=== PATIENT | female | born 1955 | race Caucasian/White ===

== ENCOUNTER 2019-05-02 15:21 | Emergency (ER) | payer MEDICARE, MEDICAID, SELFPAY ==
[2019-05-02 15:10] VITALS: PULSE 80; RESP 20; TEMP 36.6; O2SAT 95
[2019-05-02 15:19] VITALS: BP 132/87
--- NOTE | 2019-05-02 16:03 | ED_ITS ---
Documented by User: Brice Spring MD 05/02/19 22:08 HPI - General Adult General: Chief complaint: General Medical Stated complaint: r arm pain/swelling post surgery Time Seen by Provider: 05/02/19 18:57 History of Present Illness: HPI narrative: 64-year-old female who had fistula placed in her right arm last week. She states she has had swelling to her hand along with her arm. She had a subjective fever today. She denies any worsening improving factors. States she has slight pain in her arm she rates a 2 out of 10 Associated symptoms: Deny chest pain, dyspnea, headache(s), rash or vomiting Review of Systems Const: Denies: fever or chills Eyes: Denies: change in vision ENMT: Denies: throat pain or mouth pain Card: Denies: chest pain Resp: Denies: shortness of breath GI: Denies: abdominal pain, vomiting or diarrhea : Denies: difficulty urinating Musc: Denies: back pain or joint pain Skin/Breast: Denies: rash Neuro: Denies: headache Psych: Denies: depression Endo: Denies: excessive urination Juan/Lymph: Denies: easy bruising All/Imm: Denies: hives PFSH ED PFSH: Statuses (acute, chronic, etc) shown below reflect problem list status as previously entered and may not be historically accurate Social History Smoking and tobacco status: current every day smoker Physical Exam Const: COMMON NORMALS: no apparent distress and healthy appearing HENMT: COMMON NORMALS: normocephalic and external nose normal HEAD & SCALP: normocephalic NOSE: external nose normal and no nasal discharge (nasal dischage) Eye: COMMON NORMALS: PERRL PUPIL: Yes PERRL Neck/C-Spine: COMMON NORMALS: full ROM and no lymphadenopathy Chest: COMMONS NORMALS: inspection of chest normal Resp: COMMON NORMALS: normal respiratory effort and clear to auscultation bilaterally AUSCULTATION: clear to auscultation bilaterally Cardio: COMMON NORMALS: regular rate and regular rhythm RATE: regular rate RHYTHM: regular rhythm GI: COMMON NORMALS: soft to palpation PALPATION: Yes soft Extremity: COMMON NORMALS: full ROM and normal capillary refill OTHER: Swelling to right arm. Slight erythema around incisions with mild warmth to touch. Distal pulses intact. Psych: COMMON NORMALS: mental status grossly normal and cooperative Skin: COMMON NORMALS: no rashes or lesions noted GENERAL SKIN EXAM: no rashes or lesions noted Course Vital Signs: Vital signs: Vital Signs Temperature 97.9 F 05/02/19 21:51 Pulse Rate 74 05/02/19 21:51 Respiratory Rate 16 05/02/19 21:51 Blood Pressure 132/87 05/02/19 15:19 Pulse Oximetry 95 05/02/19 21:51 MDM - General Adult MDM Narrative: Medical decision making narrative: Patient presents here with arm swelling. She has slight cellulitis and edema to her arm. No signs of acute blockage. She is to follow-up with her surgeon as soon as possible. She is to get dialysis tomorrow as scheduled. She is to return to ER if worsening. Lab Data: Labs: Lab Results 05/02/19 05/02/19 Range/Units 20:15 20:15 WBC 8.0 (4.0-10.0) 10^3/ uL RBC 3.51 L (4.1-5.3) 10^6/u L Hgb 11.1 L (11.5-15.3) g/dL Hct 36.6 L (37.0-47.0) % MCV 104.3 H (81-99) fL MCH 31.6 (28.0-34.0) pg MCHC 30.3 (30.0-36.0) g/dL RDW 14.4 (12.1-15.1) % Plt Count 61 L (130-400) 10^3/c mm MPV 11.8 H (7.4-10.4) fL Neut % (Auto) 71.7 % Lymph % (Auto) 15.3 % [place] % (Auto) 8.0 % Eos % (Auto) 4.0 % Baso % (Auto) 0.6 % Neut # (Auto) 5.7 (1.8-7.7) 10^3/u L Lymph # (Auto) 1.2 (0.8-4.8) 10^3/u L [place] # (Auto) 0.6 (0.2-0.9) 10^3/u L Eos # (Auto) 0.3 (0.0-0.8) 10^3/u L Baso # (Auto) 0.1 (0.0-0.1) 10^3/u L Nucleated RBC % (a uto) 0 % Nucleated RBCs # 0.0 /100WBC Sodium 134 L (136-145) mmol/L Potassium 5.3 H (3.5-5.1) mmol/L Chloride 95 L (98-107) mmol/L Carbon Dioxide 16 L (22-29) mmol/L Anion Gap 28.3 H (5-19) BUN 59 H (8-23) mg/dL Creatinine 11.2 H* (0.5-0.9) mg/dL GFR Calculation 3.4 L (90-130) mL/min Glucose 88 (74-106) mg/dL Calcium 7.3 L (8.8-10.2) mg/Dl Discharge Plan Discharge Patient Disposition: Home, Self-Care Clinical Impression: Cellulitis Qualifiers: Site of cellulitis: extremity Site of cellulitis of extremity: upper extremity Laterality: right Qualified Code(s): L03.113 - Cellulitis of right upper limb Condition: Stable Prescriptions: New Keflex 500 mg capsule 500 mg PO Q6H 7 Days Qty: 28 RF: 0 Discharge Orders: Discharge Order (Routine); Ordered 05/02/19 Ordered By: Brice Spring Referrals: Vincent Gillis DO [Primary Care Provider] - 4-7 days Patient Instructions: Cellulitis (ED) Discharge Date/Time: 05/02/19 21:54 Coding Level of Care Code ED Smoke Jumper for Chg Fwd Exam Problem Focused Documented by User: FAISAL Ayon 05/04/19 07:18 HPI - General Adult General: Chief complaint: General Medical Stated complaint: r arm pain/swelling post surgery Time Seen by Provider: 05/02/19 18:57 PFSH ED PFSH: Statuses (acute, chronic, etc) shown below reflect problem list status as previously entered and may not be historically accurate Social History Smoking and tobacco status: current every day smoker Course Vital Signs: Vital signs: Vital Signs Temperature 97.9 F 01/14/20 21:51 Pulse Rate 74 05/02/19 21:51 Respiratory Rate 16 05/02/19 21:51 Blood Pressure 132/87 05/02/19 15:19 Pulse Oximetry 95 05/02/19 21:51 MDM - General Adult MDM Narrative: Medical decision making narrative: I did not see this patient. I have contacted IT regarding this chart. I did not perform any form of examination, history, or assessment on or for this patient. This patient was evaluated solely by Dr. Spring. ES Lab Data: Labs: Lab Results 05/02/19 05/02/19 Range/Units 20:15 20:15 WBC 8.0 (4.0-10.0) 10^3/ uL RBC 3.51 L (4.1-5.3) 10^6/u L Hgb 11.1 L (11.5-15.3) g/dL Hct 36.6 L (37.0-47.0) % MCV 104.3 H (81-99) fL MCH 31.6 (28.0-34.0) pg MCHC 30.3 (30.0-36.0) g/dL RDW 14.4 (12.1-15.1) % Plt Count 61 L (130-400) 10^3/c mm MPV 11.8 H (7.4-10.4) fL Neut % (Auto) 71.7 % Lymph % (Auto) 15.3 % [place] % (Auto) 8.0 % Eos % (Auto) 4.0 % Baso % (Auto) 0.6 % Neut # (Auto) 5.7 (1.8-7.7) 10^3/u L Lymph # (Auto) 1.2 (0.8-4.8) 10^3/u L [place] # (Auto) 0.6 (0.2-0.9) 10^3/u L Eos # (Auto) 0.3 (0.0-0.8) 10^3/u L Baso # (Auto) 0.1 (0.0-0.1) 10^3/u L Nucleated RBC % (a uto) 0 % Nucleated RBCs # 0.0 /100WBC Sodium 134 L (136-145) mmol/L Potassium 5.3 H (3.5-5.1) mmol/L Chloride 95 L (98-107) mmol/L Carbon Dioxide 16 L (22-29) mmol/L Anion Gap 28.3 H (5-19) BUN 59 H (8-23) mg/dL Creatinine 11.2 H* (0.5-0.9) mg/dL GFR Calculation 3.4 L (90-130) mL/min Glucose 88 (74-106) mg/dL Calcium 7.3 L (8.8-10.2) mg/Dl Discharge Plan Discharge Patient Disposition: Home, Self-Care Clinical Impression: Cellulitis Qualifiers: Site of cellulitis: extremity Site of cellulitis of extremity: upper extremity Laterality: right Qualified Code(s): L03.113 - Cellulitis of right upper limb Condition: Stable Prescriptions: New Keflex 500 mg capsule 500 mg PO Q6H 7 Days Qty: 28 RF: 0 Discharge Orders: Discharge Order (Routine); Ordered 05/02/19 Ordered By: Brice Spring Referrals: Vincent Gillis DO [Primary Care Provider] - 4-7 days Patient Instructions: Cellulitis (ED) Discharge Date/Time: 05/02/19 21:54 Coding Level of Care Code ED Smoke Jumper for Chg Fwd Exam Problem Focused
--- NOTE | 2019-05-02 18:59 | ED_ITS ---
Entered by Navya Mccormick, acting as scribe for Brice Spring MD May 02, 2019 15:21 HPI - General Adult General: Chief complaint: General Medical Stated complaint: r arm pain/swelling post surgery Time Seen by Provider: 05/02/19 18:57 Source: patient Mode of arrival: ambulatory Limitations: no limitations History of Present Illness: MD complaint: fisula placement in R arm, post op infection Onset (ago): week(s) (1 week ago) Location: upper extremity (R arm) Radiation: other (to R wrist) Severity: moderate Quality: sharp Pain Consistency: constant Relieving factors: movement Exacerbating factors: movement Associated symptoms: Reports no associated symptoms and headache(s); Deny dyspnea or vomiting Treatments prior to arrival: none Review of Systems Resp: Denies: shortness of breath GI: Denies: abdominal pain, vomiting or diarrhea Neuro: Reports: headache PFSH ED PFSH: Statuses (acute, chronic, etc) shown below reflect problem list status as previously entered and may not be historically accurate Social History Smoking and tobacco status: current every day smoker Physical Exam Const: COMMON NORMALS: no apparent distress and healthy appearing HENMT: COMMON NORMALS: normocephalic and external nose normal HEAD & SCALP: normocephalic NOSE: external nose normal and no nasal discharge (nasal dischage) Eye: COMMON NORMALS: PERRL PUPIL: Yes PERRL Neck/C-Spine: COMMON NORMALS: full ROM and no lymphadenopathy Chest: COMMONS NORMALS: inspection of chest normal Resp: COMMON NORMALS: normal respiratory effort and clear to auscultation bilaterally AUSCULTATION: clear to auscultation bilaterally Cardio: COMMON NORMALS: regular rate and regular rhythm RATE: regular rate RHYTHM: regular rhythm GI: COMMON NORMALS: soft to palpation PALPATION: Yes soft Extremity: COMMON NORMALS: normal to inspection, full ROM and normal capillary refill Psych: COMMON NORMALS: mental status grossly normal and cooperative Course Vital Signs: Vital signs: Vital Signs Temperature 97.9 F 05/02/19 15:10 Pulse Rate 80 05/02/19 15:10 Respiratory Rate 20 H 05/02/19 15:10 Blood Pressure 132/87 05/02/19 15:19 Pulse Oximetry 95 05/02/19 15:10 Coding Level of Care Code ED Protection Officer for Chg Fwd Exam Problem Focused
--- NOTE | 2019-05-02 19:01 | USR_ITS ---
PROCEDURE INFORMATION: Exam: US Duplex Right Lower Extremity Veins, Limited Exam date and time: 05/02/2019 7:07 PM Age: 64 years old Clinical indication: Other: Swelling; Prior surgery; Surgery date: 3-7 days post-operative; Surgery type: See attached TECHNIQUE: Imaging protocol: Real-time Duplex ultrasound of the Right Lower Extremity with 2-D sheriff scale, color Doppler flow and spectral waveform analysis with image documentation. Limited exam was focused on the right lower extremity veins. COMPARISON: No relevant prior studies available. FINDINGS: Right deep veins: Unremarkable. The common femoral, femoral, proximal profunda femoral and popliteal veins are patent without thrombus. Normal Doppler waveforms. Normal compressibility and/or augmentation response. Right superficial veins: Unremarkable. Saphenofemoral junction is patent without thrombus. Other arteries: Flow is identified in the palmar and radial arteries. Soft tissues: The probable 12-year-old a banding graft/fistula is identified in the antecubital space and lower arm. There is a new AV fistula with a small amount of surrounding fluid compatible with seroma or hematoma. No abscess. There is edema of the soft tissues of the lower arm. Other findings: No arterial flow is identified in the ulnar artery. US/[place] [id number] IMPRESSION: 1. No evidence of deep vein thrombosis. 2. 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 New fistula is identified with good flow and no thrombosis. There is surrounding fluid compatible with hematoma or seroma. There is edema in the adjacent soft tissues. 3. No arterial flow is identified in the ulnar artery.
[2019-05-02 19:42] VITALS: RESP 18
[2019-05-02] MEDS: ondansetron 2 mg/ML SDV 2 mL 4 MG IVP (19:42)
[2019-05-02] MEDS: morphine 4 mg/mL SDV 1 mL IVP (19:42)
[2019-05-02 20:24] LABS: Basophils # 0.1 10^3/uL (0.0-0.1); Basophils % 0.6 %; Eosinophils # 0.3 10^3/uL (0.0-0.8); Hematocrit 36.6 % (37.0-47.0); Hemoglobin 11.1 g/dL (11.5-15.3); Lymphocytes # 1.2 10^3/uL (0.8-4.8); Lymphocytes % 15.3 %; Mean Corpuscular HGB Conc 30.3 g/dL (30.0-36.0); Mean Corpuscular Hemoglobin 31.6 pg (28.0-34.0); Mean Corpuscular Volume 104.3 fL (81-99); Mean Platelet Volume 11.8 fL (7.4-10.4); Monocytes # 0.6 10^3/uL (0.2-0.9); Neutrophils # 5.7 10^3/uL (1.8-7.7); Neutrophils % 71.7 %; Nucleated Red Blood Cells % 0 %; Platelet Count 61 10^3/cmm (130-400); Red Blood Count 3.51 10^6/uL (4.1-5.3); Red Cell Distribution Width 14.4 % (12.1-15.1)
--- NOTE | 2019-05-02 20:37 | ED_ITS ---
Entered by Yaima Sevilla, acting as scribe for May 02, 2019 15:21 HPI - General Adult General: Chief complaint: General Medical Stated complaint: r arm pain/swelling post surgery Time Seen by Provider: 05/02/19 18:57 PFSH ED PFSH: Statuses (acute, chronic, etc) shown below reflect problem list status as previously entered and may not be historically accurate Social History Smoking and tobacco status: current every day smoker Course Vital Signs: Vital signs: Vital Signs Temperature 97.9 F 05/02/19 15:10 Pulse Rate 80 05/02/19 15:10 Respiratory Rate 18 05/02/19 19:42 Blood Pressure 132/87 05/02/19 15:19 Pulse Oximetry 95 05/02/19 15:10 MDM - General Adult Lab Data: Labs: Lab Results 05/02/19 Range/Units 20:15 WBC 8.0 (4.0-10.0) 10^3/ uL RBC 3.51 L (4.1-5.3) 10^6/u L Hgb 11.1 L (11.5-15.3) g/dL Hct 36.6 L (37.0-47.0) % MCV 104.3 H (81-99) fL MCH 31.6 (28.0-34.0) pg MCHC 30.3 (30.0-36.0) g/dL RDW 14.4 (12.1-15.1) % Plt Count 61 L (130-400) 10^3/c mm MPV 11.8 H (7.4-10.4) fL Neut % (Auto) 71.7 % Lymph % (Auto) 15.3 % [place] % (Auto) 8.0 % Eos % (Auto) 4.0 % Baso % (Auto) 0.6 % Neut # (Auto) 5.7 (1.8-7.7) 10^3/u L Lymph # (Auto) 1.2 (0.8-4.8) 10^3/u L [place] # (Auto) 0.6 (0.2-0.9) 10^3/u L Eos # (Auto) 0.3 (0.0-0.8) 10^3/u L Baso # (Auto) 0.1 (0.0-0.1) 10^3/u L Nucleated RBC % (a uto) 0 % Nucleated RBCs # 0.0 /100WBC Coding Level of Care Code ED Alternative Medicine Practitioner for Melvin Mina
[2019-05-02 20:45] LABS: Anion Gap 28.3 (5-19); Blood Urea Nitrogen 59 mg/dL (8-23); Calcium 7.3 mg/Dl (8.8-10.2); Carbon Dioxide 16 mmol/L (22-29); Chloride 95 mmol/L (98-107); Glomerular Filtration Rate 3.4 mL/min (90-130); Glucose 88 mg/dL (74-106); Potassium 5.3 mmol/L (3.5-5.1); Sodium 134 mmol/L (136-145)
--- NOTE | 2019-05-02 20:47 | PC.NURSE ---
Patient sitting on the end of the bed, with side rails up. Patient holding a tissue to her weeping arm. RN removed all old dressings to bilateral upper arms, cleaned area and new dressing placed on weeping areas. Patient tolerated well. Patient educated on changing dressings daily and to keep areas clean.
--- NOTE | 2019-05-02 20:54 | PC.NURSE ---
Transferrer 11.2
[2019-05-02] MEDS: cefTRIAXone 1,000 MG in sodium chloride 0.9% (plus) 50 ML 100 MG IV (21:16)
[2019-05-02 21:51] VITALS: PULSE 74; RESP 16; TEMP 36.6; O2SAT 95
== END 2019-05-02 21:54 | disposition home or self-care (01) ==
PROVIDERS: Emergency Provider Emergency Medicine; Family Provider Internal Medicine; PCP Internal Medicine
DX: L03.113 Cellulitis of right upper limb (principal); F17.210 Nicotine dependence, cigarettes, uncomplicated; M79.89 Other specified soft tissue disorders
CPT/HCPCS: 36415; 80048; 85025; 93971; 96365; 96374; 99281; J0696; J2270; J2405

== ENCOUNTER 2019-05-23 10:29 | Emergency (ER) | payer MEDICARE, MEDICAID, SELFPAY ==
[2019-05-23] VITALS (10 sets, daily range): BP systolic 110–114; BP diastolic 49–72; PULSE 89–100; RESP 16–22; TEMP 37.4; O2SAT 94–100; BMI 22.8
--- NOTE | 2019-05-23 10:48 | XR_ITS ---
WS: [id number] CHEST XRAY TECHNIQUE: Portable chest. CLINICAL INFORMATION: cough COMPARISON: FINDINGS: Right central venous catheter with tips in the distal SVC and right atrium. Left upper arm dialysis g raft. Heart: Normal cardiac silhouette. Sternotomy. Lungs: Chronic emphysematous changes. No acute pulmonary infiltrates. Bones: Healed right rib fractures with callus formation. XR/XR chest 1V portable [id number] IMPRESSION: No acute chest findings
--- NOTE | 2019-05-23 10:49 | ECG_ITS ---
Measurements Intervals [place] Rate: 92 P: 74 NH: 208 QRS: -80 QRSD: 153 T: 81 QT: 423 QTc: 523 SINUS RHYTHM RIGHT BUNDLE BRANCH BLOCK [120+ ms QRS DURATION, UPRIGHT V1, 40+ ms S IN I I/aVL/V4/V5/V6] LEFT ANTERIOR FASCICULAR BLOCK [QRS AXIS <= -45, QR IN I, RS IN II] LEFT VENTRICULAR HYPERTROPHY AND ST-T CHANGE [VOLTAGE CRITERIA PLUS ST/T AB ABNORMALITY] Compared to ECG 01/04/2019 20:49:19 Left anterior fascicular block now present Left-axis deviation no longer present Myocardial infarct finding no longer present ST (T wave) deviation still present Electronically Signed On 05-23-2019 20:14:08 ETHANOL OPERATIONS MANAGER by Romel Conde M.D. [email or web address]
--- NOTE | 2019-05-23 10:55 | PC.NURSE ---
Pt states she thinks she has the flu. States she hurts all over and had a fever of 103.
[2019-05-23] MEDS: sodium chloride 0.9% 1,000 ML 999 ML IV (11:14)
[2019-05-23 11:25] LABS: Basophils % 0.5 %; Eosinophils % 0.7 %; Hematocrit 36.8 % (37.0-47.0); Hemoglobin 11.2 g/dL (11.5-15.3); Lymphocytes # 0.6 10^3/uL (0.8-4.8); Lymphocytes % 10.9 %; Mean Corpuscular HGB Conc 30.4 g/dL (30.0-36.0); Mean Corpuscular Hemoglobin 32.8 pg (28.0-34.0); Mean Corpuscular Volume 107.9 fL (81-99); Mean Platelet Volume 12.2 fL (7.4-10.4); Monocytes # 0.6 10^3/uL (0.2-0.9); Monocytes % 10.9 %; Neutrophils # 4.5 10^3/uL (1.8-7.7); Neutrophils % 76.7 %; Nucleated Red Blood Cells % 0 %; Platelet Count 44 10^3/cmm (130-400); Red Blood Count 3.41 10^6/uL (4.1-5.3); White Blood Count 5.8 10^3/uL (4.0-10.0)
[2019-05-23 11:37] LABS: Alanine Aminotransferase 29 U/L (0-33); Albumin Level 3.1 g/dL (3.5-5.2); Alkaline Phosphatase 155 IU/L (35-105); Anion Gap 22.6 (5-19); Aspartate Amino Transferase 30 U/L (0-32); Blood Urea Nitrogen 30 mg/dL (8-23); Calcium 9.1 mg/dL (8.5-10.5); Carbon Dioxide 21 mmol/L (22-29); Chloride 96 mmol/L (98-107); Globulin 4.5 g/dL (1.3-4.6); Glomerular Filtration Rate 7.3 mL/min (90-130); Glucose 116 mg/dL (74-106); Lactate (Lactic Acid level) 2.1 mmol/L (0.5-2.2); Potassium 4.6 mmol/L (3.5-5.1); Sodium 135 mmol/L (136-145); Total Bilirubin 0.6 mg/dL (0.15-1.2); Total Protein 7.6 g/dL (6.6-8.7)
--- NOTE | 2019-05-23 13:05 | ED_ITS ---
HPI - General Adult General: Chief complaint: General Medical Stated complaint: possible sepsis Time Seen by Provider: 05/23/19 10:42 Source: patient Mode of arrival: ambulatory Limitations: no limitations History of Present Illness: HPI narrative: 64 yo female patient presents to ER with worsning of cough and SOB.. pt states SOB is worse with exertion. Pt states she has COPD and is on dialysis which she had yesterday. Pt states she has had a low grade fever. Pt denies any chest pain or abdominal Pain. Pt states she does not make urine. Pt states she is eating and drinking ok. Pt denies any lower ext edema. Associated symptoms: Reports dyspnea; Deny chest pain, confusion, diaphoresis, headache(s), malaise, nausea, rash, palpitations, syncope or vomiting Review of Systems Const: Reports: fever; Denies: chills, body aches, change in appetite, change in weight, fatigue, malaise or diaphoresis Eyes: Denies: change in vision, blurry vision, blind spots, photophobia, eye discomfort, eye discharge, eye redness, floaters or seeing flashes ENMT: Denies: throat pain, uvular edema, enlarged tonsils, painful swallowing, hoarseness, mouth pain, swelling of lips/tongue, oral sores/lesions, bleeding gums, dental pain, dry mouth, ear pain, ear discharge, Change in hearing, tinnitus, disequilibrium, nasal discharge, nasal congestion, post nasal drip or facial/sinus pain Card: Reports: shortness of breath on exertion and shortness of breath when lying down; Denies: chest pain, palpitations, irregular heart rhythm, edema, swelling of feet/ankles, lightheadedness, syncope, pre-syncope, leg pain with exertion or bluish discoloration of hands/feet Resp: Reports: shortness of breath, productive cough and wheezing; Denies: non-productive cough, stridor, pain on inspiration, change in phlegm color, coughing up blood or chest congestion GI: Denies: abdominal pain, nausea, vomiting, vomiting blood, difficulty swallowing, diarrhea, constipation, cramping, change in bowel habits or rectal pain : Denies: flank pain, difficulty urinating, painful urination, urinary frequency, urinary urgency, urinary hesitancy or blood in urine Musc: Denies: neck pain, back pain, extremity pain, extremity swelling, joint pain, joint swelling, redness, joint warmth or deformity Skin/Breast: Denies: rash, itching, redness, sores, new lesion, changes in skin color or dry skin Neuro: Denies: headache, numbness in extremities, weakness in extremities, changes in sensation, lack of coordination, difficulty walking, frequent falls, dizziness, vertigo, confusion, behavioral changes, slurred speech, difficulty communicating thoughts or seizure-like activity Psych: Denies: anxiety, depression, suicidal ideation or homicidal ideation Endo: Denies: excessive urination, excessive thirst, tired all the time, cold intolerance, excessive sweating, flushing, hot flashes or heat intolerance Juan/Lymph: Denies: easy bruising, easy bleeding, petechiae, purpura, enlarged lymph nodes or tender lymph nodes All/Imm: Denies: hives, throat swelling, tongue swelling, facial swelling, acute wheezing or itchy eyes PFSH ED PFSH: Statuses (acute, chronic, etc) shown below reflect problem list status as previously entered and may not be historically accurate Social History Smoking and tobacco status: current every day smoker Physical Exam Const: COMMON NORMALS: no apparent distress, oriented x3, alert and well nourished GENERAL APPEARANCE: cooperative, comfortable, well kempt and well developed; not ill appearing ORIENTATION/CONSCIOUSNESS: Yes awake, Yes oriented to person, Yes oriented to place and Yes oriented to time HENMT: COMMON NORMALS: normocephalic, head/scalp atraumatic, hearing grossly normal bilaterally, external ears normal, EAC's normal, TM's normal bilaterally, external nose normal, nasal mucous membranes and turbinates normal and moist oral mucous membranes HEAD & SCALP: normal to inspection, normocephalic and atraumatic FACE & SINUS: normal facial exam, sinuses nontender and face symme tric NOSE: external nose normal, nares normal, nasal mucous membranes and turbinates normal, no nasal discharge and external nose abnormal EXTERNAL EAR: Yes external ears normal and Yes mastoids normal EXTERNAL AUDITORY CANAL: EAC's normal TYMPANIC MEMBRANE: TM's normal bilaterally MOUTH: oral and palatal mucosa normal, lip normal, tongue normal and salivary glands and ducts normal THROAT: posterior oropharynx normal, tonsils normal and uvula midline; no uvular edema Eye: COMMON NORMALS: PERRL, EOMs intact bilaterally, conjunctivae normal and no scleral icterus GENERAL EYE: normal appearance of both eyes EYELID: eyelids normal CONJUNCTIVA: Yes conjunctivae normal SCLERA: sclerae normal CORNEA: Yes corneas normal PUPIL: Yes PERRL Neck/C-Spine: COMMON NORMALS: full ROM, no lymphadenopathy, supple, no meningeal signs, no JVD and thyroid normal GENERAL: Yes normal visual inspection and Yes trachea midline THYROID: thyroid normal CERVICAL SPINE: Yes cervical ROM normal Lymph: LYMPHATIC: no lymphadenopathy noted and no lymphedema noted Chest: COMMONS NORMALS: inspection of chest normal and palpation of chest normal Resp: COMMON NORMALS: no retractions and no use of accessory muscles EFFORT & INSPECTION: Yes able to speak in complete sentences and Yes symmetric chest movement AUSCULTATION: wheezes expiratory wheezes, inspiratory wheezes, scattered wheezes and throughout Cardio: COMMON NORMALS: no JVD, regular rate and regular rhythm RATE: regular rate RHYTHM: regular rhythm GI: COMMON NORMALS: normal to inspection, nondistended, normoactive bowel sounds, soft to palpation, non-tender, no hepatosplenomegaly, no masses and no bruits INSPECTION: Yes normal to inspection AUSCULTATION: Yes normoactive bowel sounds PALPATION: Yes soft and Yes no hepatosplenomegaly PERCUSSION: normal to percussion RECTAL EXAM: deferred Back/Pelvis: COMMON NORMALS: thoracic and lumbar spine normal to inspection, no thoracic nor lumbar tenderness, thoraco-lumbar ROM normal and straight leg raise negative bilaterally THORACIC SPINE/UPPER BACK: Yes normal to inspection LUMBAR SPINE/LOWER BACK: Yes normal to inspection Extremity: COMMON NORMALS: normal to inspection, full ROM and normal capillary refill GENERAL: Yes normal exam except as noted Neuro: COMMON NORMALS: oriented x3, CN's II-XII intact bilaterally, moves all extremities, no focal motor deficits, no sensory deficits noted, deep tendon reflexes 2+ bilaterally and gait normal SENSORIUM/ORIENTATION: Yes alert, Yes oriented to person, Yes oriented to place and Yes oriented to time MENINGEAL SIGNS: Yes no meningeal signs CRANIAL NERVES: Yes CN normal except as noted SPEECH: speech normal GAIT: Yes normal gait SENSORY EXAM: Yes extremities MOTOR EXAM: strength 5/5 throughout Psych: COMMON NORMALS: mental status grossly normal, thought process normal, cooperative, affect normal, speech normal, activity/motor behavior normal, denies hallucinations, denies homicidal ideation and denies suicidal ideation APPEARANCE: Yes grossly normal and Yes well kempt ATTITUDE: Yes calm ACTIVITY/MOTOR BEHAVIOR: Yes appropriate eye contact SPEECH: Yes normal speech THOUGHT PROCESS: normal thought process THOUGHT CONTENT: Yes normal thought content ATTENTION/CONCENTRATION: Yes attention grossly intact MEMORY/COGNITION: Yes memory grossly intact INSIGHT: insight good JUDGEMENT: judgment good Skin: COMMON NORMALS: no rashes or lesions noted, no wounds, skin turgor normal, no jaundice, no petechiae and no mottling GENERAL SKIN EXAM: no rashes or lesions noted and turgor normal Course ED course: Pt is non toxic andin no acute dstress. Pt is a diaylsis patient and does not produce urine. Pt had inspiratory and expiraoty wheezing throughout. Pt received an hour long albuterol treatment and sole medrol 125 mg and did have clinical improvement. chest xray does not reveal any infiltrates or consolidation. Patient: Carmen Duarte #: [id number] : [id number] Age/Sex: 64 / FADM Date: 05/23/19 Loc: ERRoom/Bed: Attending Dr: Ordering Provider/Ordering MD: Roseline Machuca NP Date of Service: 05/23/19 Procedure(s): XR chest 1V portable [id number] Accession Number(s): [id number] Report Number: [id number] WS: [id number] CHEST XRAY TECHNIQUE: Portable chest. CLINICAL INFORMATION: cough COMPARISON: FINDINGS: Right central venous catheter with tips in the distal SVC and right atrium. Left upper arm dialysis graft. Heart: Normal cardiac silhouette. Sternotomy. Lungs: Chronic emphysematous changes. No acute pulmonary infiltrates. Bones: Healed right rib fractures with callus formation. Pt labs appear close to baseline patient has dialysis scheduled. I discussed admission with patient however patient wants to go home. Pt states she feels much better and does not want to be admitted. I did discuss return precautions and follow up with patient. I will send patient home with albuterol, steroids and antibiotics Vital Signs: Vital signs: Vital Signs Temperature 99.4 F 05/23/19 10:30 Pulse Rate 89 05/23/19 17:29 Respiratory Rate 20 H 05/23/19 17:29 Blood Pressure 110/49 05/23/19 17:29 Pulse Oximetry 100 05/23/19 17:29 [facility] - General Adult Lab Data: Labs: Lab Results 05/23/19 05/23/19 05/23/19 Range/Units 11:14 11:14 11:14 WBC 5.8 (4.0-10.0) 10^3/ uL RBC 3.41 L (4.1-5.3) 10^6/u L Hgb 11.2 L (11.5-15.3) g/dL Hct 36.8 L (37.0-47.0) % MCV 107.9 H (81-99) fL MCH 32.8 (28.0-34.0) pg MCHC 30.4 (30.0-36.0) g/dL RDW 16.0 H (12.1-15.1) % Plt Count 44 L (130-400) 10^3/c mm MPV 12.2 H (7.4-10.4) fL Neut % (Auto) 76.7 % Lymph % (Auto) 10.9 % [place] % (Auto) 10.9 % Eos % (Auto) 0.7 % Baso % (Auto) 0.5 % Neut # (Auto) 4.5 (1.8-7.7) 10^3/u L Lymph # (Auto) 0.6 L (0.8-4.8) 10^3/u L [place] # (Auto) 0.6 (0.2-0.9) 10^3/u L Eos # (Auto) 0.0 (0.0-0.8) 10^3/u L Baso # (Auto) 0.0 (0.0-0.1) 10^3/u L Nucleated RBC % (a uto) 0 % Nucleated RBCs # 0.0 /100WBC Sodium 135 L (136-145) mmol/L Potassium 4.6 (3.5-5.1) mmol/L Chloride 96 L (98-107) mmol/L Carbon Dioxide 21 L (22-29) mmol/L Anion Gap 22.6 H (5-19) BUN 30 H (8-23) mg/dL Creatinine 5.8 H* (0.5-0.9) mg/dL GFR Calculation 7.3 L (90-130) mL/min Glucose 116 H (74-106) mg/dL Lactate 2.1 (0.5-2.2) mmol/L Calcium 9.1 (8.5-10.5) mg/dL Total Bilirubin 0.6 (0.15-1.2) mg/dL AST 30 (0-32) U/L ALT 29 (0-33) U/L Alkaline Phosphata se 155 H (35-105) IU/L Total Protein 7.6 (6.6-8.7) g/dL Albumin 3.1 L (3.5-5.2) g/dL Globulin 4.5 (1.3-4.6) g/dL Influenza Type A A g (Negative) POC Influenza B Ag (Negative) 05/23/19 Range/Units 13:16 WBC (4.0-10.0) 10^3/ uL RBC (4.1-5.3) 10^6/u L Hgb (11.5-15.3) g/dL Hct (37.0-47.0) % MCV (81-99) fL MCH (28.0-34.0) pg MCHC (30.0-36.0) g/dL RDW (12.1-15.1) % Plt Count (130-400) 10^3/c mm MPV (7.4-10.4) fL Neut % (Auto) % Lymph % (Auto) % [place] % (Auto) % Eos % (Auto) % Baso % (Auto) % Neut # (Auto) (1.8-7.7) 10^3/u L Lymph # (Auto) (0.8-4.8) 10^3/u L [place] # (Auto) (0.2-0.9) 10^3/u L Eos # (Auto) (0.0-0.8) 10^3/u L Baso # (Auto) (0.0-0.1) 10^3/u L Nucleated RBC % (a uto) % Nucleated RBCs # /100WBC Sodium (136-145) mmol/L Potassium (3.5-5.1) mmol/L Chloride (98-107) mmol/L Carbon Dioxide (22-29) mmol/L Anion Gap (5-19) BUN (8-23) mg/dL Creatinine (0.5-0.9) mg/dL GFR Calculation (90-130) mL/min Glucose (74-106) mg/dL Lactate (0.5-2.2) mmol/L Calcium (8.5-10.5) mg/dL Total Bilirubin (0.15-1.2) mg/dL AST (0-32) U/L ALT (0-33) U/L Alkaline Phosphata se (35-105) IU/L Total Protein (6.6-8.7) g/dL Albumin (3.5-5.2) g/dL Globulin (1.3-4.6) g/dL Influenza Type A A g Negative (Negative) POC Influenza B Ag Negative (Negative) Discharge Plan Discharge Patient Disposition: Home, Self-Care Clinical Impression: Acute exacerbation of chronic obstructive pulmonary disease Condition: Stable Prescriptions: New doxycycline hyclate 100 mg capsule 100 mg PO BID 10 Days Qty: 20 RF: 0 albuterol sulfate 90 mcg/actuation HFA aerosol inhaler 2 inh INHALATION Q6H Qty: 6.7 RF: 0 prednisone 20 mg tablet 20 mg PO BID 5 Days Qty: 10 RF: 0 Discharge Orders: Discharge Order (Routine); Ordered 05/23/19 Ordered By: Roseline Machuca Referrals: Vincent Gillis DO [Primary Care Provider] - 05/24/19 Discharge Diet: Advance as tolerated Discharge Activity: Increase activity as tolerated Patient Instructions: Chronic Obstructive Pulmonary Disease (ED) Activity Restrictions/Additional Instructions: Please take meds as directed Please follow up with PCP tomorrow Please keep dialysis appointment as scheduled Please return to the ER with any worsening of symptoms as discussed Discharge Date/Time: 05/23/19 17:30 Coding Level of Care Code ED Rate Clerk for Melvin Fwhayder Exam Problem Focused
[2019-05-23 13:47] LABS: Influenza A by IFA Negative (Negative); Influenza B by IFA Negative (Negative)
[2019-05-23] MEDS: ipratropium-albuterol 3 mL Neb INHALATION (13:48)
[2019-05-23] MEDS: acetaminophen 325 mg Tablet 650 MG PO (16:13)
--- NOTE | 2019-05-23 17:27 | PC.NURSE ---
Resp to room for hour long breathing treatment at 1620
== END 2019-05-23 17:30 | disposition home or self-care (01) ==
PROVIDERS: Emergency Provider Registered Nurse; Family Provider Internal Medicine; PCP Internal Medicine
DX: J44.1 Chronic obstructive pulmonary disease with (acute) exacerbation (principal); Z99.2 Dependence on renal dialysis; F17.200 Nicotine dependence, unspecified, uncomplicated
CPT/HCPCS: 36415; 71045; 80053; 83605; 85025; 87040; 87077; 87186; 87205; 87804; 93005; 94640; 94645; 96360; 96375; 99281; J2930; J7030; J7611

== ENCOUNTER 2019-05-25 11:36 | Inpatient (IN) | payer MEDICARE, MEDICAID, SELFPAY ==
[2019-05-25] VITALS (32 sets, daily range): BP systolic 65–127; BP diastolic 35–95; PULSE 88–137; RESP 13–30; TEMP 36.4–37.7; O2SAT 78–99; BMI 22.8
--- NOTE | 2019-05-25 11:41 | ED_ITS ---
Entered by Miranda Hogue, acting as scribe for Alek Blanco DO HPI - General Adult General: Chief complaint: General Medical Stated complaint: ELEVATED HEART RATE HURTS ALL OVER Time Seen by Provider: 05/25/19 11:40 Source: patient, EMS and RN notes reviewed Mode of arrival: EMS Limitations: no limitations History of Present Illness: HPI narrative: 64 yo female presents to ED with complaints of hurting all over and an elevated heart rate. The patient missed her dialysis treatment yesterday and has not been feeling well. The patient state she hurts all over but mostly in her L hand. MD complaint: elevated heart rate Onset (ago): hour(s) Location: upper extremity (L) Radiation: other (hurts all over) Severity: severe Quality: aching Pain Consistency: constant Relieving factors: none Exacerbating factors: none Associated symptoms: Reports malaise and other (elevated heart rate); Deny chest pain, dyspnea, nausea, rash or vomiting Review of Systems Const: Reports: body aches, change in appetite, fatigue, malaise and change in sleep pattern ENMT: Denies: throat pain, ear pain, nasal discharge or nasal congestion Card: Denies: chest pain, edema, shortness of breath on exertion or shortness of breath when lying down Resp: Denies: shortness of breath, productive cough or non-productive cough GI: Denies: abdominal pain, nausea, vomiting, vomiting blood, coffee grounds in vomit, diarrhea, constipation, bloating, blood in stool or black tarry stool : Denies: flank pain, difficulty urinating, painful urination, urinary frequency or urinary urgency Skin/Breast: Denies: rash or itching PFSH ED PFSH: Statuses (acute, chronic, etc) shown below reflect problem list status as previously entered and may not be historically accurate Medical History A-V fistula (Acute) Anemia, chronic disease (Acute) CAD (coronary artery disease) (Acute) ESRD (end stage renal disease) on dialysis (Acute) GERD (gastroesophageal reflux disease) (Acute) Hypertension (Acute) Peripheral neuropathy (Acute) Peripheral vascular disease (Acute) Severe aortic stenosis (Acute) Surgical History History of femoropopliteal bypass (Acute) Hx of appendectomy (Acute) Hx of CABG (Acute) Hx of cholecystectomy (Acute) S/P thyroid surgery (Acute) Family History Other Diabetes Hypertension Social History Smoking and tobacco status: current some day smoker cigarettes Number of cigarettes per day: 1-5 Alcohol intake: never Substance/Drug Use: never Physical Exam Const: ORIENTATION/CONSCIOUSNESS: Yes awake, Yes oriented to person, Yes oriented to place and Yes oriented to time HENMT: COMMON NORMALS: normocephalic, head/scalp atraumatic, hearing grossly normal bilaterally, external ears normal, EAC's normal, TM's normal bilaterally, nasal mucous membranes and turbinates normal, moist oral mucous membranes and oropharynx normal HEAD & SCALP: normocephalic and atraumatic NOSE: nasal mucous membranes and turbinates normal EXTERNAL EAR: Yes external ears normal EXTERNAL AUDITORY CANAL: EAC's normal TYMPANIC MEMBRANE: TM's normal bilaterally Eye: COMMON NORMALS: PERRL, EOMs intact bilaterally, conjunctivae normal and no scleral icterus CONJUNCTIVA: Yes conjunctivae normal PUPIL: Yes PERRL Neck/C-Spine: COMMON NORMALS: full ROM, no lymphadenopathy, supple and no JVD Lymph: LYMPHATIC: no lymphadenopathy noted and no lymphedema noted Resp: COMMON NORMALS: normal respiratory effort, no retractions, no use of accessory muscles and clear to auscultation bilaterally AUSCULTATION: clear to auscultation bilaterally Cardio: COMMON NORMALS: no JVD, regular rate, regular rhythm and no murmurs RATE: regular rate RHYTHM: regular rhythm GI: COMMON NORMALS: soft to palpation and no hepatosplenomegaly AUSCULTATION: Yes normoactive bowel sounds PALPATION: Yes soft, No tender, No guarding and Yes no hepatosplenomegaly Extremity: COMMON NORMALS: normal to inspection, normal capillary refill, no clubbing, cyanosis or edema, no calf tenderness and no pedal edema Neuro: SENSORIUM/ORIENTATION: Yes oriented to person, Yes oriented to place and Yes oriented to time Skin: COMMON NORMALS: no rashes or lesions noted GENERAL SKIN EXAM: no rashes or lesions noted Course Vital Signs: Vital signs: Vital Signs Temperature 98.5 F 05/26/19 00:00 Pulse Rate 72 05/26/19 12:00 Respiratory Rate 16 05/26/19 08:53 Blood Pressure 95/39 05/26/19 12:00 Pulse Oximetry 98 05/26/19 09:00 [facility] - General Adult Lab Data: Labs: Lab Results 05/25/19 05/25/19 05/25/19 Range/Units 11:55 11:55 11:55 WBC 8.8 (4.0-10.0) 10^3/ uL RBC 3.29 L (4.1-5.3) 10^6/u L Hgb 10.4 L (11.5-15.3) g/dL Hct 32.6 L (37.0-47.0) % MCV 99.1 H (81-99) fL MCH 31.6 (28.0-34.0) pg MCHC 31.9 (30.0-36.0) g/dL RDW 15.9 H (12.1-15.1) % Plt Count 39 L (130-400) 10^3/c mm MPV 13.9 H (7.4-10.4) fL Neut % (Auto) 77.6 % Lymph % (Auto) 7.4 % [place] % (Auto) 13.1 % Eos % (Auto) 0.6 % Baso % (Auto) 0.2 % Neut # (Auto) 6.8 (1.8-7.7) 10^3/u L Lymph # (Auto) 0.7 L (0.8-4.8) 10^3/u L [place] # (Auto) 1.2 H (0.2-0.9) 10^3/u L Eos # (Auto) 0.1 (0.0-0.8) 10^3/u L Baso # (Auto) 0.0 (0.0-0.1) 10^3/u L Nucleated RBC % (a uto) 0 % Nucleated RBCs # 0.0 /100WBC ESR (0-15) mm/hr Sodium 131 L (136-145) mmol/L Potassium 5.6 H (3.5-5.1) mmol/L Chloride 94 L (98-107) mmol/L Carbon Dioxide 17 L (22-29) mmol/L Anion Gap 25.6 H (5-19) BUN 84 H* D (8-23) mg/dL Creatinine 9.4 H* (0.5-0.9) mg/dL GFR Calculation 4.2 L (90-130) mL/min Glucose 99 (65-115) mg/dL Calcium 8.3 L (8.5-10.5) mg/dL Total Bilirubin 0.3 (0.15-1.2) mg/dL AST 19 (0-32) U/L ALT 21 (0-33) U/L Alkaline Phosphata se 138 H (35-105) IU/L Troponin T Baselin e 50 H (0-10) ng/mL Troponin T 120 Min [place] (0-10) ng/mL Delta Troponin T (0-10) ABS# Total Protein 6.8 (6.6-8.7) g/dL Albumin 3.6 (3.5-5.2) g/dL Globulin 3.2 (1.3-4.6) g/dL 05/25/19 05/25/19 Range/Units 11:55 13:51 WBC (4.0-10.0) 10^3/ uL RBC (4.1-5.3) 10^6/u L Hgb (11.5-15.3) g/dL Hct (37.0-47.0) % MCV (81-99) fL MCH (28.0-34.0) pg MCHC (30.0-36.0) g/dL RDW (12.1-15.1) % Plt Count (130-400) 10^3/c mm MPV (7.4-10.4) fL Neut % (Auto) % Lymph % (Auto) % [place] % (Auto) % Eos % (Auto) % Baso % (Auto) % Neut # (Auto) (1.8-7.7) 10^3/u L Lymph # (Auto) (0.8-4.8) 10^3/u L [place] # (Auto) (0.2-0.9) 10^3/u L Eos # (Auto) (0.0-0.8) 10^3/u L Baso # (Auto) (0.0-0.1) 10^3/u L Nucleated RBC % (a uto) % Nucleated RBCs # /100WBC ESR 81 H (0-15) mm/hr Sodium (136-145) mmol/L Potassium (3.5-5.1) mmol/L Chloride (98-107) mmol/L Carbon Dioxide (22-29) mmol/L Anion Gap (5-19) BUN (8-23) mg/dL Creatinine (0.5-0.9) mg/dL GFR Calculation (90-130) mL/min Glucose (65-115) mg/dL Calcium (8.5-10.5) mg/dL Total Bilirubin (0.15-1.2) mg/dL AST (0-32) U/L ALT (0-33) U/L Alkaline Phosphata se (35-105) IU/L Troponin T Baselin e (0-10) ng/mL Troponin T 120 Min [place] 48.39 H (0-10) ng/mL Delta Troponin T -1.61 L (0-10) ABS# Total Protein (6.6-8.7) g/dL Albumin (3.5-5.2) g/dL Globulin (1.3-4.6) g/dL Imaging Data^: CXR: Radiologist's impression: [address] [address] XRay Report Signed Patient: Carmen Duarte #: [id number] : 5Acct#:[id number] Age/Sex: 64 / FADM Date: 05/25/19 Loc: ERRoom/Bed: Attending Dr: Ordering Provider/Ordering MD: Alek Blanco DO Date of Service: 05/25/19 Procedure(s): XR chest 1V portable [id number] Accession Number(s): [id number] Report Number: [id number] WS: [id number] Portable AP upright chest, 05/25/2019 Clinical Data: chest pain Comparison: Portable chest, 05/23/2019 Findings: No nodules, masses or effusions are seen. The heart is normal. The pulmonary vascularity is not increased. No pneumothorax is seen. There is patchy atelectasis over the right lateral lower lung and this could represent minimal pneumonia. The dialysis catheter remains in good position. Midline sternotomy sutures are present. There are numerous sutures in the radial soft tissues of the right arm. There is arterial stent catheter in the left arm. There is an incidental calcification in the medial proximal left humerus which appears to have eroded the adjacent bone. XR/XR chest 1V portable [id number] Impression: 1. Patchy atelectasis over periphery of the right middle lobe and recommend repeat chest x-ray in one to 2 days. 2. No change in dialysis catheter, left arterial stents and heart. Dictated By:Aidee Joy MD Signed By:Aidee Joy MDSigned Date/Time:05/25/19 1210 DD/ Discharge Plan Discharge Patient Disposition: Admitted As Inpatient Admit Provider: Delia Shpeherd Clinical Impression: ESRD (end stage renal disease) on dialysis, Acute exacerbation of chronic obstructive pulmonary disease, Atrial fibrillation with RVR, Hypertension Condition: Stable Interventions: ED Discharge Assessment Last Done: 05/25/19 14:29 Discharge Date/Time: 05/25/19 14:38 Coding Level of Care Code ED Industrial Analyst for Chg Fwhayder The documentation recorded by the Mykel galeana Valerie R, accurately reflects the service I personally performed and the decisions made by Francis hernandez Curtis L, DO May 25, 2019 11:36
--- NOTE | 2019-05-25 11:41 | XR_ITS ---
WS: [id number] Portable AP upright chest, 05/25/2019 Clinical Data: chest pain Comparison: Portable chest, 05/23/2019 Findings: No nodules, masses or effusions are seen. The heart is normal. The pulmonary vascularity is not increased. No pneumothorax is seen. There is patchy atelectasis over the right lateral lower jeannie ng and this could represent minimal pneumonia. The dialysis catheter remains in good position. [place] e sternotomy sutures are present. There are numerous sutures in the radial soft tissues of the right arm. There is arterial stent catheter in the left arm. There is an incidental calcification in the me dial proximal left humerus which appears to have eroded the adjacent bone. XR/XR chest 1V portable [id number] Impression: 1. Patchy atelectasis over periphery of the right middle lobe and recommend rep eat chest x-ray in one to 2 days. 2. No change in dialysis catheter, left arterial stents and heart.
--- NOTE | 2019-05-25 11:41 | ECG_ITS ---
Measurements Intervals [place] Rate: 136 P: -79 WV: 188 QRS: -85 QRSD: 149 T: 83 QT: 340 QTc: 512 ECTOPIC ATRIAL TACHYCARDIA versus atrial flutter MARKED LEFT AXIS DEVIATION [QRS AXIS < -30] RIGHT BUNDLE BRANCH BLOCK [120+ ms QRS DURATION, UPRIGHT V1, 40+ ms S IN I/aV I/aVL/V4/V5/V6] LEFT VENTRICULAR HYPERTROPHY AND ST-T CHANGE [VOLTAGE CRITERIA PLUS ST/T ABN ABNORMALITY] POSSIBLE ANTERIOR MYOCARDIAL INFARCTION [30 ms Q WAVE IN V3/V4, OR R < 0.2 mV V4], OF INDETERMINATE AGE Compared to ECG 05/23/2019 11:36:07 Left-axis deviation now present Sinus rhythm no longer present ST (T wave) deviation still present Electronically Signed On 05-25-2019 16:33:18 ALLERGY PHYSICIAN by Lauro Camacho M.D. [email or web address]
[2019-05-25 12:07] LABS: Basophils % 0.2 %; Eosinophils # 0.1 10^3/uL (0.0-0.8); Eosinophils % 0.6 %; Hematocrit 32.6 % (37.0-47.0); Hemoglobin 10.4 g/dL (11.5-15.3); Lymphocytes # 0.7 10^3/uL (0.8-4.8); Lymphocytes % 7.4 %; Mean Corpuscular HGB Conc 31.9 g/dL (30.0-36.0); Mean Corpuscular Hemoglobin 31.6 pg (28.0-34.0); Mean Corpuscular Volume 99.1 fL (81-99); Mean Platelet Volume 13.9 fL (7.4-10.4); Monocytes # 1.2 10^3/uL (0.2-0.9); Monocytes % 13.1 %; Neutrophils # 6.8 10^3/uL (1.8-7.7); Neutrophils % 77.6 %; Nucleated Red Blood Cells % 0 %; Platelet Count 39 10^3/cmm (130-400); Red Blood Count 3.29 10^6/uL (4.1-5.3); Red Cell Distribution Width 15.9 % (12.1-15.1); White Blood Count 8.8 10^3/uL (4.0-10.0)
[2019-05-25 12:29] LABS: Troponin(5th) Baseline 50 ng/mL (0-10)
[2019-05-25 12:31] LABS: Alanine Aminotransferase 21 U/L (0-33); Albumin Level 3.6 g/dL (3.5-5.2); Alkaline Phosphatase 138 IU/L (35-105); Anion Gap 25.6 (5-19); Aspartate Amino Transferase 19 U/L (0-32); Calcium 8.3 mg/dL (8.5-10.5); Carbon Dioxide 17 mmol/L (22-29); Chloride 94 mmol/L (98-107); Globulin 3.2 g/dL (1.3-4.6); Glomerular Filtration Rate 4.2 mL/min (90-130); Glucose 99 mg/dL (65-115); Potassium 5.6 mmol/L (3.5-5.1); Sodium 131 mmol/L (136-145); Total Bilirubin 0.3 mg/dL (0.15-1.2); Total Protein 6.8 g/dL (6.6-8.7)
[2019-05-25 12:43] LABS: Blood Urea Nitrogen 84 mg/dL (8-23)
[2019-05-25] MEDS: sodium chloride 0.9% 1,000 ML 999 ML IV (13:22)
--- NOTE | 2019-05-25 13:41 | ECG_ITS ---
Measurements Intervals [place] Rate: 88 P: 73 MD: 216 QRS: -76 QRSD: 148 T: 74 QT: 435 QTc: 527 SINUS RHYTHM WITH FIRST DEGREE AV BLOCK RIGHT BUNDLE BRANCH BLOCK [120+ ms QRS DURATION, UPRIGHT V1, 40+ ms S IN I I/aVL/V4/V5/V6] LEFT ANTERIOR FASCICULAR BLOCK [QRS AXIS <= -45, QR IN I, RS IN II] LEFT VENTRICULAR HYPERTROPHY AND ST-T CHANGE [VOLTAGE CRITERIA PLUS ST/T ABNO ABNORMALITY] POSSIBLE ANTERIOR MYOCARDIAL INFARCTION [30 ms Q WAVE IN V3/V4, OR R < 0.2 mV V4], OF INDETERMINATE AGE INTERPRETATION BASED ON A DEFAULT AGE OF 40 YEARS Compared to ECG 05/23/2019 11:36:07 First degree AV block now present ST (T wave) deviation still present Electronically Signed On 05-25-2019 16:39:24 MINI LAB OPERATOR by Lauro Camacho M.D. [id number]
[2019-05-25 14:11] LABS: Troponin 5 2HR 48.39 ng/mL (0-10); Troponin 5 2HR Delta -1.61 ABS# (0-10)
--- NOTE | 2019-05-25 14:17 | P.HP_ITS ---
Providers/Chief Complaint Primary Care Provider: Vincent Gillis DO Chief Complaint: ELEVATED HEART RATE HURTS ALL OVER History of Present Illness Carmen Duarte is a 64 year old female with PMHx of ESRD on HD (MWF), HTN, Non oxygen dependent COPD, Chronic smoker, Peripheral neuropathy, Chronic combined systolic and diastolic CHF, Severe aortic stenosis, Peripheral vascular disease, Chronic normocytic anemia, Chronic thrombocytopenia; presents from home via EMS for evaluation of generalized pain x 2 days. Patient presented to the ER on 05/23 for complaints of shortness of breath and cough and was diagnosed with an acute COPD exacerbation. She was discharged on empiric doxycycline and oral steroids. Patient states that she cannot take oral steroids as they make her crazy. She is not oxygen dependent at baseline. She is dialysis dependent, on Wednesday, Wednesday, Wednesday. Her last hemodialysis was on Wednesday as she did not feel well enough to go for dialysis yesterday. She has a known history of noncompliance particularly with dialysis. She primarily complains of pain in her hands which she describes as [id number] and fire. She states that she recently had a grafting procedure done by her vascular surgeon in [place] on her right arm. She has a fistula that is still maturing so has a tunneled catheter for HD access. She was noted to be in A. fib with RVR on her assessment in the ER. She was started on a Cardizem drip which even at a maximum dose did not seem to the heart rate so she was switched to esmolol drip which is currently running. There was mention of her being hypotensive but I am unsure of how accurate her blood pressure reading was as during my assessment in the ER she had a couple of low readings though has been asymptomatic. Heart rate is currently in the 80s with esmolol drip running at 25 mcg/kg/min. labs indicate anemia with a hemoglobin of 10.4, thrombocytopenia with a platelet count of 39, hyponatremia with a sodium of 131, hyperkalemia with a potassium of 5.6, BUN of 84, creatinine of 9.4 initial troponin of 50. Chest x-ray shows some kind of patchy atelectasis in the right middle lobe with recommendation made for repeat x-ray in 1 to 2 days. Due to need for dialysis as well as heart rate control, patient is being admitted to the hospital. Review of Systems Const: Reports: malaise; Denies: fever, chills, change in appetite or fatigue Eyes: Denies: change in vision ENMT: Denies: dry mouth Card: Denies: chest pain, palpitations, swelling of feet/ankles or ligh theadedness Resp: Reports: non-productive cough; Denies: shortness of breath, wheezing or chest congestion GI: Denies: abdominal pain, nausea, vomiting, vomiting blood or blood in stool : Reports: other (anuric); Denies: difficulty urinating, painful urination or urinary frequency Musc: Reports: extremity pain (hands); Denies: back pain Skin/Breast: Denies: rash Neuro: Denies: numbness in extremities or weakness in extremities Psych: Denies: anxiety Medications/Allergies Home Medications Medication Instructions Recorded Confirmed Last Taken Type bacitracin 1 applic TOPICAL Q12H 05/25/19 05/25/19 Unknown History docusate sodium 100 mg PO BID PRN 05/25/19 05/25/19 Unknown History escitalopram oxalate 10 mg PO DAILY 05/25/19 05/25/19 Unknown History hydrocodone-acetaminophen 1 tab PO Q4H PRN 05/25/19 05/25/19 Unknown History nicotine [Nicoderm CQ] 1 patch TRANSDERMAL DAILY 05/25/19 05/25/19 Unknown History prasugrel 10 mg PO DAILY 05/25/19 05/25/19 Unknown History triamcinolone acetonide 1 applic TOPICAL BID 05/25/19 05/25/19 Unknown History Allergies Allergy/AdvReac Type Severity Reaction Status Date / Time calamine Allergy ALGY-Bliste Verified 05/25/19 11:46 r ciprofloxacin [From Cipro] Allergy Unknown Verified 05/25/19 11:46 clopidogrel [From Plavix] Allergy ALGY-Rash Verified 05/25/19 11:46 codeine Allergy Unknown Verified 05/25/19 11:46 diphenhydramine Allergy ALGY-Rash Verified 05/25/19 11:46 [From Benadryl] nitroglycerin Allergy ALGY-Rash Verified 05/25/19 11:46 promethazine [From Phenergan] Allergy Unknown Verified 05/25/19 11:46 quinine Allergy Unknown Verified 05/25/19 11:46 simvastatin Allergy ALGY-Rash Verified 05/25/19 11:46 Sulfa (Sulfonamide Allergy Unknown Verified 05/25/19 11:46 Antibiotics) PFSH Acute PFSH: Statuses (acute, chronic, etc) shown below reflect problem list status as previously entered and may not be historically accurate Medical History (Updated 05/25/19 @ 14:35 by Delia Shepherd MD) A-V fistula (Acute) Anemia, chronic disease (Acute) CAD (coronary artery disease) (Acute) ESRD (end stage renal disease) on dialysis (Acute) GERD (gastroesophageal reflux disease) (Acute) Hypertension (Acute) Peripheral neuropathy (Acute) Peripheral vascular disease (Acute) Severe aortic stenosis (Acute) Surgical History (Updated 05/25/19 @ 14:35 by Delia Shepherd MD) History of femoropopliteal bypass (Acute) Hx of appendectomy (Acute) Hx of CABG (Acute) Hx of cholecystectomy (Acute) S/P thyroid surgery (Acute) Family History (Updated 05/25/19 @ 14:36 by Delia Shepherd MD) Other Diabetes Hypertension Social History (Updated 05/25/19 @ 14:36 by Delia Shepherd MD) Smoking and tobacco status: current some day smoker cigarettes Number of cigarettes per day: 1-5 Alcohol intake: never Substance/Drug Use: never Vitals/I&O/Wt Last Vital Signs Temp 98.2 F 05/25/19 11:36 Pulse 127 H 05/25/19 13:23 Resp 19 H 05/25/19 13:23 BP 87/41 05/25/19 13:23 Pulse Ox 98 05/25/19 13:23 05/24/19 05/25/19 05/25/19 22:59 06:59 14:59 Intake Total 15.334 / 15.334 Balance 15.334 / 15.334 Weight last 48 hrs Weight 54.885 kg Physical Exam Const: COMMON NORMALS: no apparent distress and oriented x3 GENERAL APPEARANCE: cooperative, anxious and disheveled ORIENTATION/CONSCIOUSNESS: Yes awake HENMT: COMMON NORMALS: normocephalic, head/scalp atraumatic, hearing grossly normal bilaterally and moist oral mucous membranes HEAD & SCALP: normocephalic and atraumatic Eye: COMMON NORMALS: PERRL, EOMs intact bilaterally and conjunctivae normal CONJUNCTIVA: Yes conjunctivae normal PUPIL: Yes PERRL Neck/C-Spine: COMMON NORMALS: full ROM GENERAL: Yes normal visual inspection and Yes trachea midline Chest: OTHER: tunneled catheter Resp: COMMON NORMALS: normal respiratory effort, no retractions, no use of accessory muscles and clear to auscultation bilaterally EFFORT & INSPECTION: Yes able to speak in complete sentences, Yes symmetric chest movement and No tachypneic AUSCULTATION: diminished lung sounds bilateral Cardio: COMMON NORMALS: regular rate, regular rhythm, S1 normal heart sound, S2 normal heart sound and no murmurs RATE: regular rate RHYTHM: abnormal rhythm irregularly irregular HEART SOUNDS: S1 normal and S2 normal GI: COMMON NORMALS: normal to inspection, nondistended, normoactive bowel sounds, soft to palpation and non-tender PALPATION: Yes soft Extremity: COMMON NORMALS: normal to inspection, full ROM and no clubbing, cyanosis or edema; negative for no pedal edema OTHER: LUE; healed and scarred over area on upper arm from previous fistula RUE: recent grafting on forearm; maturing fistula Neuro: COMMON NORMALS: oriented x3, moves all extremities, no focal motor deficits and no sensory deficits noted Psych: COMMON NORMALS: mental status grossly normal, thought process normal, cooperative, affect normal and speech normal SPEECH: Yes normal speech THOUGHT PROCESS: normal thought process Skin: COMMON NORMALS: no rashes or lesions noted, no jaundice, no petechiae and no mottling GENERAL SKIN EXAM: no rashes or lesions noted Data : 05/25/19 11:55 05/25/19 11:55 A&P Assessment and plan (1) Atrial fibrillation with RVR: -noted to have atrial fibrillation with RVR in ED; did not respond to cardizem drip, started on Esmolol -wean off as tolerated -telemetry monitoring -monitor vital signs -Echo (07/2018): EF=27-30%, G2DD, diffuse hypokinesia -not on AC Status: Acute Code(s): I48.91 - Unspecified atrial fibrillation (2) ESRD (end stage renal disease) on dialysis: -is on HD MWF, missed Wednesday, will likely need HD today -Nephrology consulted -noted renal function, hyperkalemia -continue to monitor renal function Status: Acute Code(s): N18.6 - End stage renal disease; Z99.2 - Dependence on renal dialysis Additional A&P Information -HTN -Non oxygen dependent COPD; recently treated for acute exacerbation, continue doxycycline -Chronic smoker; smokes 1-2 cig/day, has been using nicotine patches to cut down -Peripheral neuropathy -Chronic combined systolic and diastolic CHF -hx of severe aortic stenosis -hx of non compliance particularly with HD -Peripheral vascular disease; f/u with vascular surgery in [place] -Chronic normocytic anemia, likely anemia of chronic disease; baseline Hg 10-11 -Chronic thrombocytopenia; baseline platelet count 80s -monitor respiratory status; supplemental oxygen as needed -DVT ppx with SCDs; no AC due to thrombocytopenia -renal dialysis diet -fall precautions; up with assist -Dispo: home, already has services -Code status: FULL code Attestations Medical Necessity Statement*: Carmen Duarte's hospital stay will require greater than 2 midnights for management of atrial fibrillation with RVR currently requiring Esmolol drip and closel monitoring of hemodynamic status, need for hemodialysis. Time Spent in Patient Care: Greater than 35 minutes (>than 50% of time spent in counselling and/or direct pt care on unit) . Coding Level of Care Code Acute Seed Potato Cutter for Chg Fwd Diagnoses Atrial fibrillation with RVR I48.91 ESRD (end stage renal disease) on dialysis N18.6; Z99.2
[2019-05-25] MEDS: albuterol 8 gm MDI 1 PUFF INHALATION ×2 (16:19→20:37)
--- NOTE | 2019-05-25 17:10 | P.PN_ITS ---
Subjective Subjective: Interval history: Carmen is seen at bedside in the intensive care unit. She presents with global pain. She was found to have atrial fibrillation with RVR, this seemed to respond to asthma all in the emergency room. She is now in sinus rhythm and is comfortable. She had dialysis two days ago in her outpatient dialysis clinic. She recently had a left AVF removal and placement of a new right AVF. She's currently dialyzing via right CVC. She is not short of breath and has no other symptoms of fluid overload. She has no uremic symptoms. The potassium is 5.6 today. Vitals/I&O/Wt Last Vital Signs Temp 97.6 F 05/25/19 16:00 Pulse 92 05/25/19 16:30 Resp 24 H 05/25/19 16:30 BP 80/64 05/25/19 16:30 Pulse Ox 95 05/25/19 16:23 05/25/19 05/25/19 05/25/19 06:59 14:59 22:59 Intake Total 15.334 / 15.334 0 / 15.334 Output Total 0 / 0 Balance 15.334 / 15.334 0 / 15.334 Weight last 48 hrs Weight 54.885 kg Physical Exam Const: COMMON NORMALS: no apparent distress and average body habitus Neck/C-Spine: COMMON NORMALS: no JVD Lymph: LYMPHATIC: no lymphadenopathy noted and no lymphedema noted Chest: COMMONS NORMALS: inspection of chest normal and palpation of chest normal Resp: COMMON NORMALS: normal respiratory effort and no retractions Cardio: COMMON NORMALS: no JVD and regular rate RATE: regular rate Extremity: COMMON NORMALS: normal to inspection, full ROM and no pedal edema Data : 05/25/19 11:55 05/25/19 11:55 A&P Additional A&P Information 1. ESRD no acute indication for dialysis today, performs in the morning. Orders placed and CPT as well. Dose medications for GFR less than 15 on dialysis. 2. Atrial fibrillation with RVR management per primary team 3. Hyperkalemia relatively mild, will continue to follow this and dialyze her tomorrow to provide definitive therapy. 4. 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 This will be managed in the outpatient dialysis clinic, no need to adjust this therapy during an acute hospital stay. Attestations Medical Necessity Statement*: ESRD mgmt Coding Level of Care Code Acute Bowling Ball Mold Assembler for Melvin Mina
[2019-05-25] MEDS: doxycycline 100 mg Tablet PO (17:52)
[2019-05-25 18:49] LABS: Troponin 5 6HR 44.35 ng/L (0-10)
[2019-05-25 18:50] LABS: Troponin 5 6HR Delta -5.65 ng/L (0-12)
[2019-05-25] MEDS: gabapentin 100 mg Capsule PO (21:13)
[2019-05-25] MEDS: acetaminophen 325 mg Tablet 650 MG PO (21:13)
--- NOTE | 2019-05-25 22:58 | XR_ITS ---
WS: [id number] Left arm and humerus, 2 views, 2 views, 05/26/2019 Clinical Data: r/o abscess, cellulitis Comparison: None. Findings: There is an arterial shunt in the mid portion of the left arm. There is a calcification which is erod ing the junction of the left humeral head and shaft of the left humerus. There are clips in the dista l soft tissue of the arm. There are also subcutaneous calcifications in the distal portion of the lef t arm. No soft tissue masses are seen. No air-fluid levels are noted which could indicate an abscess. XR/[place] [id number] Impression: 1. Negative for soft tissue mass or abscess. 2. Soft tissue calcification measuring 1.72 cm which is adjacent to the medial aspect of the junction of the left humeral head and left humeral shaft. 3. Arterial shunt in the midportion of left arm. 4. Soft tissue calcifications and clips in distal subcutaneous tissues of the l eft arm.
[2019-05-25] MEDS: HYDROcodone-acetaminophen 5-325 mg Tablet 1 TAB PO (23:03)
[2019-05-25 23:35] LABS: Basophils % 0.4 %; Eosinophils % 0.4 %; Hematocrit 34.3 % (37.0-47.0); Hemoglobin 10.3 g/dL (11.5-15.3); Lymphocytes # 0.6 10^3/uL (0.8-4.8); Lymphocytes % 8.5 %; Mean Corpuscular Hemoglobin 31.3 pg (28.0-34.0); Mean Corpuscular Volume 104.3 fL (81-99); Monocytes # 0.9 10^3/uL (0.2-0.9); Monocytes % 12.4 %; Neutrophils # 5.5 10^3/uL (1.8-7.7); Neutrophils % 77.3 %; Nucleated Red Blood Cells % 0 %; Platelet Count 40 10^3/cmm (130-400); Red Blood Count 3.29 10^6/uL (4.1-5.3); Red Cell Distribution Width 16.2 % (12.1-15.1); White Blood Count 7.2 10^3/uL (4.0-10.0)
[2019-05-25 23:46] LABS: C Reactive Protein 266.8 mg/L (0.0-4.9)
[2019-05-25 23:47] LABS: Lactic Acid level (Lactate) 1.3 mmol/L (0.5-2.2)
[2019-05-25] MEDS: lactated ringers 500 ML 999 ML IV (23:48)
--- NOTE | 2019-05-25 23:59 | PC.NURSE ---
27 cm diameter around left bicep 28 cm diameter around left fistula redness outlined per physician
[2019-05-26] VITALS (40 sets, daily range): BP systolic 77–130; BP diastolic 21–88; PULSE 68–103; RESP 12–27; TEMP 36.9–37.6; O2SAT 91–98
[2019-05-26 00:49] LABS: Erythrocyte Sedimentation Rate 81 mm/hr (0-15)
[2019-05-26 01:10] LABS: Procalcitonin < 100.00 ng/mL (0-0.5)
[2019-05-26] MEDS: vancomycin 1,000 MG in sodium chloride 0.9% 250 ML 125 MG IV (01:28)
[2019-05-26] MEDS: HYDROcodone-acetaminophen 5-325 mg Tablet 1 TAB PO ×3 (04:24→14:53)
[2019-05-26] MEDS: piperacillin-tazobactam 2.25 GM in sodium chloride 0.9% (plus) 50 ML IV (04:24)
[2019-05-26 06:16] LABS: Basophils % 0.2 %; Eosinophils % 0.3 %; Hematocrit 34.5 % (37.0-47.0); Hemoglobin 10.6 g/dL (11.5-15.3); Lymphocytes # 1.1 10^3/uL (0.8-4.8); Lymphocytes % 12.5 %; Mean Corpuscular HGB Conc 30.7 g/dL (30.0-36.0); Mean Corpuscular Hemoglobin 32.1 pg (28.0-34.0); Mean Corpuscular Volume 104.5 fL (81-99); Mean Platelet Volume 12.7 fL (7.4-10.4); Monocytes # 1.5 10^3/uL (0.2-0.9); Monocytes % 16.4 %; Neutrophils # 6.2 10^3/uL (1.8-7.7); Neutrophils % 69.5 %; Nucleated Red Blood Cells % 0 %; Platelet Count 36 10^3/cmm (130-400); Red Cell Distribution Width 16.1 % (12.1-15.1)
[2019-05-26 06:35] LABS: Alanine Aminotransferase 19 U/L (0-33); Albumin Level 2.5 g/dL (3.5-5.2); Alkaline Phosphatase 142 IU/L (35-105); Anion Gap 27.6 (5-19); Aspartate Amino Transferase 23 U/L (0-32); Calcium 7.7 mg/dL (8.5-10.5); Carbon Dioxide 15 mmol/L (22-29); Chloride 94 mmol/L (98-107); Globulin 3.7 g/dL (1.3-4.6); Glomerular Filtration Rate 4.4 mL/min (90-130); Glucose 81 mg/dL (65-115); Potassium 6.6 mmol/L (3.5-5.1); Sodium 130 mmol/L (136-145); Total Bilirubin 0.4 mg/dL (0.15-1.2); Total Protein 6.2 g/dL (6.6-8.7)
[2019-05-26 06:37] LABS: Blood Urea Nitrogen 82 mg/dL (8-23)
[2019-05-26] MEDS: albuterol 8 gm MDI 1 PUFF INHALATION ×2 (08:52→20:17)
[2019-05-26] MEDS: gabapentin 100 mg Capsule PO ×3 (09:07→20:06)
--- NOTE | 2019-05-26 09:44 | PM.PN ---
Subjective Subjective: Interval history: Seen and examined, continues to complain of pain in her hands, pending hemodialysis later today. Reviewed blood cultures showing 4 out of 4 bottles growing gram-negative rods, repeat culture set ordered. Received a dose of Zosyn and vancomycin overnight as well as IV fluid hydration secondary to hypotension. Spiked a low-grade temperature of 99.8, has remained afebrile since. No leukocytosis per a.m. labs. Heart rate remains within normal limits, has been off esmolol since coming from the ER. Medications: Reviewed: Yes Medication Review Details: Current Medications Generic Name Dose Route Start Last Admin Trade Name Freq PRN Reason Stop Dose Admin Acetaminophen 650 mg 05/25/19 14:57 05/25/19 21:13 Tylenol PO 650 mg Q6H PRN Administration Mild/Mod Pain Or Temp >/= 101 Hydrocodone Bitart /Acetaminophen 1 tab 05/25/19 21:09 05/26/19 09:07 [place] 5-325 Mg PO 1 tab Q4H PRN Administration MODERATE PAIN Albuterol Sulfate 1 puff 05/25/19 14:57 05/26/19 08:52 Ventolin INHALATION 1 puff Q6H JOSE DANIEL Administration Doxycycline Monohy drate 100 mg 05/25/19 18:00 05/25/19 17:52 Vibramycin PO 100 mg BID JOSE DANIEL Administration Gabapentin 100 mg 05/25/19 15:00 05/26/19 09:07 Neurontin PO 100 mg TID JOSE DANIEL Administration Vitals/I&O/Wt Last Vital Signs Temp 98.5 F 05/26/19 00:00 Pulse 95 05/26/19 08:55 Resp 16 05/26/19 08:53 BP 95/54 05/26/19 06:00 Pulse Ox 92 05/26/19 08:53 05/25/19 05/26/19 05/26/19 22:59 06:59 14:59 Intake Total 100 / 115.334 Output Total 0 / 0 Balance 100 / 115.334 Weight last 48 hrs Weight 61.779 kg Weight 54.885 kg Physical Exam Const: COMMON NORMALS: no apparent distress and oriented x3 GENERAL APPEARANCE: cooperative, anxious and disheveled ORIENTATION/CONSCIOUSNESS: Yes awake HENMT: COMMON NORMALS: normocephalic, head/scalp atraumatic, hearing grossly normal bilaterally and moist oral mucous membranes HEAD & SCALP: normocephalic and atraumatic Eye: COMMON NORMALS: PERRL, EOMs intact bilaterally and conjunctivae normal CONJUNCTIVA: Yes conjunctivae normal PUPIL: Yes PERRL Neck/C-Spine: COMMON NORMALS: full ROM GENERAL: Yes normal visual inspection and Yes trachea midline Chest: OTHER: tunneled catheter Resp: COMMON NORMALS: normal respiratory effort, no retractions, no use of accessory muscles and clear to auscultation bilaterally EFFORT & INSPECTION: Yes able to speak in complete sentences, Yes symmetric chest movement and No tachypneic AUSCULTATION: clear to auscultation bilaterally and diminished lung sounds bilateral Cardio: COMMON NORMALS: regular rate, regular rhythm, S1 normal heart sound, S2 normal heart sound and no murmurs RATE: regular rate RHYTHM: regular rhythm and abnormal rhythm irregularly irregular HEART SOUNDS: S1 normal and S2 normal GI: COMMON NORMALS: normal to inspection, nondistended, normoactive bowel sounds, soft to palpation and non-tender PALPATION: Yes soft Extremity: COMMON NORMALS: normal to inspection, full ROM and no clubbing, cyanosis or edema; negative for no pedal edema OTHER: LUE; healed and scarred over area on upper arm from previous fistula RUE: recent grafting on forearm; maturing fistula Neuro: COMMON NORMALS: oriented x3, moves all extremities, no focal motor deficits and no sensory deficits noted Psych: COMMON NORMALS: mental status grossly normal, thought process normal, cooperative, affect normal and speech normal SPEECH: Yes normal speech THOUGHT PROCESS: normal thought process Skin: COMMON NORMALS: no rashes or lesions noted, no jaundice, no petechiae and no mottling GENERAL SKIN EXAM: no rashes or lesions noted Data : 05/26/19 05:35 05/26/19 05:35 Micro: Microbiology 05/25/19 23:10 Blood Culture - Preliminary Blood SPECIMEN COLLECTED 05/25/19 23:20 Blood Culture - Preliminary Blood SPECIMEN COLLECTED A&P Assessment and plan (1) Atrial fibrillation with RVR: -noted to have atrial fibrillation with RVR in ED; did not respond to cardizem drip, started on Esmolol with good response and this has since been weaned off -Heart rate remains controlled -telemetry monitoring -Hypotensive overnight; continue to monitor vital signs -Echo (07/2018): EF=27-30%, G2DD, diffuse hypokinesia -not on AC Status: Acute Code(s): I48.91 - Unspecified atrial fibrillation (2) ESRD (end stage renal disease) on dialysis: -is on HD MWF, missed Wednesday, HD today -Nephrology consult appreciated -noted renal function, hyperkalemia -continue to monitor renal function Status: Acute Code(s): N18.6 - End stage renal disease; Z99.2 - Dependence on renal dialysis Additional A&P Information -HTN; hypotensive overnight, low normal BP this AM -Non oxygen dependent COPD; recently treated for acute exacerbation, continue doxycycline -Chronic smoker; smokes 1-2 cig/day, has been using nicotine patches to cut down -Peripheral neuropathy -Chronic combined systolic and diastolic CHF -hx of severe aortic stenosis -hx of non compliance particularly with HD -Peripheral vascular disease; f/u with vascular surgery in [place] -Chronic normocytic anemia, likely anemia of chronic disease; baseline Hg 10-11 -Chronic thrombocytopenia; baseline platelet count 80s -Noted bacteremia, blood cultures from 2/4 growing gram-negative rods in 4 out of 4 bottles. Repeat blood cx ordered; has received dose of Vanc, Zosyn. No leukocytosis, currently afebrile. Concern for possible skin infection on L, previous fistula site. May need to continue vanc with HD until ID and sensitivity -continue to monitor respiratory status; supplemental oxygen as needed -DVT ppx with SCDs; no AC due to thrombocytopenia -renal dialysis diet -fall precautions; up with assist -Dispo: home, already has services -Code status: FULL code -transfer to floor for continued care Attestations Medical Necessity Statement*: Patient requires hospitalization for continued management of gram negative bacteremia, continued telemetry monitoring. Time Spent in Patient Care: Greater than 35 minutes (>than 50% of time spent in counselling and/or direct pt care on unit). Coding Level of Care Code Acute Regional Office Coordinator for Melvin Fwd Diagnoses Atrial fibrillation with RVR I48.91 ESRD (end stage renal disease) on dialysis N18.6; Z99.2
--- NOTE | 2019-05-26 14:20 | XR_ITS ---
WS: [id number] Portable AP upright chest, 05/26/2019 Clinical Data: f/u on RML patchy atelectasis Comparison: Portable chest, 05/25/2019 Findings: No nodules, masses or effusions are seen. The heart is normal. The pulmonary vascularity is not increased. No pneumonia or pneumothorax is seen. The patchy opacity in the right middle lobe has cleared. The dialysis catheter remains unchanged. The arterial stent in the left arm is noted. Midli ne sternotomy sutures are seen. Monitor leads are on the chest wall. Small clips in the subcutaneous tissue of the proximal medial arm are seen. There are clips in the upper abdomen from a cholecystecto my. XR/XR chest 1V portable [id number] Impression: 1. Clearing of patchy opacity in lateral aspect of right middle lobe. 2. No other changes of the heart and lungs are seen
--- NOTE | 2019-05-26 14:38 | PM.PN ---
Subjective Subjective: Interval history: diarrhea x 2 today, positive for Cdiff. Just completed dialysis. This went well with no hemodynamic issues. Breathing comfortably. Medications: Reviewed: Yes Medication Review Details: Current Medications Generic Name Dose Route Start Last Admin Trade Name Freq PRN Reason Stop Dose Admin Acetaminophen 650 mg 05/25/19 14:57 05/25/19 21:13 Tylenol PO 650 mg Q6H PRN Administration Mild/Mod Pain Or Temp >/= 101 Hydrocodone Bitart /Acetaminophen 1 tab 05/25/19 21:09 05/26/19 09:07 [place] 5-325 Mg PO 1 tab Q4H PRN Administration MODERATE PAIN Albuterol Sulfate 1 puff 05/25/19 14:57 05/26/19 08:52 Ventolin INHALATION 1 puff Q6H JOSE DANIEL Administration Doxycycline Monohy drate 100 mg 05/25/19 18:00 05/25/19 17:52 Vibramycin PO 100 mg BID JOSE DANIEL Administration Gabapentin 100 mg 05/25/19 15:00 05/26/19 09:07 Neurontin PO 100 mg TID JOSE DANIEL Administration Vitals/I&O/Wt Last Vital Signs Temp 98.5 F 05/26/19 00:00 Pulse 72 05/26/19 12:00 Resp 16 05/26/19 08:53 BP 95/39 05/26/19 12:00 Pulse Ox 98 05/26/19 09:00 05/25/19 05/26/19 05/26/19 22:59 06:59 14:59 Intake Total 100 / 115.334 Output Total 0 / 0 Balance 100 / 115.334 Weight last 48 hrs Weight 61.779 kg Weight 54.885 kg Physical Exam Const: COMMON NORMALS: no apparent distress and average body habitus Neck/C-Spine: COMMON NORMALS: no JVD Lymph: LYMPHATIC: no lymphadenopathy noted and no lymphedema noted Chest: COMMONS NORMALS: inspection of chest normal and palpation of chest normal Resp: COMMON NORMALS: normal respiratory effort and no retractions Cardio: COMMON NORMALS: no JVD and regular rate RATE: regular rate Extremity: COMMON NORMALS: normal to inspection, full ROM and no pedal edema Data : 05/26/19 05:35 05/26/19 05:35 Micro: Microbiology 05/26/19 06:05 C.difficile Toxin B Gene (PCR) - Final Stool 05/25/19 23:10 Blood Culture - Preliminary Blood SPECIMEN COLLECTED 05/25/19 23:20 Blood Culture - Preliminary Blood SPECIMEN COLLECTED A&P Additional A&P Information 1. ESRD dialyzed today, plan next session on Wednesday Dose medications for GFR less than 15 on dialysis. 2. Atrial fibrillation now controlled and she has been weaned off esmolol 3. bacteremia - per Dr Shepherd; on Abx, GNRs in blood 4. 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 This will be managed in the outpatient dialysis clinic, no need to adjust this therapy during an acute hospital stay. Attestations Medical Necessity Statement*: mgmt of ESRD Coding Level of Care Code Acute Property Inspector for Melvin Mina
--- NOTE | 2019-05-26 15:58 | PC.CHAP ---
Pastoral Care Encounter/Spiritual Assessment Type of Contact [] Declined printing sales representative visit [] Patient/Family/Request visit [] Outpatient visit [] Follow-up visit [] Physician referral [] Code/Alert [] Routine visit [] Staff referral [] Actively dying [] Patient sleeping [] Family support [] [] Out of room [] Palliative care [] [] Receiving care in room [] Pre-surgical visit [] Trauma [] Long length of stay [] ICU visit [x] Other: Isolation Relational/Emotional Strength [] Patient feels connected with others/family/visitors/staff [] Distress [] Loneliness/isolation [] Abandonment Spirituality of Patient [] Person of Bianca [] Attends Buddhism of their Bianca [] Believes in Prayer [] Reads Bible or Faith materials [] There are Spiritual issues to be addressed Software Configuration Specialist Interventions [] Prayer [] Active listening [] Non-anxious presence [] Spiritual/emotional support [] Crisis/trauma care [] Spiritual counseling [] Bereavement support [] Provided bereavement packet [] Provided Bible/devotional materials [] Provided toy/stuffed animal, coloring book to patient or family member [] Provided Communion [] Anointing/[place] [] Salvation [] Completed spiritual assessment [] Other: Impact on Illness or Injury [] Angry [] Fearful [] Anxious [] Often cries [] Exhaustion [] Unable to work [] Unable to attend adventism [] Unable to walk/stand [] Unable to read [] Unable to drive [] Unable to eat/drink [] Unable to sleep [] Unable to be with family [] Patient intubated [] Other: Summary Patient is in Isolation. No printing sales representative visit conducted Software Configuration Specialist Ema Mae Time spent with patient 2 minutes
[2019-05-26] MEDS: acetaminophen 325 mg Tablet 650 MG PO (20:06)
[2019-05-26] MEDS: piperacillin-tazobactam 3.375 GM in sodium chloride 0.9% (plus) 50 ML IV (20:06)
--- NOTE | 2019-05-26 22:58 | USCV_ITS ---
Carmen Duarte Age: 64 Gender: F : 1955 Exam Date: 05/26/2019 07:48 Ordering Phys: Dylon Rock MD Technologist: Magali Rizvi [place] [facility] [place]ication: LT ARM PAIN AND SWELLING FAILED AV GRAFT HISTORY: Upper extremity swelling. PROCEDURES: Venous duplex imaging was performed in only the left upper extremity. The following venous structures were evaluated: internal jugular vein, subclavian vein, axillary vein, and brachial veins. In addition, the basilic vein, cephalic vein, radial vein, and ulnar vein. FINDINGS: THERE IS THROMBUS IN THE BASILIC FROM OLD FISTULA SITE UP THE BASILCI The basilic vein was found to have echogenic material in the lumen with no spontaneous flow. The graft was found to have no blood flow. CONCLUSIONS Features of thrombosis of the left basilic vein at the site of the anastomosis with the graft and appears to extend proximally. The graft on the left side appears to be occluded with no spontaneous flow Dr Fanny Tuttle MD [facility] (Electronically Signed) Final Date: 29 May 2019 14:16 S
[2019-05-27] VITALS (37 sets, daily range): BP systolic 78–112; BP diastolic 32–68; PULSE 74–133; RESP 12–27; TEMP 36.8–37.2; O2SAT 90–99
[2019-05-27] MEDS: piperacillin-tazobactam 3.375 GM in sodium chloride 0.9% (plus) 50 ML IV ×2 (03:45→17:08)
[2019-05-27] MEDS: gabapentin 100 mg Capsule PO ×3 (08:28→21:11)
[2019-05-27] MEDS: HYDROcodone-acetaminophen 5-325 mg Tablet 1 TAB PO ×3 (08:28→22:18)
[2019-05-27] MEDS: albuterol 8 gm MDI 1 PUFF INHALATION ×2 (09:55→14:25)
--- NOTE | 2019-05-27 10:35 | P.PN_ITS ---
Subjective Subjective: Interval history: diarrhea x 2 today, positive for Cdiff. Dialyzed yesterday. This went well with no hemodynamic issues. Breathing comfortably. Medications: Reviewed: Yes Medication Review Details: Current Medications Generic Name Dose Route Start Last Admin Trade Name Freq PRN Reason Stop Dose Admin Acetaminophen 650 mg 05/25/19 14:57 05/25/19 21:13 Tylenol PO 650 mg Q6H PRN Administration Mild/Mod Pain Or Temp >/= 101 Hydrocodone Bitart /Acetaminophen 1 tab 05/25/19 21:09 05/26/19 09:07 [place] 5-325 Mg PO 1 tab Q4H PRN Administration MODERATE PAIN Albuterol Sulfate 1 puff 05/25/19 14:57 05/26/19 08:52 Ventolin INHALATION 1 puff Q6H JOSE DANIEL Administration Doxycycline Monohy drate 100 mg 05/25/19 18:00 05/25/19 17:52 Vibramycin PO 100 mg BID JOSE DANIEL Administration Gabapentin 100 mg 05/25/19 15:00 05/26/19 09:07 Neurontin PO 100 mg TID JOSE DANIEL Administration Vitals/I&O/Wt Last Vital Signs Temp 99.0 F 05/27/19 05:00 Pulse 90 05/27/19 09:58 Resp 16 05/27/19 09:57 BP 95/52 05/27/19 08:00 Pulse Ox 96 05/27/19 09:57 05/26/19 05/27/19 05/27/19 22:59 06:59 14:59 Intake Total 420 / 670 170 / 840 200 / 200 Output Total 40 / 40 0 / 40 Balance 380 / 630 170 / 800 200 / 200 Weight last 48 hrs Weight 61.462 kg Weight 61.779 kg Weight 54.885 kg Physical Exam Const: COMMON NORMALS: no apparent distress and average body habitus Neck/C-Spine: COMMON NORMALS: no JVD Lymph: LYMPHATIC: no lymphadenopathy noted and no lymphedema noted Chest: COMMONS NORMALS: inspection of chest normal and palpation of chest normal Resp: COMMON NORMALS: normal respiratory effort and no retractions Cardio: COMMON NORMALS: no JVD and regular rate RATE: regular rate Extremity: COMMON NORMALS: normal to inspection, full ROM and no pedal edema Data : 05/26/19 05:35 05/26/19 05:35 Micro: Microbiology 05/26/19 20:02 Blood Culture - Preliminary Blood SPECIMEN COLLECTED 05/26/19 19:58 Blood Culture - Preliminary Blood SPECIMEN COLLECTED 05/25/19 23:20 Blood Culture - Preliminary Blood Gram Negative Rods 05/25/19 23:10 Blood Culture - Preliminary Blood Gram Negative Rods 05/26/19 06:05 C.difficile Toxin B Gene (PCR) - Final Stool A&P Additional A&P Information 1. ESRD dialyzed yesterday, plan next session on Wednesday Will get BMP today to ensure the K has come down Dose medications for GFR less than 15 on dialysis. 2. Atrial fibrillation now controlled and she has been weaned off esmolol 3. ID issues bacteremia with GNRS CDiff positive - per Dr Shepherd; on Abx 4. 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 This will be managed in the outpatient dialysis clinic, no need to adjust this therapy during an acute hospital stay. Attestations Medical Necessity Statement*: mgmt of ESRD Coding Level of Care Code Acute Research Coordinator for Melvin Mina
--- NOTE | 2019-05-27 10:43 | PM.PN ---
Subjective Subjective: Interval history: A.m. labs noted, patient resting in bed, does not appear to be in any distress though continues to complain of pain. Redness previously demarcated on her left arm seems to be decreasing. Medications: Reviewed: Yes Medication Review Details: Current Medications Generic Name Dose Route Start Last Admin Trade Name Freq PRN Reason Stop Dose Admin Acetaminophen 650 mg 05/25/19 14:57 05/26/19 20:06 Tylenol PO 650 mg Q6H PRN Administration Mild/Mod Pain Or Temp >/= 101 Hydrocodone Bitart /Acetaminophen 1 tab 05/25/19 21:09 05/27/19 08:28 [place] 5-325 Mg PO 1 tab Q4H PRN Administration MODERATE PAIN Albuterol Sulfate 1 puff 05/25/19 14:57 05/27/19 09:55 Ventolin INHALATION 1 puff Q6H JOSE DANIEL Administration Doxycycline Monohy drate 100 mg 05/25/19 18:00 05/25/19 17:52 Vibramycin PO 100 mg BID JOSE DANIEL Administration Gabapentin 100 mg 05/25/19 15:00 05/27/19 08:28 Neurontin PO 100 mg TID JOSE DANIEL Administration Vancomycin HCl 125 mg 05/26/19 13:00 05/27/19 08:27 Vancocin PO 125 mg QID JOSE DANIEL Administration Vitals/I&O/Wt Last Vital Signs Temp 99.0 F 05/27/19 05:00 Pulse 90 05/27/19 09:58 Resp 16 05/27/19 09:57 BP 95/52 05/27/19 08:00 Pulse Ox 96 05/27/19 09:57 05/26/19 05/27/19 05/27/19 22:59 06:59 14:59 Intake Total 420 / 670 170 / 840 200 / 200 Output Total 40 / 40 0 / 40 Balance 380 / 630 170 / 800 200 / 200 Weight last 48 hrs Weight 61.462 kg Weight 61.779 kg Weight 54.885 kg Physical Exam Const: COMMON NORMALS: no apparent distress and oriented x3 GENERAL APPEARANCE: cooperative, anxious and disheveled ORIENTATION/CONSCIOUSNESS: Yes awake HENMT: COMMON NORMALS: normocephalic, head/scalp atraumatic, hearing grossly normal bilaterally and moist oral mucous membranes HEAD & SCALP: normocephalic and atraumatic Eye: COMMON NORMALS: PERRL, EOMs intact bilaterally and conjunctivae normal CONJUNCTIVA: Yes conjunctivae normal PUPIL: Yes PERRL Neck/C-Spine: COMMON NORMALS: full ROM GENERAL: Yes normal visual inspection and Yes trachea midline Chest: OTHER: tunneled catheter Resp: COMMON NORMALS: normal respiratory effort, no retractions, no use of accessory muscles and clear to auscultation bilaterally EFFORT & INSPECTION: Yes able to speak in complete sentences, Yes symmetric chest movement and No tachypneic AUSCULTATION: clear to auscultation bilaterally and diminished lung sounds bilateral Cardio: COMMON NORMALS: regular rate, regular rhythm, S1 normal heart sound, S2 normal heart sound and no murmurs RATE: regular rate RHYTHM: regular rhythm and abnormal rhythm irregularly irregular HEART SOUNDS: S1 normal and S2 normal GI: COMMON NORMALS: normal to inspection, nondistended, normoactive bowel sounds, soft to palpation and non-tender PALPATION: Yes soft Extremity: COMMON NORMALS: normal to inspection, full ROM and no clubbing, cyanosis or edema; negative for no pedal edema OTHER: LUE; healed and scarred over area on upper arm from previous fistula; demarcated area of erythema is decreasing, noted warmth to touch and tenderness to palpation RUE: recent grafting on forearm; maturing fistula Neuro: COMMON NORMALS: oriented x3, moves all extremities, no focal motor deficits and no sensory deficits noted Psych: COMMON NORMALS: mental status grossly normal, thought process normal, cooperative, affect normal and speech normal SPEECH: Yes normal speech THOUGHT PROCESS: normal thought process Skin: COMMON NORMALS: no rashes or lesions noted, no jaundice, no petechiae and no mottling GENERAL SKIN EXAM: no rashes or lesions noted Data : 05/26/19 05:35 05/27/19 11:02 Micro: Microbiology 05/26/19 20:02 Blood Culture - Preliminary Blood SPECIMEN COLLECTED 05/26/19 19:58 Blood Culture - Preliminary Blood SPECIMEN COLLECTED 05/25/19 23:20 Blood Culture - Preliminary Blood Gram Negative Rods 05/25/19 23:10 Blood Culture - Preliminary Blood Gram Negative Rods 05/26/19 06:05 C.difficile Toxin B Gene (PCR) - Final Stool A&P Assessment and plan (1) Gram-negative bacteremia: -Noted bacteremia secondary to pseudomonas aeruginosa, blood cultures from 2/4 growing gram-. Repeat blood cx from 2/6 growing GNRs in 2/4 bottles; repeat set ordered; has received dose of Vanc, Zosyn. -No leukocytosis, currently afebrile. -Concern for possible skin infection on L, previous fistula site. -On Zosy -pending venous duplex Status: Acute Code(s): R78.81 - Bacteremia (2) C. difficile colitis: -C.difficile positive -on oral vancomycin, -contact isolation precautions Status: Acute Code(s): A04.72 - Enterocolitis due to Clostridium difficile, not specified as recurrent (3) ESRD (end stage renal disease) on dialysis: -is on HD MWF, missed Wednesday, HD today -Nephrology consult appreciated -noted renal function, hyperkalemia -continue to monitor renal function Status: Acute Code(s): N18.6 - End stage renal disease; Z99.2 - Dependence on renal dialysis (4) Atrial fibrillation with RVR: -noted to have atrial fibrillation with RVR in ED; did not respond to cardizem drip, started on Esmolol with good response and this has since been weaned off -Heart rate remains controlled -telemetry monitoring -VSS; continue to monitor vital signs -Echo (07/2018): EF=27-30%, G2DD, diffuse hypokinesia -not on AC Status: Acute Code(s): I48.91 - Unspecified atrial fibrillation Additional A&P Information -HTN; low normal BP this AM -Non oxygen dependent COPD; recently treated for acute exacerbation, off doxycycline as on broad spectrum abx -Chronic smoker; smokes 1-2 cig/day, has been using nicotine patches to cut down -Peripheral neuropathy -Chronic combined systolic and diastolic CHF -hx of severe aortic stenosis -hx of non compliance particularly with HD -Peripheral vascular disease; f/u with vascular surgery in [place] -Chronic normocytic anemia, likely anemia of chronic disease; baseline Hg 10-11 -Chronic thrombocytopenia; baseline platelet count 80s -continue to monitor respiratory status; supplemental oxygen as needed -DVT ppx with SCDs; no AC due to thrombocytopenia -renal dialysis diet -fall precautions; up with assist -Dispo: home, already has services -Code status: FULL code -transfer to floor for continued care Attestations Medical Necessity Statement*: Patient requires hospitalization for continued treatment of gram negative bacteremia on IV antibiotics, as well as management of C.difficile colitis. Time Spent in Patient Care: Greater than 35 minutes (>than 50% of time spent in counselling and/or direct pt care on unit). Coding Level of Care Code Acute Pattern Scratcher for Chg Fwd Exam Problem Focused Diagnoses Gram-negative bacteremia R78.81 C. difficile colitis A04.72 ESRD (end stage renal disease) on dialysis N18.6; Z99.2 Atrial fibrillation with RVR I48.91
[2019-05-27 11:39] LABS: Anion Gap 20.8 (5-19); Blood Urea Nitrogen 49 mg/dL (8-23); Calcium 8.2 mg/dL (8.5-10.5); Carbon Dioxide 25 mmol/L (22-29); Chloride 96 mmol/L (98-107); Glomerular Filtration Rate 6.4 mL/min (90-130); Glucose 110 mg/dL (65-115); Osmolality Calculated 283 mOsm/kg (285-295); Potassium 4.8 mmol/L (3.5-5.1); Sodium 137 mmol/L (136-145)
--- NOTE | 2019-05-27 18:22 | PC.NURSE ---
report called and transfered to floor at this time
[2019-05-28] VITALS (11 sets, daily range): BP systolic 98–130; BP diastolic 49–78; PULSE 73–114; RESP 16–20; TEMP 36.5–36.8; O2SAT 94–98
--- NOTE | 2019-05-28 07:29 | PM.PN ---
Subjective Subjective: Interval history: c/o left arm pain by previous AVF Medications: Reviewed: Yes Medication Review Details: Current Medications Acetaminophen (Tylenol) 650 mg PO Q6H PRN PRN Reason: Mild/Mod Pain Or Temp >/= 101 Last Admin: 05/26/19 20:06 Dose: 650 mg Documented by: Hydrocodone Bitart/Acetaminophen ([place] 5-325 Mg) 1 tab PO Q4H PRN PRN Reason: MODERATE PAIN Last Admin: 05/27/19 22:18 Dose: 1 tab Documented by: Albuterol Sulfate (Ventolin) 1 puff INHALATION Q6H [facility] Last Admin: 05/28/19 01:54 Dose: Not Given Documented by: Doxycycline Monohydrate (Vibramycin) 100 mg PO BID [facility] Last Admin: 05/25/19 17:52 Dose: 100 mg Documented by: Gabapentin (Neurontin) 100 mg PO TID [facility] Last Admin: 05/27/19 21:11 Dose: 100 mg Documented by: Piperacillin Sod/Tazobactam (Sod 3.375 gm/ Sodium Chloride) 50 mls @ 12.5 mls/hr IV Q12H [facility]; Protocol Last Admin: 05/27/19 17:08 Dose: 12.5 mls/hr Documented by: Ondansetron HCl (Zofran) 4 mg IVP Q6H PRN PRN Reason: vomiting, or N/V if npo Vancomycin HCl (Vancocin) 125 mg PO QID [facility] Last Admin: 05/27/19 21:09 Dose: 125 mg Documented by: Vitals/I&O/Wt Last Vital Signs Temp 97.7 F 05/28/19 07:28 Pulse 114 H 05/28/19 07:28 Resp 18 05/28/19 07:28 BP 112/71 05/28/19 07:28 Pulse Ox 98 05/28/19 07:28 05/27/19 05/28/19 05/28/19 22:59 06:59 14:59 Intake Total 1000 / 1200 Output Total 350 / 350 350 / 700 Balance 650 / 850 -350 / 500 Weight last 48 hrs Weight 61.377 kg Weight 61.462 kg Physical Exam Narrative: EXAM NARRATIVE: thin lady in bed, NARD vss heent- nc/at, eomi neck supple lungs clear heart reg abd soft ext- lue swelling/ tender by previous avf no leg edema neuro- a,a, o x3 pulses + b/l Data : 05/26/19 05:35 05/27/19 11:02 Micro: Microbiology 05/26/19 20:02 Blood Culture - Preliminary Blood NEGATIVE TO DATE 05/26/19 19:58 Blood Culture - Preliminary Blood NEGATIVE TO DATE 05/25/19 23:20 Blood Culture - Preliminary Blood Gram Negative Rods 05/25/19 23:10 Blood Culture - Preliminary Blood Gram Negative Rods A&P Additional A&P Information 1. ESRD HD MWF via rt chest wall permacath Dose medications for GFR less than 15 on dialysis. 2. Atrial fibrillation now controlled and she has been weaned off esmolol 3. ID issues bacteremia with GNRS CDiff positive - per Dr Shepherd; on Abx -repeat blood cx in am discuss dialysis access w/ hospitalist. left arm is tender. also pt is bacteremic w/ a dialysis catheter 4. 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 check pth, iron studies, Attestations Medical Necessity Statement*: gram neg bacteremia, esrd Time Spent in Patient Care: 16 - 35 minutes Coding Level of Care Code Acute Leadite Heater for Ayshag Leopoldo
[2019-05-28] MEDS: gabapentin 100 mg Capsule PO ×3 (08:39→20:22)
[2019-05-28] MEDS: HYDROcodone-acetaminophen 5-325 mg Tablet 1 TAB PO ×3 (08:42→20:21)
--- NOTE | 2019-05-28 09:18 | P.PN_ITS ---
Subjective Subjective: Interval history: AM labs noted; repeat blood culture ordered as 1/4 bottles from 05/28 set is positive for GNRs. Venous duplex was done but results are not available. Patient seen and examined, who was reportedly quite upset earlier today due to some confusion with her meal order. This has since been sorted out. She denies having any diarrhea but is having bowel movements, had 1 so far today. Seems to be feeling a little better today. Continues to be afebrile Medications: Reviewed: Yes Medication Review Details: Current Medications Generic Name Dose Route Start Last Admin Trade Name Freq PRN Reason Stop Dose Admin Acetaminophen 650 mg 05/25/19 14:57 05/26/19 20:06 Tylenol PO 650 mg Q6H PRN Administration Mild/Mod Pain Or Temp >/= 101 Hydrocodone Bitart /Acetaminophen 1 tab 05/25/19 21:09 05/28/19 08:42 [place] 5-325 Mg PO 1 tab Q4H PRN Administration MODERATE PAIN Albuterol Sulfate 1 puff 05/25/19 14:57 05/28/19 01:54 Ventolin INHALATION Not Given Q6H JOSE DANIEL Doxycycline Monohy drate 100 mg 05/25/19 18:00 05/25/19 17:52 Vibramycin PO 100 mg BID JOSE DANIEL Administration Gabapentin 100 mg 05/25/19 15:00 05/28/19 08:39 Neurontin PO 100 mg TID JOSE DANIEL Administration Piperacillin Sod/T azobactam 50 mls @ 12.5 mls /hr 05/27/19 16:00 05/27/19 17:08 Sod 3.375 gm/ So dium Chloride IV 12.5 mls/hr Q12H JOSE DANIEL Administration Protocol Vancomycin HCl 125 mg 05/26/19 13:00 05/28/19 08:43 Vancocin PO 125 mg QID JOSE DANIEL Administration Vitals/I&O/Wt Last Vital Signs Temp 97.7 F 05/28/19 07:28 Pulse 114 H 05/28/19 07:28 Resp 18 05/28/19 07:28 BP 112/71 05/28/19 07:28 Pulse Ox 98 05/28/19 07:28 05/27/19 05/28/19 05/28/19 22:59 06:59 14:59 Intake Total 1000 / 1200 Output Total 350 / 350 350 / 700 Balance 650 / 850 -350 / 500 Weight last 48 hrs Weight 61.377 kg Weight 61.462 kg Physical Exam Const: COMMON NORMALS: no apparent distress and oriented x3 GENERAL APPEARANCE: cooperative, anxious and disheveled ORIENTATION/CONSCIOUSNESS: Yes awake HENMT: COMMON NORMALS: normocephalic, head/scalp atraumatic, hearing grossly normal bilaterally and moist oral mucous membranes HEAD & SCALP: normocephalic and atraumatic Eye: COMMON NORMALS: PERRL, EOMs intact bilaterally and conjunctivae normal CONJUNCTIVA: Yes conjunctivae normal PUPIL: Yes PERRL Neck/C-Spine: COMMON NORMALS: full ROM GENERAL: Yes normal visual inspection and Yes trachea midline Chest: OTHER: tunneled catheter Resp: COMMON NORMALS: normal respiratory effort, no retractions, no use of accessory muscles and clear to auscultation bilaterally EFFORT & INSPECTION: Yes able to speak in complete sentences, Yes symmetric chest movement and No tachypneic AUSCULTATION: clear to auscultation bilaterally and diminished lung sounds bilateral Cardio: COMMON NORMALS: regular rate, regular rhythm, S1 normal heart sound, S2 normal heart sound and no murmurs RATE: regular rate RHYTHM: regular rhythm and abnormal rhythm irregularly irregular HEART SOUNDS: S1 normal and S2 normal GI: COMMON NORMALS: normal to inspection, nondistended, normoactive bowel sounds, soft to palpation and non-tender PALPATION: Yes soft Extremity: COMMON NORMALS: normal to inspection, full ROM and no clubbing, cyanosis or edema; negative for no pedal edema OTHER: LUE; healed and scarred over area on upper arm from previous fistula; demarcated area of erythema is decreasing, noted warmth to touch and tenderness to palpation RUE: recent grafting on forearm; maturing fistula Neuro: COMMON NORMALS: oriented x3, moves all extremities, no focal motor deficits and no sensory deficits noted Psych: COMMON NORMALS: mental status grossly normal, thought process normal, cooperative, affect normal and speech normal SPEECH: Yes normal speech THOUGHT PROCESS: normal thought process Skin: COMMON NORMALS: no rashes or lesions noted, no jaundice, no petechiae and no mottling GENERAL SKIN EXAM: no rashes or lesions noted Data : 05/26/19 05:35 05/27/19 11:02 Micro: Microbiology 05/26/19 19:58 Blood Culture - Preliminary Blood Gram Negative Rods 05/26/19 20:02 Blood Culture - Preliminary Blood NEGATIVE TO DATE 05/25/19 23:20 Blood Culture - Preliminary Blood Gram Negative Rods 05/25/19 23:10 Blood Culture - Preliminary Blood Gram Negative Rods A&P Assessment and plan (1) Gram-negative bacteremia: -Noted bacteremia secondary to pseudomonas aeruginosa, blood cultures from 2/4 growing gram-. Repeat blood cx from 2/6 growing GNRs in 2/4 bottles, 2/4 bottles positive for GNRs from 2/7; repeat set ordered; has received dose of Vanc, Zosyn. -No leukocytosis, currently afebrile. -Concern for possible skin infection on L, previous fistula site. -On Zosyn -pending venous duplex results -has maturing fistula on R and tunneled HD catheter -may need to consider LONG to r/o endocarditis and culture tip of tunneled catheter; will need alternative HD access; discuss this further with Nephrology Status: Acute Code(s): R78.81 - Bacteremia (2) C. difficile colitis: -C.difficile positive -on oral vancomycin (day 2) -contact isolation precautions Status: Acute Code(s): A04.72 - Enterocolitis due to Clostridium difficile, not specified as recurrent (3) ESRD (end stage renal disease) on dialysis: -is on HD MWF -Nephrology consult appreciated -noted renal function, hyperkalemia -continue to monitor renal function Status: Acute Code(s): N18.6 - End stage renal disease; Z99.2 - Dependence on renal dialysis (4) Atrial fibrillation with RVR: -noted to have atrial fibrillation with RVR in ED; did not respond to cardizem drip, started on Esmolol with good response and this has since been weaned off -Heart rate increasing which could be secondary to infection; start on low dose BB -telemetry monitoring -VSS; continue to monitor vital signs -Echo (07/2018): EF=27-30%, G2DD, diffuse hypokinesia -not on AC Status: Acute Code(s): I48.91 - Unspecified atrial fibrillation Additional A&P Information -HTN; low normal BP this AM -Non oxygen dependent COPD; recently treated for acute exacerbation, off doxycycline as on broad spectrum abx -Chronic smoker; smokes 1-2 cig/day, has been using nicotine patches to cut down -Peripheral neuropathy -Chronic combined systolic and diastolic CHF -hx of severe aortic stenosis -hx of non compliance particularly with HD -Peripheral vascular disease; f/u with vascular surgery in [place] -Chronic normocytic anemia, likely anemia of chronic disease; baseline Hg 10-11 -Chronic thrombocytopenia; baseline platelet count 80s -continue to monitor respiratory status; supplemental oxygen as needed -DVT ppx with SCDs; no AC due to thrombocytopenia -renal dialysis diet -fall precautions; up with assist -Dispo: home, already has services -Code status: FULL code Attestations Medical Necessity Statement*: Patient requires hospitalization for continued IV antibiotics secondary to persistent gram negative bacteremia. Time Spent in Patient Care: Greater than 35 minutes (>than 50% of time spent in counselling and/or direct pt care on unit) . Coding Level of Care Code Acute Site Operations Manager for Melvin Mina Exam Problem Focused Diagnoses Gram-negative bacteremia R78.81 C. difficile colitis A04.72 ESRD (end stage renal disease) on dialysis N18.6; Z99.2 Atrial fibrillation with RVR I48.91
[2019-05-28] MEDS: albuterol 8 gm MDI 1 PUFF INHALATION ×3 (09:22→20:19)
[2019-05-28] MEDS: metoprolol tartrate 25 mg Tablet PO ×2 (10:17→18:15)
[2019-05-28] MEDS: piperacillin-tazobactam 3.375 GM in sodium chloride 0.9% (plus) 50 ML IV ×2 (10:17→15:09)
--- NOTE | 2019-05-28 10:17 | PC.SOCIAL ---
IMM Update Pg 2 of IMM given and explained to patient who verbalized understanding. Signed, dated, and timed, and placed in chart. Copy provided to patient.
[2019-05-28 10:24] LABS: Iron 84 ug/dL (37-145); Percent Saturation 51.8 % (20-50); Total Iron Binding Capacity 162 mcg/dl; Unsaturated Iron Binding 78 ug/dL (112-347)
[2019-05-28 10:55] LABS: Calcium 7.7 mg/dL (8.5-10.5); Parathyroid Hormone 52.3 pg/mL (15-65)
[2019-05-29] VITALS (9 sets, daily range): BP systolic 98–124; BP diastolic 50–71; PULSE 68–77; RESP 18–20; TEMP 36.7–36.8; O2SAT 91–96
[2019-05-29] MEDS: piperacillin-tazobactam 3.375 GM in sodium chloride 0.9% (plus) 50 ML IV ×2 (02:50→17:45)
--- NOTE | 2019-05-29 07:15 | P.PN_ITS ---
Subjective Subjective: Interval history: seen w/ nurse. still c/o left arm pain. no n/v/f/c/rome/d Medications: Reviewed: Yes Medication Review Details: Current Medications Generic Name Dose Route Start Last Admin Trade Name Freq PRN Reason Stop Dose Admin Acetaminophen 650 mg 05/25/19 14:57 05/26/19 20:06 Tylenol PO 650 mg Q6H PRN Administration Mild/Mod Pain Or Temp >/= 101 Hydrocodone Bitart /Acetaminophen 1 tab 05/25/19 21:09 05/28/19 08:42 [place] 5-325 Mg PO 1 tab Q4H PRN Administration MODERATE PAIN Albuterol Sulfate 1 puff 05/25/19 14:57 05/28/19 01:54 Ventolin INHALATION Not Given Q6H JOSE DANIEL Doxycycline Monohy drate 100 mg 05/25/19 18:00 05/25/19 17:52 Vibramycin PO 100 mg BID JOSE DANIEL Administration Gabapentin 100 mg 05/25/19 15:00 05/28/19 08:39 Neurontin PO 100 mg TID JOSE DANIEL Administration Piperacillin Sod/T azobactam 50 mls @ 12.5 mls /hr 05/27/19 16:00 05/27/19 17:08 Sod 3.375 gm/ So dium Chloride IV 12.5 mls/hr Q12H JOSE DANIEL Administration Protocol Vancomycin HCl 125 mg 05/26/19 13:00 05/28/19 08:43 Vancocin PO 125 mg QID JOSE DANIEL Administration Vitals/I&O/Wt Last Vital Signs Temp 98.0 F 05/29/19 04:00 Pulse 72 05/29/19 04:00 Resp 20 H 05/29/19 04:00 BP 101/61 05/29/19 04:00 Pulse Ox 93 05/29/19 00:00 05/28/19 05/29/19 05/29/19 22:59 06:59 14:59 Intake Total 80 / 610 30 / 640 Balance 80 / 610 30 / 640 Weight last 48 hrs Weight 61.915 kg Weight 61.377 kg Physical Exam Narrative: EXAM NARRATIVE: thin lady in bed, NARD vss heent- nc/at, eomi neck supple lungs clear heart reg abd soft ext- lue swelling/ tender by previous avf no leg edema neuro- a,a, o x3 pulses + b/l Data : 05/26/19 05:35 05/27/19 11:02 Micro: Microbiology 05/26/19 19:58 Blood Culture - Preliminary Blood Gram Negative Rods 05/26/19 20:02 Blood Culture - Preliminary Blood Gram Negative Rods 05/28/19 09:55 Blood Culture - Preliminary Blood SPECIMEN COLLECTED 05/28/19 09:50 Blood Culture - Preliminary Blood SPECIMEN COLLECTED A&P Additional A&P Information 1. ESRD HD MWF via rt chest wall permacath Dose medications for GFR less than 15 on dialysis. HE now- 3.5 hrs, remove 2 l, 2k bath 2. Atrial fibrillation now controlled and she has been weaned off esmolol 3. ID issues bacteremia with GNRS CDiff positive -improving diarrhea - per Dr Shepherd; on Abx -repeat blood cx on hd discuss dialysis access w/ hospitalist. left arm is tender. also pt is bacteremic w/ a dialysis catheter 4. 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 low pth- no vit d analouge, high iron sat- no iv iron hgb okay, Attestations Medical Necessity Statement*: bacteremia on abx as per hospitalist Time Spent in Patient Care: 16 - 35 minutes Coding Level of Care Code Acute Hydroelectric Machinery Mechanic Helper for Melvin Mina
[2019-05-29 07:33] LABS: Basophils % 0.3 %; Eosinophils # 0.2 10^3/uL (0.0-0.8); Eosinophils % 5.5 %; Hematocrit 32.9 % (37.0-47.0); Hemoglobin 9.9 g/dL (11.5-15.3); Lymphocytes # 0.8 10^3/uL (0.8-4.8); Lymphocytes % 21.5 %; Mean Corpuscular HGB Conc 30.1 g/dL (30.0-36.0); Mean Corpuscular Hemoglobin 31.2 pg (28.0-34.0); Mean Corpuscular Volume 103.8 fL (81-99); Mean Platelet Volume 12.9 fL (7.4-10.4); Monocytes # 0.7 10^3/uL (0.2-0.9); Monocytes % 18.1 %; Neutrophils % 52.8 %; Nucleated Red Blood Cells % 0 %; Platelet Count 57 10^3/cmm (130-400); Red Blood Count 3.17 10^6/uL (4.1-5.3); Red Cell Distribution Width 16.6 % (12.1-15.1); White Blood Count 3.8 10^3/uL (4.0-10.0)
[2019-05-29 08:04] LABS: Anion Gap 27.2 (5-19); Blood Urea Nitrogen 62 mg/dL (8-23); Calcium 7.1 mg/dL (8.5-10.5); Carbon Dioxide 18 mmol/L (22-29); Chloride 95 mmol/L (98-107); Glomerular Filtration Rate 4.7 mL/min (90-130); Glucose 102 mg/dL (65-115); Osmolality Calculated 279 mOsm/kg (285-295); Potassium 5.2 mmol/L (3.5-5.1); Sodium 135 mmol/L (136-145)
[2019-05-29] MEDS: albuterol 8 gm MDI 1 PUFF INHALATION ×2 (08:27→20:25)
[2019-05-29 08:31] LABS: Calcium 7.2 mg/dL (8.5-10.5); Parathyroid Hormone 53.7 pg/mL (15-65)
[2019-05-29] MEDS: gabapentin 100 mg Capsule PO ×3 (08:53→20:12)
[2019-05-29] MEDS: metoprolol tartrate 25 mg Tablet PO ×2 (08:53→17:43)
--- NOTE | 2019-05-29 09:32 | PM.PN ---
Subjective Subjective: Interval history: AM labs noted, HD today. Patient seen and examined, seen after HD, removal of 1.1 L. Discussed previous fistula on L. According to patient, she has some residual graft material in her arm with fistula closed off by her vascular surgeon Dr. Cody Gastelum at [facility] approximately 3 weeks ago. She has had her tunneled catheter for about the same length of time and this was also placed in [facility] by the same physician. Venous duplex shows thrombosis of L basilic vein so will start on heparin drip. She continues to complain of pain involving her L elbow as well as restricted ROM. Medications: Reviewed: Yes Medication Review Details: Current Medications Generic Name Dose Route Start Last Admin Trade Name Freq PRN Reason Stop Dose Admin Acetaminophen 650 mg 05/25/19 14:57 05/26/19 20:06 Tylenol PO 650 mg Q6H PRN Administration Mild/Mod Pain Or Temp >/= 101 Hydrocodone Bitart /Acetaminophen 1 tab 05/25/19 21:09 05/28/19 20:21 [place] 5-325 Mg PO 1 tab Q4H PRN Administration MODERATE PAIN Albuterol Sulfate 1 puff 05/25/19 14:57 05/29/19 08:27 Ventolin INHALATION 1 puff Q6H JOSE DANIEL Administration Doxycycline Monohy drate 100 mg 05/25/19 18:00 05/25/19 17:52 Vibramycin PO 100 mg BID JOSE DANIEL Administration Gabapentin 100 mg 05/25/19 15:00 05/29/19 08:53 Neurontin PO 100 mg TID JOSE DANIEL Administration Piperacillin Sod/T azobactam 50 mls @ 12.5 mls /hr 05/27/19 16:00 05/29/19 02:50 Sod 3.375 gm/ So dium Chloride IV 12.5 mls/hr Q12H JOSE DANIEL Administration Protocol Metoprolol Tartrat e 25 mg 05/28/19 09:10 05/29/19 08:53 Lopressor PO 25 mg BID JOSE DANIEL Administration Vancomycin HCl 125 mg 05/26/19 13:00 05/29/19 08:54 Vancocin PO 125 mg QID JOSE DANIEL Administration Vitals/I&O/Wt Last Vital Signs Temp 98.1 F 05/29/19 07:37 Pulse 76 05/29/19 08:36 Resp 18 05/29/19 08:35 BP 105/71 05/29/19 07:37 Pulse Ox 92 05/29/19 08:35 05/28/19 05/29/19 05/29/19 22:59 06:59 14:59 Intake Total 80 / 610 30 / 640 480 / 480 Balance 80 / 610 30 / 640 480 / 480 Weight last 48 hrs Weight 61.235 kg Weight 61.915 kg Weight 61.377 kg Physical Exam Const: COMMON NORMALS: no apparent distress and oriented x3 GENERAL APPEARANCE: cooperative, anxious and disheveled ORIENTATION/CONSCIOUSNESS: Yes awake HENMT: COMMON NORMALS: normocephalic, head/scalp atraumatic, hearing grossly normal bilaterally and moist oral mucous membranes HEAD & SCALP: normocephalic and atraumatic Eye: COMMON NORMALS: PERRL, EOMs intact bilaterally and conjunctivae normal CONJUNCTIVA: Yes conjunctivae normal PUPIL: Yes PERRL Neck/C-Spine: COMMON NORMALS: full ROM GENERAL: Yes normal visual inspection and Yes trachea midline Chest: OTHER: tunneled catheter on R; no evidence of drainage, erythema, warmth and no tenderness to palpation Resp: COMMON NORMALS: normal respiratory effort, no retractions and no use of accessory muscles EFFORT & INSPECTION: Yes able to speak in complete sentences, Yes symmetric chest movement and No tachypneic AUSCULTATION: diminished lung sounds bilateral Cardio: COMMON NORMALS: regular rate, regular rhythm, S1 normal heart sound and S2 normal heart sound RATE: regular rate RHYTHM: regular rhythm and abnormal rhythm irregularly irregular HEART SOUNDS: S1 normal, S2 normal, click and murmur GI: COMMON NORMALS: normal to inspection, nondistended, normoactive bowel sounds, soft to palpation and non-tender PALPATION: Yes soft Extremity: COMMON NORMALS: normal to inspection, full ROM and no clubbing, cyanosis or edema; negative for no pedal edema OTHER: LUE; healed and scarred over area on upper arm from previous fistula; demarcated area of erythema is decreasing, noted warmth to touch and tenderness to palpation RUE: recent grafting on forearm; maturing fistula Neuro: COMMON NORMALS: oriented x3, moves all extremities, no focal motor deficits and no sensory deficits noted Psych: COMMON NORMALS: mental status grossly normal, thought process normal, cooperative, affect normal and speech normal SPEECH: Yes normal speech THOUGHT PROCESS: normal thought process Skin: COMMON NORMALS: no rashes or lesions noted, no jaundice, no petechiae and no mottling GENERAL SKIN EXAM: no rashes or lesions noted OTHER: -onychomycosis of fingernails Data : 05/29/19 07:25 05/29/19 07:25 Micro: Microbiology 05/26/19 20:02 Blood Culture - Preliminary Blood Gram Negative Rods 05/26/19 19:58 Blood Culture - Preliminary Blood Gram Negative Rods 05/28/19 09:55 Blood Culture - Preliminary Blood SPECIMEN COLLECTED 05/28/19 09:50 Blood Culture - Preliminary Blood SPECIMEN COLLECTED A&P Assessment and plan (1) Gram-negative bacteremia: -Noted bacteremia secondary to pseudomonas aeruginosa, blood cultures from 2/ growing gram-. Repeat blood cx from 05/25 growing GNRs in 2/ bottles, 2/4 bottles positive for GNRs from 05/26; repeat set from 05/28 prelim negative; has received dose of Vanc, Zosyn. -No leukocytosis, currently afebrile. -Concern for possible skin infection on L, previous fistula site. From review of [email or web address], patient had confirmed LUE AV fistula infection, opted to leave AMA with recommendation to f/u with vascular surgery in [place]. At that time, she had tunneled catheter in place for HD access. Request records from [facility] for recent fistula procedure -On Zosyn -venous duplex showing thrombosis of L basilic vein; start on heparin drip -has maturing fistula on R and tunneled HD catheter -may need to consider LONG to r/o endocarditis and culture tip of tunneled catheter; will need alternative HD access; discuss this further with Nephrology Status: Acute Code(s): R78.81 - Bacteremia (2) C. difficile colitis: -C.difficile positive; was positive for this in 12/2018 as well -on oral vancomycin (day 3) -contact isolation precautions Status: Acute Code(s): A04.72 - Enterocolitis due to Clostridium difficile, not specified as recurrent (3) ESRD (end stage renal disease) on dialysis: -is on HD MWF -Nephrology consult appreciated -noted renal function, hyperkalemia -continue to monitor renal function -has tunneled catheter for access; from review of medical record, this was placed sometime between July and December 2018 Status: Acute Code(s): N18.6 - End stage renal disease; Z99.2 - Dependence on renal dialysis (4) Atrial fibrillation with RVR: -noted to have atrial fibrillation with RVR in ED; did not respond to cardizem drip, started on Esmolol with good response and this has since been weaned off -Heart rate increasing which could be secondary to infection; start on low dose BB -telemetry monitoring -VSS; continue to monitor vital signs -Echo (07/2018): EF=27-30%, G2DD, diffuse hypokinesia -not on AC Status: Acute Code(s): I48.91 - Unspecified atrial fibrillation Additional A&P Information -HTN; low normal BP this AM -Non oxygen dependent COPD; recently treated for acute exacerbation, off doxycycline as on broad spectrum abx -Chronic smoker; smokes 1-2 cig/day, has been using nicotine patches to cut down -Peripheral neuropathy -Chronic combined systolic and diastolic CHF -hx of severe aortic stenosis -hx of non compliance particularly with HD -Peripheral vascular disease; f/u with vascular surgery in [place] -Chronic normocytic anemia, likely anemia of chronic disease; baseline Hg 10-11 -Chronic thrombocytopenia; baseline platelet count 80s -continue to monitor respiratory status; supplemental oxygen as needed -DVT ppx with SCDs; no AC due to thrombocytopenia -renal dialysis diet -fall precautions; up with assist -Dispo: home, already has services -Code status: FULL code Attestations Medical Necessity Statement*: Patient requires hospitalization for continued IV antibiotic treatment for gram negative bacteremia Time Spent in Patient Care: Greater than 35 minutes (>than 50% of time spent in counselling and/or direct pt care on unit). Coding Level of Care Code Acute Bail Bondsman for Melvin Fwd Exam Problem Focused Diagnoses Gram-negative bacteremia R78.81 C. difficile colitis A04.72 ESRD (end stage renal disease) on dialysis N18.6; Z99.2 Atrial fibrillation with RVR I48.91
[2019-05-29] MEDS: HYDROcodone-acetaminophen 5-325 mg Tablet 1 TAB PO ×3 (10:08→21:34)
--- NOTE | 2019-05-29 14:00 | PC.OT ---
OT tx attempted. Pt off the floor for dialysis. Will attempt tx at later time if possible.
[2019-05-29] MEDS: heparin 5,000 unit/mL INJ 1 mL IV (20:05)
[2019-05-29] MEDS: heparin drip 25,000 UNIT/500 ML PREMIX 17 UNIT IV (20:06)
[2019-05-30] VITALS (11 sets, daily range): BP systolic 76–110; BP diastolic 52–65; PULSE 66–100; RESP 18–24; TEMP 36.4–36.7; O2SAT 93–100
[2019-05-30] MEDS: ondansetron 2 mg/ML SDV 2 mL 4 MG IVP (02:25)
[2019-05-30 03:37] LABS: Alanine Aminotransferase 49 U/L (0-33); Albumin Level 2.8 g/dL (3.5-5.2); Alkaline Phosphatase 217 IU/L (35-105); Anion Gap 20.8 (5-19); Aspartate Amino Transferase 65 U/L (0-32); Blood Urea Nitrogen 24 mg/dL (8-23); Calcium 8.3 mg/dL (8.5-10.5); Carbon Dioxide 25 mmol/L (22-29); Chloride 96 mmol/L (98-107); Globulin 4.7 g/dL (1.3-4.6); Glomerular Filtration Rate 9.6 mL/min (90-130); Glucose 105 mg/dL (65-115); Magnesium 1.9 mg/dL (1.7-2.3); Phosphorus 3.9 mg/dL (2.5-4.5); Potassium 4.8 mmol/L (3.5-5.1); Sodium 137 mmol/L (136-145); Total Bilirubin 0.5 mg/dL (0.15-1.2); Total Protein 7.5 g/dL (6.6-8.7)
[2019-05-30 04:19] LABS: Basophils % 0.3 %; Eosinophils # 0.2 10^3/uL (0.0-0.8); Eosinophils % 2.8 %; Hematocrit 33.4 % (37.0-47.0); Hemoglobin 10.2 g/dL (11.5-15.3); Lymphocytes # 0.7 10^3/uL (0.8-4.8); Lymphocytes % 9.7 %; Mean Corpuscular HGB Conc 30.5 g/dL (30.0-36.0); Mean Corpuscular Hemoglobin 31.2 pg (28.0-34.0); Mean Corpuscular Volume 102.1 fL (81-99); Mean Platelet Volume 12.7 fL (7.4-10.4); Monocytes # 0.6 10^3/uL (0.2-0.9); Monocytes % 8.6 %; Neutrophils # 5.7 10^3/uL (1.8-7.7); Nucleated Red Blood Cells % 0 %; Platelet Count 76 10^3/cmm (130-400); Red Blood Count 3.27 10^6/uL (4.1-5.3); Red Cell Distribution Width 16.3 % (12.1-15.1); White Blood Count 7.5 10^3/uL (4.0-10.0)
[2019-05-30] MEDS: HYDROcodone-acetaminophen 5-325 mg Tablet 1 TAB PO ×3 (04:43→15:11)
[2019-05-30] MEDS: piperacillin-tazobactam 3.375 GM in sodium chloride 0.9% (plus) 50 ML IV ×2 (04:43→15:09)
--- NOTE | 2019-05-30 06:11 | PC.NURSE ---
Addendum entered by Katie Toure 05/30/19 06:13: for Scheduled PTT at 0215 Original Note: multiple attempts to draw scheduled PTT per heparin protocol unsuccessful. all lab techs on disability counselor have maxed out their attempts to draw it. multiple nurses on the floor have attempted. Gisella YANES notified. Dr. Schumacher notified.
--- NOTE | 2019-05-30 07:02 | PM.PN ---
Subjective Subjective: Interval history: 1. c/o diarrhea 2. feels weak 3. arm pain no sob or cp Medications: Reviewed: Yes Medication Review Details: Current Medications Acetaminophen (Tylenol) 650 mg PO Q6H PRN PRN Reason: Mild/Mod Pain Or Temp >/= 101 Last Admin: 05/26/19 20:06 Dose: 650 mg Documented by: Hydrocodone Bitart/Acetaminophen ([place] 5-325 Mg) 1 tab PO Q4H PRN PRN Reason: MODERATE PAIN Last Admin: 05/30/19 04:43 Dose: 1 tab Documented by: Albuterol Sulfate (Ventolin) 1 puff INHALATION Q6H [facility] Last Admin: 05/30/19 02:19 Dose: Not Given Documented by: Doxycycline Monohydrate (Vibramycin) 100 mg PO BID [facility] Last Admin: 05/25/19 17:52 Dose: 100 mg Documented by: Gabapentin (Neurontin) 100 mg PO TID [facility] Last Admin: 05/29/19 20:12 Dose: 100 mg Documented by: Heparin Sodium (Beef Lung) (Heparin) 0 unit IV PRN PRN; Protocol PRN Reason: Heparin weight-base protocol Last Admin: 05/29/19 20:05 Dose: 3,000 unit Documented by: Piperacillin Sod/Tazobactam (Sod 3.375 gm/ Sodium Chloride) 50 mls @ 12.5 mls/hr IV Q12H [facility]; Protocol Last Admin: 05/30/19 04:43 Dose: 12.5 mls/hr Documented by: Heparin Sodium/Sodium Chloride (Heparin Drip) 25,000 unit in 500 mls @ 0 mls/hr IV .Q0M [facility]; Protocol Last Admin: 05/29/19 20:06 Dose: 13.88 unit/kg/hr, 17 mls/hr Documented by: Metoprolol Tartrate (Lopressor) 25 mg PO BID [facility] Last Admin: 05/29/19 17:43 Dose: 25 mg Documented by: Metoprolol Tartrate (Metoprolol Tartrate) 5 mg IV Q4H PRN PRN Reason: HEART RATE-HIGH Ondansetron HCl (Zofran) 4 mg IVP Q6H PRN PRN Reason: vomiting, or N/V if npo Last Admin: 05/30/19 02:25 Dose: 4 mg Documented by: Vancomycin HCl (Vancocin) 125 mg PO QID [facility] Last Admin: 05/29/19 20:12 Dose: 125 mg Documented by: Vitals/I&O/Wt Last Vital Signs Temp 97.9 F 05/30/19 04:00 Pulse 70 05/30/19 04:00 Resp 24 H 05/30/19 04:00 BP 105/65 05/30/19 04:00 Pulse Ox 97 05/30/19 04:00 05/29/19 05/30/19 05/30/19 22:59 06:59 14:59 Intake Total 320 / 800 Balance 320 / 800 Weight last 48 hrs Weight 58.513 kg Weight 59.421 kg Weight 61.235 kg Weight 61.915 kg Physical Exam Narrative: EXAM NARRATIVE: sitting up in bed, NARD vss heent- nc/at, eomi neck supple lungs clear heart reg +Systolic murmur abd soft, nt, nd, +BS ext- lue swelling/ tender by previous avf no leg edema neuro- a,a, o x3 pulses + b/l rt ant chest wall dialysis catheter Data : 05/30/19 03:10 05/30/19 03:10 Micro: Microbiology 05/28/19 09:55 Blood Culture - Preliminary Blood Gram Negative Rods 05/25/19 23:10 Blood Culture - Preliminary Blood Pseudomonas aeruginosa 05/28/19 09:50 Blood Culture - Preliminary Blood NEGATIVE TO DATE 05/26/19 20:02 Blood Culture - Preliminary Blood Gram Negative Rods 05/26/19 19:58 Blood Culture - Preliminary Blood Gram Negative Rods A&P Additional A&P Information 1. ESRD HD MWF via rt chest wall permacath Dose medications for GFR less than 15 on dialysis. HD in am- 3.5 hrs, remove 2 l, 2k bath 2. Atrial fibrillation now controlled and she has been weaned off esmolol 3. ID issues bacteremia with GNRS - pseudomonas CDiff positive -improving diarrhea - per Dr Shepherd; on Abx -repeat blood cx on hd -pt 3 weeks ago had part of her lue av graft removed. she now has persistent bacteremia- i am concnerned for either endocarditis or that her graft is still infected -possibility of dialysis catheter infection is still possible - q if need to re-operate on left arm- which has part of graft left. orif needs dialysis catheter removed 4. 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 low pth- no vit d analouge, high iron sat- no iv iron hgb okay 5. thrombocytopenia from infection vs zosyn effect 6. normal phos Attestations Medical Necessity Statement*: persistent bacteremia Time Spent in Patient Care: 16 - 35 minutes Coding Level of Care Code Acute Hospital Attendant for Melvin Mina
[2019-05-30] MEDS: gabapentin 100 mg Capsule PO ×2 (08:43→15:11)
[2019-05-30] MEDS: metoprolol tartrate 25 mg Tablet PO (08:43)
[2019-05-30] MEDS: albuterol 8 gm MDI 1 PUFF INHALATION ×2 (08:56→14:06)
--- NOTE | 2019-05-30 09:55 | DCPLANNER ---
Pg 2 of IM updated and reviewed with pt. No questions, copy provided.
--- NOTE | 2019-05-30 10:05 | P.PN_ITS ---
Subjective Subjective: Interval history: AM labs noted, discussed case with Dr. Polanco this AM; requested records from [facility] though still pending receipt. Noted 1/4 bottles from blood cx set on 05/28 positive for GNRs; will order repeat set including from tunneled catheter site. Also requested consult from Dr. Tuttle for possible LONG to r/o endocarditis. Called and spoke to her vacular surgeon Dr. Cody Gastelum who confirmed that patient had a thrombosed L AV fistula with an aneursym that he excised. At the same time, new graft was placed on R with intention for long-term HD access; done approximately 1 month ago. Need to check RUE but if good thrill, can probably be accessed for HD. He is suspicious that tunneled catheter is the primary source of infection. Noted to be hypotensive today, have to doppler to get BP read. She refused to take vancomycin today stating it worsens her diarrhea. Medications: Reviewed: Yes Medication Review Details: Current Medications Generic Name Dose Route Start Last Admin Trade Name Freq PRN Reason Stop Dose Admin Acetaminophen 650 mg 05/25/19 14:57 05/26/19 20:06 Tylenol PO 650 mg Q6H PRN Administration Mild/Mod Pain Or Temp >/= 101 Hydrocodone Bitart /Acetaminophen 1 tab 05/25/19 21:09 05/30/19 08:50 [place] 5-325 Mg PO 1 tab Q4H PRN Administration MODERATE PAIN Albuterol Sulfate 1 puff 05/25/19 14:57 05/30/19 08:56 Ventolin INHALATION 1 puff Q6H JOSE DANIEL Administration Doxycycline Monohy drate 100 mg 05/25/19 18:00 05/25/19 17:52 Vibramycin PO 100 mg BID JOSE DANIEL Administration Gabapentin 100 mg 05/25/19 15:00 05/30/19 08:43 Neurontin PO 100 mg TID JOSE DANIEL Administration Heparin Sodium (Be ef Lung) 0 unit 05/29/19 17:52 05/29/19 20:05 Heparin IV 3,000 unit PRN PRN Administration Heparin weight-ba se protocol Protocol Piperacillin Sod/T azobactam 50 mls @ 12.5 mls /hr 05/27/19 16:00 05/30/19 08:43 Sod 3.375 gm/ So dium Chloride IV Infused Q12H JOSE DANIEL Infusion Protocol Heparin Sodium/Sod ium Chloride 25,000 unit in 50 0 mls @ 0 mls/hr 05/29/19 18:00 05/29/19 20:06 Heparin Drip IV 13.88 unit/kg/hr .Q0M JOSE DANIEL 17 mls/hr Administration Protocol Per Protocol Metoprolol Tartrat e 25 mg 05/28/19 09:10 05/30/19 08:43 Lopressor PO 25 mg BID JOSE DANIEL Administration Ondansetron HCl 4 mg 05/25/19 14:57 05/30/19 02:25 Zofran IVP 4 mg Q6H PRN Administration vomiting, or N/V if npo Vancomycin HCl 125 mg 05/26/19 13:00 05/30/19 08:43 Vancocin PO Not Given QID [facility] Vitals/I&O/Wt Last Vital Signs Temp 98.0 F 05/30/19 07:52 Pulse 71 05/30/19 09:00 Resp 20 H 05/30/19 08:57 BP 110/60 05/30/19 07:52 Pulse Ox 97 05/30/19 08:57 05/29/19 05/30/19 05/30/19 22:59 06:59 14:59 Intake Total 320 / 800 290 / 290 Balance 320 / 800 290 / 290 Weight last 48 hrs Weight 58.513 kg Weight 59.421 kg Weight 61.235 kg Weight 61.915 kg Physical Exam Const: COMMON NORMALS: no apparent distress and oriented x3 GENERAL A PPEARANCE: cooperative, anxious and disheveled ORIENTATION/CONSCIOUSNESS: Yes awake HENMT: COMMON NORMALS: normocephalic, head/scalp atraumatic, hearing grossly normal bilaterally and moist oral mucous membranes HEAD & SCALP: normocephalic and atraumatic Eye: COMMON NORMALS: PERRL, EOMs intact bilaterally and conjunctivae normal CONJUNCTIVA: Yes conjunctivae normal PUPIL: Yes PERRL Neck/C-Spine: COMMON NORMALS: full ROM GENERAL: Yes normal visual inspection and Yes trachea midline Chest: OTHER: tunneled catheter on R; no evidence of drainage, erythema, warmth and no tenderness to palpation Resp: COMMON NORMALS: normal respiratory effort, no retractions and no use of accessory muscles EFFORT & INSPECTION: Yes able to speak in complete sentences, Yes symmetric chest movement and No tachypneic AUSCULTATION: diminished lung sounds bilateral Cardio: COMMON NORMALS: regular rate, regular rhythm, S1 normal heart sound and S2 normal heart sound RATE: regular rate RHYTHM: regular rhythm and abnormal rhythm irregularly irregular HEART SOUNDS: S1 normal, S2 normal, click and murmur GI: COMMON NORMALS: normal to inspection, nondistended, normoactive bowel sounds, soft to palpation and non-tender PALPATION: Yes soft Extremity: COMMON NORMALS: normal to inspection, full ROM and no clubbing, cyanosis or edema; negative for no pedal edema OTHER: LUE; healed and scarred over area on upper arm from previous fistula; demarcated area of erythema is decreasing, noted warmth to touch and tenderness to palpation RUE: recent grafting on forearm; maturing fistula Neuro: COMMON NORMALS: oriented x3, moves all extremities, no focal motor deficits and no sensory deficits noted Psych: COMMON NORMALS: mental status grossly normal, thought process normal, cooperative, affect normal and speech normal SPEECH: Yes normal speech THOUGHT PROCESS: normal thought process Skin: COMMON NORMALS: no rashes or lesions noted, no jaundice, no petechiae and no mottling GENERAL SKIN EXAM: no rashes or lesions noted OTHER: - onychomycosis of fingernails Data : 05/30/19 03:10 05/30/19 03:10 Micro: Microbiology 05/26/19 19:58 Blood Culture - Preliminary Blood Pseudomonas aeruginosa 05/28/19 09:55 Blood Culture - Preliminary Blood Gram Negative Rods 05/25/19 23:10 Blood Culture - Preliminary Blood Pseudomonas aeruginosa 05/28/19 09:50 Blood Culture - Preliminary Blood NEGATIVE TO DATE 05/26/19 20:02 Blood Culture - Preliminary Blood Gram Negative Rods A&P Assessment and plan (1) Gram-negative bacteremia: -Noted bacteremia secondary to pseudomonas aeruginosa, blood cultures from 2/4 growing gram-. Repeat blood cx from 05/25 growing GNRs in 2/4 bottles, 2/4 bottles positive for GNRs from 05/26; repeat set from 05/28 1/4 bottles positive for GNRs; has received dose of Vanc, Zosyn. -No leukocytosis, currently afebrile. -Concern for possible skin infection on L, previous fistula site. From review of [facility], patient had confirmed LUE AV fistula infection, opted to leave A with recommendation to f/u with vascular surgery in [place]. At that time, she had tunneled catheter in place for HD access. Request records from [facility] for recent fistula procedure. Discussed case with Dr. Cody Gastelum who confirmed recent procedure including removal of graft which had thrombosed on LUE, extensive excision of large aneurysm and placement of new graft on right upper extremity with intention for longer term HD access. He is suspicious that primary source of infection is likely tunneled catheter which will need to be removed. -On Zosyn -venous duplex showing thrombosis of L basilic vein; start on heparin drip. 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 Gastelum, may be able to access RUE fistula and use as alternative HD access Status: Acute Code(s): R78.81 - Bacteremia (2) C. difficile colitis: -C.difficile positive; was positive for this in 12/2018 as well -on oral vancomycin (day 4); refused this today -contact isolation precautions Status: Acute Code(s): A04.72 - Enterocolitis due to Clostridium difficile, not specified as recurrent (3) ESRD (end stage renal disease) on dialysis: -is on HD MWF -Nephrology consult appreciated -noted renal function, hyperkalemia -continue to monitor renal function -has tunneled catheter for access; from review of medical record, this was placed sometime between July and December 2018 Status: Acute Code(s): N18.6 - End stage renal disease; Z99.2 - Dependence on renal dialysis (4) Atrial fibrillation with RVR: -noted to have atrial fibrillation with RVR in ED; did not respond to cardizem drip, started on Esmolol with good response and this has since been weaned off -Heart rate increasing which could be secondary to infection; start on low dose BB -telemetry monitoring -VSS; continue to monitor vital signs -Echo (07/2018): EF=27-30%, G2DD, diffuse hypokinesia -not on AC Status: Acute Code(s): I48.91 - Unspecified atrial fibrillation Additional A&P Information -HTN; low normal BP this AM -Non oxygen dependent COPD; recently treated for acute exacerbation, off doxycycline as on broad spectrum abx -Chronic smoker; smokes 1-2 cig/day, has been using nicotine patches to cut down -Peripheral neuropathy -Chronic combined systolic and diastolic CHF -hx of severe aortic stenosis -hx of non compliance particularly with HD -Peripheral vascular disease; f/u with vascular surgery in [place] -Chronic normocytic anemia, likely anemia of chronic disease; baseline Hg 10-11 -Chronic thrombocytopenia; baseline platelet count 80s -continue to monitor respiratory status; supplemental oxygen as needed -DVT ppx with SCDs; no AC due to thrombocytopenia -renal dialysis diet -fall precautions; up with assist -Dispo: home, already has services -Code status: FULL code Attestations Medical Necessity Statement*: Patient requires hospitalization for continued treatment of gram negative bacteremia, on IV antibiotics pending identification of source. Time Spent in Patient Care: Greater than 35 minutes (>than 50% of time spent in counselling and/or direct pt care on unit) . 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 difficile colitis A04.72 ESRD (end stage renal disease) on dialysis N18.6; Z99.2 Atrial fibrillation with RVR I48.91
--- NOTE | 2019-05-30 14:29 | PC.NURSE ---
Lost patient IV in left forearm due to infiltration. Lab up on the floor attempting to draw aptt for the third try. Patient has had multiple people attempt to draw this lab with no success.
--- NOTE | 2019-05-30 19:07 | PM.CONSULT ---
Providers/Reason For Consult Consulting Physican/Specialty*: JAMESON Tuttle MD/cardiology Reason for Consult*: Patient with a blood culture positive for Pseudomonas, to consider LONG Attending Physician: Delia Shepherd MD Primary Care Provider: Vincent Gillis DO History of Present Illness History of Present Illness Carmen Duarte is a 64 year old female with end-stage renal disease, on hemodialysis, status post recent AV fistula placement, is admitted to the hospital with complaints of generalized weakness/fever and body aches. She grew Pseudomonas in the blood culture. Cardiology consult is requested to consider a LONG. Patient is a poor historian. She has multiple medical problems including atherosclerotic heart disease, status post coronary artery bypass surgery, severe aortic valve stenosis, peripheral artery disease with percutaneous intervention. Occluded dialysis graft in the left upper extremity, recent AV fistula placement in the right upper extremity, ongoing hemodialysis with the venous catheter in the right subclavian, chronic anemia/thrombocytopenia. History of essential benign hypertension, type 2 diabetes, dyslipidemia, COPD, peripheral neuropathy, etc. She denies any chest pain. Has a chronic shortness of breath. She was found to be somewhat hypotensive today with a blood pressure in the 70s. Currently the systolic blood pressures in the 80s. Her blood pressure usually runs in the 90s to 100. Review of Systems Narrative: CONSTITUTIONAL: Recent fever and chills EYES: No blurring of vision or other visual disturbances lately. ENT: No hoarseness of voice, auditory disturbances or sore throat. CARDIOVASCULAR: As mentioned above. RESPIRATORY: COPD/shortness of breath GASTROINTESTINAL: No hematemesis or melena. GENITOURINARY: History of recurrent UTI INTEGUMENTARY: Recent cellulitis at the surgical incision site in the upper extremity NEURO: No transient ischemic attacks or amaurosis. PSYCHIATRIC: No history of psychosis or major depression. HEMATOLOGIC: Chronic anemia/thrombocytopenia ENDOCRINE: Type 2 diabetes, insulin requiring. MUSCULOSKELETAL: No recent joint pain or swelling. ALLERGY/IMMUNOLOGY: As mentioned above. Meds/Allergies Home Medications and Allergies Home Medications Medication Instructions Recorded Confirmed Type bacitracin 1 applic TOPICAL Q12H 05/25/19 05/25/19 History docusate sodium 100 mg PO BID PRN 05/25/19 05/25/19 History escitalopram oxalate 10 mg PO DAILY 05/25/19 05/25/19 History hydrocodone-acetaminophen 1 tab PO Q4H PRN 05/25/19 05/25/19 History nicotine [Nicoderm CQ] 1 patch TRANSDERMAL DAILY 05/25/19 05/25/19 History prasugrel 10 mg PO DAILY 05/25/19 05/25/19 History triamcinolone acetonide 1 applic TOPICAL BID 05/25/19 05/25/19 History Allergies Allergy/AdvReac Type Severity Reaction Status Date / Time calamine Allergy ALGY-Bliste Verified 05/25/19 11:46 r ciprofloxacin [From Cipro] Allergy Unknown Verified 05/25/19 11:46 clopidogrel [From Plavix] Allergy ALGY-Rash Verified 05/25/19 11:46 codeine Allergy Unknown Verified 05/25/19 11:46 diphenhydramine Allergy ALGY-Rash Verified 05/25/19 11:46 [From Benadryl] nitroglycerin Allergy ALGY-Rash Verified 05/25/19 11:46 promethazine [From Phenergan] Allergy Unknown Verified 05/25/19 11:46 quinine Allergy Unknown Verified 05/25/19 11:46 simvastatin Allergy ALGY-Rash Verified 05/25/19 11:46 Sulfa (Sulfonamide Allergy Unknown Verified 05/25/19 11:46 Antibiotics) Current Medications Current Medications Generic Name Dose Route Start Last Admin Trade Name Freq PRN Reason Stop Dose Admin Acetaminophen 650 mg 05/25/19 14:57 05/26/19 20:06 Tylenol PO 650 mg Q6H PRN Administration Mild/Mod Pain Or Temp >/= 101 Hydrocodone Bitart/Acetaminophen 1 tab 05/25/19 21:09 05/30/19 15:11 [place] 5-325 Mg PO 1 tab Q4H PRN Administration MODERATE PAIN Albuterol Sulfate 1 puff 05/25/19 14:57 05/30/19 14:06 Ventolin INHALATION 1 puff Q6H JOSE DANIEL Administration Doxycycline Monohydrate 100 mg 05/25/19 18:00 05/25/19 17:52 Vibramycin PO 100 mg BID JOSE DANIEL Administration Gabapentin 100 mg 05/25/19 15:00 05/30/19 15:11 Neurontin PO 100 mg TID JOSE DANIEL Administration Heparin Sodium (Beef Lung) 0 unit 05/29/19 17:52 05/29/19 20:05 Heparin IV 3,000 unit PRN PRN Administration Heparin weight-base protocol Protocol Piperacillin Sod/Tazobactam 50 mls @ 12.5 mls/hr 05/27/19 16:00 05/30/19 15:09 Sod 3.375 gm/ Sodium Chloride IV 12.5 mls/hr Q12H JOSE DANIEL Administration Protocol Heparin Sodium/Sodium Chloride 25,000 unit in 500 mls @ 0 mls/hr 05/29/19 18:00 05/30/19 15:10 Heparin Drip IV 0 unit/kg/hr .Q0M JOSE DANIEL 0 mls/hr Titration Protocol Per Protocol Metoprolol Tartrate 25 mg 05/28/19 09:10 05/30/19 18:00 Lopressor PO Not Given BID JOSE DANIEL Ondansetron HCl 4 mg 05/25/19 14:57 05/30/19 02:25 Zofran IVP 4 mg Q6H PRN Administration vomiting, or N/V if npo Vancomycin HCl 125 mg 05/26/19 13:00 05/30/19 16:33 Vancocin PO Not Given QID JOSE DANIEL PFSH Acute PFSH: Statuses (acute, chronic, etc) shown below reflect problem list status as previously entered and may not be historically accurate Medical History A-V fistula Anemia, chronic disease Atherosclerotic heart disease of [place] coronary artery without angina pectoris CAD (coronary artery disease) ESRD (end stage renal disease) on dialysis GERD (gastroesophageal reflux disease) Hypertension Peripheral neuropathy Peripheral vascular disease Severe aortic stenosis Surgical History History of femoropopliteal bypass Hx of appendectomy Hx of CABG Hx of cholecystectomy S/P thyroid surgery Family History Other Diabetes Hypertension Social History Smoking and tobacco status: current some day smoker cigarettes Number of cigarettes per day: 1-5 Alcohol intake: never Substance/Drug Use: never Female Reproductive History: Date of last menstrual period: 05/25/19 Vitals/I&O/Wt Last Vital Signs Temp 98.0 F 05/30/19 15:28 Pulse 75 05/30/19 15:28 Resp 18 05/30/19 15:28 BP 80/53 05/30/19 17:58 Pulse Ox 94 05/30/19 15:28 05/30/19 05/30/19 05/30/19 06:59 14:59 22:59 Intake Total 530 / 530 324.133 / 854.133 Balance 530 / 530 324.133 / 854.133 Weight last 48 hrs Weight 129 lb Weight 131 lb Weight 135 lb Weight 136 lb 8 oz Physical Exam Narrative: EXAM NARRATIVE: GENERAL: The patient is alert and oriented times three. Not in any acute distress. Chronically ill looking, lean, small frame. HEENT: Moderate pallor, no icterus or lymphadenopathy. The pupils are reactant to light. Oral cavity: There are no mucous membrane lesions. Funduscopic examination: The disk margins appear to be sharp with no exudates or hemorrhages. NECK: Trachea appears to be central. No masses noted. No JVD or thyromegaly appreciated. No carotid bruit. RESPIRATORY: Breath sounds are bilaterally with occasional coarse Rales. No evidence of consolidation. BREASTS: Deferred. HEART: The PMI is in the 5th left intercostals space just in the midclavicular line. No palpable precordial events. S1 and S2 are normal. No S3 or S4 heard. No pericardial rub or any click heard. ABDOMEN: No vessel pulsations or distention. No tenderness. No organomegaly appreciated. No abdominal bruit. Bowel sounds are normally heard. : Deferred. RECTAL: Deferred. LYMPHATIC: No lymphadenopathy noted in the neck . EXTREMITIES: 1+ edema with no cyanosis. Peripheral pulses are nonpalpable bilaterally. MUSCULOSKELETAL: No acute joint deformities or swelling. Patient has some amount of kyphosis SKIN: Erythema and induration of the AV fistula site bilaterally NEUROPSYCHIATRIC: The patient is alert and oriented x3. Appears to be in a good mood. The higher functions are grossly within normal limits. No tremors or rigidity noted. Data Micro: Micro: Microbiology 05/30/19 16:58 Blood Culture - Pr eliminary Blood [facility] 05/30/19 16:58 Blood Culture - Pr eliminary Blood [facility] 05/30/19 14:08 Blood Culture - Pr eliminary Blood [facility] 05/30/19 13:50 Blood Culture - Pr eliminary Blood [facility] 05/26/19 19:58 Blood Culture - Pr eliminary Blood Pseudomonas aer uginosa 05/28/19 09:55 Blood Culture - Pr eliminary Blood Gram Negative R ods Imaging^: CXR: My impression: Borderline cardiac silhouette. Slightly increased pulmonary vascular markings. Dialysis catheter in the right subclavian vein extending into the right atrium. EKG^: EKG 1: My Interpretation: Normal sinus rhythm with a first-degree AV block. Right bundle branch block. Left anterior fascicular block. Features of left ventricular hypertrophy. Nonspecific T wave changes. A&P Assessment and plan (1) Gram-negative bacteremia: The source of the infection is not clear at this time. The dialysis catheter, AV fistula placement, are possible sources of bacteremia. Patient has a history of aortic valve stenosis. It is not very clear to me whether she had any aortic valve intervention with the bypass surgery. A LONG may be appropriate to look for any evidence of endocarditis. However the patient is not very keen for a LONG at this time. .She is wanting to think about this. In the meanwhile, it may be appropriate to go ahead and do a transthoracic echocardiogram, if it has not been done yet. Status: Acute Code(s): R78.81 - Bacteremia (2) ESRD (end stage renal disease) on dialysis: Patient is on hemodialysis. Continue the current treatment. Status: Acute Code(s): N18.6 - End stage renal disease; Z99.2 - Dependence on renal dialysis (3) Atherosclerotic heart disease of [place] coronary artery without angina pectoris: Patient had a coronary bypass surgery in May 2017. She has no specific cardiac symptoms at this time. May continue on the current medications. Status: Acute Qualifiers: [place] vs. transplanted heart: [place] heart Qualified Code(s): I25.10 - Atherosclerotic heart disease of [place] coronary artery without angina pectoris Code(s): I25.10 - Atherosclerotic heart disease of [place] coronary artery without angina pectoris Additional A&P Information Her other problems are Hypotension Severe peripheral arterial disease Valvular heart disease COPD exacerbation Type 2 diabetes Coding Level of Care Code Acute [facility] Stylist for [facility] Diagnoses Gram-negative bacteremia R78.81 ESRD (end stage renal disease) on dialysis N18.6; Z99.2 Atherosclerotic heart disease of [place] coronary artery without angina pectoris I25.10 [place] vs. transplanted heart: [place] heart
[2019-05-30 21:24] LABS: Partial Thromboplastin Time > 250.0 SECONDS (23.9-36.7)
--- NOTE | 2019-05-30 22:28 | PM.EVENT ---
Event Note Event Note: Called with patient's PTT being elevated greater than 250. This was from a lab draw that the dialysis nurse did from the patient's fistula. Since heparin drip was started yesterday there has not been a PTT value that was not elevated. Yesterday the 1 time blood was able to be collected appropriately for the PTT it have been drawn from where the heparin drip was infusing. Drip is been running at 14 units/kg/h since initiation with no adjustments. It was turned off today at 3:10 PM and the blood draw with the elevated PTT was collected sometime in the 4:00 hour. I reviewed briefly with Dr. Barrett. The heparin drip was started due to potential thrombus in the fistula. Since initiation patient's platelet count has improved. The area noted may actually be from infection but at this point, since the heparin drip is been started, we will continue it. I have decreased the rate to 11 units/kg/h fixed dose for the time being. Ordered a repeat PTT attempt with morning lab draw tomorrow. Given difficulty drawing blood from this patient we need to evaluate and come up with a plan for further management to facilitate care. Patient's hemoglobin was stable this morning. No gross bleeding noted. Per Dr. Cooper, patient will likely need transfer to a vascular center to have her fistula further addressed.
[2019-05-31] VITALS (135 sets, daily range): BP systolic 65–144; BP diastolic 27–94; PULSE 70–113; RESP 16–20; TEMP 36.8–38; O2SAT 90–100
[2019-05-31] MEDS: sodium chloride 0.9% 250 ML 125 ML IV (01:13)
[2019-05-31] MEDS: acetaminophen 325 mg Tablet 650 MG PO (01:15)
--- NOTE | 2019-05-31 01:20 | PC.NURSE ---
pt's bp 70s systolic and 40s diastolic with multiple checks, fever of 100.4 orally, and 90% o2 SATS on RA. placed pt on 1L NC which brought back up WNL. Gave PRN tylenol as ordered for fever. notified dr Schumacher. orders placed for 250ml fluid bolus over 2hrs. continuing to monitor pt.
--- NOTE | 2019-05-31 03:15 | PC.NURSE ---
pt is refusing to wear her tele monitor. I explained to the pt the importance of wearing it and that with her bp being low and febrile, we need to monitor her HR. pt continues to refuse wearing it. Gisella CHENG aware
--- NOTE | 2019-05-31 03:59 | PC.NURSE ---
pt increased lethargy. pt awakes when spoken to and answers questions appropriately but very lethargic. I was unable to obtain a manual bp myself and Kaushik ARRIETA was also unable to obtain it. Gisella RNC attempted a manual and got 60/32. Karina GAUTAM took a manual and obtained 76/40. Dr Schumacher notified and will be up to assess pt and to transfer pt to ICU. Continuing to monitor pt.
--- NOTE | 2019-05-31 04:11 | P.EN_ITS ---
Event Note Event Note: Called with pt blood pressure very low. Been as low as 60/40. Has been checked manually by several staff. Been below 85 systolic all night. Gave 250cc fluid bolus earlier without improvement. Pt reported to be more lethargic this evening as well, has not called for nurse once which is a change for her. Heart rate has been stable in 70s. She did not have hemodialysis Radha. On my exam, will awaken. Irritable. Remembers me somewhat from prior visit. Says she does not feel too bad. No chest pain, not short of breath. Not as vibrant as I remember her being, but she looks more chronically ill than I recall. Irregular, clear, no mottling, cap refill 3 seconds both great toes. Left arm fistula not red or warm. Abd soft, nontender. Continues with profuse diarrhea. No visible blood noted, yellow green liquid stool. Noted she has been refusing oral vancomycin last couple times. At this point with persistent significant hypotension, I feel we need to start pressers. Working on getting an ICU bed. Will start fixed rate dopamine (intermediate care dosing) at 5mcg presently. With GI losses, will give another 250cc bolus. We have managed to get another IV and morning labs just now. Unfortunately the IV we had has now blown. We are attempting to get a second IV. Heparin ggt is currently held as pressers are presently more important. Once ICU bed available, will move there. Explained to patient. She is not remembering what I told her at beginning of my visit about her blood pressure being very low as the reason we are transferring her. She is tearful, saying she does not understand. I reviewed with her again and she is a bit calmer. 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 Explained that the medicine to help her BP can make her heart rate go up so we need to monitor closely. She did appear to understand this reasoning, but I expect it will need to be explained again. She agreed with plans. Event Notes Attestations Time Spent in Patient Care: Greater than 35 minutes (>than 50% of time spent in counselling and/or direct pt care on unit) . Total time 42 minutes
[2019-05-31] MEDS: DOPamine drip 400 MG/250 ML PREMIX 11 MG IV ×2 (04:25→19:14)
[2019-05-31 04:49] LABS: Basophils % 0.4 %; Eosinophils # 0.2 10^3/uL (0.0-0.8); Eosinophils % 3.4 %; Hematocrit 28.6 % (37.0-47.0); Hemoglobin 8.6 g/dL (11.5-15.3); Lymphocytes % 14.5 %; Mean Corpuscular HGB Conc 30.1 g/dL (30.0-36.0); Mean Corpuscular Hemoglobin 31.4 pg (28.0-34.0); Mean Corpuscular Volume 104.4 fL (81-99); Monocytes # 0.8 10^3/uL (0.2-0.9); Neutrophils # 4.5 10^3/uL (1.8-7.7); Neutrophils % 67.2 %; Nucleated Red Blood Cells % 0 %; Platelet Count 82 10^3/cmm (130-400); Red Blood Count 2.74 10^6/uL (4.1-5.3); Red Cell Distribution Width 16.6 % (12.1-15.1); White Blood Count 6.7 10^3/uL (4.0-10.0)
[2019-05-31 04:55] LABS: Lactate (Lactic Acid level) 1.1 mmol/L (0.5-2.2)
[2019-05-31 04:59] LABS: Alanine Aminotransferase 28 U/L (0-33); Albumin Level 2.5 g/dL (3.5-5.2); Alkaline Phosphatase 145 IU/L (35-105); Anion Gap 21.8 (5-19); Aspartate Amino Transferase 25 U/L (0-32); Blood Urea Nitrogen 30 mg/dL (8-23); Calcium 7.6 mg/dL (8.5-10.5); Carbon Dioxide 20 mmol/L (22-29); Chloride 100 mmol/L (98-107); Globulin 4.2 g/dL (1.3-4.6); Glomerular Filtration Rate 5.9 mL/min (90-130); Glucose 95 mg/dL (65-115); Magnesium 1.9 mg/dL (1.7-2.3); Phosphorus 4.5 mg/dL (2.5-4.5); Potassium 4.8 mmol/L (3.5-5.1); Sodium 137 mmol/L (136-145); Total Bilirubin 0.5 mg/dL (0.15-1.2); Total Protein 6.7 g/dL (6.6-8.7)
--- NOTE | 2019-05-31 05:06 | PC.NURSE ---
report given to Jonny GOMEZ for transfer to ICU
[2019-05-31] MEDS: piperacillin-tazobactam 3.375 GM in sodium chloride 0.9% (plus) 50 ML IV ×2 (05:51→17:19)
[2019-05-31 06:12] LABS: Partial Thromboplastin Time 85.4 SECONDS (23.9-36.7)
--- NOTE | 2019-05-31 06:33 | PC.NURSE ---
SHIFT SUMMARY/TRANSFER PT CAME TO ICU FROM [facility] AROUND 0540. PT HAS BEEN ALERT AT TIMES, AT TIMES PT IS NOT ORIENTATED AT ALL. PT HAD A LITTLE VOMIT. HAS BEEN HYPOTENSIVE, DOPAMINE RUNNING AT 7.5MCG CURRENTLY. PT IS INCONTINENT OF BOWEL, HAD ONE BOWEL MOVEMENT SINCE ARRIVAL. PT RIGHT ARM FISTULA HAS A THRILL, LEFT ARM FISTULA DOES NOT HAVE A THRILL. PT HAS TWO IVS CURRENTLY, HEPARIN AT A FIXED RATE OF 11MCG/KG/HR.
--- NOTE | 2019-05-31 06:46 | PC.NURSE ---
PATIENT PTT IS 85 THIS MORNING, ORDER TO KEEP AT SET RATE OF 11UNIT/KG/HR. DR NOT NOTIFIED AT THIS TIME.
--- NOTE | 2019-05-31 07:00 | USCV_ITS ---
Carmen Duarte Age: 64 Gender: F : 1955 Exam Date: 05/31/2019 13:50 Ordering Phys: Fanny Tuttle MD ([email or web address]) Technologist: Deb Helm [place]am [place] [facility] [place] Indication: BACTEREMIA BP: 108 / 69 HR: 81 Rhythm: Sinus Technical Quality: Adequate MEASUREMENTS (Male / Female) Normal Values 2D ECHO LV Diastolic Diameter PLAX 4.0 cm 4.2 - 5.9 / 3.9 - 5.3 cm LV Systolic Diameter PLAX 2.8 cm LV Chamber Size 3.5 cm IVS Diastolic Thickness 1.1 cm 0.6 - 1.0 / 0.6 - 0.9 cm IVS Systolic Thickness 1.1 cm LVPW Diastolic Thickness 2.0 cm 0.6 - 1.0 / 0.6 - 0.9 cm LVPW Systolic Thickness 2.1 cm RV Chamber Size 2.3 cm LVOT Diameter 2.0 cm LV Ejection Fraction 2D Teich 56.8 % LV Ejection Fraction MOD 2C 57.9 % LV Ejection Fraction 2C AL 54.9 % LA Diameter 5.0 cm LA Width 3.8 cm LA Height 4.6 cm RA Width 3.6 cm RA Height 4.0 cm Aorta at Sinotubular Diameter 2.1 cm M-MODE LV Diastolic Diameter MM 4.9 cm 4.2 - 5.9 / 3.9 - 5.3 cm LV Systolic Diameter MM 3.2 cm LV Ejection Fraction MM Teich 64.1 % IVS Diastolic Thickness MM 0.8 cm 0.6 - 1.0 / 0.6 - 0.9 cm IVS Systolic Thickness MM 1.2 cm LVPW Diastolic Thickness MM 1.1 cm 0.6 - 1.0 / 0.6 - 0.9 cm LVPW Systolic Thickness MM 1.5 cm Aortic Annulus Diameter 3.1 cm LA Ao Ratio MM 1.6 MV E Point Septal Separation 1.1 cm DOPPLER AV Peak Velocity 257.0 cm/s LVOT Peak Velocity 127.0 cm/s AV Area Cont Eq vti 1.4 cm squared AV Area Cont Eq pk 1.6 cm squared MV Area PHT 5.8 cm squared Mitral E to A Ratio 1.2 MV E' Velocity 15.0 cm/s Mitral E to MV E' Ratio 9.6 Mitral E to LV E' Lateral Ratio 8.7 Mitral E to LV E' Septal Ratio 10.7 TR Peak Velocity 300.0 cm/s TR Peak Gradient 35.9 mmHg TR Mean Velocity 215.7 cm/s TR Mean Gradient 21.5 mmHg TR Velocity Time Integral 101.6 cm TV Peak E Velocity 110.0 cm/s Right Atrial Pressure 3.0 mmHg Pulmonary Artery Systolic Pressu 39.0 mmHg PV Peak Velocity 104.0 cm/s RV Acceleration Time 0.1 s RV Ejection Time 0.4 s RV AcT/ET 0.3 FINDINGS Left Ventricle Normal left ventricular size and systolic function, EF 60 %. Mild left ventricular hypertrophy. Mild hypokinesia of the basal septal segment Right Ventricle Normal right ventricular size and systolic function. Right Atrium Mildly increased right atrial size. Catheter/pacemaker wire in the right atrial cavity. Left Atrium Moderately increased left atrial size. Mitral Valve Thickened mitral valve. Moderate mitral annular calcification. Trace mitral valve regurgitation. Aortic Valve Thickened aortic valve. Trace aortic valve regurgitation. Mild aortic valve stenosis, mean gradient 12.6 mmHg, KATHY 1.4 cm squared. Tricuspid Valve Mild tricuspid valve regurgitation. Pulmonic Valve Pulmonic valve not well visualized. Pericardium No pericardial effusion. Aorta Plaque seen in the ascending aorta. CONCLUSIONS Normal left ventricular size and systolic function, EF 60 %. Mild left ventricular hypertrophy. Mild hypokinesia of the basal septal segment. Trace aortic valve regurgitation. Mild aortic valve stenosis, mean gradient 12.6 mmHg, KATHY 1.4 cm squared. Thickened mitral valve. Moderate mitral annular calcification. No masses or vegetations are noted on the valves Moderately increased left atrial size. Mildly increased right atrial size. Catheter/pacemaker wire in the right atrial cavity. Mild tricuspid valve regurgitation. Estimated pulmonary artery peak systolic pressure [address] Fanny Tuttle MD FAC (Electronically Signed) Final Date: 31 May 2019 20:37 S
--- NOTE | 2019-05-31 08:04 | P.PN_ITS ---
Subjective Subjective: Interval history: overnight events noted. weak, lethargic, palps. fevers, tender left arm Medications: Reviewed: Yes Medication Review Details: Current Medications Acetaminophen (Tylenol) 650 mg PO Q6H PRN PRN Reason: Mild/Mod Pain Or Temp >/= 101 Last Admin: 05/31/19 01:15 Dose: 650 mg Documented by: Hydrocodone Bitart/Acetaminophen ([place] 5-325 Mg) 1 tab PO Q4H PRN PRN Reason: MODERATE PAIN Last Admin: 05/30/19 15:11 Dose: 1 tab Documented by: Albuterol Sulfate (Ventolin) 1 puff INHALATION Q6H [facility] Last Admin: 05/30/19 14:06 Dose: 1 puff Documented by: Doxycycline Monohydrate (Vibramycin) 100 mg PO BID [facility] Last Admin: 05/25/19 17:52 Dose: 100 mg Documented by: Gabapentin (Neurontin) 100 mg PO TID [facility] Last Admin: 05/30/19 20:47 Dose: Not Given Documented by: Heparin Sodium (Beef Lung) (Heparin) 0 unit IV PRN PRN; Protocol PRN Reason: Heparin weight-base protocol Last Admin: 05/29/19 20:05 Dose: 3,000 unit Documented by: Piperacillin Sod/Tazobactam (Sod 3.375 gm/ Sodium Chloride) 50 mls @ 12.5 mls/hr IV Q12H [facility]; Protocol Last Admin: 05/31/19 05:51 Dose: 12.5 mls/hr Documented by: Heparin Sodium/Sodium Chloride (Heparin Drip) 25,000 unit in 500 mls @ 0 mls/hr IV .Q0M [facility]; Protocol Last Titration: 05/31/19 04:25 Dose: 0 unit/kg/hr, 0 mls/hr Documented by: Dopamine HCl/Dextrose (Intropin Drip) 400 mg in 250 mls @ 10.971 mls/hr IV CONT [facility]; Protocol Last Titration: 05/31/19 06:41 Dose: 10 mcg/kg/min, 21.9 mls/hr Documented by: Metoprolol Tartrate (Lopressor) 25 mg PO BID [facility] Last Admin: 05/30/19 18:00 Dose: Not Given Documented by: Metoprolol Tartrate (Metoprolol Tartrate) 5 mg IV Q4H PRN PRN Reason: HEART RATE-HIGH Ondansetron HCl (Zofran) 4 mg IVP Q6H PRN PRN Reason: vomiting, or N/V if npo Last Admin: 05/30/19 02:25 Dose: 4 mg Documented by: Vancomycin HCl (Vancocin) 125 mg PO QID JOSE DANIEL Last Admin: 05/30/19 20:47 Dose: Not Given Documented by: Vitals/I&O/Wt Last Vital Signs Temp 100.4 F H 05/31/19 00:00 Pulse 87 05/31/19 06:30 Resp 17 05/31/19 00:00 BP 93/44 05/31/19 06:30 Pulse Ox 95 05/31/19 06:30 05/30/19 05/31/19 05/31/19 22:59 06:59 14:59 Intake Total 404.133 / 934.133 120.867 / 1055.000 Output Total / Balance 404.133 / 934.133 118.867 / 1053.000 Weight last 48 hrs Weight 55.8 kg Weight 58.513 kg Weight 59.421 kg Physical Exam Narrative: EXAM NARRATIVE: lying in bed. nc o2, uncomfortable on dopamine @ 10 heent- nc/at, eomi neck supple lungs clear heart irreg +Systolic murmur abd soft, nt, nd, +BS ext- lue swelling/ tender by previous avf no leg edema neuro- a,a, o x3 pulses + b/l rt ant chest wall dialysis catheter Data : 05/31/19 04:20 05/31/19 04:20 Micro: Microbiology 05/31/19 04:20 Blood Culture - Preliminary Blood SPECIMEN COLLECTED 05/31/19 04:20 Blood Culture - Preliminary Blood SPECIMEN COLLECTED 05/30/19 16:58 Blood Culture - Preliminary Blood SPECIMEN COLLECTED 05/30/19 16:58 Blood Culture - Preliminary Blood SPECIMEN COLLECTED 05/30/19 14:08 Blood Culture - Preliminary Blood SPECIMEN COLLECTED 05/30/19 13:50 Blood Culture - Preliminary Blood SPECIMEN COLLECTED 05/26/19 19:58 Blood Culture - Preliminary Blood Pseudomonas aeruginosa A&P Additional A&P Information 1. ESRD HD MWF via rt chest wall permacath Dose medications for GFR less than 15 on dialysis. hold HD today as hypotensive 2. Atrial fibrillation, h/o cabg- as per cardiology 3. ID issues bacteremia with GNRS - pseudomonas CDiff positive -improving diarrhea - per Dr Shepherd on Abx -pt 3 weeks ago had part of her lue av graft removed. she now has persistent bacteremia- i am concerned for either endocarditis or that her graft is still infected -possibility of dialysis catheter infection is still possible - q if need to re-operate on left arm- which has part of graft left. or if needs dialysis catheter removed -consider transfer to [facility], or to another hospital w/ vasc surgery to assess arm 4. 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 low pth- no vit d analouge, high iron sat- no iv iron hgb low- epo 5. thrombocytopenia from infection vs zosyn effect 6. normal phos Attestations 2 Medical Necessity Statement*: sepsis, esrd, bacteremia Time Spent in Patient Care: 16 - 35 minutes Coding Level of Care Code Acute Electrolysis Needle Operator for Melvin Mina
[2019-05-31] MEDS: gabapentin 100 mg Capsule PO ×3 (08:41→21:59)
--- NOTE | 2019-05-31 09:14 | PC.CHAP ---
Pastoral Care Encounter/Spiritual Assessment Type of Contact [] Declined music journalist visit [] Patient/Family/Request visit [] Outpatient visit [] Follow-up visit [] Physician referral [] Code/Alert [x] Routine visit [] Staff referral [] Actively dying [x] Patient sleeping [] Family support [] [] Out of room [] Palliative care [] [] Receiving care in room [] Pre-surgical visit [] Trauma [] Long length of stay [x] ICU visit [] Other: Relational/Emotional Strength [] Patient feels connected with others/family/visitors/staff [] Distress [] Loneliness/isolation [] Abandonment Spirituality of Patient [] Person of Bianca [] Attends Buddhist of their Bianca [] Believes in Prayer [] Reads Bible or Restorationist materials [] There are Spiritual issues to be addressed Saturator Operator Interventions [] Prayer [] Active listening [] Non-anxious presence [] Spiritual/emotional support [] Crisis/trauma care [] Spiritual counseling [] Bereavement support [] Provided bereavement packet [] Provided Bible/devotional materials [] Provided toy/stuffed animal, coloring book to patient or family member [] Provided Communion [] Anointing/[place] [] Salvation [] Completed spiritual assessment [] Other: Impact on Illness or Injury [] Angry [] Fearful [] Anxious [] Often cries [] Exhaustion [] Unable to work [] Unable to attend sabianist [] Unable to walk/stand [] Unable to read [] Unable to drive [] Unable to eat/drink [] Unable to sleep [] Unable to be with family [] Patient intubated [] Other: Summary patient resting. Patient on ventilator. Time spent with patient
--- NOTE | 2019-05-31 11:20 | P.PN_ITS ---
Subjective Subjective: Interval history: Patient noted to be hypotensive overnight despite total of 500 mL bolus; started on dopamine drip. Moved to ICU for closer monitoring. Febrile with a T-max of 100.4; blood pressure improved. Has had profuse diarrhea, has declined her oral doses of vancomycin. Heparin drip redosed to fix rate of 15 due to difficulty with blood draws and elevated PTT o raghu 250. Attempted to transfer patient to [facility], patient declined by wool sampler. Tried to wean her off dopamine drip and was off of this for a very short period of time before blood pressure started to trend down. Continue difficulty with peripheral IV access. Unstable to have hemodialysis with this was not done today. Dialysis nurse time he spoke to patient's steam shovelman Dr. Euceda who recommended trying to wean patient off dopamine drip and reattempt transfer to [facility] in [place]. Patient has had profuse diarrhea so will have rectal tube placed. She has been very sleepy and lethargic throughout the day. Medications: Reviewed: Yes Medication Review Details: Current Medications Generic Name Dose Route Start Last Admin Trade Name Freq PRN Reason Stop Dose Admin Acetaminophen 650 mg 05/25/19 14:57 05/31/19 01:15 Tylenol PO 650 mg Q6H PRN Administration Mild/Mod Pain Or Temp >/= 101 Hydrocodone Bitart /Acetaminophen 1 tab 05/25/19 21:09 05/30/19 15:11 [place] 5-325 Mg PO 1 tab Q4H PRN Administration MODERATE PAIN Albuterol Sulfate 1 puff 05/25/19 14:57 05/31/19 09:28 Ventolin INHALATION Not Given Q6H JOSE DANIEL Doxycycline Monohy drate 100 mg 05/25/19 18:00 05/25/19 17:52 Vibramycin PO 100 mg BID JOSE DANIEL Administration Gabapentin 100 mg 05/25/19 15:00 05/31/19 08:41 Neurontin PO 100 mg TID JOSE DANIEL Administration Heparin Sodium (Be ef Lung) 0 unit 05/29/19 17:52 05/29/19 20:05 Heparin IV 3,000 unit PRN PRN Administration Heparin weight-ba se protocol Protocol Piperacillin Sod/T azobactam 50 mls @ 12.5 mls /hr 05/27/19 16:00 05/31/19 05:51 Sod 3.375 gm/ So dium Chloride IV 12.5 mls/hr Q12H JOSE DANIEL Administration Protocol Heparin Sodium/Sod ium Chloride 25,000 unit in 50 0 mls @ 0 mls/hr 05/29/19 18:00 05/31/19 04:25 Heparin Drip IV 0 unit/kg/hr .Q0M JOSE DANIEL 0 mls/hr Titration Protocol Per Protocol Dopamine HCl/Dextr ose 400 mg in 250 mls @ 10.971 mls/hr 05/31/19 04:15 05/31/19 06:41 Intropin Drip IV 10 mcg/kg/min CONT JOSE DANIEL 21.9 mls/hr Titration Protocol 5 MCG/KG/MIN Metoprolol Tartrat e 25 mg 05/28/19 09:10 05/30/19 18:00 Lopressor PO Not Given BID JOSE DANIEL Ondansetron HCl 4 mg 05/25/19 14:57 05/30/19 02:25 Zofran IVP 4 mg Q6H PRN Administration vomiting, or N/V if npo Vancomycin HCl 125 mg 05/26/19 13:00 05/31/19 08:41 Vancocin PO 125 mg QID JOSE DANIEL Administration Vitals/I&O/Wt Last Vital Signs Temp 98.9 F 05/31/19 10:00 Pulse 78 05/31/19 11:00 Resp 16 05/31/19 09:28 BP 126/53 05/31/19 11:00 Pulse Ox 99 05/31/19 11:00 05/30/19 05/31/19 05/31/19 22:59 06:59 14:59 Intake Total 404.133 / 934.133 120.867 / 1055.000 Output Total 2 / 2 Balance 404.133 / 934.133 118.867 / 1053.000 Weight last 48 hrs Weight 55.8 kg Weight 58.513 kg Weight 59.421 kg Physical Exam Const: COMMON NORMALS: no apparent distress GENERAL APPEARANCE: cooperative, anxious, disheveled and lethargic ORIENTATION/CONSCIOUSNESS: Yes awake and Yes lethargic HENMT: COMMON NORMALS: normocephalic, head/scalp atraumatic, hearing grossly normal bilaterally and moist oral mucous membranes HEAD & SCALP: normocephalic and atraumatic Eye: COMMON NORMALS: PERRL, EOMs intact bilaterally and conjunctivae normal CONJUNCTIVA: Yes conjunctivae normal PUPIL: Yes PERRL Neck/C-Spine: COMMON NORMALS: full ROM GENERAL: Yes normal visual inspection and Yes trachea midline Chest: OTHER: tunneled catheter on R; no evidence of drainage, erythema, warmth and no tenderness to palpation Resp: COMMON NORMALS: normal respiratory effort, no retractions and no use of accessory muscles EFFORT & INSPECTION: Yes able to speak in complete sentences, Yes symmetric chest movement and No tachypneic AUSCULTATION: diminished lung sounds bilateral Cardio: COMMON NORMALS: regular rate, regular rhythm, S1 normal heart sound and S2 normal heart sound RATE: regular rate RHYTHM: regular rhythm and abnormal rhythm irregularly irregular HEART SOUNDS: S1 normal, S2 normal, click and murmur GI: COMMON NORMALS: normal to inspection, nondistended, normoactive bowel sounds, soft to palpation and non-tender PALPATION: Yes soft Extremity: COMMON NORMALS: normal to inspection, full ROM and no clubbing, cyanosis or edema; negative for no pedal edema OTHER: LUE; healed and scarred over area on upper arm from previous fistula; demarcated area of erythema is minimal, noted warmth to touch and tenderness to palpation RUE: recent grafting on forearm; maturing fistula Neuro: COMMON NORMALS: moves all extremities, no focal motor deficits and no sensory deficits noted SENSORIUM/ORIENTATION: Yes lethargic Psych: COMMON NORMALS: mental status grossly normal, thought process normal, cooperative, affect normal and speech normal SPEECH: Yes normal speech T HOUGHT PROCESS: normal thought process Skin: COMMON NORMALS: no rashes or lesions noted, no jaundice, no petechiae and no mottling GENERAL SKIN EXAM: no rashes or lesions noted OTHER: - onychomycosis of fingernails Data : 05/31/19 04:20 05/31/19 04:20 Micro: Microbiology 05/31/19 04:20 Blood Culture - Preliminary Blood SPECIMEN COLLECTED 05/31/19 04:20 Blood Culture - Preliminary Blood SPECIMEN COLLECTED 05/30/19 16:58 Blood Culture - Preliminary Blood SPECIMEN COLLECTED 05/30/19 16:58 Blood Culture - Preliminary Blood SPECIMEN COLLECTED 05/30/19 14:08 Blood Culture - Preliminary Blood SPECIMEN COLLECTED 05/30/19 13:50 Blood Culture - Preliminary Blood SPECIMEN COLLECTED 05/26/19 19:58 Blood Culture - Preliminary Blood Pseudomonas aeruginosa A&P Assessment and plan (1) Gram-negative bacteremia: -Noted bacteremia secondary to pseudomonas aeruginosa, blood cultures from 2/ growing gram-. Repeat blood cx from 05/25 growing GNRs in 2/ bottles, 2/4 bottles positive for GNRs from 05/26; repeat set from 05/28 1/4 bottles positive for GNRs; has received dose of Vanc, Zosyn. -No leukocytosis, currently afebrile though spiked a temp of 100.4 overnight. With addition of hypotension necessitating initiation of dopamine drip, patient is currently septic. -Concern for possible skin infection on L, previous fistula site. [facility], patient had confirmed LUE AV fistula infection, opted to leave AMA with recommendation to f/u with vascular surgery in [place]. At that time, she had tunneled catheter in place for HD access. Request records from [facility] for recent fistula procedure. Discussed case with Dr. Cody Gastelum who confirmed recent procedure including removal of graft which had thrombosed on LUE, extensive excision of large aneurysm and placement of new graft on right upper extremity with intention for longer term HD access. He is suspicious that primary source of infection is likely tunneled catheter which will need to be removed. -On Zosyn -venous duplex showing thrombosis of L basilic vein; start on heparin drip. Not a good candidate for terminal gauger supervisor anticoagulation given anemia, thrombocytopenia, hx of non-compliance -has maturing fistula on R and tunneled HD catheter -requested LONG to r/o endocarditis; patient reluctant to have this done -ordered blood cx from site of tunneled catheter; highly suspicious that this is the primary source of infection -per discussion with Dr. Gastelum, may be able to access RUE fistula and use as alternative HD access Status: Acute Code(s): R78.81 - Bacteremia (2) C. difficile colitis: -C.difficile positive; was positive for this in 12/2018 as well -on oral vancomycin (day 4); refused this yesterday -contact isolation precautions Status: Acute Code(s): A04.72 - Enterocolitis due to Clostridium difficile, not specified as recurrent (3) ESRD (end stage renal disease) on dialysis: -is on HD MWF -Nephrology consult appreciated -noted renal function, hyperkalemia -continue to monitor renal function -has tunneled catheter for access; from review of medical record, this was placed sometime between July and December 2018 Status: Acute Code(s): N18.6 - End stage renal disease; Z99.2 - Dependence on renal dialysis (4) Atrial fibrillation with RVR: -noted to have atrial fibrillation with RVR in ED; did not respond to cardizem drip, started on Esmolol with good response and this has since been weaned off -Heart rate increasing which could be secondary to infection; start on low dose BB -telemetry monitoring -VSS; continue to monitor vital signs -Echo (07/2018): EF=27-30%, G2DD, diffuse hypokinesia -not on AC Status: Acute Code(s): I48.91 - Unspecified atrial fibrillation Additional A&P Information -HTN; low normal BP this AM -Non oxygen dependent COPD; recently treated for acute exacerbation, off doxycycline as on broad spectrum abx -Chronic smoker; smokes 1-2 cig/day, has been using nicotine patches to cut down -Peripheral neuropathy -Chronic combined systolic and diastolic CHF -hx of severe aortic stenosis -hx of non compliance particularly with HD -Peripheral vascular disease; f/u with vascular surgery in [place] -Chronic normocytic anemia, likely anemia of chronic disease; baseline Hg 10-11 -Chronic thrombocytopenia; baseline platelet count 80s -continue to monitor respiratory status; supplemental oxygen as needed -DVT ppx with SCDs; no AC due to thrombocytopenia -renal dialysis diet -fall precautions; up with assist -Dispo: home, already has services -Code status: FULL code -work on transfer to higher level of care given need for vascular surgery and ID evaluations. Attestations Medical Necessity Statement*: Patient requires hospitalization given need for continued IV antibiotics, dopamine drip; pending transfer to higher level of care. Time Spent in Patient Care: Greater than 35 minutes (>than 50% of time spent in counselling and/or direct pt care on unit) . Critical Care Time: The high probability of a clinically significant, sudden or life threatening deterioration of the patient's [cardiovascular] system(s) required my full and direct attention, intervention and personal management. The critical care time is as shown. This time is in addition to time spent performing any reported procedures but includes the following: [x] Data and vital sign review and interpretation [x] Patient assessment, examination and intervention [x] Documentation [x] Medication orders and management Critical Care Time (min): 30 Coding Level of Care Code Acute Area Representative for Chg Fwd Exam Problem Focused Diagnoses Gram-negative bacteremia R78.81 C. difficile colitis A04.72 ESRD (end stage renal disease) on dialysis N18.6; Z99.2 Atrial fibrillation with RVR I48.91
--- NOTE | 2019-05-31 12:53 | PC.NURSE ---
1200 Nurse discussed pt condition with Dr. Shepherd. Instructed to leave heparin drip at fixed rate of 11, and not to attempt to check ptt at this time due to pt poor venous condition and inability to draw labs.
[2019-05-31] MEDS: sodium chloride 0.9% 500 ML IV (17:20)
[2019-05-31] MEDS: heparin drip 25,000 UNIT/500 ML PREMIX 13.5 UNIT IV (17:24)
[2019-05-31] MEDS: HYDROcodone-acetaminophen 5-325 mg Tablet 1 TAB PO (21:59)
[2019-06-01] VITALS (171 sets, daily range): BP systolic 80–182; BP diastolic 33–77; PULSE 59–102; RESP 14–18; TEMP 36.5–36.6; O2SAT 81–100
[2019-06-01] MEDS: piperacillin-tazobactam 3.375 GM in sodium chloride 0.9% (plus) 50 ML IV ×2 (03:47→16:42)
[2019-06-01] MEDS: HYDROcodone-acetaminophen 5-325 mg Tablet 1 TAB PO ×3 (04:45→21:23)
--- NOTE | 2019-06-01 08:41 | P.PN_ITS ---
Subjective Subjective: Interval history: remains on low dose pressors, feels better. weak, arm pain. temp improving Medications: Reviewed: Yes Medication Review Details: Current Medications Acetaminophen (Tylenol) 650 mg PO Q6H PRN PRN Reason: Mild/Mod Pain Or Temp >/= 101 Last Admin: 05/31/19 01:15 Dose: 650 mg Documented by: Hydrocodone Bitart/Acetaminophen ([place] 5-325 Mg) 1 tab PO Q4H PRN PRN Reason: MODERATE PAIN Last Admin: 06/01/19 04:45 Dose: 1 tab Documented by: Albuterol Sulfate (Ventolin) 1 puff INHALATION Q6H [facility] Last Admin: 06/01/19 03:26 Dose: Not Given Documented by: Doxycycline Monohydrate (Vibramycin) 100 mg PO BID [facility] Last Admin: 05/25/19 17:52 Dose: 100 mg Documented by: Gabapentin (Neurontin) 100 mg PO TID [facility] Last Admin: 05/31/19 21:59 Dose: 100 mg Documented by: Heparin Sodium (Beef Lung) (Heparin) 0 unit IV PRN PRN; Protocol PRN Reason: Heparin weight-base protocol Last Admin: 05/29/19 20:05 Dose: 3,000 unit Documented by: Piperacillin Sod/Tazobactam (Sod 3.375 gm/ Sodium Chloride) 50 mls @ 12.5 mls/hr IV Q12H [facility]; Protocol Last Admin: 06/01/19 03:47 Dose: 12.5 mls/hr Documented by: Heparin Sodium/Sodium Chloride (Heparin Drip) 25,000 unit in 500 mls @ 0 mls/hr IV .Q0M [facility]; Protocol Last Admin: 05/31/19 17:24 Dose: 11 unit/kg/hr, 13.5 mls/hr Documented by: Dopamine HCl/Dextrose (Intropin Drip) 400 mg in 250 mls @ 10.971 mls/hr IV CONT [facility]; Protocol Last Admin: 05/31/19 19:14 Dose: 5 mcg/kg/min, 11 mls/hr Documented by: Metoprolol Tartrate (Lopressor) 25 mg PO BID [facility] Last Admin: 05/30/19 18:00 Dose: Not Given Documented by: Metoprolol Tartrate (Metoprolol Tartrate) 5 mg IV Q4H PRN PRN Reason: HEART RATE-HIGH Ondansetron HCl (Zofran) 4 mg IVP Q6H PRN PRN Reason: vomiting, or N/V if npo Last Admin: 05/30/19 02:25 Dose: 4 mg Documented by: Vancomycin HCl (Vancocin) 125 mg PO QID JOSE DANIEL Last Admin: 05/31/19 22:59 Dose: 125 mg Documented by: Vitals/I&O/Wt Last Vital Signs Temp 97.8 F 06/01/19 04:20 Pulse 72 06/01/19 06:05 Resp 18 05/31/19 19:18 BP 101/53 06/01/19 06:05 Pulse Ox 99 06/01/19 06:05 05/31/19 06/01/19 06/01/19 22:59 06:59 14:59 Intake Total 338.40 / 774.035 Output Total 100 / 100 300 / 400 Balance 238.40 / 674.035 -300 / 374.035 Weight last 48 hrs Weight 57.776 kg Weight 55.8 kg Physical Exam Narrative: EXAM NARRATIVE: lying in bed. nc o2, more comfortable than yesterday on dopamine @ 10 heent- nc/at, eomi neck supple lungs ronchi b/l heart irreg +Systolic murmur abd soft, nt, nd, +BS ext- lue swelling/ tender by previous avf no leg edema neuro- a,a, o x3 pulses + b/l rt ant chest wall dialysis catheter Data : 05/31/19 04:20 05/31/19 04:20 Other Labs: Laboratory Results WBC 6.7 10^3/uL (4.0-10.0) 05/31/19 04:20 RBC 2.74 10^6/uL (4.1-5.3) L 05/31/19 04:20 Hgb 8.6 g/dL (11.5-15.3) L 05/31/19 04:20 Hct 28.6 % (37.0-47.0) L 05/31/19 04:20 MCV 104.4 fL (81-99) H 05/31/19 04:20 MCH 31.4 pg (28.0-34.0) 05/31/19 04:20 MCHC 30.1 g/dL (30.0-36.0) 05/31/19 04:20 RDW 16.6 % (12.1-15.1) H 05/31/19 04:20 Plt Count 82 10^3/cmm (130-400) L 05/31/19 04:20 MPV 12.0 fL (7.4-10.4) H 05/31/19 04:20 Neut % (Auto) 67.2 % 05/31/19 04:20 Lymph % (Auto) 14.5 % 05/31/19 04:20 [place] % (Auto) 12.0 % 05/31/19 04:20 Eos % (Auto) 3.4 % 05/31/19 04:20 Baso % (Auto) 0.4 % 05/31/19 04:20 Neut # (Auto) 4.5 10^3/uL (1.8-7.7) 05/31/19 04:20 Lymph # (Auto) 1.0 10^3/uL (0.8-4.8) 05/31/19 04:20 [place] # (Auto) 0.8 10^3/uL (0.2-0.9) 05/31/19 04:20 Eos # (Auto) 0.2 10^3/uL (0.0-0.8) 05/31/19 04:20 Baso # (Auto) 0.0 10^3/uL (0.0-0.1) 05/31/19 04:20 Nucleated RBC % (auto) 0 % 05/31/19 04:20 Nucleated RBCs # 0.0 /100WBC 05/31/19 04:20 ESR 81 mm/hr (0-15) H 05/25/19 11:55 APTT 85.4 SECONDS (23.9-36.7) H D 05/31/19 04:20 Sodium 137 mmol/L (136-145) 05/31/19 04:20 Potassium 4.8 mmol/L (3.5-5.1) 05/31/19 04:20 Chloride 100 mmol/L (98-107) 05/31/19 04:20 Carbon Dioxide 20 mmol/L (22-29) L 05/31/19 04:20 Anion Gap 21.8 (5-19) H 05/31/19 04:20 BUN 30 mg/dL (8-23) H 05/31/19 04:20 Creatinine 7.0 mg/dL (0.5-0.9) H* 05/31/19 04:20 GFR Calculation 5.9 mL/min (90-130) L 05/31/19 04:20 Glucose 95 mg/dL (65-115) 05/31/19 04:20 Calculated Osmolality 279 mOsm/kg (285-295) L 05/29/19 07:25 Lactic Acid (Sepsis) 1.3 mmol/L (0.5-2.2) 05/25/19 23:10 Lactate 1.1 mmol/L (0.5-2.2) 05/31/19 04:20 Calcium 7.6 mg/dL (8.5-10.5) L 05/31/19 04:20 Phosphorus 4.5 mg/dL (2.5-4.5) 05/31/19 04:20 Magnesium 1.9 mg/dL (1.7-2.3) 05/31/19 04:20 Iron 84 ug/dL (37-145) 05/28/19 09:55 TIBC 162 mcg/dl 05/28/19 09:55 % Saturation 51.8 % (20-50) H 05/28/19 09:55 Unsat Iron Binding 78 ug/dL (112-347) L 05/28/19 09:55 Total Bilirubin 0.5 mg/dL (0.15-1.2) 05/31/19 04:20 AST 25 U/L (0-32) 05/31/19 04:20 ALT 28 U/L (0-33) 05/31/19 04:20 Alkaline Phosphatase 145 IU/L (35-105) H 05/31/19 04:20 Troponin I 6 Hour 44.35 ng/L (0-10) H 05/25/19 18:30 Troponin I Hi Sens Del -5.65 ng/L (0-12) L 05/25/19 18:30 Troponin T Baseline 50 ng/mL (0-10) H 05/25/19 11:55 Troponin T 120 Minute 48.39 ng/mL (0-10) H 05/25/19 13:51 Delta Troponin T -1.61 ABS# (0-10) L 05/25/19 13:51 C-Reactive Protein 266.8 mg/L (0.0-4.9) H 05/25/19 23:10 Total Protein 6.7 g/dL (6.6-8.7) 05/31/19 04:20 Albumin 2.5 g/dL (3.5-5.2) L 05/31/19 04:20 Globulin 4.2 g/dL (1.3-4.6) 05/31/19 04:20 Procalcitonin < 100.00 ng/mL (0-0.5) H 05/25/19 23:10 PTH Intact 53.7 pg/mL (15-65) 05/29/19 07:25 Calcium (PTH Intact) 7.2 mg/dL (8.5-10.5) L 05/29/19 07:25 Impressions Humerus X-Ray 05/25/19 22:58 Impression: 1. Negative for soft tissue mass or abscess. 2. Soft tissue calcification measuring 1.72 cm which is adjacent to the medial aspect of the junction of the left humeral head and left humeral shaft. 3. Arterial shunt in the midportion of left arm. 4. Soft tissue calcifications and clips in distal subcutaneous tissues of the left arm. Chest X-Ray 05/26/19 14:20 Impression: 1. Clearing of patchy opacity in lateral aspect of right middle lobe. 2. No other changes of the heart and lungs are seen Micro: Microbiology 05/31/19 04:20 Blood Culture - Preliminary Blood NEGATIVE TO DATE 05/31/19 04:20 Blood Culture - Preliminary Blood NEGATIVE TO DATE 05/30/19 16:58 Blood Culture - Preliminary Blood NEGATIVE TO DATE 05/30/19 16:58 Blood Culture - Preliminary Blood NEGATIVE TO DATE 05/30/19 14:08 Blood Culture - Preliminary Blood NEGATIVE TO DATE 05/30/19 13:50 Blood Culture - Preliminary Blood NEGATIVE TO DATE A&P Additional A&P Information 1. ESRD HD MWF via rt chest wall permacath Dose medications for GFR less than 15 on dialysis. dialysis was held yesterday as she was hypotensive on dopamine. will attempt dialysis today -3.5 hrs, 2k, remove 1l, heparin 1000/1000 2. Atrial fibrillation, h/o cabg- as per cardiology 3. ID issues bacteremia with GNRS - pseudomonas CDiff positive -improving diarrhea - per Dr Shepherd on Abx -pt 3 weeks ago had part of her lue av graft removed. she now has persistent bacteremia- i am concerned for either endocarditis or that her graft is still infected -possibility of dialysis catheter infection is still possible - q if need to re-operate on left arm- which has part of graft left. or if needs dialysis catheter removed -consider transfer to [facility], or to another hospital w/ vasc surgery to assess arm 4. 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 low pth- no vit d analouge, high iron sat- no iv iron hgb low- epo 5. thrombocytopenia from infection vs zosyn effect 6. normal phos 7. repeat cxr Attestations Medical Necessity Statement*: on dopamine. bacteremia- improving, ESRD, likely infected left arm av access Time Spent in Patient Care: 16 - 35 minutes (>than 50% of time spent in counselling and/or direct pt care on unit) . 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
--- NOTE | 2019-06-01 08:53 | XRR_ITS ---
PROCEDURE INFORMATION: Exam: XR Chest, 1 View Exam date and time: 06/01/2019 9:14 AM Age: 64 years old Clinical indication: Shortness of breath; Prior surgery; Surgery type: ? ; Additional info: Hypotension, esrd, chf, SOB TECHNIQUE: Imaging protocol: XR of the chest Views: 1 view. COMPARISON: CR XR chest 1V portable [id number] 05/26/2019 2:17 PM FINDINGS: Tubes, catheters and devices: Dialysis catheter via the right internal jugular approach with the tip in the region of the caval atrial junction. Lungs: Lungs are well aerated without a focal area of consolidation. Pleural space: Unremarkable. No pleural effusion. No pneumothorax. Heart/Mediastinum: Unremarkable. No cardiomegaly. Vasculature: Stent in the region of the left basilic vein Bones/joints: prior sternotomy. XR/XR chest 1V portable [id number] IMPRESSION: Lungs are well aerated without a focal area of consolidation.
--- NOTE | 2019-06-01 09:27 | PC.SOCIAL ---
IMM Update Pg 2 of IMM given and explained to patient who verbalized understanding. Copy provided to patient.
[2019-06-01] MEDS: albuterol 8 gm MDI 1 PUFF INHALATION (09:33)
--- NOTE | 2019-06-01 09:47 | P.PN_ITS ---
Subjective Subjective: Interval history: Had 400 mL output from rectal tube overnight. Remains on dopamine for BP support. Will attempt HD today. Ordered tagged WBC scan of LUE to determine if infection present. Will re-discuss LONG with patient. Able to wean off dopamine this afternoon, blood pressure maintaining. Seems to be in better spirits today, overall outlook seems more positive. She is not complaining of as much pain today either. Definitely seems more like herself today. Medications: Reviewed: Yes Medication Review Details: Current Medications Generic Name Dose Route Start Last Admin Trade Name Freq PRN Reason Stop Dose Admin Acetaminophen 650 mg 05/25/19 14:57 05/31/19 01:15 Tylenol PO 650 mg Q6H PRN Administration Mild/Mod Pain Or Temp >/= 101 Hydrocodone Bitart /Acetaminophen 1 tab 05/25/19 21:09 06/01/19 04:45 [place] 5-325 Mg PO 1 tab Q4H PRN Administration MODERATE PAIN Albuterol Sulfate 1 puff 05/25/19 14:57 06/01/19 09:33 Ventolin INHALATION 1 puff Q6H JOSE DANIEL Administration Doxycycline Monohy drate 100 mg 05/25/19 18:00 05/25/19 17:52 Vibramycin PO 100 mg BID JOSE DANIEL Administration Gabapentin 100 mg 05/25/19 15:00 05/31/19 21:59 Neurontin PO 100 mg TID JOSE DANIEL Administration Heparin Sodium (Be ef Lung) 0 unit 05/29/19 17:52 05/29/19 20:05 Heparin IV 3,000 unit PRN PRN Administration Heparin weight-ba se protocol Protocol Piperacillin Sod/T azobactam 50 mls @ 12.5 mls /hr 05/27/19 16:00 06/01/19 03:47 Sod 3.375 gm/ So dium Chloride IV 12.5 mls/hr Q12H JOSE DANIEL Administration Protocol Heparin Sodium/Sod ium Chloride 25,000 unit in 50 0 mls @ 0 mls/hr 05/29/19 18:00 05/31/19 17:24 Heparin Drip IV 11 unit/kg/hr .Q0M JOSE DANIEL 13.5 mls/hr Administration Protocol Per Protocol Dopamine HCl/Dextr ose 400 mg in 250 mls @ 10.971 mls/hr 05/31/19 04:15 05/31/19 19:14 Intropin Drip IV 5 mcg/kg/min CONT JOSE DANIEL 11 mls/hr Administration Protocol 5 MCG/KG/MIN Metoprolol Tartrat e 25 mg 05/28/19 09:10 05/30/19 18:00 Lopressor PO Not Given BID JOSE DANIEL Ondansetron HCl 4 mg 05/25/19 14:57 05/30/19 02:25 Zofran IVP 4 mg Q6H PRN Administration vomiting, or N/V if npo Vancomycin HCl 125 mg 05/26/19 13:00 05/31/19 22:59 Vancocin PO 125 mg QID JOSE DANIEL Administration Vitals/I&O/Wt Last Vital Signs Temp 97.8 F 06/01/19 04:20 Pulse 90 06/01/19 09:36 Resp 18 06/01/19 09:35 BP 107/51 06/01/19 09:30 Pulse Ox 95 06/01/19 09:35 05/31/19 06/01/19 06/01/19 22:59 06:59 14:59 Intake Total 338.40 / 774.035 200 / 200 Output Total 100 / 100 300 / 400 Balance 238.40 / 674.035 -300 / 374.035 200 / 200 Weight last 48 hrs Weight 57.776 kg Weight 55.8 kg Physical Exam Const: COMMON NORMALS: no apparent distress GENERAL APPEARANCE: cooperative, anxious, disheveled and lethargic ORIENTATION/CONSCIOUSNESS: Yes awake and Yes lethargic HENMT: COMMON NORMALS: normocephalic, head/scalp atraumatic, hearing grossly normal bilaterally and moist oral mucous membranes HEAD & SCALP: normocephalic and atraumatic Eye: COMMON NORMALS: PERRL, EOMs intact bilaterally and conjunctivae normal CONJUNCTIVA: Yes conjunctivae normal PUPIL: Yes PERRL Neck/C-Spine: COMMON NORMALS: full ROM GENERAL: Yes normal visual inspection and Yes trachea midline Chest: OTHER: tunneled catheter on R; no evidence of drainage, erythema, warmth and no tenderness to palpation Resp: COMMON NORMALS: normal respiratory effort, no retractions and no use of accessory muscles EFFORT & INSPECTION: Yes able to speak in complete sentences, Yes symmetric chest movement and No tachypneic AUSCULTATION: diminished lung sounds bilateral Cardio: COMMON NORMALS: regular rate, regular rhythm, S1 normal heart sound and S2 normal heart sound RATE: regular rate RHYTHM: regular rhythm and abnormal rhythm irregularly irregular HEART SOUNDS: S1 normal, S2 normal, click and murmur GI: COMMON NORMALS: normal to inspection, nondistended, normoactive bowel sounds, soft to palpation and non-tender PALPATION: Yes soft Extremity: COMMON NORMALS: normal to inspection, full ROM and no clubbing, cyanosis or edema; negative for no pedal edema OTHER: LUE; healed and scarred over area on upper arm from previous fistula; demarcated area of erythema is minimal, noted warmth to touch and tenderness to palpation RUE: recent grafting on forearm; maturing fistula Neuro: COMMON NORMALS: moves all extremities, no focal motor deficits and no s ensory deficits noted SENSORIUM/ORIENTATION: Yes lethargic Psych: COMMON NORMALS: mental status grossly normal, thought process normal, cooperative, affect normal and speech normal SPEECH: Yes normal speech THOUGHT PROCESS: normal thought process Skin: COMMON NORMALS: no rashes or lesions noted, no jaundice, no petechiae and no mottling GENERAL SKIN EXAM: no rashes or lesions noted OTHER: -onyc homycosis of fingernails Data : 05/31/19 04:20 05/31/19 04:20 Micro: Microbiology 05/31/19 04:20 Blood Culture - Preliminary Blood NEGATIVE TO DATE 05/31/19 04:20 Blood Culture - Preliminary Blood NEGATIVE TO DATE 05/30/19 16:58 Blood Culture - Preliminary Blood NEGATIVE TO DATE 05/30/19 16:58 Blood Culture - Preliminary Blood NEGATIVE TO DATE 05/30/19 14:08 Blood Culture - Preliminary Blood NEGATIVE TO DATE 05/30/19 13:50 Blood Culture - Preliminary Blood NEGATIVE TO DATE A&P Assessment and plan (1) Gram-negative bacteremia: -Noted bacteremia secondary to pseudomonas aeruginosa, blood cultures from 2/ growing gram-. Repeat blood cx from 05/25 growing GNRs in 2/4 bottles, 2/4 bottles positive for GNRs from 05/26; repeat set from 05/28 1/4 bottles positive for GNRs; has received dose of Vanc, Zosyn. -No leukocytosis, currently afebrile though spiked a temp of 100.4 overnight. With addition of hypotension necessitating initiation of dopamine drip, patient is currently septic. -Concern for possible skin infection on L, previous fistula site. From review of [employer], patient had confirmed LUE AV fistula infection, opted to leave AMA with recommendation to f/u with vascular surgery in [place]. At that time, she had tunneled catheter in place for HD access. Request records from [facility] for recent fistula procedure. Discussed case with Dr. Cody Gastelum who confirmed recent procedure including removal of graft which had thrombosed on LUE, extensive excision of large aneurysm and placement of new graft on right upper extremity with intention for longer term HD access. He is suspicious that primary source of infection is likely tunneled catheter which will need to be removed. -On Zosyn -venous duplex showing thrombosis of L basilic vein; start on heparin drip. 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 Gastelum, may be able to access RUE fistula and use as alternative HD access -order tagged WBC scan of LUE to r/o fistula site infection Status: Acute Code(s): R78.81 - Bacteremia (2) C. difficile colitis: -C.difficile positive; was positive for this in 12/2018 as well -on oral vancomycin; has been intermittently refusing to take it -contact isolation precautions Status: Acute Code(s): A04.72 - Enterocolitis due to Clostridium difficile, not specified as recurrent (3) ESRD (end stage renal disease) on dialysis: -is on HD MWF -Nephrology consult appreciated -noted renal function, hyperkalemia -continue to monitor renal function -has tunneled catheter for access; from review of medical record, this was placed sometime between July and December 2018 Status: Acute Code(s): N18.6 - End stage renal disease; Z99.2 - Dependence on renal dialysis (4) Atrial fibrillation with RVR: -noted to have atrial fibrillation with RVR in ED; did not respond to card izem drip, started on Esmolol with good response and this has since been weaned off -Heart rate increasing which could be secondary to infection; start on low dose BB -telemetry monitoring -VSS; continue to monitor vital signs -Echo (07/2018): EF=27-30%, G2DD, diffuse hypokinesia -not on AC Status: Acute Code(s): I48.91 - Unspecified atrial fibrillation Additional A&P Information -HTN; low normal BP this AM -Non oxygen dependent COPD; recently treated for acute exacerbation, off doxycycline as on broad spectrum abx -Chronic smoker; smokes 1-2 cig/day, has been using nicotine patches to cut down -Peripheral neuropathy -Chronic combined systolic and diastolic CHF -hx of severe aortic stenosis -hx of non compliance particularly with HD -Peripheral vascular disease; f/u with vascular surgery in [place] -Chronic normocytic anemia, likely anemia of chronic disease; baseline Hg 10-11 -Chronic thrombocytopenia; baseline platelet count 80s -continue to monitor respiratory status; supplemental oxygen as needed -DVT ppx with SCDs; no AC due to thrombocytopenia -renal dialysis diet -fall precautions; up with assist -Dispo: home, already has services -Code status: FULL code -work on transfer to higher level of care given need for vascular surgery and ID evaluations. Attestations Medical Necessity Statement*: Patient requires hospitalization for continued IV antibiotic treatment, further workup to identify source of bacteremia including tagged WBC scan and LONG. Time Spent in Patient Care: Greater than 35 minutes (>than 50% of time spent in counselling and/or direct pt care on unit) . Coding Level of Care Code Acute Manager Plan for Melvin Fwd Exam Problem Focused Diagnoses Gram-negative bacteremia R78.81 C. difficile colitis A04.72 ESRD (end stage renal disease) on dialysis N18.6; Z99.2 Atrial fibrillation with RVR I48.91
[2019-06-01] MEDS: gabapentin 100 mg Capsule PO ×3 (09:56→21:23)
--- NOTE | 2019-06-01 19:00 | PC.NURSE ---
rectal tube not in place at this time. MMorgan RN
--- NOTE | 2019-06-01 21:29 | PC.NURSE ---
new rectal tube placed , pt tolerated procedure fair. MMorgan RN
--- NOTE | 2019-06-01 22:32 | PC.NURSE ---
patient getting dialysis at this time, labs collected during ths procedure. MMorgan RN
[2019-06-02] VITALS (25 sets, daily range): BP systolic 74–151; BP diastolic 18–77; PULSE 63–84; RESP 6–28; TEMP 36.6–36.7; O2SAT 78–100
[2019-06-02 00:23] LABS: Basophils % 0.6 %; Eosinophils # 0.2 10^3/uL (0.0-0.8); Eosinophils % 4.3 %; Hematocrit 28.6 % (37.0-47.0); Hemoglobin 8.5 g/dL (11.5-15.3); Lymphocytes % 18.7 %; Mean Corpuscular HGB Conc 29.7 g/dL (30.0-36.0); Mean Corpuscular Hemoglobin 30.8 pg (28.0-34.0); Mean Corpuscular Volume 103.6 fL (81-99); Mean Platelet Volume 12.4 fL (7.4-10.4); Monocytes # 0.5 10^3/uL (0.2-0.9); Monocytes % 9.3 %; Neutrophils # 3.4 10^3/uL (1.8-7.7); Neutrophils % 63.2 %; Nucleated Red Blood Cells % 0 %; Platelet Count 67 10^3/cmm (130-400); Red Blood Count 2.76 10^6/uL (4.1-5.3); Red Cell Distribution Width 16.6 % (12.1-15.1); White Blood Count 5.4 10^3/uL (4.0-10.0)
[2019-06-02 00:36] LABS: Alanine Aminotransferase 19 U/L (0-33); Albumin Level 2.8 g/dL (3.5-5.2); Alkaline Phosphatase 129 IU/L (35-105); Anion Gap 27.7 (5-19); Aspartate Amino Transferase 21 U/L (0-32); Blood Urea Nitrogen 44 mg/dL (8-23); Calcium 7.3 mg/dL (8.5-10.5); Carbon Dioxide 14 mmol/L (22-29); Chloride 102 mmol/L (98-107); Globulin 4.1 g/dL (1.3-4.6); Glomerular Filtration Rate 4.2 mL/min (90-130); Glucose 107 mg/dL (65-115); Magnesium 2.3 mg/dL (1.7-2.3); Phosphorus 6.7 mg/dL (2.5-4.5); Potassium 4.7 mmol/L (3.5-5.1); Sodium 139 mmol/L (136-145); Total Bilirubin 0.3 mg/dL (0.15-1.2); Total Protein 6.9 g/dL (6.6-8.7)
--- NOTE | 2019-06-02 01:06 | PC.NURSE ---
lab called with critical creatinine and high CO2, pt receiving dialysis and MD aware of elevated levels. MMorgan RN
--- NOTE | 2019-06-02 02:54 | PC.NURSE ---
dialysis completed tonight, 1 liter of fluid removed. Patient tolerated well. MMorgan RN
[2019-06-02] MEDS: piperacillin-tazobactam 3.375 GM in sodium chloride 0.9% (plus) 50 ML IV ×2 (03:24→17:07)
[2019-06-02] MEDS: HYDROcodone-acetaminophen 5-325 mg Tablet 1 TAB PO ×4 (03:34→21:41)
--- NOTE | 2019-06-02 06:37 | PC.NURSE ---
nuclear med here with dialysis nurse to inject dye for scan, will return at 4pm today for patient. Carlos RN
[2019-06-02] MEDS: gabapentin 100 mg Capsule PO ×3 (08:22→21:12)
--- NOTE | 2019-06-02 08:32 | PC.NURSE ---
lee area cleaned and repositioned bottom very red and irritated restless pain medication given at this time
[2019-06-02] MEDS: albuterol 8 gm MDI 1 PUFF INHALATION (08:35)
--- NOTE | 2019-06-02 09:41 | NM_ITS ---
WS: [id number] NUCLEAR MEDICINE TAGGED WHITE BLOOD CELL SCAN HISTORY: rule out infection from fistula site on LUE COMPARISON: None available. TECHNIQUE: 14.3 mCi of TC 99m Ceretec tagged white blood cells are injected intravenously. Whole body imaging is performed in the anterior and posterior planes. Whole body imaging is performed in the an terior and posterior planes obtained at hours. There is some vague increased activity in the region of the antecubital fossa and soft tissue over th e distal LEFT humerus. This corresponds with soft tissue mass seen on the radiograph of the humerus o btained on 05/26/2019. There is increased activity is not along the site of the graft that is more proximal over the humerus . Also noted is marked splenomegaly which has been present on prior studies and a contamination. Notified Delia Shepherd MD at 06/02/2019 4:56 PM. NM/NM CERETEC WBC scan* [id number] IMPRESSION: 1. White blood cell study is positive for increased activity in the soft tissu es anterior to the distal humerus. This is at the site of the soft tissue mass which can be seen radiographically. This increased uptake is not associated wit h the prior dialysis graft in the more proximal humerus. Possible mycotic aneur ysm or septic joint or soft tissue infection should be considered. 2. Splenomegaly.
--- NOTE | 2019-06-02 09:47 | PC.NURSE ---
loose bm noted cleansed and repositioned linen change at this time
--- NOTE | 2019-06-02 11:42 | P.PN_ITS ---
Subjective Subjective: Interval history: Blood pressure was stable overnight, seems to be trending down this morning. Morning labs noted. Patient seen and examined, seems to be in good spirits today, remains off pressor support with stable blood pressure. Had tagged WBC scan done today, results reviewed with Dr. Bella on the phone with findings involving soft tissues anterior to the distal humerus though unable to definitively determine what this is, could be soft tissue infection versus a septic joint versus mycotic aneurysm. Rectal tube replaced due to profuse watery diarrhea. Medications: Reviewed: Yes Medication Review Details: Current Medications Generic Name Dose Route Start Last Admin Trade Name Freq PRN Reason Stop Dose Admin Acetaminophen 650 mg 05/25/19 14:57 05/31/19 01:15 Tylenol PO 650 mg Q6H PRN Administration Mild/Mod Pain Or Temp >/= 101 Hydrocodone Bitart /Acetaminophen 1 tab 05/25/19 21:09 06/02/19 08:22 [place] 5-325 Mg PO 1 tab Q4H PRN Administration MODERATE PAIN Albuterol Sulfate 1 puff 05/25/19 14:57 06/02/19 08:37 Ventolin INHALATION Not Given Q6H JOSE DANIEL Doxycycline Monohy drate 100 mg 05/25/19 18:00 05/25/19 17:52 Vibramycin PO 100 mg BID JOSE DANIEL Administration Gabapentin 100 mg 05/25/19 15:00 06/02/19 08:22 Neurontin PO 100 mg TID JOSE DANIEL Administration Heparin Sodium (Be ef Lung) 0 unit 05/29/19 17:52 05/29/19 20:05 Heparin IV 3,000 unit PRN PRN Administration Heparin weight-ba se protocol Protocol Piperacillin Sod/T azobactam 50 mls @ 12.5 mls /hr 05/27/19 16:00 06/02/19 06:50 Sod 3.375 gm/ So dium Chloride IV Infused Q12H JOSE DANIEL Infusion Protocol Heparin Sodium/Sod ium Chloride 25,000 unit in 50 0 mls @ 0 mls/hr 05/29/19 18:00 05/31/19 17:24 Heparin Drip IV 11 unit/kg/hr .Q0M JOSE DANIEL 13.5 mls/hr Administration Protocol Per Protocol Dopamine HCl/Dextr ose 400 mg in 250 mls @ 10.971 mls/hr 05/31/19 04:15 06/02/19 06:12 Intropin Drip IV Not Given CONT JOSE DANIEL Protocol 5 MCG/KG/MIN Metoprolol Tartrat e 25 mg 05/28/19 09:10 05/30/19 18:00 Lopressor PO Not Given BID [facility] Ondansetron HCl 4 mg 05/25/19 14:57 05/30/19 02:25 Zofran IVP 4 mg Q6H PRN Administration vomiting, or N/V if npo Vancomycin HCl 125 mg 05/26/19 13:00 06/02/19 08:21 Vancocin PO 125 mg QID JOSE DANIEL Administration Zinc Oxide 1 applic 06/01/19 21:28 06/02/19 03:25 Zinc Oxide TOPICAL 1 dose PRN PRN Administration SKIN PROTECTANT Vitals/I&O/Wt Last Vital Signs Temp 97.8 F 06/02/19 04:00 Pulse 83 06/02/19 10:00 Resp 15 06/02/19 10:00 BP 88/18 06/02/19 10:00 Pulse Ox 100 06/02/19 10:00 06/01/19 06/02/19 06/02/19 22:59 06:59 14:59 Intake Total 460 / 1035.433 410 / 1445.433 250 / 250 Output Total 150 / 150 Balance 460 / 1035.433 260 / 1295.433 250 / 250 Weight last 48 hrs Weight 56.79 kg Weight 57.776 kg Physical Exam 2 Const: COMMON NORMALS: no apparent distress GENERAL APPEARANCE: cooperative, anxious, disheveled and lethargic ORIENTATION/CONSCIOUSNESS: Yes awake and Yes lethargic HENMT: COMMON NORMALS: normocephalic, head/scalp atraumatic, hearing grossly normal bilaterally and moist oral mucous membranes HEAD & SCALP: normocephalic and atraumatic Eye: COMMON NORMALS: PERRL, EOMs intact bilaterally and conjunctivae normal CONJUNCTIVA: Yes conjunctivae normal PUPIL: Yes PERRL Neck/C-Spine: COMMON NORMALS: full ROM GENERAL: Yes normal visual inspection and Yes trachea midline Chest: OTHER: tunneled catheter on R; no evidence of drainage, erythema, warmth and no tenderness to palpation Resp: COMMON NORMALS: normal respiratory effort, no retractions and no use of accessory muscles EFFORT & INSPECTION: Yes able to speak in complete sentences, Yes symmetric chest movement and No tachypneic AUSCULTATION: diminished lung sounds bilateral Cardio: COMMON NORMALS: regular rate, regular rhythm, S1 normal heart sound and S2 normal heart sound RATE: regular rate RHYTHM: regular rhythm and abnormal rhythm irregularly irregular HEART SOUNDS: S1 normal, S2 normal, click and murmur GI: COMMON NORMALS: normal to inspection, nondistended, normoactive bowel sounds, soft to palpation and non-tender PALPATION: Yes soft Extremity: COMMON NORMALS: normal to inspection, full ROM and no clubbing, cyanosis or edema; negative for no pedal edema OTHER: LUE; healed and scarred over area on upper arm from previous fistula; demarcated area of erythema is minimal, noted warmth to touch and tenderness to palpation RUE: recent grafting on forearm; maturing fistula Neuro: COMMON NORMALS: moves all extremities, no focal motor deficits and no sensory deficits noted SENSORIUM/ORIENTATION: Yes lethargic Psych: COMMON NORMALS: mental status grossly normal, thought process normal, cooperative, affect normal and speech normal SPEECH: Yes normal speech THOUGHT PROCESS: normal thought process Skin: COMMON NORMALS: no rashes or lesions noted, no jaundice, no petechiae and no mottling GENERAL SKIN EXAM: no rashes or lesions noted OTHER: - onychomycosis of fingernails Data : 06/01/19 23:00 06/01/19 23:00 Micro: Microbiology 05/28/19 09:55 Blood Culture - Final Blood Pseudomonas aeruginosa 05/28/19 09:50 Blood Culture - Final Blood NO GROWTH AFTER 5 DAYS 05/25/19 23:20 Blood Culture - Final Blood Pseudomonas aeruginosa 05/25/19 23:10 Blood Culture - Final Blood Pseudomonas aeruginosa 05/26/19 20:02 Blood Culture - Final Blood Pseudomonas aeruginosa 05/26/19 19:58 Blood Culture - Final Blood Pseudomonas aeruginosa A&P Assessment and plan (1) Gram-negative bacteremia: -Noted bacteremia secondary to pseudomonas aeruginosa, blood cultures from 2/ growing gram-. Repeat blood cx from 05/25 growing GNRs in 2/ bottles, 2/4 bottles positive for GNRs from 05/26; repeat set from 05/28 1/4 bottles positive for GNRs; has received dose of Vanc, Zosyn. -No leukocytosis, currently afebrile though spiked a temp of 100.4 overnight. With addition of hypotension necessitating initiation of dopamine drip, patient is currently septic. -Concern for possible skin infection on L, previous fistula site. From review of [facility], patient had confirmed LUE AV fistula infection, opted to leave AMA with recommendation to f/u with vascular surgery in [place]. At that time, she had tunneled catheter in place for HD access. Request records from [facility] for recent fistula procedure. Discussed case with Dr. Cody Gastelum who confirmed recent procedure including removal of graft which had thrombosed on LUE, extensive excision of large aneurysm and placement of new graft on right upper extremity with intention for longer term HD access. He is suspicious that primary source of infection is likely tunneled catheter which will need to be removed. -On Zosyn -venous duplex showing thrombosis of L basilic vein; start on heparin drip. Not a good candidate for [facility] anticoagulation given anemia, thrombocytopenia, hx of non-compliance -has maturing fistula on R and tunneled HD catheter -requested LONG to r/o endocarditis; patient reluctant to have this done -blood cx from site of tunneled catheter; prelim negative -per discussion with Dr. Gastelum, may be able to access RUE fistula and use as alternative HD access -tagged WBC scan of LUE done with findings showing increased activity in the soft tissues anterior to the distal humerus, differentials include septic joint versus soft tissue infection versus mycotic aneurysm Status: Acute Code(s): R78.81 - Bacteremia (2) C. difficile colitis: -C.difficile positive; was positive for this in 12/2018 as well -on oral vancomycin; has been intermittently refusing to take it -contact isolation precautions Status: Acute Code(s): A04.72 - Enterocolitis due to Clostridium difficile, not specified as recurrent (3) ESRD (end stage renal disease) on dialysis: -is on HD MWF -Nephrology consult appreciated -noted renal function, hyperkalemia -continue to monitor renal function -has tunneled catheter for access; from review of medical record, this was placed sometime between July and December 2018 Status: Acute Code(s): N18.6 - End stage renal disease; Z99.2 - Dependence on renal dialysis (4) Atrial fibrillation with RVR: -noted to have atrial fibrillation with RVR in ED; did not respond to cardizem drip, started on Esmolol with good response and this has since been weaned off -Heart rate increasing which could be secondary to infection; start on low dose BB -telemetry monitoring -VSS; continue to monitor vital signs -Echo (07/2018): EF=27-30%, G2DD, diffuse hypokinesia -not on AC Status: Acute Code(s): I48.91 - Unspecified atrial fibrillation Additional A&P Information -HTN; low normal BP this AM -Non oxygen dependent COPD; recently treated for acute exacerbation, off doxycycline as on broad spectrum abx -Chronic smoker; smokes 1-2 cig/day, has been using nicotine patches to cut down -Peripheral neuropathy -Chronic combined systolic and diastolic CHF -hx of severe aortic stenosis -hx of non compliance particularly with HD -Peripheral vascular disease; f/u with vascular surgery in [place] -Chronic normocytic anemia, likely anemia of chronic disease; baseline Hg 10-11 -Chronic thrombocytopenia; baseline platelet count 80s -continue to monitor respiratory status; supplemental oxygen as needed -DVT ppx with SCDs; no AC due to thrombocytopenia -renal dialysis diet -fall precautions; up with assist -Dispo: home, already has services -Code status: FULL code -work on transfer to higher level of care given need for vascular surgery and ID evaluations. Attestations Medical Necessity Statement*: Patient requires hospitalization for continued management of hypotension, gram negative bacteremia pending tagged WBC scan. Time Spent in Patient Care: Greater than 35 minutes (>than 50% of time spent in counselling and/or direct pt care on unit) . Coding Level of Care Code Acute Human Services Worker for Melvin Fwd Exam Problem Focused Diagnoses Gram-negative bacteremia R78.81 C. difficile colitis A04.72 ESRD (end stage renal disease) on dialysis N18.6; Z99.2 Atrial fibrillation with RVR I48.91
--- NOTE | 2019-06-02 15:36 | PC.CHAP ---
Pastoral Care Encounter/Spiritual Assessment Type of Contact [] Declined baffle installer visit [] Patient/Family/Request visit [] Outpatient visit [] Follow-up visit [] Physician referral [] Code/Alert [] Routine visit [] Staff referral [] Actively dying [] Patient sleeping [] Family support [] [] Out of room [] Palliative care [] [] Receiving care in room [] Pre-surgical visit [] Trauma [] Long length of stay [] ICU visit [] Other: Relational/Emotional Strength [] Patient feels connected with others/family/visitors/staff [] Distress [] Loneliness/isolation [] Abandonment Spirituality of Patient [] Person of Bianca [] Attends Episcopal of their Bianca [] Believes in Prayer [] Reads Bible or Mormon materials [] There are Spiritual issues to be addressed Director Of Career Resources Interventions [] Prayer [] Active listening [] Non-anxious presence [] Spiritual/emotional support [] Crisis/trauma care [] Spiritual counseling [] Bereavement support [] Provided bereavement packet [] Provided Bible/devotional materials [] Provided toy/stuffed animal, coloring book to patient or family member [] Provided Communion [] Anointing/[place] [] Salvation [] Completed spiritual assessment [] Other: Impact on Illness or Injury [] Angry [] Fearful [] Anxious [] Often cries [] Exhaustion [] Unable to work [] Unable to attend rastafarian [] Unable to walk/stand [] Unable to read [] Unable to drive [] Unable to eat/drink [] Unable to sleep [] Unable to be with family [] Patient intubated [] Other: Summary Patient is in Isolation Time spent with patient
--- NOTE | 2019-06-02 18:37 | P.PN_ITS ---
Subjective Subjective: Interval history: Blood pressure was stable overnight, she feels ok, somewhat frustrated. No new uremic Sx. No other fluid overload Sx. Medications: Reviewed: Yes Medication Review Details: Current Medications Generic Name Dose Route Start Last Admin Trade Name Freq PRN Reason Stop Dose Admin Acetaminophen 650 mg 05/25/19 14:57 05/31/19 01:15 Tylenol PO 650 mg Q6H PRN Administration Mild/Mod Pain Or Temp >/= 101 Hydrocodone Bitart /Acetaminophen 1 tab 05/25/19 21:09 06/02/19 08:22 [place] 5-325 Mg PO 1 tab Q4H PRN Administration MODERATE PAIN Albuterol Sulfate 1 puff 05/25/19 14:57 06/02/19 08:37 Ventolin INHALATION Not Given Q6H JOSE DANIEL Doxycycline Monohy drate 100 mg 05/25/19 18:00 05/25/19 17:52 Vibramycin PO 100 mg BID JOSE DANIEL Administration Gabapentin 100 mg 05/25/19 15:00 06/02/19 08:22 Neurontin PO 100 mg TID JOSE DANIEL Administration Heparin Sodium (Be ef Lung) 0 unit 05/29/19 17:52 05/29/19 20:05 Heparin IV 3,000 unit PRN PRN Administration Heparin weight-ba se protocol Protocol Piperacillin Sod/T azobactam 50 mls @ 12.5 mls /hr 05/27/19 16:00 06/02/19 06:50 Sod 3.375 gm/ So dium Chloride IV Infused Q12H JOSE DANIEL Infusion Protocol Heparin Sodium/Sod ium Chloride 25,000 unit in 50 0 mls @ 0 mls/hr 05/29/19 18:00 05/31/19 17:24 Heparin Drip IV 11 unit/kg/hr .Q0M JOSE DANIEL 13.5 mls/hr Administration Protocol Per Protocol Dopamine HCl/Dextr ose 400 mg in 250 mls @ 10.971 mls/hr 05/31/19 04:15 06/02/19 06:12 Intropin Drip IV Not Given CONT JOSE DANIEL Protocol 5 MCG/KG/MIN Metoprolol Tartrat e 25 mg 05/28/19 09:10 05/30/19 18:00 Lopressor PO Not Given BID JOSE DANIEL Ondansetron HCl 4 mg 05/25/19 14:57 05/30/19 02:25 Zofran IVP 4 mg Q6H PRN Administration vomiting, or N/V if npo Vancomycin HCl 125 mg 05/26/19 13:00 06/02/19 08:21 Vancocin PO 125 mg QID JOSE DANIEL Administration Zinc Oxide 1 applic 06/01/19 21:28 06/02/19 03:25 Zinc Oxide TOPICAL 1 dose PRN PRN Administration SKIN PROTECTANT Vitals/I&O/Wt Last Vital Signs Temp 97.8 F 06/02/19 04:00 Pulse 75 06/02/19 17:00 Resp 9 L 06/02/19 17:00 BP 104/44 06/02/19 15:00 Pulse Ox 98 06/02/19 17:00 06/02/19 06/02/19 06/02/19 06:59 14:59 22:59 Intake Total 410 / 1445.433 550 / 550 300 / 850 Output Total 150 / 150 Balance 260 / 1295.433 550 / 550 300 / 850 Weight last 48 hrs Weight 56.79 kg Weight 57.776 kg Physical Exam Const: COMMON NORMALS: no apparent distress and average body habitus Neck/C-Spine: COMMON NORMALS: no JVD Lymph: LYMPHATIC: no lymphadenopathy noted and no lymphedema noted Chest: COMMONS NORMALS: inspection of chest normal and palpation of chest normal Resp: COMMON NORMALS: normal respiratory effort and no retractions Cardio: COMMON NORMALS: no JVD and regular rate RATE: regular rate Extremity: COMMON NORMALS: normal to inspection, full ROM and no pedal edema Data : 06/01/19 23:00 06/01/19 23:00 Micro: Microbiology 05/28/19 09:55 Blood Culture - Final Blood Pseudomonas aeruginosa 05/28/19 09:50 Blood Culture - Final Blood NO GROWTH AFTER 5 DAYS 05/25/19 23:20 Blood Culture - Final Blood Pseudomonas aeruginosa 05/25/19 23:10 Blood Culture - Final Blood Pseudomonas aeruginosa 05/26/19 20:02 Blood Culture - Final Blood Pseudomonas aeruginosa 05/26/19 19:58 Blood Culture - Final Blood Pseudomonas aeruginosa A&P Additional A&P Information 1. ESRD HD MWF via rt chest wall permacath Dose medications for GFR less than 15 on dialysis. dialysis wplanned for tomorrow -3.5 hrs, 2k, remove 1l, 2. Atrial fibrillation, h/o cabg- as per cardiology 3. ID issues bacteremia with GNRS - pseudomonas CDiff positive - improving diarrhea - per Dr Shepherd on Abx - pt 3 weeks ago had part of her lue av graft removed. she now has persistent bacteremia - White blood cell study is positive for increased activity in the soft tissues anterior to the distal humerus. This is at the site of the soft tissue mass which can be seen radiographically. This increased uptake is not associated with the prior dialysis graft in the more proximal humerus. Possible mycotic aneurysm or septic joint or soft tissue infection should be considered. - mgmt per vascular surgery - line cultures negative so far 4. 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 low pth- no vit d analouge, high iron sat- no iv iron hgb low- epo 5. thrombocytopenia from infection vs zosyn effect 6. normal phos 7. repeat cxr Attestations Medical Necessity Statement*: mgmt of ESRD Coding Level of Care Code Acute Blanket Maker for Melvin Mina
[2019-06-03] VITALS (11 sets, daily range): BP systolic 90–118; BP diastolic 32–74; PULSE 64–78; RESP 8–20; TEMP 36.6–37.2; O2SAT 94–100
--- NOTE | 2019-06-03 01:17 | PC.NURSE ---
PATIENT STILL HAVING WATERY DIARRHEA, FECAL MANAGEMENT TUBE OUT. PATIENT REFUSING TO HAVE IT PLACED AGAIN
[2019-06-03] MEDS: heparin drip 25,000 UNIT/500 ML PREMIX 13.5 UNIT IV (03:02)
[2019-06-03] MEDS: piperacillin-tazobactam 3.375 GM in sodium chloride 0.9% (plus) 50 ML IV ×2 (03:03→15:55)
[2019-06-03] MEDS: HYDROcodone-acetaminophen 5-325 mg Tablet 1 TAB PO ×3 (04:34→16:03)
[2019-06-03] MEDS: gabapentin 100 mg Capsule PO ×2 (08:37→15:55)
--- NOTE | 2019-06-03 09:23 | PC.NURSE ---
moved to [facility] room this am
--- NOTE | 2019-06-03 09:39 | PC.CHAP ---
Pastoral Care Encounter/Spiritual Assessment Type of Contact [] Declined alarm service technician visit [] Patient/Family/Request visit [] Outpatient visit [] Follow-up visit [] Physician referral [] Code/Alert [x] Routine visit [] Staff referral [] Actively dying [] Patient sleeping [] Family support [] [x] Out of room [] Palliative care [] [] Receiving care in room [] Pre-surgical visit [] Trauma [] Long length of stay [x] ICU visit [] Other: Relational/Emotional Strength [] Patient feels connected with others/family/visitors/staff [] Distress [] Loneliness/isolation [] Abandonment Spirituality of Patient [] Person of Bianca [] Attends Mormon of their Bianca [] Believes in Prayer [] Reads Bible or Hindu materials [] There are Spiritual issues to be addressed Contact Center Professional Interventions [] Prayer [] Active listening [] Non-anxious presence [] Spiritual/emotional support [] Crisis/trauma care [] Spiritual counseling [] Bereavement support [] Provided bereavement packet [] Provided Bible/devotional materials [] Provided toy/stuffed animal, coloring book to patient or family member [] Provided Communion [] Anointing/[place] [] Salvation [x] Completed spiritual assessment [] Other: Impact on Illness or Injury [] Angry [] Fearful [] Anxious [] Often cries [] Exhaustion [] Unable to work [] Unable to attend rastafari [] Unable to walk/stand [] Unable to read [] Unable to drive [] Unable to eat/drink [] Unable to sleep [] Unable to be with family [] Patient intubated [] Other: Summary Time spent with patient
--- NOTE | 2019-06-03 11:01 | PC.SOCIAL ---
IM update provided and explained. Patient has no questions or concerns.
--- NOTE | 2019-06-03 13:08 | PM.PN ---
Subjective Subjective: Interval history: Seen at the end of dialysis. She had an anxiety attack but otherwise tolerated the therapy hemodynamically well, Bp 115/79, HR 60 at the end. Diffuse watery diarrhea and now has a rectal tube Medications: Reviewed: Yes Medication Review Details: Current Medications Generic Name Dose Route Start Last Admin Trade Name Freq PRN Reason Stop Dose Admin Acetaminophen 650 mg 05/25/19 14:57 05/31/19 01:15 Tylenol PO 650 mg Q6H PRN Administration Mild/Mod Pain Or Temp >/= 101 Hydrocodone Bitart /Acetaminophen 1 tab 05/25/19 21:09 06/02/19 08:22 [place] 5-325 Mg PO 1 tab Q4H PRN Administration MODERATE PAIN Albuterol Sulfate 1 puff 05/25/19 14:57 06/02/19 08:37 Ventolin INHALATION Not Given Q6H JOSE DANIEL Doxycycline Monohy drate 100 mg 05/25/19 18:00 05/25/19 17:52 Vibramycin PO 100 mg BID JOSE DANIEL Administration Gabapentin 100 mg 05/25/19 15:00 06/02/19 08:22 Neurontin PO 100 mg TID JOSE DANIEL Administration Heparin Sodium (Be ef Lung) 0 unit 05/29/19 17:52 05/29/19 20:05 Heparin IV 3,000 unit PRN PRN Administration Heparin weight-ba se protocol Protocol Piperacillin Sod/T azobactam 50 mls @ 12.5 mls /hr 05/27/19 16:00 06/02/19 06:50 Sod 3.375 gm/ So dium Chloride IV Infused Q12H JOSE DANIEL Infusion Protocol Heparin Sodium/Sod ium Chloride 25,000 unit in 50 0 mls @ 0 mls/hr 05/29/19 18:00 05/31/19 17:24 Heparin Drip IV 11 unit/kg/hr .Q0M JOSE DANIEL 13.5 mls/hr Administration Protocol Per Protocol Dopamine HCl/Dextr ose 400 mg in 250 mls @ 10.971 mls/hr 05/31/19 04:15 06/02/19 06:12 Intropin Drip IV Not Given CONT JOSE DANIEL Protocol 5 MCG/KG/MIN Metoprolol Tartrat e 25 mg 05/28/19 09:10 05/30/19 18:00 Lopressor PO Not Given BID JOSE DANIEL Ondansetron HCl 4 mg 05/25/19 14:57 05/30/19 02:25 Zofran IVP 4 mg Q6H PRN Administration vomiting, or N/V if npo Vancomycin HCl 125 mg 05/26/19 13:00 06/02/19 08:21 Vancocin PO 125 mg QID JOSE DANIEL Administration Zinc Oxide 1 applic 06/01/19 21:28 06/02/19 03:25 Zinc Oxide TOPICAL 1 dose PRN PRN Administration SKIN PROTECTANT Vitals/I&O/Wt Last Vital Signs Temp 97.8 F 06/03/19 00:00 Pulse 64 06/03/19 08:00 Resp 18 06/03/19 08:00 BP 110/46 06/03/19 08:00 Pulse Ox 95 06/03/19 08:00 06/02/19 06/03/19 06/03/19 22:59 06:59 14:59 Intake Total 590 / 1140 760 / 1900 Output Total 750 / 750 0 / 750 Balance -160 / 390 760 / 1150 Weight last 48 hrs Weight 56.79 kg Physical Exam Const: COMMON NORMALS: no apparent distress and average body habitus Neck/C-Spine: COMMON NORMALS: no JVD Lymph: LYMPHATIC: no lymphadenopathy noted and no lymphedema noted Chest: COMMONS NORMALS: inspection of chest normal and palpation of chest normal Resp: COMMON NORMALS: normal respiratory effort and no retractions Cardio: COMMON NORMALS: no JVD and regular rate RATE: regular rate Extremity: COMMON NORMALS: normal to inspection, full ROM and no pedal edema Data : 06/01/19 23:00 06/01/19 23:00 Micro: Microbiology 05/28/19 09:55 Blood Culture - Final Blood Pseudomonas aeruginosa 05/28/19 09:50 Blood Culture - Final Blood NO GROWTH AFTER 5 DAYS A&P Additional A&P Information 1. ESRD seen on dialysis today, next treatment on Wednesday via rt chest wall permacath Dose medications for GFR less than 15 on dialysis. -3.5 hrs, 2k, remove 1L 2. Atrial fibrillation, h/o cabg- as per cardiology 3. ID issues bacteremia with GNRS - pseudomonas CDiff positive - improving diarrhea - per Dr Shepherd on Abx - pt 3 weeks ago had part of her lue av graft removed. she now has persistent bacteremia - White blood cell study is positive for increased activity in the soft tissues anterior to the distal humerus. This is at the site of the soft tissue mass which can be seen radiographically. This increased uptake is not associated with the prior dialysis graft in the more proximal humerus. Possible mycotic aneurysm or septic joint or soft tissue infection should be considered. - mgmt per vascular surgery - line cultures negative so far - possible transfer for surgery eval 4. 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 low pth- no vit d analouge, high iron sat- no iv iron hgb low- epo 5. thrombocytopenia from infection vs zosyn effect 6. normal phos 7. repeat cxr Attestations Medical Necessity Statement*: mgmt of ESRD Coding Level of Care Code Acute Agricultural Chemicals Inspector for Chg Leopoldo
--- NOTE | 2019-06-03 13:19 | PC.OT ---
OT note: Pt off the floor at this time. Nursing reported she will be going upstairs when she's done.
--- NOTE | 2019-06-03 14:05 | PC.NURSE ---
transfer to floor post dialysis
--- NOTE | 2019-06-03 16:58 | PM.TDS ---
Transfer Summary Providers Date of Admission: 05/25/19 14:27 Date of Discharge: 06/03/19 Attending Provider at Admission: Delia Shepherd MD Attending Provider at Transfer: Delia Shepherd MD Primary Care Provider: Vincent Gillis DO Anticipated Date of Transfer: Anticipated date of transfer: 06/03/19 Receiving Facility & Provider: Receiving Provider: [Dr. Perea] Receiving facility: [[facility]] Diagnoses at Discharge Discharge Diagnosis (1) Gram-negative bacteremia: Status: Acute Problem details: -Noted bacteremia secondary to pseudomonas aeruginosa, blood cultures from 2 growing gram-. Repeat blood cx from 05/25 growing GNRs in 2/ bottles, 2/ bottles positive for GNRs from 05/26; repeat set from 05/28 1/ bottles positive for GNRs; has received dose of Vanc, Zosyn. -No leukocytosis, currently afebrile though spiked a temp of 100.4 overnight. With addition of hypotension necessitating initiation of dopamine drip, patient is currently septic. -Concern for possible skin infection on L, previous fistula site. From review of [facility], patient had confirmed LUE AV fistula infection, opted to leave AMA with recommendation to f/u with vascular surgery in [place]. At that time, she had tunneled catheter in place for HD access. Request records from [facility] for recent fistula procedure. Discussed case with Dr. Cody Gastelum who confirmed recent procedure including removal of graft which had thrombosed on LUE, extensive excision of large aneurysm and placement of new graft on right upper extremity with intention for longer term HD access. He is suspicious that primary source of infection is likely tunneled catheter which will need to be removed. -On Zosyn -venous duplex showing thrombosis of L basilic vein; start on heparin drip. Not a good candidate for supervisor intermediates anticoagulation given anemia, thrombocytopenia, hx of non-compliance -has maturing fistula on R and tunneled HD catheter -requested LONG to r/o endocarditis; patient reluctant to have this done particularly if transferring to another facility -blood cx from site of tunneled catheter; prelim negative -per discussion with Dr. Gastelum, may be able to access RUE fistula and use as alternative HD access -tagged WBC scan of LUE done with findings showing increased activity in the soft tissues anterior to the distal humerus, differentials include septic joint versus soft tissue infection versus mycotic aneurysm (2) C. difficile colitis: Status: Acute Problem details: -C.difficile positive; was positive for this in 12/2018 as well -on oral vancomycin; has been intermittently refusing to take it -contact isolation precautions -rectal tube discontinued (3) ESRD (end stage renal disease) on dialysis: Status: Acute Problem details: -is on HD MWF; dialyzed today -Nephrology consult appreciated -noted renal function, hyperkalemia -continue to monitor renal function -has tunneled catheter for access; from review of medical record, this was placed sometime between July and December 2018 (4) Atrial fibrillation with RVR: Status: Acute Problem details: -noted to have atrial fibrillation with RVR in ED; did not respond to cardizem drip, started on Esmolol with good response and this has since been weaned off -Heart rate increasing which could be secondary to infection; start on low dose BB -telemetry monitoring -VSS; continue to monitor vital signs -Echo (07/2018): EF=27-30%, G2DD, diffuse hypokinesia -not on AC Other Information Additional DC diagnoses/information: -HTN; normotensive -Non oxygen dependent COPD; recently treated for acute exacerbation, off doxycycline as on broad spectrum abx -Chronic smoker; smokes 1-2 cig/day, has been using nicotine patches to cut down -Peripheral neuropathy -Chronic combined systolic and diastolic CHF -hx of severe aortic stenosis -hx of non compliance particularly with HD -Peripheral vascular disease; f/u with vascular surgery in [place] -Chronic normocytic anemia, likely anemia of chronic disease; baseline Hg 10-11 -Chronic thrombocytopenia; baseline platelet count 80s Reason for Visit Reason for Visit: Reason For Visit: ELEVATED HEART RATE HURTS ALL OVER Hospital Course Hospital Course: Patient initially presented to our facility on 05/25 with complaints of generalized pain and was found to be hyperkalemic secondary to missed hemodialysis. Her hyperkalemia resolved following dialysis. She was found to have an area of concern on her left upper extremity which was noted to be erythematous, warm and tender to the touch. She developed persistent bacteremia secondary to pseudomonas aeruginosa with 4 sets of blood cultures being positive. She does have a tunneled catheter which is used as access for hemodialysis. Blood culture was obtained from her tunneled catheter and so far has been negative. She had a venous duplex done of her left upper extremity which was positive for thrombosis of the left basilic vein and has been on a heparin drip for anticoagulation. With noted gram-negative bacteremia she has been covered with Zosyn per sensitivity profile. She is chronically thrombocytopenic so her labs have been monitored daily. She was found to be positive for C. difficile colitis and was started on oral vancomycin which she has intermittently refused to take as she reports that this makes her diarrhea worse. She has had episodes of such profuse diarrhea that we have had to place a rectal tube that has since been discontinued. During her hospital course she developed hypotension and required transfer to ICU as well as pressor support with dopamine for approximately 24 to 48 hours. This was likely due to sepsis secondary to the aforementioned bacteremia. Her blood pressure has since improved and she has been off pressor support for 48 hours. She remained in ICU for additional monitoring to ensure that she would not require resumption of the dopamine. She has continued to receive dialysis per nephrology, last session was earlier today. Due to concern for infection involving her prior fistula site on the left upper extremity and given recent intervention by Dr. Cody Gastelum at [facility] approximately a month ago, I made several attempts to try to get the patient transferred to [facility] where she has her vascular surgeon as well as her aoc aadc operations staff officer but unfortunately they have no beds available at this time. I did speak with Dr. Gastelum as noted in my earlier documentation. Patient had a tagged WBC scan done which is positive for infection in the left upper extremity which will likely require vascular surgery intervention. She is extremely complicated in terms of her other medical comorbidities. LONG was offered as part of her work-up to rule out endocarditis that patient is reluctant to have this done at our facility particularly if she will be transferred to a higher level of care. She will likely need to be evaluated by infectious disease to determine length of antibiotic therapy as well as appropriate choice. Unfortunately we do not have vascular surgery or infectious disease available at our facility hence reason for transfer. I presented the case to Dr. Perea earlier today and he has been gracious enough to admit the patient under the hospitalist service with vascular surgery consulting. Arrangements for transfer are currently ongoing, bed availability has already been confirmed, anticipate patient being transported to [place] later this evening. Physical Exam Const: COMMON NORMALS: no apparent distress, oriented x3 and alert GENERAL APPEARANCE: cooperative, anxious and disheveled ORIENTATION/CONSCIOUSNESS: Yes awake HENMT: COMMON NORMALS: normocephalic, head/scalp atraumatic, hearing grossly normal bilaterally and moist oral mucous membranes HEAD & SCALP: normocephalic and atraumatic Eye: COMMON NORMALS: PERRL, EOMs intact bilaterally and conjunctivae normal CONJUNCTIVA: Yes conjunctivae normal PUPIL: Yes PERRL Neck/C-Spine: COMMON NORMALS: full ROM GENERAL: Yes normal visual inspection and Yes trachea midline Chest: OTHER: tunneled catheter on R; no evidence of drainage, erythema, warmth and no tenderness to palpation Resp: COMMON NORMALS: normal respiratory effort, no retractions and no use of accessory muscles EFFORT & INSPECTION: Yes able to speak in complete sentences, Yes symmetric chest movement and No tachypneic AUSCULTATION: diminished lung sounds bilateral Cardio: COMMON NORMALS: regular rate, regular rhythm, S1 normal heart sound and S2 normal heart sound RATE: regular rate RHYTHM: regular rhythm and abnormal rhythm irregularly irregular HEART SOUNDS: S1 normal, S2 normal, click and murmur GI: COMMON NORMALS: normal to inspection, nondistended, normoactive bowel sounds, soft to palpation and non-tender PALPATION: Yes soft Extremity: COMMON NORMALS: normal to inspection, full ROM and no clubbing, cyanosis or edema; negative for no pedal edema OTHER: LUE; healed and scarred over area on upper arm from previous fistula; demarcated area of erythema is minimal, noted warmth to touch and tenderness to palpation; noted nodular mass just medial to AC fossa RUE: recent grafting on forearm; maturing fistula Neuro: COMMON NORMALS: oriented x3, moves all extremities, no focal motor deficits and no sensory deficits noted SENSORIUM/ORIENTATION: Yes alert Psych: COMMON NORMALS: mental status grossly normal, thought process normal, cooperative, affect normal and speech normal SPEECH: Yes normal speech THOUGHT PROCESS: normal thought process Skin: COMMON NORMALS: no rashes or lesions noted, no jaundice, no petechiae and no mottling GENERAL SKIN EXAM: no rashes or lesions noted OTHER: -onychomycosis of fingernails TS Data Data Completed and Pending: Completed Studies During Hospitalization Category Date Time Status CXRP [XR chest 1V portable [id number]] R outine Exams 06/01/19 08:53 Completed XR chest 1V fabiana ble [id number] Routine Exams 05/26/19 14:20 Completed XR chest 1V fabiana ble 23000 Stat Exams 05/25/19 11:41 Completed XR humerus LT 730 60 Stat Exams 05/25/19 22:58 Completed NM CERETEC WBC sc an* [id number] Routine Nuc Med 06/02/19 09:41 Completed CV echo complete* [id number] Routine Ultrasound 05/31/19 07:00 [place] [id number] Stat Ultrasound 05/26/19 22:58 Completed Pending at discharge Category Date Time Status Blood Culture Sta t Lab 05/30/19 14:08 Results Blood Culture Sta t Lab 05/30/19 16:58 Results Blood Culture Sta t Lab 05/31/19 04:20 Results Vitals: Last Vital Signs Temp 98.9 F 06/03/19 15:50 Pulse 78 06/03/19 15:50 Resp 16 06/03/19 15:50 BP 90/40 06/03/19 15:50 Pulse Ox 100 06/03/19 15:50 TS Medications Medications Home Medications doxycycline hyclate 100 mg PO BID 10 Days #20 cap 05/23/19 [Rx Confirmed 05/25/19] bacitracin 1 applic TOPICAL Q12H 05/25/19 [History Confirmed 05/25/19] docusate sodium 100 mg PO BID PRN 05/25/19 [History Confirmed 05/25/19] escitalopram oxalate 10 mg PO DAILY 05/25/19 [History Confirmed 05/25/19] hydrocodone-acetaminophen 1 tab PO Q4H PRN 05/25/19 [History Confirmed 05/25/19] nicotine [Nicoderm CQ] 1 patch TRANSDERMAL DAILY 05/25/19 [History Confirmed 05/25/19] prasugrel 10 mg PO DAILY 05/25/19 [History Confirmed 05/25/19] triamcinolone acetonide 1 applic TOPICAL BID 05/25/19 [History Confirmed 05/25/19] Active Medications Acetaminophen (Tylenol) 650 mg PO Q6H PRN PRN Reason: Mild/Mod Pain Or Temp >/= 101 Last Admin: 05/31/19 01:15 Dose: 650 mg Documented by: Hydrocodone Bitart/Acetaminophen ([place] 5-325 Mg) 1 tab PO Q4H PRN PRN Reason: MODERATE PAIN Last Admin: 06/03/19 16:03 Dose: 1 tab Documented by: Albuterol Sulfate (Ventolin) 1 puff INHALATION Q6H [facility] Last Admin: 06/03/19 08:54 Dose: Not Given Documented by: Doxycycline Monohydrate (Vibramycin) 100 mg PO BID [facility] Last Admin: 05/25/19 17:52 Dose: 100 mg Documented by: Gabapentin (Neurontin) 100 mg PO TID [facility] Last Admin: 06/03/19 15:55 Dose: 100 mg Documented by: Heparin Sodium (Beef Lung) (Heparin) 0 unit IV PRN PRN; Protocol PRN Reason: Heparin weight-base protocol Last Admin: 05/29/19 20:05 Dose: 3,000 unit Documented by: Piperacillin Sod/Tazobactam (Sod 3.375 gm/ Sodium Chloride) 50 mls @ 12.5 mls/hr IV Q12H [facility]; Protocol Last Admin: 06/03/19 15:55 Dose: 12.5 mls/hr Documented by: Heparin Sodium/Sodium Chloride (Heparin Drip) 25,000 unit in 500 mls @ 0 mls/hr IV .Q0M [facility]; Protocol Last Admin: 06/03/19 03:02 Dose: 11 unit/kg/hr, 13.5 mls/hr Documented by: Dopamine HCl/Dextrose (Intropin Drip) 400 mg in 250 mls @ 10.971 mls/hr IV CONT [facility]; Protocol Last Admin: 06/03/19 15:14 Dose: Not Given Documented by: Metoprolol Tartrate (Lopressor) 25 mg PO BID [facility] Last Admin: 05/30/19 18:00 Dose: Not Given Documented by: Metoprolol Tartrate (Metoprolol Tartrate) 5 mg IV Q4H PRN PRN Reason: HEART RATE-HIGH Ondansetron HCl (Zofran) 4 mg IVP Q6H PRN PRN Reason: vomiting, or N/V if npo Last Admin: 05/30/19 02:25 Dose: 4 mg Documented by: Vancomycin HCl (Vancocin) 125 mg PO QID [facility] Last Admin: 06/03/19 15:15 Dose: Not Given Documented by: Zinc Oxide (Zinc Oxide) 1 applic TOPICAL PRN PRN PRN Reason: SKIN PROTECTANT Last Admin: 06/02/19 21:12 Dose: 1 dose Documented by: Discharge Plan Discharge Patient Disposition: Xfer Other Condition: Stable Prescriptions: No Action doxycycline hyclate 100 mg capsule 100 mg PO BID 10 Days Qty: 20 RF: 0 Nicoderm CQ 14 mg/24 hr Patch 24 Hour 1 patch TRANSDERMAL DAILY RF: 0 bacitracin 500 unit/gram Ointment 1 applic TOPICAL Q12H RF: 0 triamcinolone acetonide 0.025 % Cream 1 applic TOPICAL BID RF: 0 prasugrel 10 mg Tablet 10 mg PO DAILY RF: 0 hydrocodone-acetaminophen 5-325 mg Tablet 1 tab PO Q4H PRN (Reason: Pain) RF: 0 docusate sodium 100 mg Capsule 100 mg PO BID PRN (Reason: Constipation) RF: 0 escitalopram oxalate 10 mg Tablet 10 mg PO DAILY RF: 0 Discharge Orders: Discharge Order (Routine); Ordered 06/03/19 Ordered By: Delia Shepherd Referrals: Vincent Gillis DO [Primary Care Provider] - 4-7 days (Patient to follow up with PCP following hospital discharge; transferred to [facility] for ID and vascular surgery evaluations) Discharge Diet: Diabetic Discharge Activity: Resume usual activity Transfer Attestations Time Spent in Transfer Care*: greater than 30 min Specific Discharge Activities: Specific discharge activities: educating patient, discussing with pcp/other providers, documenting/other paperwork and evaluating patient/reviewing data Status at Transfer: Cognitive status at transfer: cognitively intact, Behavioral status at transfer: cooperative, Functional status at transfer: independent ambulation Overall status at transfer: patient is back to baseline Quality Metrics Clinical Quality Measures: During this hospital stay, did patient experience: None Coding Level of Care Code 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 difficile colitis A04.72 ESRD (end stage renal disease) on dialysis N18.6; Z99.2 Atrial fibrillation with RVR I48.91
[2019-06-03] MEDS: ALPRAZolam 0.5 mg Tablet PO (19:13)
--- NOTE | 2019-06-03 19:46 | PC.NURSE ---
Transfer Summary Patient was transferred to [facility] in [facility] for cardiovascular surgery. patient alert oriented and
--- NOTE | 2019-06-03 19:48 | PC.NURSE ---
Transfer summary Patient was transferred to [facility] for cardiovascular surgery and infection disease. patient was alert oriented and vitals were withing patients normal. information was given to receiving nurse and report was called to Milady. patient understood transfer situation. Ambulance transferred patient on heparin drip.
== END 2019-06-03 19:15 | disposition short-term general hospital (02) | DRG 308 ==
LOC: ER 14:10 → ICU 14:28 → MEDSURG 05-27 18:20 → ICU 05-31 05:27 → MEDSURG 06-03 13:45
PROVIDERS: Family Medicine; Hospitalist; Internal Medicine Nephrology; Admitting Provider Family Medicine; Emergency Provider Family Medicine; Family Provider Internal Medicine; PCP Internal Medicine; Visit Provider Family Medicine
DX: I48.91 Unspecified atrial fibrillation (principal); N18.6 End stage renal disease; I13.2 Hypertensive heart and chronic kidney disease with heart failure and with stage 5 chronic kidney disease, or end stage renal disease; I50.42 Chronic combined systolic (congestive) and diastolic (congestive) heart failure; E87.1 Hypo-osmolality and hyponatremia; J98.11 Atelectasis; R78.81 Bacteremia; A04.72 Enterocolitis due to Clostridium difficile, not specified as recurrent; Z99.2 Dependence on renal dialysis; E87.5 Hyperkalemia; D69.6 Thrombocytopenia, unspecified; I35.0 Nonrheumatic aortic (valve) stenosis; I73.9 Peripheral vascular disease, unspecified; J44.9 Chronic obstructive pulmonary disease, unspecified; I25.10 Atherosclerotic heart disease of native coronary artery without angina pectoris; Z95.1 Presence of aortocoronary bypass graft; D63.8 Anemia in other chronic diseases classified elsewhere; M89.9 Disorder of bone, unspecified; B96.5 Pseudomonas (aeruginosa) (mallei) (pseudomallei) as the cause of diseases classified elsewhere; I65.1 Occlusion and stenosis of basilar artery; F17.210 Nicotine dependence, cigarettes, uncomplicated; Z79.01 Long term (current) use of anticoagulants; Z90.49 Acquired absence of other specified parts of digestive tract
CPT/HCPCS: 12345; 36415; 71045; 73060; 78806; 80048; 80053; 82310; 83540; 83550; 83605; 83735; 83970; 84100; 84145; 84484; 85025; 85651; 85730; 86140; 87040; 87077; 87186; 87205; 87493; 87804; 90935; 93005; 93306; 93971; 94640; 94645; 96360; 96375; 97110; 97162; 97166; 97530; 97535; 99281; 99283; A9569; J1265; J1644; J2405; J2543; J2930; J3370; J3490; J3535; J7030; J7040; J7050; J7611; Q3014

== ENCOUNTER 2019-06-18 15:32 | Emergency (ER) | payer MEDICARE, MEDICAID, SELFPAY ==
[2019-06-18] VITALS (59 sets, daily range): BP systolic 94–104; BP diastolic 17–60; PULSE 69–77; RESP 16–18; TEMP 36.6–36.8; O2SAT 89–100; BMI 23.0; BMI 22.3
--- NOTE | 2019-06-18 15:35 | XRR_ITS ---
PROCEDURE INFORMATION: Exam: XR Chest, 1 View Exam date and time: 06/18/2019 3:37 PM Age: 64 years old Clinical indication: Other: Weakness; Additional info: Cp TECHNIQUE: Imaging protocol: XR of the chest Views: 1 view. COMPARISON: CR XR chest 1V portable [id number] 06/01/2019 9:13 AM FINDINGS: Tubes, catheters and devices: Interval removal of the double-lumen dialysis catheter since last examination of 06/01/2019. Lungs: No visible active interstitial or alveolar airspace disease in the lungs. Pleural space: Unremarkable. No pleural effusion. No pneumothorax. Heart/Mediastinum: Status post sternotomy chest and CABG. Arterial sclerosis. Cardiac size within normal limits for age. Aortic valve prosthesis. Vasculature: Stent left upper extremity. Bones/joints: Old posterior right rib fractures. Soft tissues: Surgical clips bilateral upper extremities. Other findings: Age-appropriate findings. XR/XR chest 1V portable [id number] IMPRESSION: 1. No visible evidence of active or acute cardiopulmonary process. 2. Interval removal of the double lumen dialysis catheter.
--- NOTE | 2019-06-18 15:36 | ECG_ITS ---
Measurements Intervals [place] Rate: 73 P: 91 LA: 218 QRS: -75 QRSD: 162 T: 91 QT: 530 QTc: 588 SINUS RHYTHM WITH FIRST DEGREE AV BLOCK RIGHT BUNDLE BRANCH BLOCK [120+ ms QRS DURATION, UPRIGHT V1, 40+ ms S IN I I/aVL/V4/V5/V6] LEFT ANTERIOR FASCICULAR BLOCK [QRS AXIS <= -45, QR IN I, RS IN II] MINIMAL VOLTAGE CRITERIA FOR LVH, CONSIDER NORMAL VARIANT [MEETS CRITERIA IN ONE OF: R OF: R(aVL), S(V1), R(V5), R(V5/V6)+S(V1)] POSSIBLE ANTERIOR MYOCARDIAL INFARCTION , OF INDETERMINATE AGE [30 ms Q WAVE IN V3/V4, OR R < 0.2 mV IN V4] PROLONGED QT INTERVAL CRITICAL TEST RESULT Compared to ECG 05/25/2019 13:57:29Prolonged QT interval now present ST (T wave) deviation no longer presentMyocardial infarct finding still present Electronically Signed On 06-18-2019 20:01:57 [employer]CH[employer] by Fanny Tuttle M.D. [email or web address]
--- NOTE | 2019-06-18 15:38 | ED_ITS ---
Entered by Larissa Tatum, acting as scribe for Documented by User: Brice Spring MD 06/18/19 17:40 HPI - Altered Mental Status General: Chief Complaint: Chest Pain Stated Complaint: AMS/WEAKNESS Time Seen by Provider: 06/18/19 15:48 History of Present Illness: HPI narrative: 64 yo female presents with altered mental status. Pt states that she has missed dialysis twice this week. Pt recently had surgery on her left arm. Pt states that she was discharged from [facility] on Wednesday. Pt states that she can't take care of herself at home. Pt states that she wants to go to the jail. Pt states that she co uldn't go to dialysis because she is too weak. complaint: altered mental status Associated symptoms: Deny depression Review of Systems Const: Denies: fever, chills, body aches or change in appetite Eyes: Denies: blurry vision or eye discomfort ENMT: Denies: throat pain or dental pain Card: Denies: chest pain Resp: Denies: shortness of breath GI: Denies: abdominal pain, nausea, vomiting or diarrhea : Denies: painful urination Musc: Denies: neck pain or back pain Skin/Breast: Denies: rash Neuro: Denies: headache Psych: Denies: depression Juan/Lymph: Denies: easy bruising All/Imm: Denies: hives PFSH ED PFSH: Medical History (Updated 06/18/19 @ 15:46 by Larissa Tatum) A-V fistula Anemia, chronic disease Atherosclerotic heart disease of [place] coronary artery without angina pectoris CAD (coronary artery disease) ESRD (end stage renal disease) on dialysis -is on HD MWF; dialyzed today -Nephrology consult appreciated -noted renal function, hyperkalemia -continue to monitor renal function -has tunneled catheter for access; from review of medical record, this was placed sometime between July and December 2018 Fistula GERD (gastroesophageal reflux disease) Hypertension Peripheral neuropathy Peripheral vascular disease Severe aortic stenosis Surgical History History of femoropopliteal bypass Hx of appendectomy Hx of CABG Hx of cholecystectomy S/P thyroid surgery Social History Smoking and tobacco status: never smoked Alcohol intake: never Female Reproductive History: Date of last menstrual period: 05/25/19 Physical Exam Const: COMMON NORMALS: no apparent distress, oriented x3 and healthy appearing HENMT: COMMON NORMALS: normocephalic and head/scalp atraumatic HEAD & SCALP: normocephalic and atraumatic Eye: COMMON NORMALS: PERRL and EOMs intact bilaterally PUPIL: Yes PERRL Neck/C-Spine: COMMON NORMALS: full ROM and supple Chest: COMMONS NORMALS: inspection of chest normal and palpation of chest normal Resp: COMMON NORMALS: normal respiratory effort, no retractions, no use of accessory muscles and clear to auscultation bilaterally AUSCULTATION: clear to auscultation bilaterally Cardio: COMMON NORMALS: regular rate, regular rhythm and no murmurs RATE: regular rate RHYTHM: regular rhythm GI: COMMON NORMALS: normal to inspection, nondistended, normoactive bowel so unds, soft to palpation, non-tender and no masses PALPATION: Yes soft Extremity: COMMON NORMALS: normal to inspection and full ROM NARRATIVE EXTREMITY EXAM: pt has a fistula on her left arm that is healing. Pt also has a wound on her left leg where they took a skin graft for her left arm. Neuro: COMMON NORMALS: oriented x3, moves all extremities and no focal motor deficits Psych: COMMON NORMALS: mental status grossly normal, thought process normal and cooperative THOUGHT PROCESS: normal thought process Skin: COMMON NORMALS: no rashes or lesions noted and no wounds GENERAL SKIN EXAM: no rashes or lesions noted Course Vital Signs: Vital signs: Vital Signs Temperature 98.2 F 06/18/19 22:27 Pulse Rate 69 06/18/19 22:46 Respiratory Rate 16 06/18/19 22:27 Blood Pressure 98/50 06/18/19 22:46 Pulse Oximetry 96 06/18/19 22:46 MDM - Altered Mental Status Lab Data: Labs: Lab Results 06/18/19 06/18/19 06/18/19 Range/Units 16:45 16:45 17:11 WBC 8.7 (4.0-10.0) 10^3/ uL RBC 3.37 L (4.1-5.3) 10^6/u L Hgb 10.8 L (11.5-15.3) g/dL Hct 35.8 L (37.0-47.0) % MCV 106.2 H (81-99) fL MCH 32.0 (28.0-34.0) pg MCHC 30.2 (30.0-36.0) g/dL RDW 19.8 H (12.1-15.1) % Plt Count 84 L (130-400) 10^3/c mm MPV 12.3 H (7.4-10.4) fL Neut % (Auto) 70.5 % Lymph % (Auto) 17.7 % [place] % (Auto) 5.5 % Eos % (Auto) 3.2 % Baso % (Auto) 0.6 % Neut # (Auto) 6.2 (1.8-7.7) 10^3/u L Lymph # (Auto) 1.5 (0.8-4.8) 10^3/u L [place] # (Auto) 0.5 (0.2-0.9) 10^3/u L Eos # (Auto) 0.3 (0.0-0.8) 10^3/u L Baso # (Auto) 0.1 (0.0-0.1) 10^3/u L Nucleated RBC % (a uto) 0 % Nucleated RBCs # 0.0 /100WBC Sodium 136 (136-145) mmol/L Potassium 5.0 (3.5-5.1) mmol/L Chloride 96 L (98-107) mmol/L Carbon Dioxide 16 L (22-29) mmol/L Anion Gap 29.0 H (5-19) BUN 26 H (8-23) mg/dL Creatinine 9.2 H* (0.5-0.9) mg/dL GFR Calculation 4.3 L (90-130) mL/min Glucose 95 (65-115) mg/dL Calcium 6.9 L (8.5-10.5) mg/dL Magnesium 1.9 (1.7-2.3) mg/dL Total Bilirubin 0.6 (0.15-1.2) mg/dL AST 166 H (0-32) U/L ALT 83 H (0-33) U/L Alkaline Phosphata se 336 H (35-105) IU/L Troponin T Baselin e 88 H (0-10) ng/mL Troponin T 120 Min [place] (0-10) ng/mL Delta Troponin T (0-10) ABS# Total Protein 7.1 (6.6-8.7) g/dL Albumin 3.6 (3.5-5.2) g/dL Globulin 3.5 (1.3-4.6) g/dL 06/18/19 Range/Units 19:00 WBC (4.0-10.0) 10^3/ uL RBC (4.1-5.3) 10^6/u L Hgb (11.5-15.3) g/dL Hct (37.0-47.0) % MCV (81-99) fL MCH (28.0-34.0) pg MCHC (30.0-36.0) g/dL RDW (12.1-15.1) % Plt Count (130-400) 10^3/c mm MPV (7.4-10.4) fL Neut % (Auto) % Lymph % (Auto) % [place] % (Auto) % Eos % (Auto) % Baso % (Auto) % Neut # (Auto) (1.8-7.7) 10^3/u L Lymph # (Auto) (0.8-4.8) 10^3/u L [place] # (Auto) (0.2-0.9) 10^3/u L Eos # (Auto) (0.0-0.8) 10^3/u L Baso # (Auto) (0.0-0.1) 10^3/u L Nucleated RBC % (a uto) % Nucleated RBCs # /100WBC Sodium (136-145) mmol/L Potassium (3.5-5.1) mmol/L Chloride (98-107) mmol/L Carbon Dioxide (22-29) mmol/L Anion Gap (5-19) BUN (8-23) mg/dL Creatinine (0.5-0.9) mg/dL GFR Calculation (90-130) mL/min Glucose (65-115) mg/dL Calcium (8.5-10.5) mg/dL Magnesium (1.7-2.3) mg/dL Total Bilirubin (0.15-1.2) mg/dL AST (0-32) U/L ALT (0-33) U/L Alkaline Phosphata se (35-105) IU/L Troponin T Baselin e (0-10) ng/mL Troponin T 120 Min [place] 83.01 H (0-10) ng/mL Delta Troponin T -4.99 L (0-10) ABS# Total Protein (6.6-8.7) g/dL Albumin (3.5-5.2) g/dL Globulin (1.3-4.6) g/dL Imaging Data^: CXR: Radiologist's impression: Ordering Provider/Ordering MD: Brice Spring MD Date of Service: 06/18/19 Procedure(s): XR chest 1V portable [id number] Accession Number(s): [id number] Report Number: [id number] PROCEDURE INFORMATION: Exam: XR Chest, 1 View Exam date and time: 06/18/2019 3:37 PM Age: 64 years old Clinical indication: Other: Weakness; Additional info: Cp TECHNIQUE: Imaging protocol: XR of the chest Views: 1 view. COMPARISON: CR XR chest 1V portable [id number] 06/01/2019 9:13 AM FINDINGS: Tubes, catheters and devices: Interval removal of the double-lumen dialysis catheter since last examination of 06/01/2019. Lungs: No visible active interstitial or alveolar airspace disease in the lungs. Pleural space: Unremarkable. No pleural effusion. No pneumothorax. Heart/Mediastinum: Status post sternotomy chest and CABG. Arterial sclerosis. Cardiac size within normal limits for age. Aortic valve prosthesis. Vasculature: Stent left upper extremity. Bones/joints: Old posterior right rib fractures. Soft tissues: Surgical clips bilateral upper extremities. Other findings: Age-appropriate findings. XR/XR chest 1V portable [id number] IMPRESSION: 1. No visible evidence of active or acute cardiopulmonary process. 2. Interval removal of the double lumen dialysis catheter. EKG Data^: EKG 1: Attestation: I personally reviewed and interpreted this EKG as follows: EKG interpretation date: 06/18/19 EKG interpretation time: 16:00 Interpretation: nsr lbbb no st or t wave abnormalities unchanged from preious Discharge Plan Discharge Prescriptions: No Action nicotine [Nicoderm CQ] 14 mg/24 hr Patch 24 Hour 1 patch TRANSDERMAL DAILY RF: 0 bacitracin 500 unit/gram Ointment 1 applic TOPICAL Q12H RF: 0 triamcinolone acetonide 0.025 % Cream 1 applic TOPICAL BID RF: 0 prasugrel 10 mg Tablet 10 mg PO DAILY RF: 0 escitalopram oxalate 10 mg Tablet 10 mg PO DAILY RF: 0 Referrals: Vincent Gillis DO [Primary Care Provider] - Coding Level of Care Code ED Production Dispatcher for Chg Fwd Exam Comprehensive Documented by User: Geovanny Reyes DO 06/18/19 23:24 HPI - Altered Mental Status General: Chief Complaint: Chest Pain Stated Complaint: AMS/WEAKNESS Time Seen by Provider: 06/18/19 15:48 PFSH ED PFSH: Medical History (Updated 06/18/19 @ 15:46 by Larissa Tatum) A-V fistula Anemia, chronic disease Atherosclerotic heart disease of [place] coronary artery without angina pectoris CAD (coronary artery disease) ESRD (end stage renal disease) on dialysis -is on HD MWF; dialyzed today -Nephrology consult appreciated -noted renal function, hyperkalemia -continue to monitor renal function -has tunneled catheter for access; from review of medical record, this was placed sometime between July and December 2018 Fistula GERD (gastroesophageal reflux disease) Hypertension Peripheral neuropathy Peripheral vascular disease Severe aortic stenosis Surgical History History of femoropopliteal bypass Hx of appendectomy Hx of CABG Hx of cholecystectomy S/P thyroid surgery Social History Smoking and tobacco status: never smoked Alcohol intake: never Course Vital Signs: Vital signs: Vital Signs Temperature 98.2 F 06/18/19 22:27 Pulse Rate 69 06/18/19 22:46 Respiratory Rate 16 06/18/19 22:27 Blood Pressure 98/50 06/18/19 22:46 Pulse Oximetry 96 06/18/19 22:46 MDM - Altered Mental Status MDM Narrative: Medical decision making narrative: 64-year-old lady taken over at shift change from Dr. Spring. This lady had a previous admission last week at an outside facility. They wanted to send her to half-way. She wanted to go home. She presents saying that she cannot take care of herself at home. She has an infected graft on the left arm, has missed dialysis twice this week, and has not been taking her antibiotics prescribed from the hospital. She does not have a fever, or leukocytosis. She does not need dialysis acutely, but will need dialysis soon. Spoke with our hospitalist here, who does not feel comfortable taking her on the floor given her prior vascular surgery complications, and the possible need for infectious disease given her history of Pseudomonas infection, as well as C. difficile. We spoke with hospitalist at [facility], who was gracious enough to take her in admission. Lab Data: Labs: Lab Results 06/18/19 06/18/19 06/18/19 Range/Units 16:45 16:45 17:11 WBC 8.7 (4.0-10.0) 10^3/ uL RBC 3.37 L (4.1-5.3) 10^6/u L Hgb 10.8 L (11.5-15.3) g/dL Hct 35.8 L (37.0-47.0) % MCV 106.2 H (81-99) fL MCH 32.0 (28.0-34.0) pg MCHC 30.2 (30.0-36.0) g/dL RDW 19.8 H (12.1-15.1) % Plt Count 84 L (130-400) 10^3/c mm MPV 12.3 H (7.4-10.4) fL Neut % (Auto) 70.5 % Lymph % (Auto) 17.7 % [place] % (Auto) 5.5 % Eos % (Auto) 3.2 % Baso % (Auto) 0.6 % Neut # (Auto) 6.2 (1.8-7.7) 10^3/u L Lymph # (Auto) 1.5 (0.8-4.8) 10^3/u L [place] # (Auto) 0.5 (0.2-0.9) 10^3/u L Eos # (Auto) 0.3 (0.0-0.8) 10^3/u L Baso # (Auto) 0.1 (0.0-0.1) 10^3/u L Nucleated RBC % (a uto) 0 % Nucleated RBCs # 0.0 /100WBC Sodium 136 (136-145) mmol/L Potassium 5.0 (3.5-5.1) mmol/L Chloride 96 L (98-107) mmol/L Carbon Dioxide 16 L (22-29) mmol/L Anion Gap 29.0 H (5-19) BUN 26 H (8-23) mg/dL Creatinine 9.2 H* (0.5-0.9) mg/dL GFR Calculation 4.3 L (90-130) mL/min Glucose 95 (65-115) mg/dL Calcium 6.9 L (8.5-10.5) mg/dL Magnesium 1.9 (1.7-2.3) mg/dL Total Bilirubin 0.6 (0.15-1.2) mg/dL AST 166 H (0-32) U/L ALT 83 H (0-33) U/L Alkaline Phosphata se 336 H (35-105) IU/L Troponin T Baselin e 88 H (0-10) ng/mL Troponin T 120 Min [place] (0-10) ng/mL Delta Troponin T (0-10) ABS# Total Protein 7.1 (6.6-8.7) g/dL Albumin 3.6 (3.5-5.2) g/dL Globulin 3.5 (1.3-4.6) g/dL 06/18/19 Range/Units 19:00 WBC (4.0-10.0) 10^3/ uL RBC (4.1-5.3) 10^6/u L Hgb (11.5-15.3) g/dL Hct (37.0-47.0) % MCV (81-99) fL MCH (28.0-34.0) pg MCHC (30.0-36.0) g/dL RDW (12.1-15.1) % Plt Count (130-400) 10^3/c mm MPV (7.4-10.4) fL Neut % (Auto) % Lymph % (Auto) % [place] % (Auto) % Eos % (Auto) % Baso % (Auto) % Neut # (Auto) (1.8-7.7) 10^3/u L Lymph # (Auto) (0.8-4.8) 10^3/u L [place] # (Auto) (0.2-0.9) 10^3/u L Eos # (Auto) (0.0-0.8) 10^3/u L Baso # (Auto) (0.0-0.1) 10^3/u L Nucleated RBC % (a uto) % Nucleated RBCs # /100WBC Sodium (136-145) mmol/L Potassium (3.5-5.1) mmol/L Chloride (98-107) mmol/L Carbon Dioxide (22-29) mmol/L Anion Gap (5-19) BUN (8-23) mg/dL Creatinine (0.5-0.9) mg/dL GFR Calculation (90-130) mL/min Glucose (65-115) mg/dL Calcium (8.5-10.5) mg/dL Magnesium (1.7-2.3) mg/dL Total Bilirubin (0.15-1.2) mg/dL AST (0-32) U/L ALT (0-33) U/L Alkaline Phosphata se (35-105) IU/L Troponin T Baselin e (0-10) ng/mL Troponin T 120 Min [place] 83.01 H (0-10) ng/mL Delta Troponin T -4.99 L (0-10) ABS# Total Protein (6.6-8.7) g/dL Albumin (3.5-5.2) g/dL Globulin (1.3-4.6) g/dL Discharge Plan Discharge Prescriptions: No Action nicotine [Nicoderm CQ] 14 mg/24 hr Patch 24 Hour 1 patch TRANSDERMAL DAILY RF: 0 bacitracin 500 unit/gram Ointment 1 applic TOPICAL Q12H RF: 0 triamcinolone acetonide 0.025 % Cream 1 applic TOPICAL BID RF: 0 prasugrel 10 mg Tablet 10 mg PO DAILY RF: 0 escitalopram oxalate 10 mg Tablet 10 mg PO DAILY RF: 0 Referrals: Vincent Gillis DO [Primary Care Provider] - Coding Level of Care Code ED Production Dispatcher for Chg Fwd Exam Comprehensive The documentation recorded by the scribe, Tatum,Kialy, accurately reflects the service I personally performed and the decisions made by me, Brice Spring MD Jun 18, 2019 15:32
[2019-06-18 17:00] LABS: Basophils # 0.1 10^3/uL (0.0-0.1); Basophils % 0.6 %; Eosinophils # 0.3 10^3/uL (0.0-0.8); Eosinophils % 3.2 %; Hematocrit 35.8 % (37.0-47.0); Hemoglobin 10.8 g/dL (11.5-15.3); Lymphocytes # 1.5 10^3/uL (0.8-4.8); Lymphocytes % 17.7 %; Mean Corpuscular HGB Conc 30.2 g/dL (30.0-36.0); Mean Corpuscular Volume 106.2 fL (81-99); Mean Platelet Volume 12.3 fL (7.4-10.4); Monocytes # 0.5 10^3/uL (0.2-0.9); Monocytes % 5.5 %; Neutrophils # 6.2 10^3/uL (1.8-7.7); Neutrophils % 70.5 %; Nucleated Red Blood Cells % 0 %; Platelet Count 84 10^3/cmm (130-400); Red Blood Count 3.37 10^6/uL (4.1-5.3); Red Cell Distribution Width 19.8 % (12.1-15.1); White Blood Count 8.7 10^3/uL (4.0-10.0)
[2019-06-18 17:24] LABS: Alanine Aminotransferase 83 U/L (0-33); Albumin Level 3.6 g/dL (3.5-5.2); Alkaline Phosphatase 336 IU/L (35-105); Aspartate Amino Transferase 166 U/L (0-32); Blood Urea Nitrogen 26 mg/dL (8-23); Calcium 6.9 mg/dL (8.5-10.5); Carbon Dioxide 16 mmol/L (22-29); Chloride 96 mmol/L (98-107); Globulin 3.5 g/dL (1.3-4.6); Glomerular Filtration Rate 4.3 mL/min (90-130); Glucose 95 mg/dL (65-115); Magnesium 1.9 mg/dL (1.7-2.3); Sodium 136 mmol/L (136-145); Total Bilirubin 0.6 mg/dL (0.15-1.2); Total Protein 7.1 g/dL (6.6-8.7)
[2019-06-18 17:42] LABS: Troponin(5th) Baseline 88 ng/mL (0-10)
--- NOTE | 2019-06-18 18:33 | PC.NURSE ---
patient refusing quick cath emd informed and said it was okay
--- NOTE | 2019-06-18 18:51 | ECG_ITS ---
Measurements Intervals [place] Rate: 67 P: 77 CO: 232 QRS: -80 QRSD: 141 T: 74 QT: 527 QTc: 560 SINUS RHYTHM WITH FIRST DEGREE AV BLOCK WITH OCCASIONAL SUPRAVENTRICULAR EUNICE PREMATURE COMPLEXES.RIGHT BUNDLE BRANCH BLOCK [120+ ms QRS DURATION, UPRIGHT V1, 40+ ms S IN I/[place]/aVL/V4/V5/V6] POSSIBLE ANTERIOR MYOCARDIAL INFARCTION , OF INDETERMINATE AGE [30 ms Q WAVE IN V3/V4, OR R < 0.2 mV IN V4] INFERIOR MYOCARDIAL INFARCTION , OF INDETERMINATE AGE [40+ ms Q WAVE AND/OR ST/T AB ABNORMALITY IN II/aVF] Compared to ECG 06/18/2019 16:00:20 Left anterior fascicular block no longer present Prolonged QT interval no longer present Myocardial infarct finding still present Electronically Signed On 06-19-2019 20:26:42 MANAGER STRATEGY & ACCOUNT by Fanny Tuttle M.D. [id number]
--- NOTE | 2019-06-18 19:18 | PC.NURSE ---
Introduced self to patient and initiated vital signs. Patient presents A&O x 3. NAD, ABCs intact. Respirations are even and unlabored. Pt states that the chief complaint for the ER visit today is due to heart palpitations and feeling very ill. Pt has large gaping wound in left bicep area around new dialysis fistula. Pt denies any vision disturbances or lightheadedness. Bed left in lowest position in semi-fowlers with side rails up.Reassured patient of needs and will continue to monitor.
[2019-06-18 19:37] LABS: Troponin 5 2HR 83.01 ng/mL (0-10)
[2019-06-18 19:38] LABS: Troponin 5 2HR Delta -4.99 ABS# (0-10)
--- NOTE | 2019-06-18 19:39 | PC.NURSE ---
Wet to dry dressing applied to left arm wound.
[2019-06-18] MEDS: morphine 4 mg/mL SDV 1 mL 2 MG IVP (21:07)
--- NOTE | 2019-06-18 22:51 | ECG_ITS ---
Measurements Intervals [place] Rate: 65 P: 84 MT: 223 QRS: -79 QRSD: 151 T: 77 QT: 533 QTc: 555 SINUS RHYTHM WITH FIRST DEGREE AV BLOCK RIGHT BUNDLE BRANCH BLOCK [120+ ms QRS DURATION, UPRIGHT V1, 40+ ms S IN I/aV I/aVL/V4/V5/V6] ABNORMALITY IN V3/V4] INFERIOR MYOCARDIAL INFARCTION , PROBABLY OLD [40+ ms Q WAVE AND/OR ST/T AB ABNORMALITY IN II/aVF] Compared to ECG 06/18/2019 16:00:20 Left anterior fascicular block no longer present Prolonged QT interval no longer present Myocardial infarct finding still present Electronically Signed On 06-19-2019 20:27:51 MACHINE FASTENER by Fanny Tuttle M.D. [id number]
--- NOTE | 2019-06-18 23:30 | PC.NURSE ---
EMS assuming care of patient for transport.
[2019-06-18] MEDS: fentaNYL 50 mcg/mL INJ 2mL IVP (23:33)
== END 2019-06-18 23:49 ==
PROVIDERS: Emergency Medicine; Emergency Provider Emergency Medicine; Family Provider Internal Medicine; PCP Internal Medicine
DX: T82.7XXA Infection and inflammatory reaction due to other cardiac and vascular devices, implants and grafts, initial encounter (principal); I25.10 Atherosclerotic heart disease of native coronary artery without angina pectoris; I12.0 Hypertensive chronic kidney disease with stage 5 chronic kidney disease or end stage renal disease; N18.6 End stage renal disease; Z86.19 Personal history of other infectious and parasitic diseases; Z99.2 Dependence on renal dialysis; Z95.1 Presence of aortocoronary bypass graft; Y83.2 Surgical operation with anastomosis, bypass or graft as the cause of abnormal reaction of the patient, or of later complication, without mention of misadventure at the time of the procedure
CPT/HCPCS: 36415; 71045; 80053; 83735; 84484; 85025; 93005; 96374; 96375; 96376; 99284; J2270; J3010

== ENCOUNTER 2019-07-13 09:37 | Outpatient (RCR) | payer MEDICARE, MEDICAID, SELFPAY | END 2019-07-18 23:59 | disposition home or self-care (01) | LOC: WOUND 09:37 | PROVIDERS: Family Provider Internal Medicine; PCP Internal Medicine; Visit Provider Nurse Practitioner Family | DX: Z09 Encounter for follow-up examination after completed treatment for conditions other than malignant neoplasm (principal) | CPT/HCPCS: 99214; G0463 ==

== ENCOUNTER 2019-07-14 18:16 | Emergency (ER) | payer MEDICARE, MEDICAID, SELFPAY ==
[2019-07-14 18:16] VITALS: BP 133/89; PULSE 71; RESP 19; TEMP 36.7; O2SAT 97; BMI 21.1
--- NOTE | 2019-07-14 18:21 | ED_ITS ---
Entered by Larissa Tatum, acting as scribe for Geovanny Reyes DO HPI - General Adult General: Chief complaint: Extremity Injury, Upper Stated complaint: FISTULA BLEEDING Time Seen by Provider: 07/14/19 18:23 History of Present Illness: HPI narrative: 64 yo female presents with bleeding fistula. Pt states that she had dialysis today, was put on it about 1 and was taken off at 4. Pt states that she was laying down in her bed and woke up with h er arm soaked in blood. MD complaint: bleeding fistula. Associated symptoms: Deny chest pain, confusion, dyspnea, headache(s), nausea, rash, palpitations or vomiting Review of Systems Const: Denies: fever or chills Eyes: Denies: photophobia ENMT: Denies: enlarged tonsils Card: Denies: chest pain, palpitations, irregular heart rhythm, edema, swelling of feet/ankles, shortness of breath on exertion or shortness of breath when lying down Resp: Reports: non-productive cough and wheezing; Denies: shortness of breath or productive cough GI: Denies: abdominal pain, nausea or vomiting : Denies: painful urination or urinary urgency Musc: Reports: back pain; Denies: joint warmth Skin/Breast: Denies: rash or redness Neuro: Denies: headache or confusion Psych: Denies: anxiety All/Imm: Denies: acute wheezing PFSH ED PFSH: Medical History A-V fistula Anemia, chronic disease Atherosclerotic heart disease of [place] coronary artery without angina pectoris CAD (coronary artery disease) ESRD (end stage renal disease) on dialysis -is on HD MWF; dialyzed today -Nephrology consult appreciated -noted renal function, hyperkalemia -continue to monitor renal function -has tunneled catheter for access; from review of medical record, this was placed sometime between July and December 2018 Fistula GERD (gastroesophageal reflux disease) Hypertension Peripheral neuropathy Peripheral vascular disease Severe aortic stenosis Surgical History History of femoropopliteal bypass Hx of appendectomy Hx of CABG Hx of cholecystectomy S/P thyroid surgery Social History Smoking and tobacco status: current every day smoker cigarettes Alcohol intake: never Female Reproductive History: Date of last menstrual period: 05/25/19 Physical Exam Const: GENERAL APPEARANCE: well developed ORIENTATION/CONSCIOUSNESS: Yes oriented to person, Yes oriented to place and Yes oriented to time HENMT: COMMON NORMALS: normocephalic, external ears normal and external nose normal HEAD & SCALP: normocephalic; no scalp tenderness FACE & SINUS: normal facial exam NOSE: external nose normal and no nasal discharge EXTERNAL EAR: Yes external ears normal MOUTH: tongue normal Eye: COMMON NORMALS: PERRL, EOMs intact bilaterally and conjunctivae normal EYELID: eyelids normal CONJUNCTIVA: Yes conjunctivae normal PUPIL: Yes PERRL Chest: COMMONS NORMALS: inspection of chest normal CHEST: No tenderness Resp: AUSCULTATION: no rhonchi, wheezes and lung sounds not diminished Cardio: COMMON NORMALS: regular rate and regular rhythm RATE: regular rate RHYTHM: regular rhythm HEART SOUNDS: no murmurs PERIPHERAL PULSES: radial pulses present GI: INSPECTION: No abdominal distension AUSCULTATION: No hyperactive bowel sounds and No hypoactive bowel sounds PALPATION: No guarding and No rigid Extremity: NARRATIVE EXTREMITY EXAM: fistula in her right arm. Puncture wound present. Clot present. No active bleeding. There is some mild infiltrate in the fistula site from dialysis earlier today. Neuro: SENSORIUM/ORIENTATION: Yes oriented to person, Yes oriented to place and Yes oriented to time Psych: COMMON NORMALS: mental status grossly normal Course Vital Signs: Vital signs: Vital Signs Temperature 98.1 F 07/14/19 18:16 Pulse Rate 88 07/14/19 19:44 Respiratory Rate 18 07/14/19 19:44 Blood Pressure 121/95 07/14/19 19:44 Pulse Oximetry 96 07/14/19 19:44 MDM - General Adult MDM Narrative: Medical decision making narrative: 64-year-old lady with dialysis fistula bleeding postdialysis. Bleeding is controlled now. There is a mild IV site infiltrated. No infection. She has been cleaned up and bandaged. Her hemoglobin is 12.6. She will be allowed discharge. Lab Data: Labs: Lab Results 07/14/19 07/14/19 Range/Units 18:50 18:50 WBC 6.9 (4.0-10.0) 10^3/ uL RBC 3.93 L (4.1-5.3) 10^6/u L Hgb 12.6 (11.5-15.3) g/dL Hct 41.7 (37.0-47.0) % MCV 106.1 H (81-99) fL MCH 32.1 (28.0-34.0) pg MCHC 30.2 (30.0-36.0) g/dL RDW 16.5 H (12.1-15.1) % Plt Count 108 L (130-400) 10^3/c mm MPV 11.7 H (7.4-10.4) fL Neut % (Auto) 70.4 % Lymph % (Auto) 15.6 % [place] % (Auto) 8.0 % Eos % (Auto) 4.8 % Baso % (Auto) 0.6 % Neut # (Auto) 4.9 (1.8-7.7) 10^3/u L Lymph # (Auto) 1.1 (0.8-4.8) 10^3/u L [place] # (Auto) 0.6 (0.2-0.9) 10^3/u L Eos # (Auto) 0.3 (0.0-0.8) 10^3/u L Baso # (Auto) 0.0 (0.0-0.1) 10^3/u L Nucleated RBC % (a uto) 0 % Nucleated RBCs # 0.0 /100WBC Sodium 138 (136-145) mmol/L Potassium 4.9 (3.5-5.1) mmol/L Chloride 97 L (98-107) mmol/L Carbon Dioxide 22 (22-29) mmol/L Anion Gap 23.9 H (5-19) BUN 27 H (8-23) mg/dL Creatinine 4.6 H (0.5-0.9) mg/dL GFR Calculation 9.6 L (90-130) mL/min Glucose 122 H (65-115) mg/dL Calculated Osmolal ity 284 L (285-295) mOsm/k g Calcium 9.3 (8.5-10.5) mg/dL Total Bilirubin 0.4 (0.15-1.2) mg/dL AST 47 H (0-32) U/L ALT 73 H (0-33) U/L Alkaline Phosphata se 170 H (35-105) IU/L Total Protein 8.3 (6.6-8.7) g/dL Albumin 3.9 (3.5-5.2) g/dL Globulin 4.4 (1.3-4.6) g/dL Discharge Plan Discharge Patient Disposition: Home, Self-Care Clinical Impression: Dialysis AV fistula malfunction Qualifiers: Encounter type: initial encounter Qualified Code(s): T82.590A - Other mechanical complication of surgically created arteriovenous fistula, initial encounter Condition: Stable Prescriptions: No Action nicotine [Nicoderm CQ] 14 mg/24 hr Patch 24 Hour 1 patch TRANSDERMAL DAILY RF: 0 bacitracin 500 unit/gram Ointment 1 applic TOPICAL Q12H RF: 0 triamcinolone acetonide 0.025 % Cream 1 applic TOPICAL BID PRN (Reason: Itching) RF: 0 prasugrel 10 mg Tablet 10 mg PO DAILY RF: 0 escitalopram oxalate 10 mg Tablet 10 mg PO DAILY RF: 0 Discharge Orders: Discharge Order (Routine); Ordered 07/14/19 Ordered By: Geovanny Reyes Referrals: Vincent Gillis DO [Primary Care Provider] - Discharge Diet: Advance as tolerated Patient Instructions: Puncture Wound (ED) Activity Restrictions/Additional Instructions: Return for worsening bleeding, swelling, pain, etc. Discharge Date/Time: 07/14/19 19:45 Coding Level of Care Code ED Build Master for Chg Fwd Exam Comprehensive The documentation recorded by the Rc galeana Kialy, accurately reflects the service I personally performed and the decisions made by Eric hernandez Jeremy John, DO Jul 14, 2019 18:16
[2019-07-14 18:28] VITALS: O2SAT 98
[2019-07-14 18:58] LABS: Basophils % 0.6 %; Eosinophils # 0.3 10^3/uL (0.0-0.8); Eosinophils % 4.8 %; Hematocrit 41.7 % (37.0-47.0); Hemoglobin 12.6 g/dL (11.5-15.3); Lymphocytes # 1.1 10^3/uL (0.8-4.8); Lymphocytes % 15.6 %; Mean Corpuscular HGB Conc 30.2 g/dL (30.0-36.0); Mean Corpuscular Hemoglobin 32.1 pg (28.0-34.0); Mean Corpuscular Volume 106.1 fL (81-99); Mean Platelet Volume 11.7 fL (7.4-10.4); Monocytes # 0.6 10^3/uL (0.2-0.9); Neutrophils # 4.9 10^3/uL (1.8-7.7); Neutrophils % 70.4 %; Nucleated Red Blood Cells % 0 %; Platelet Count 108 10^3/cmm (130-400); Red Blood Count 3.93 10^6/uL (4.1-5.3); Red Cell Distribution Width 16.5 % (12.1-15.1); White Blood Count 6.9 10^3/uL (4.0-10.0)
[2019-07-14 19:17] LABS: Alanine Aminotransferase 73 U/L (0-33); Albumin Level 3.9 g/dL (3.5-5.2); Alkaline Phosphatase 170 IU/L (35-105); Anion Gap 23.9 (5-19); Aspartate Amino Transferase 47 U/L (0-32); Blood Urea Nitrogen 27 mg/dL (8-23); Calcium 9.3 mg/dL (8.5-10.5); Carbon Dioxide 22 mmol/L (22-29); Chloride 97 mmol/L (98-107); Globulin 4.4 g/dL (1.3-4.6); Glomerular Filtration Rate 9.6 mL/min (90-130); Glucose 122 mg/dL (65-115); Osmolality Calculated 284 mOsm/kg (285-295); Potassium 4.9 mmol/L (3.5-5.1); Sodium 138 mmol/L (136-145); Total Bilirubin 0.4 mg/dL (0.15-1.2); Total Protein 8.3 g/dL (6.6-8.7)
[2019-07-14 19:22] LABS: Slide Review Slide Review Perform
[2019-07-14 19:44] VITALS: BP 121/95; PULSE 88; RESP 18; O2SAT 96
== END 2019-07-14 19:45 | disposition home or self-care (01) ==
PROVIDERS: Emergency Provider Emergency Medicine; Family Provider Internal Medicine; PCP Internal Medicine
DX: T82.590A Other mechanical complication of surgically created arteriovenous fistula, initial encounter (principal); I12.0 Hypertensive chronic kidney disease with stage 5 chronic kidney disease or end stage renal disease; N18.6 End stage renal disease; I25.10 Atherosclerotic heart disease of native coronary artery without angina pectoris; F17.210 Nicotine dependence, cigarettes, uncomplicated; Z95.1 Presence of aortocoronary bypass graft; Z99.2 Dependence on renal dialysis; Y84.1 Kidney dialysis as the cause of abnormal reaction of the patient, or of later complication, without mention of misadventure at the time of the procedure
CPT/HCPCS: 12345; 80053; 85025; 99282

== ENCOUNTER 2019-07-20 18:45 | Inpatient (IN) | payer MEDICARE, MEDICAID, SELFPAY ==
[2019-07-20] VITALS (29 sets, daily range): BP systolic 52–149; BP diastolic 30–107; PULSE 41–139; RESP 14–25; TEMP 36.3–36.5; O2SAT 94–100; BMI 21.7
--- NOTE | 2019-07-20 19:07 | XR_ITS ---
WS: [id number] PORTABLE CHEST HISTORY: cough/congestion COMPARISON: 06/18/2019 Status post median sternotomy. Lungs are clear and well expanded. No pleural effusion or pneumothorax. Cardiac size: Normal. Mediastinum/Aorta: Mild atherosclerosis aorta. No osseous abnormality seen. Vascular stent overlying the LEFT humerus. Surgical clips along the RIGHT arm. XR/XR chest 1V portable [id number] IMPRESSION: Chronic emphysema. No acute cardiopulmonary disease.
--- NOTE | 2019-07-20 19:07 | ECG_ITS ---
Measurements Intervals [place] Rate: 104 P: 222 AL: 190 QRS: 0 QRSD: 4 T: 257 QT: 295 QTc: 390 SINUS TACHYCARDIA WITH FREQUENT VENTRICULAR PREMATURE COMPLEXES INDETERMINATE AXIS MARKED ST ELEVATION, CONSIDER ANTERIOR INJURY INTERPRETATION LIMITED BY SIGNIFICANT ARTIFACT Compared to ECG 06/18/2019 22:40:35 Ventricular premature complex(es) now present Indeterminate axis now present ST (T wave) deviation now present Sinus rhythm no longer present First degree AV block no longer present Right bundle-branch block no longer present Myocardial infarct finding still present Electronically Signed On 07-21-2019 17:55:12 CDT by Alix Harding M.D. [email or web address]
--- NOTE | 2019-07-20 19:12 | W.ED.WEAKNES ---
Documented by User: FAISAL Ayon 07/20/19 22:39 HPI - Weakness General: Chief complaint: Weakness Stated complaint: WEAKNESS/ DIZZINESS Time Seen by Provider: 07/20/19 18:51 Source: patient Mode of arrival: EMS Limitations: no limitations History of Present Illness: HPI Narrative: Patient is a 64-year-old female who presents to ED today with a chief complaint of black diarrhea stools over the past 3 days. Patient tells me she does not have a previous history of GI bleeds. She takes an aspirin daily and is supposed to be taking Plavix however is noncompliant with this. She reports 2 days ago she was at [facility] in [place] where she had TPA administered to her right upper extremity to remove a thrombus. Patient complains of weakness and dizziness. She stated that she fell while using her walker earlier today because of the dizziness. She complains of back pain however states this is fairly chronic for her. Looking at patient's PMH she has been at [facility] recently for C. difficile infections and pseudomonas aeruginosa bacteremia. Patient's last blood culture per history was negative. Associated symptoms: Reports dark stools; Denies chest pain, chills, dysuria, fever(s), headache(s), nausea, syncope or vomiting Review of Systems General: Reports: other (pt overall is a poor historian ) Const: Denies: fever, chills or body aches Eyes: Denies: change in vision, blurry vision or photophobia ENMT: Denies: throat pain, enlarged tonsils, painful swallowing, nasal discharge or nasal congestion Card: Reports: lightheadedness; Denies: chest pain, palpitations, irregular heart rhythm, edema, syncope, pre-syncope, shortness of breath on exertion or shortness of breath when lying down Resp: Denies: shortness of breath, productive cough, coughing up blood or chest congestion GI: Reports: abdominal pain, diarrhea, change in stool character and black tarry stool; Denies: nausea, vomiting, vomiting blood, coffee grounds in vomit, heartburn/indigestion, painful bowel movements, rectal swelling or white/light colored stool : Denies: flank pain, difficulty urinating, painful urination, urinary frequency, urinary urgency or urinary hesitancy Musc: Denies: neck pain or back pain Skin/Breast: Denies: rash Neuro: Denies: headache, numbness in extremities, weakness in extremities or changes in sensation PFSH ED PFSH: Medical History (Updated 07/20/19 @ 22:48 by Romel Rivera MD) A-V fistula 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 AV fistula TPA right arm graft Anemia, chronic disease 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 CAD (coronary artery disease) ESRD (end stage renal disease) on dialysis -is on HD MWF; dialyzed today -Nephrology consult appreciated -noted renal function, hyperkalemia -continue to monitor renal function -has tunneled catheter for access; from review of medical record, this was placed sometime between July and December 2018 Fistula GERD (gastroesophageal reflux disease) Hypertension Peripheral neuropathy Peripheral vascular disease Severe aortic stenosis Surgical History History of femoropopliteal bypass Hx of appendectomy Hx of CABG Hx of cholecystectomy S/P thyroid surgery Family History Other Diabetes Hypertension Social History Smoking and tobacco status: current every day smoker cigarettes Alcohol intake: never Female Reproductive History: Date of last menstrual period: 05/25/19 Physical Exam Const: COMMON NORMALS: no apparent distress, oriented x3, no limitations and alert GENERAL APPEARANCE: cooperative and frail appearing NUTRITIONAL APPEARANCE: thin and underweight ORIENTATION/CONSCIOUSNESS: Yes awake, Yes oriented to person, Yes oriented to place and Yes oriented to time HENMT: COMMON NORMALS: normocephalic and head/scalp atraumatic HEAD & SCALP: normocephalic and atraumatic Chest: COMMONS NORMALS: inspection of chest normal and palpation of chest normal Resp: COMMON NORMALS: normal respiratory effort and clear to auscultation bilaterally AUSCULTATION: clear to auscultation bilaterally Cardio: COMMON NORMALS: regular rhythm RATE: bradycardic RHYTHM: regular rhythm GI: COMMON NORMALS: normal to inspection, nondistended, normoactive bowel sounds, soft to palpation, no hepatosplenomegaly and no masses PALPATION: Yes soft, Yes tender (throughout lower abdomen; mild; no guarding) and Yes no hepatosplenomegaly RECTAL EXAM: visual inspection normal, normal sphincter tone and heme positive stool : COMMON NORMALS: Yes no CVA tenderness BLADDER/KIDNEY EXAM: Yes no CVA tenderness Back/Pelvis: COMMON NORMALS: no CVA tenderness LUMBAR SPINE/LOWER BACK: No lumbar spinal tenderness and No paraspinal muscle tenderness OTHER: mild TTP throughout thoracic spine; no step offs Extremity: OTHER: dialysis fistula to R UE; old fistula to L UE Neuro: COMMON NORMALS: oriented x3 SENSORIUM/ORIENTATION: Yes alert, Yes oriented to person, Yes oriented to place and Yes oriented to time Course Vital Signs: Vital signs: Vital Signs Temperature 98.8 F 07/21/19 00:59 Pulse Rate 74 07/21/19 00:59 Respiratory Rate 12 07/21/19 00:59 Blood Pressure 90/44 07/21/19 00:59 Pulse Oximetry 100 07/21/19 00:46 MDM - Weakness MDM Narrative: Medical decision making narrative: Patient was initially assessed by myself during physician shift change. Due to her abnormal vital signs, Dr. Shahid quickly assumed care of patient. Lab Data: Labs: Lab Results 07/20/19 07/20/19 07/20/19 Range/Units 19:30 20:45 20:45 WBC 4.6 (4.0-10.0) 10^3/ uL RBC 2.19 L (4.1-5.3) 10^6/u L Hgb 7.0 L (11.5-15.3) g/dL Hct 23.7 L (37.0-47.0) % MCV 108.2 H (81-99) fL MCH 32.0 (28.0-34.0) pg MCHC 29.5 L (30.0-36.0) g/dL RDW 16.2 H (12.1-15.1) % Plt Count 72 L (130-400) 10^3/c mm MPV 13.6 H (7.4-10.4) fL Neut % (Auto) 67.3 % Lymph % (Auto) 16.9 % [place] % (Auto) 9.3 % Eos % (Auto) 5.0 % Baso % (Auto) 0.9 % Neut # (Auto) 3.1 (1.8-7.7) 10^3/u L Lymph # (Auto) 0.8 (0.8-4.8) 10^3/u L [place] # (Auto) 0.4 (0.2-0.9) 10^3/u L Eos # (Auto) 0.2 (0.0-0.8) 10^3/u L Baso # (Auto) 0.0 (0.0-0.1) 10^3/u L Nucleated RBC % (a uto) 0 % Nucleated RBCs # 0.0 /100WBC PT (10.5-13.3) SECO NDS INR (0.8-1.2) APTT (23.9-36.7) SECO NDS Sodium 136 (136-145) mmol/L Potassium 7.3 H* (3.5-5.1) mmol/L Chloride 101 (98-107) mmol/L Carbon Dioxide 9 L (22-29) mmol/L Anion Gap 33.3 H (5-19) BUN 125 H* D (8-23) mg/dL Creatinine 11.2 H* (0.5-0.9) mg/dL GFR Calculation 3.4 L (90-130) mL/min Glucose 96 (65-115) mg/dL Calculated Osmolal ity 284 L (285-295) mOsm/k g Lactate (0.5-2.2) mmol/L Calcium 5.4 L* (8.5-10.5) mg/dL Phosphorus 13.7 H* (2.5-4.5) mg/dL Magnesium 2.2 (1.7-2.3) mg/dL Total Bilirubin 0.2 (0.15-1.2) mg/dL AST 23 (0-32) U/L ALT < 5 (0-33) U/L Alkaline Phosphata se 121 H (35-105) IU/L Troponin T Baselin e (0-10) ng/mL Total Protein 6.1 L (6.6-8.7) g/dL Albumin 3.1 L (3.5-5.2) g/dL Globulin 3.0 (1.3-4.6) g/dL Blood Type A Positive Rho(D) Type Positive Antibody Screen Negative Crossmatch See Detail 07/20/19 07/20/19 07/20/19 Range/Units 20:45 20:45 20:45 WBC (4.0-10.0) 10^3/ uL RBC (4.1-5.3) 10^6/u L Hgb (11.5-15.3) g/dL Hct (37.0-47.0) % MCV (81-99) fL MCH (28.0-34.0) pg MCHC (30.0-36.0) g/dL RDW (12.1-15.1) % Plt Count (130-400) 10^3/c mm MPV (7.4-10.4) fL Neut % (Auto) % Lymph % (Auto) % [place] % (Auto) % Eos % (Auto) % Baso % (Auto) % Neut # (Auto) (1.8-7.7) 10^3/u L Lymph # (Auto) (0.8-4.8) 10^3/u L [place] # (Auto) (0.2-0.9) 10^3/u L Eos # (Auto) (0.0-0.8) 10^3/u L Baso # (Auto) (0.0-0.1) 10^3/u L Nucleated RBC % (a uto) % Nucleated RBCs # /100WBC PT 16.60 H (10.5-13.3) SECO NDS INR 1.30 H (0.8-1.2) APTT 39.7 H (23.9-36.7) SECO NDS Sodium (136-145) mmol/L Potassium (3.5-5.1) mmol/L Chloride (98-107) mmol/L Carbon Dioxide (22-29) mmol/L Anion Gap (5-19) BUN (8-23) mg/dL Creatinine (0.5-0.9) mg/dL GFR Calculation (90-130) mL/min Glucose (65-115) mg/dL Calculated Osmolal ity (285-295) mOsm/k g Lactate 1.7 (0.5-2.2) mmol/L Calcium (8.5-10.5) mg/dL Phosphorus (2.5-4.5) mg/dL Magnesium (1.7-2.3) mg/dL Total Bilirubin (0.15-1.2) mg/dL AST (0-32) U/L ALT (0-33) U/L Alkaline Phosphata se (35-105) IU/L Troponin T Baselin e 237 H* (0-10) ng/mL Total Protein (6.6-8.7) g/dL Albumin (3.5-5.2) g/dL Globulin (1.3-4.6) g/dL Blood Type Rho(D) Type Antibody Screen Crossmatch Discharge Plan Discharge Patient Disposition: Admitted As Inpatient Admit Provider: Romel Rivera Clinical Impression: Acute GI bleeding, Acute hyperkalemia Condition: Stable Referrals: Vincent Gillis DO [Primary Care Provider] - Discharge Date/Time: 07/20/19 23:20 Sign Out Sign Out Data: Patient Sign Out occurred on 07/20/19 at 19:26. Patient's care was discussed, and care was transferred from to Sarah Beth Shahid. 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 CAD (coronary artery disease) ESRD (end stage renal disease) on dialysis -is on HD MWF; dialyzed today -Nephrology consult appreciated -noted renal function, hyperkalemia -continue to monitor renal function -has tunneled catheter for access; from review of medical record, this was placed sometime between July and December 2018 Fistula GERD (gastroesophageal reflux disease) Hypertension Peripheral neuropathy Peripheral vascular disease Severe aortic stenosis Surgical History History of femoropopliteal bypass Hx of appendectomy Hx of CABG Hx of cholecystectomy S/P thyroid surgery Family History Other Diabetes Hypertension Social History Smoking and tobacco status: current every day smoker cigarettes Alcohol intake: never Procedures Central Line Placement Left IJ: Time Out Performed: Yes Patient Placed on Monitor/Pulse Ox: Yes Central Line Prep: Povidone-Iodine 1% and Chlorhexidine scrub Local Anesthetic: lidocaine 1% Amount of anesthesia used (mL): 3 Ultrasound Used for Placement: Yes Central Line Lumen Inserted: triple Post Procedure: sutured in place, good blood return, all ports aspirated, flushed, capped and sterile dressing applied Post Procedure X-Ray: no pneumothorax seen and other (Tip of catheter at the brachiocephalic SVC junction.) Patient Tolerated Procedure: well and no complications Right IJ: Time Out Performed: Yes Patient Placed on Monitor/Pulse Ox: Yes Central Line Prep: Povidone-Iodine 1% and Chlorhexidine scrub Local Anesthetic: lidocaine 1% Amount of anesthesia used (mL): 3 Ultrasound Used for Placement: Yes Central Line Lumen Inserted: triple Complications: other (Vein was accessed but guidewire could not be advanced secondary to scar tissue within the vessel. Procedure was terminated pressure applied no hematoma.) Right Femoral: Time Out Performed: Yes Patient Placed on Monitor/Pulse Ox: Yes Central Line Prep: Povidone-Iodine 1% and Chlorhexidine scrub Local Anesthetic: lidocaine 1% Amount of anesthesia used (mL): 3 Central Line Lumen Inserted: triple Complications: other (Vein was accessed but patient had extensive scar tissue in this area from previous surgery. It was felt that we should move to a different site secondary to the extensive scar tissue encountered when trying to place the needle. Needle was withdrawn and pressure was applied and no hematoma resulted.) Course Vital Signs: Vital signs: Vital Signs Temperature 98.8 F 07/21/19 00:59 Pulse Rate 74 07/21/19 00:59 Respiratory Rate 12 07/21/19 00:59 Blood Pressure 90/44 07/21/19 00:59 Pulse Oximetry 100 07/21/19 00:46 MDM - Weakness MDM Narrative: Medical decision making narrative: Care was assumed by me when the patient was found to be hypotensive. Laquita Garcia endorsed the case to me. Please see her note for her history, physical exam and medical decision-making notes. The immediate priority became establishing IV access with Carmen as she is a known difficult IV stick and nursing was unable to obtain IV access with 4 sticks and she remained hypotensive. I had a very difficult time placing a central line on Carmen. I tried the right femoral area than the right IJ. Right femoral she had had evidence of bypass and I attempted twice but could not find the femoral vein so aborted that area secondary to her pain despite anesthesia. There was no hematoma after. I then attempted a ultrasound-guided right IJ and was successful but the catheter would only go down so far and then ran into an obstruction. Under ultrasound this appeared to be some type of scar tissue. The patient had previously had a tunneled dialysis catheter placed there. She stated it had been there for quite some time. I then moved to the left side and was able to thread a triple-lumen catheter in and as she is a shorter person I did not want to put the catheter into its hub. Chest x-ray revealed that the catheter did not go down the SVC but appears to be at the brachiocephalic SVC junction. All 3 ports withdrew blood and flushed easily. She had no discomfort with doing so. I reviewed this with Dr. Mansfield and he felt it would be okay to use this for the short-term but if the hospitalist service wanted to have it adjusted this would be optimally done under fluoroscopy to be certain that the wire is in the proper place. I reviewed with this with Dr. Rivera and he is aware. The patient has emergency blood ordered and is on its way. Currently her blood pressure is better with her being in the 90s to 100 systolic after a small fluid bolus. The hyperkalemic cocktail of albuterol, sodium bicarbonate, insulin, glucose and calcium chloride have all been given. Dr. Nelson has seen and consulted on the patient and he is planning on dialyzing her emergently in the ICU. Protonix bolus and drip was placed on the patient as well. Lab Data: Attestation: I reviewed the patient's lab results. Labs: Lab Results 07/20/19 07/20/19 07/20/19 Range/Units 19:30 20:45 20:45 WBC 4.6 (4.0-10.0) 10^3/ uL RBC 2.19 L (4.1-5.3) 10^6/u L Hgb 7.0 L (11.5-15.3) g/dL Hct 23.7 L (37.0-47.0) % MCV 108.2 H (81-99) fL MCH 32.0 (28.0-34.0) pg MCHC 29.5 L (30.0-36.0) g/dL RDW 16.2 H (12.1-15.1) % Plt Count 72 L (130-400) 10^3/c mm MPV 13.6 H (7.4-10.4) fL Neut % (Auto) 67.3 % Lymph % (Auto) 16.9 % [place] % (Auto) 9.3 % Eos % (Auto) 5.0 % Baso % (Auto) 0.9 % Neut # (Auto) 3.1 (1.8-7.7) 10^3/u L Lymph # (Auto) 0.8 (0.8-4.8) 10^3/u L [place] # (Auto) 0.4 (0.2-0.9) 10^3/u L Eos # (Auto) 0.2 (0.0-0.8) 10^3/u L Baso # (Auto) 0.0 (0.0-0.1) 10^3/u L Nucleated RBC % (a uto) 0 % Nucleated RBCs # 0.0 /100WBC PT (10.5-13.3) SECO NDS INR (0.8-1.2) APTT (23.9-36.7) SECO NDS Sodium 136 (136-145) mmol/L Potassium 7.3 H* (3.5-5.1) mmol/L Chloride 101 (98-107) mmol/L Carbon Dioxide 9 L (22-29) mmol/L Anion Gap 33.3 H (5-19) BUN 125 H* D (8-23) mg/dL Creatinine 11.2 H* (0.5-0.9) mg/dL GFR Calculation 3.4 L (90-130) mL/min Glucose 96 (65-115) mg/dL Calculated Osmolal ity 284 L (285-295) mOsm/k g Lactate (0.5-2.2) mmol/L Calcium 5.4 L* (8.5-10.5) mg/dL Phosphorus 13.7 H* (2.5-4.5) mg/dL Magnesium 2.2 (1.7-2.3) mg/dL Total Bilirubin 0.2 (0.15-1.2) mg/dL AST 23 (0-32) U/L ALT < 5 (0-33) U/L Alkaline Phosphata se 121 H (35-105) IU/L Troponin T Baselin e (0-10) ng/mL Total Protein 6.1 L (6.6-8.7) g/dL Albumin 3.1 L (3.5-5.2) g/dL Globulin 3.0 (1.3-4.6) g/dL Blood Type A Positive Rho(D) Type Positive Antibody Screen Negative Crossmatch See Detail 07/20/19 07/20/19 07/20/19 Range/Units 20:45 20:45 20:45 WBC (4.0-10.0) 10^3/ uL RBC (4.1-5.3) 10^6/u L Hgb (11.5-15.3) g/dL Hct (37.0-47.0) % MCV (81-99) fL MCH (28.0-34.0) pg MCHC (30.0-36.0) g/dL RDW (12.1-15.1) % Plt Count (130-400) 10^3/c mm MPV (7.4-10.4) fL Neut % (Auto) % Lymph % (Auto) % [place] % (Auto) % Eos % (Auto) % Baso % (Auto) % Neut # (Auto) (1.8-7.7) 10^3/u L Lymph # (Auto) (0.8-4.8) 10^3/u L [place] # (Auto) (0.2-0.9) 10^3/u L Eos # (Auto) (0.0-0.8) 10^3/u L Baso # (Auto) (0.0-0.1) 10^3/u L Nucleated RBC % (a uto) % Nucleated RBCs # /100WBC PT 16.60 H (10.5-13.3) SECO NDS INR 1.30 H (0.8-1.2) APTT 39.7 H (23.9-36.7) SECO NDS Sodium (136-145) mmol/L Potassium (3.5-5.1) mmol/L Chloride (98-107) mmol/L Carbon Dioxide (22-29) mmol/L Anion Gap (5-19) BUN (8-23) mg/dL Creatinine (0.5-0.9) mg/dL GFR Calculation (90-130) mL/min Glucose (65-115) mg/dL Calculated Osmolal ity (285-295) mOsm/k g Lactate 1.7 (0.5-2.2) mmol/L Calcium (8.5-10.5) mg/dL Phosphorus (2.5-4.5) mg/dL Magnesium (1.7-2.3) mg/dL Total Bilirubin (0.15-1.2) mg/dL AST (0-32) U/L ALT (0-33) U/L Alkaline Phosphata se (35-105) IU/L Troponin T Baselin e 237 H* (0-10) ng/mL Total Protein (6.6-8.7) g/dL Albumin (3.5-5.2) g/dL Globulin (1.3-4.6) g/dL Blood Type Rho(D) Type Antibody Screen Crossmatch EKG Data^: EKG 1: Attestation: I personally reviewed and interpreted this EKG as follows: EKG interpretation date: 07/20/19 EKG interpretation time: 19:23 Interpretation: Atrial fibrillation with rapid ventricular response. Questionable hyperkalemic effect. EKG 2: Attestation: I personally reviewed and interpreted this EKG as follows: EKG interpretation date: 07/20/19 EKG interpretation time: 21:50 Interpretation: Atrial fibrillation with ventricular rate of 67 beats a minute, right bundle branch block, similar to previous. Critical Care Time Critical Care Time: Critical Care Time: Yes Total Critical Care Time: 30 Attestation: Critical care time consisted of evaluating the patient with her reevaluation's after interventions. Critical care time consisted of reviewing radiographic information, laboratory findings and reviewing old records to compare to new information. Critical care time consisted of managing the patient's hypotension and multiple laboratory abnormalities during resuscitation. Critical care time was exclusive of billable procedures. Discharge Plan Discharge Patient Disposition: Admitted As Inpatient Admit Provider: Romel Rivera Clinical Impression: Acute GI bleeding, Acute hyperkalemia Condition: Stable Referrals: Vincent Gillis DO [Primary Care Provider] - Discharge Date/Time: 07/20/19 23:20 Sign Out Sign Out Data: Patient Sign Out occurred on 07/20/19 at 19:26. Patient's care was discussed, and care was transferred from to Sarah Beth Ku [facility]. Coding Level of Care Code ED Tracer Lathe Set Up Operator for Chg Fwd Exam Comprehensive
--- NOTE | 2019-07-20 19:23 | PC.NURSE ---
I was unsure of the accuracy of EKG and redid the test, showed both to Dr. Shahid.
[2019-07-20 20:07] LABS: Basophils % 0.9 %; Eosinophils # 0.2 10^3/uL (0.0-0.8); Hematocrit 23.7 % (37.0-47.0); Lymphocytes # 0.8 10^3/uL (0.8-4.8); Lymphocytes % 16.9 %; Mean Corpuscular HGB Conc 29.5 g/dL (30.0-36.0); Mean Corpuscular Volume 108.2 fL (81-99); Mean Platelet Volume 13.6 fL (7.4-10.4); Monocytes # 0.4 10^3/uL (0.2-0.9); Monocytes % 9.3 %; Neutrophils # 3.1 10^3/uL (1.8-7.7); Neutrophils % 67.3 %; Nucleated Red Blood Cells % 0 %; Platelet Count 72 10^3/cmm (130-400); Red Blood Count 2.19 10^6/uL (4.1-5.3); Red Cell Distribution Width 16.2 % (12.1-15.1); White Blood Count 4.6 10^3/uL (4.0-10.0)
--- NOTE | 2019-07-20 20:56 | XRR_ITS ---
PROCEDURE INFORMATION: Exam: XR Chest, 1 View Exam date and time: 07/20/2019 8:57 PM Age: 64 years old Clinical indication: Device placement; Other: Central line placement; Prior surgery; Additional info: Post central line TECHNIQUE: Imaging protocol: XR of the chest Views: 1 view. COMPARISON: CR XR chest 1V portable [id number] 07/20/2019 7:14 PM FINDINGS: Tubes, catheters and devices: Interval placement of a left jugular central venous catheter tip at the approximate level of the left brachiocephalic superior vena cava junction identifiable only on the inverted image. No radiographic evidence of complication. Lungs: No visible active interstitial or alveolar airspace disease. Pleural space: No visible pneumothorax. Heart/Mediastinum: Status post sternotomy chest and CABG. Arterial sclerosis. Cardiac size upper limits of normal. Aortic valve prosthesis. Vasculature: Left upper extremity stent. Bones/joints: Musculoskeletal structures unremarkable for age. XR/XR chest 1V portable [id number] IMPRESSION: Left internal jugular central venous catheter placement without radiographic evidence of complication.
[2019-07-20 21:14] LABS: Alanine Aminotransferase < 5 U/L (0-33); Albumin Level 3.1 g/dL (3.5-5.2); Alkaline Phosphatase 121 IU/L (35-105); Anion Gap 33.3 (5-19); Aspartate Amino Transferase 23 U/L (0-32); Chloride 101 mmol/L (98-107); Glomerular Filtration Rate 3.4 mL/min (90-130); Glucose 96 mg/dL (65-115); Magnesium 2.2 mg/dL (1.7-2.3); Sodium 136 mmol/L (136-145); Total Bilirubin 0.2 mg/dL (0.15-1.2); Total Protein 6.1 g/dL (6.6-8.7)
[2019-07-20 21:17] LABS: Lactate (Lactic Acid level) 1.7 mmol/L (0.5-2.2)
[2019-07-20] MEDS: cefTRIAXone 1,000 MG in sodium chloride 0.9% (plus) 50 ML 100 MG IV (21:18)
[2019-07-20] MEDS: ondansetron 2 mg/ML SDV 2 mL 4 MG IM (21:18)
[2019-07-20] MEDS: sodium chloride 0.9% 1,000 ML 500 ML IV (21:22)
[2019-07-20] MEDS: ondansetron 4 MG Tablet PO (21:22)
[2019-07-20] MEDS: pantoprazole 40 MG in sodium chloride 0.9% (plus) 100 ML 20 MG IV (21:23)
--- NOTE | 2019-07-20 21:24 | ECG_ITS ---
Measurements Intervals [place] Rate: 67 P: RI: 0 QRS: -81 QRSD: 203 T: 67 QT: 596 QTc: 632 Sinus rhythm with first-degree AV block with PAC's RIGHT BUNDLE BRANCH BLOCK POSSIBLE ANTERIOR MYOCARDIAL INFARCTION,OF INDETERMINATE AGE INFERIOR MYOCARDIAL INFARCTION, OF INDETERMINATE AGE Compared to ECG 06/18/2019 22:40:35 Sinus rhythm no longer present First degree AV block no longer present Myocardial infarct finding still present Electronically Signed On 07-21-2019 13:40:52 CDT by Alix Harding M.D. [email or web address]
--- NOTE | 2019-07-20 21:28 | PM.HP ---
Providers/Chief Complaint Primary Care Provider: Vincent Gillis DO Chief Complaint: WEAKNESS/ DIZZINESS History of Present Illness Carmen Duarte is a 64 year old female who carries a past medical history of end-stage renal disease Wednesday dialysis dependent, active smoker, left arm venous transplant to her fistula (previously there was an open wound with abscess around AV fistula, she had gram-negative bacteremia), recent TPA intervention to right arm graft came in with chief complaint of black tarry stools. Patient is stating that on of last venous transplants were done on the left AV fistula, venous graft was taken from her right lower leg, and last Wednesday she had TPA intervention to her right graft. These interventions were done at [facility], she has been afebrile, no acute exacerbation of cough, no shortness of breath. She had blood cultures taken which were negative, she does not make urine at all, she lives independently, smokes half a pack a day. For last 3 days she has been experiencing black tarry stools, she has never experienced these black tarry stools before, she has been feeling weaker and lethargic for last 3 days, today her legs gave up on her when she was using a walker and she lost control of walker and fell on the bench in her house. She did not hit her head, she did not lose consciousness, she was awake and alert. She is describing this event as her legs giving up on her. She has missed her Wednesday dialysis session as well because of the symptoms. She also has previous history of colitis due to C. difficile. Diagnostics in ER revealed severe anemia, hypotension, tachycardia, A. fib, hyperkalemia, telemetry knurling machine operator Dr. Nelson was informed, 1 g calcium chloride was given via left-sided internal jugular, Dr. Roberto tried to insert right IJ but because of fibrotic tissue was not able to advance hence left-sided IJ was accessed with confirmation via chest x-ray. She will be taken to dialysis room, she will be given 1 unit of PRBC, When I was interviewing her heart rate was fluctuating between 90-1 10, A. fib, systolic blood pressure 100/70, patient was awake, alert oriented x3 GCS 15, saturating well on room air. She had facemask on. Review of Systems Const: Reports: body aches, fatigue and malaise; Denies: fever Eyes: Denies: change in vision ENMT: Denies: throat pain Card: Denies: chest pain Resp: Reports: non-productive cough; Denies: shortness of breath GI: Reports: abdominal pain, nausea, change in stool character and black tarry stool; Denies: vomiting : Denies: flank pain or difficulty urinating Musc: Reports: muscle cramps, muscle weakness and decrease in muscle mass Skin/Breast: Denies: rash Neuro: Denies: headache Psych: Reports: anxiety Endo: Denies: excessive urination Juan/Lymph: Denies: easy bruising All/Imm: Denies: hives Medications/Allergies Allergies Allergy/AdvReac Type Severity Reaction Status Date / Time calamine Allergy ALGY-Bliste Verified 05/25/19 11:46 r ciprofloxacin [From Cipro] Allergy Unknown Verified 05/25/19 11:46 clopidogrel [From Plavix] Allergy ALGY-Rash Verified 05/25/19 11:46 codeine Allergy Unknown Verified 05/25/19 11:46 diphenhydramine Allergy ALGY-Rash Verified 05/25/19 11:46 [From Benadryl] nitroglycerin Allergy ALGY-Rash Verified 05/25/19 11:46 promethazine [From Phenergan] Allergy Unknown Verified 05/25/19 11:46 quinine Allergy Unknown Verified 05/25/19 11:46 simvastatin Allergy ALGY-Rash Verified 05/25/19 11:46 Sulfa (Sulfonamide Allergy Unknown Verified 05/25/19 11:46 Antibiotics) PFSH Acute PFSH: Medical History (Updated 07/20/19 @ 22:48 by Romel Rivera MD) A-V fistula 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 AV fistula TPA right arm graft Anemia, chronic disease Atherosclerotic heart disease of [place] coronary artery without angina pectoris CAD (coronary artery disease) ESRD (end stage renal disease) on dialysis -is on HD MWF; dialyzed today -Nephrology consult appreciated -noted renal function, hyperkalemia -continue to monitor renal function -has tunneled catheter for access; from review of medical record, this was placed sometime between July and December 2018 Fistula GERD (gastroesophageal reflux disease) Hypertension Peripheral neuropathy Peripheral vascular disease Severe aortic stenosis Surgical History History of femoropopliteal bypass Hx of appendectomy Hx of CABG Hx of cholecystectomy S/P thyroid surgery Family History Other Diabetes Hypertension Social History Smoking and tobacco status: current every day smoker cigarettes Alcohol intake: never Female Reproductive History: Date of last menstrual period: 05/25/19 Vitals/I&O/Wt Last Vital Signs Temp 97.7 F 07/20/19 19:01 Pulse 48 L 07/20/19 19:01 Resp 16 07/20/19 18:46 BP 107/68 07/20/19 18:46 Pulse Ox 94 07/20/19 18:46 Weight last 48 hrs Weight 52.163 kg Physical Exam Narrative: EXAM NARRATIVE: Appears more than stated age, malnourished, Dehydrated Systolic blood pressure 100, heart rate fluctuating between 90-1 10, A. fib RVR paroxysmal S1, S2 no active signs of clinical signs of fluid overload Abdomen soft, nontender, mild tenderness on deep palpation in lower quadrants otherwise no rigidity or signs of peritonitis Bowel sounds sluggish Lower extremity surgical wound without any abscess drainage however seems to be healing fine with pink granulation tissue Left IJ in place Alert oriented x3 GCS 15 neurologically nonfocal exam EOMI, PERRLA Appropriate mood and affect Initial EKG showed bizarre pattern due to hyperkalemia, subsequent EKG showed A. fib without RVR Patient is chest pain-free Data : 07/20/19 19:30 07/20/19 20:45 Micro: Microbiology 07/20/19 19:30 Blood Culture - Preliminary Blood SPECIMEN COLLECTED 07/20/19 20:45 Blood Culture - Preliminary Blood SPECIMEN COLLECTED A&P Assessment and plan (1) Acute GI bleeding: Status: Acute (2) Acute hyperkalemia: Status: Acute (3) Smoker: Status: Acute Additional A&P Information Acute blood loss anemia Melanotic stool N.p.o. Protonix 40 IV twice daily, baseline hemoglobin seems to be around 10, current hemoglobin 7 Blood transfusion PRBC 1 unit, Not on any anticoagulation however received TPA last Wednesday that was for her right arm graft patency She has been on Prasugrel for her stents in lower extremities Colonoscopy at age 50 as per the patient was unremarkable Currently hemodynamically stable no urgent need of colonoscopy, monitor overnight for active bleeding, this could very well be due to uremic platelet dysfunction She has anemia, thrombocytopenia, abnormal coagulation profile, patient is afebrile, no leukocytosis, presentation similar to DIC. previously she had infected AV fistula, will obtain blood cultures Target hemoglobin above 7, platelet count above 50,000 with active bleeding, hold off on ordering platelets at this point. End-stage renal disease Patient missed her dialysis session on Wednesday, Hyperkalemic changes evident on EKG, she will be taken to ICU, 1 g of calcium chloride given in ER, going for dialysis stat basis Telemetry knurling machine operator consulted Active smoker: She is smoking half a pack a day, she is not ready to quit, counseled on complications and risk factors associated with smoking with multiple comorbid conditions Full code N.p.o. SCDs for DVT prophylaxis Patient is afebrile, no leukopenia, considering immunocompromised state and no symptoms of fever, shortness of breath or exacerbation of cough, chronic chest x-ray findings, I would not test for covid at the moment Attestations Medical Necessity Statement*: Anticipating stay in the hospital to cross more than 2 midnights currently needs ICU for hyperkalemia EKG changes, active GI bleed and severe anemia hemoglobin 7 Time Spent in Patient Care: 50 Coding Level of Care Code Acute Third Shift Lieutenant for Chg Fwd Diagnoses Acute GI bleeding K92.2 Acute hyperkalemia E87.5 Smoker F17.200
[2019-07-20] MEDS: pantoprazole 40 mg SDV 80 MG IVP (21:31)
[2019-07-20 21:32] LABS: Potassium 7.3 mmol/L (3.5-5.1)
[2019-07-20 21:33] LABS: Blood Urea Nitrogen 125 mg/dL (8-23); Calcium 5.4 mg/dL (8.5-10.5); Carbon Dioxide 9 mmol/L (22-29); Osmolality Calculated 284 mOsm/kg (285-295); Phosphorus 13.7 mg/dL (2.5-4.5)
[2019-07-20] MEDS: calcium chloride 10% Syr 10 mL 1 GM IVP ×2 (21:51→21:59)
[2019-07-20] MEDS: sodium bicarbonate 8.4% 1 mEq/mL 50mL Syr 50 MEQ IVP (21:53)
[2019-07-20] MEDS: dextrose 50% syringe 50 mL IVP (21:53)
[2019-07-20] MEDS: insulin regular-human 100 units/1 mL 10 UNIT IVP (21:54)
--- NOTE | 2019-07-20 22:00 | PM.CONSULT ---
Providers/Reason For Consult Consulting Physican/Specialty*: gonzález tamayo md telenephrology Reason for Consult*: hyperkalemia/ ESRD care Requesting Physcian: Dr. Rivera Primary Care Provider: Vincent Gillis DO History of Present Illness History of Present Illness Carmen Duarte is a 64 year old female h/o c diff colitis, pseudomas bacteremia, a fib, CAD, PVD, esrd. New RUE AVG from 2019. recent RUE AVG declot on 07/18/19. missed HD on 07/19/19. pt here w/ diarrhea, weakness, black stool, sob, pt found to have a hgb of 7 and potassium of 7. she is sob. renal called for emergent dialysis. Review of Systems General: Reports: 10 or more systems reviewed and unremarkable except in HPI and below Narrative: weak, sob, no visual changes, + poor appetite, nausea, black tarry stools, bradycardic, anxious, depressed. Meds/Allergies Home Medications and Allergies Home Medications Medication Instructions Recorded Confirmed Type bacitracin 1 applic TOPICAL Q12H 05/25/19 07/20/19 History escitalopram oxalate 10 mg PO DAILY 05/25/19 07/20/19 History nicotine [Nicoderm CQ] 1 patch TRANSDERMAL DAILY 05/25/19 07/20/19 History prasugrel 10 mg PO DAILY 05/25/19 07/20/19 History triamcinolone acetonide 1 applic TOPICAL BID PRN 05/25/19 07/20/19 History Allergies Allergy/AdvReac Type Severity Reaction Status Date / Time calamine Allergy ALGY-Bliste Verified 05/25/19 11:46 r ciprofloxacin [From Cipro] Allergy Unknown Verified 05/25/19 11:46 clopidogrel [From Plavix] Allergy ALGY-Rash Verified 05/25/19 11:46 codeine Allergy Unknown Verified 05/25/19 11:46 diphenhydramine Allergy ALGY-Rash Verified 05/25/19 11:46 [From Benadryl] nitroglycerin Allergy ALGY-Rash Verified 05/25/19 11:46 promethazine [From Phenergan] Allergy Unknown Verified 05/25/19 11:46 quinine Allergy Unknown Verified 05/25/19 11:46 simvastatin Allergy ALGY-Rash Verified 05/25/19 11:46 Sulfa (Sulfonamide Allergy Unknown Verified 05/25/19 11:46 Antibiotics) Current Medications Current Medications Generic Name Dose Route Start Last Admin Trade Name Freq PRN Reason Stop Dose Admin Pantoprazole Sodium 40 mg/ 100 mls @ 20 mls/hr 07/20/19 21:30 07/20/19 21:23 Sodium Chloride IV 07/21/19 02:29 8 mg/hr .Q5H ONE 20 mls/hr Administration 8 MG/HR PFSH Acute PFSH: Medical History A-V fistula Anemia, chronic disease Atherosclerotic heart disease of [place] coronary artery without angina pectoris CAD (coronary artery disease) ESRD (end stage renal disease) on dialysis -is on HD MWF; dialyzed today -Nephrology consult appreciated -noted renal function, hyperkalemia -continue to monitor renal function -has tunneled catheter for access; from review of medical record, this was placed sometime between July and December 2018 Fistula GERD (gastroesophageal reflux disease) Hypertension Peripheral neuropathy Peripheral vascular disease Severe aortic stenosis Surgical History History of femoropopliteal bypass Hx of appendectomy Hx of CABG Hx of cholecystectomy S/P thyroid surgery Family History Other Diabetes Hypertension Social History Smoking and tobacco status: current every day smoker cigarettes Alcohol intake: never Female Reproductive History: Date of last menstrual period: 05/25/19 Vitals/I&O/Wt Last Vital Signs Temp 97.7 F 07/20/19 19:01 Pulse 48 L 07/20/19 19:01 Resp 16 07/20/19 18:46 BP 107/68 07/20/19 18:46 Pulse Ox 94 07/20/19 18:46 Weight last 48 hrs Weight 52.163 kg Physical Exam Narrative: EXAM NARRATIVE: uncomfortable in bed vs noted- bradycardic heent- nc/at neck supple lungs ronchi heart jono, +PEEWEE abd soft, nt, nd, +BS ext min edema RUE AVG w/ bruit neuro- a,a, o x 3 Data Micro: Micro: Microbiology 07/20/19 19:30 Blood Culture - Pr eliminary Blood SPECIMEN [facility] KEENAN 07/20/19 20:45 Blood Culture - Pr eliminary Blood SPECIMEN [facility] KEE[facility] A&P Additional A&P Information 64 yr old female 1. GI eval for anemia -tx prbc as per hospitalist 2. ESRD- hyperkalemia, bradycardic- med therapy given in ER -emergent HD now- 3hrs, 2 k bath, remove 1liter 3. h/o pseudomonas bacteremia and c diff colitis after LUE AVF infection and surgery at [facility] 4. anxiety 5. h/o a fib and CAD 6. when eating give sevelamer as a phos binder. Consult Attestations Medical Necessity Statement: hyperkalemia, anemia, esrd, a fib Time Spent in Patient Care: Greater than 35 minutes Coding Level of Care Code Acute Director Of Software Engineering for Melvin Mina
[2019-07-20 22:29] LABS: Partial Thromboplastin Time 39.7 SECONDS (23.9-36.7)
[2019-07-20 22:30] LABS: Troponin(5th) Baseline 237 ng/mL (0-10)
--- NOTE | 2019-07-20 23:05 | PC.NURSE ---
blood pressure is 63/31
--- NOTE | 2019-07-20 23:24 | ECG_ITS ---
Measurements Intervals Bland Rate: 140 P: NE: 0 QRS: 94 QRSD: 215 T: 95 QT: 427 QTc: 652 POSSIBLE SINUS RHYTHM SIGNIFICANT ARTIFACT MARKED ST ELEVATION, CONSIDER INFERIOR AND ANTEROLATERAL INJURY Compared to ECG 06/18/2019 22:40:35 ST (T wave) deviation now present Sinus rhythm no longer present First degree AV block no longer present Right bundle-branch block no longer present Myocardial infarct finding still present Electronically Signed On 07-21-2019 17:52:38 CDT by Alix Harding M.D. [id number]
[2019-07-21] VITALS (112 sets, daily range): BP systolic 76–157; BP diastolic 37–80; PULSE 66–106; RESP 9–23; TEMP 36.3–37.1; O2SAT 83–100
[2019-07-21 01:12] LABS: Troponin 5 2HR 236.4 ng/mL (0-10)
[2019-07-21 01:13] LABS: Troponin 5 2HR Delta -0.6 ABS# (0-10)
--- NOTE | 2019-07-21 02:49 | PC.NURSE ---
both units infused during Hemodialysis.
--- NOTE | 2019-07-21 03:24 | ECG_ITS ---
Measurements Intervals Dowell Rate: 80 P: 116 VA: 172 QRS: -78 QRSD: 151 T: 80 QT: 513 QTc: 595 SINUS RHYTHM RIGHT BUNDLE BRANCH BLOCK POSSIBLE ANTERIOR MYOCARDIAL INFARCTION, OF INDETERMINATE AGE INFERIOR MYOCARDIAL INFARCTION, PROBABLY OLD Compared to ECG 06/18/2019 22:40:35 First degree AV block no longer present Myocardial infarct finding still present Electronically Signed On 07-21-2019 13:44:57 CDT by Alix Harding M.D. [id number]
[2019-07-21 03:57] LABS: Hepatitis B Surface AB. 11.8 (0-8.5); Hepatitis B Surface Antigen. Non-Reactive (Nonreactive)
[2019-07-21 04:32] LABS: Hepatitis C Virus Antibody Non-Reactive (Nonreactive)
[2019-07-21 05:00] LABS: Basophils % 0.3 %; Eosinophils # 0.1 10^3/uL (0.0-0.8); Hematocrit 24.7 % (37.0-47.0); Hemoglobin 8.1 g/dL (11.5-15.3); Lymphocytes # 0.5 10^3/uL (0.8-4.8); Lymphocytes % 17.7 %; Mean Corpuscular HGB Conc 32.8 g/dL (30.0-36.0); Mean Corpuscular Hemoglobin 31.2 pg (28.0-34.0); Mean Platelet Volume 12.2 fL (7.4-10.4); Monocytes # 0.2 10^3/uL (0.2-0.9); Monocytes % 8.2 %; Neutrophils # 2.1 10^3/uL (1.8-7.7); Neutrophils % 71.1 %; Nucleated Red Blood Cells % 0 %; Platelet Count 55 10^3/cmm (130-400); Red Cell Distribution Width 16.3 % (12.1-15.1); White Blood Count 2.9 10^3/uL (4.0-10.0)
--- NOTE | 2019-07-21 05:19 | PC.NURSE ---
Doesn't make urine, dialysis patient
[2019-07-21 05:24] LABS: Alanine Aminotransferase < 5 U/L (0-33); Albumin Level 3.2 g/dL (3.5-5.2); Alkaline Phosphatase 112 IU/L (35-105); Anion Gap 23.7 (5-19); Aspartate Amino Transferase 26 U/L (0-32); Blood Urea Nitrogen 31 mg/dL (8-23); Calcium 7.8 mg/dL (8.5-10.5); Carbon Dioxide 24 mmol/L (22-29); Chloride 97 mmol/L (98-107); Globulin 2.3 g/dL (1.3-4.6); Glucose 69 mg/dL (65-115); Osmolality Calculated 288 mOsm/kg (285-295); Potassium 3.7 mmol/L (3.5-5.1); Sodium 141 mmol/L (136-145); Total Bilirubin 1.2 mg/dL (0.15-1.2); Total Protein 5.5 g/dL (6.6-8.7)
[2019-07-21] MEDS: morphine 4 mg/mL SDV 1 mL IVP ×3 (05:26→21:34)
--- NOTE | 2019-07-21 07:21 | PM.PN ---
Subjective Subjective: Interval history: feels better- s/p prbc tx and HD. still weak and depressed. no rome. +SOB Medications: Reviewed: Yes Medication Review Details: Current Medications Bacitracin (Bacitracin) 1 applic TOPICAL Q12H JOSE DANIEL; Protocol Escitalopram Oxalate (Lexapro) 10 mg PO DAILY JOSE DANIEL Morphine Sulfate (Morphine) 4 mg IVP Q4H PRN PRN Reason: SEVERE PAIN Last Admin: 07/21/19 05:26 Dose: 4 mg Documented by: Ondansetron HCl (Zofran) 4 mg IVP Q6H PRN PRN Reason: NAUSEA AND VOMITING Pantoprazole Sodium (Protonix) 40 mg IVP BID JOSE DANIEL Vitals/I&O/Wt Last Vital Signs Temp 98.1 F 07/21/19 06:00 Pulse 86 07/21/19 06:20 Resp 15 07/21/19 06:20 BP 109/80 07/21/19 06:20 Pulse Ox 98 07/21/19 06:20 07/20/19 07/21/19 07/21/19 22:59 06:59 14:59 Intake Total 700 / 700 Output Total 0 / 0 Balance 700 / 700 Weight last 48 hrs Weight 52.163 kg Physical Exam Narrative: EXAM NARRATIVE: more awake and comfortable in bed vss heent- nc/at neck supple lungs dull bases heart RRR, +PEEWEE abd soft, nt, nd, +BS ext min edema RUE AVG w/ bruit neuro- a,a, o x 3 Data : 07/21/19 04:16 07/21/19 04:16 Micro: Microbiology 07/20/19 19:30 Blood Culture - Preliminary Blood SPECIMEN COLLECTED 07/20/19 20:45 Blood Culture - Preliminary Blood SPECIMEN COLLECTED A&P Additional A&P Information 64 yr old female 1. GI eval for anemia -s/p 2 u prbc txas per hospitalist 2. ESRD- hyperkalemia, bradycardic- improved k normal -repeat HD in AM- 3.5 hrs, 2 k bath, remove 1.5 liter -pt dropped BP overnight w/ dialysis- monitor bp today 3. h/o pseudomonas bacteremia and c diff colitis after LUE AVF infection and surgery at [facility] 4. anxiety 5. h/o a fib and CAD 6. when eating give sevelamer as a phos binder. she misses dialysis and is not compliant w/meds calcium improved 7. monitor leukopenia as per hospitalist Attestations Medical Necessity Statement*: esrd, gi bleed Time Spent in Patient Care: 16 - 35 minutes Coding Level of Care Code Acute Sustainable Products Marketing Manager for Melvin Mina
--- NOTE | 2019-07-21 08:34 | P.PN_ITS ---
Subjective Subjective: Interval history: Having some soreness in her thighs, otherwise no new complaints. Yesterday had a loose stool, but today has not gone yet. Vitals/I&O/Wt Last Vital Signs Temp 98.1 F 07/21/19 06:00 Pulse 86 07/21/19 08:00 Resp 15 07/21/19 08:00 BP 109/80 07/21/19 08:00 Pulse Ox 98 07/21/19 08:00 07/20/19 07/21/19 07/21/19 22:59 06:59 14:59 Intake Total 700 / 700 Output Total 0 / 0 Balance 700 / 700 Weight last 48 hrs Weight 52.163 kg Physical Exam Const: COMMON NORMALS: no apparent distress and oriented x3 GENERAL APPEARANCE: frail appearing HENMT: COMMON NORMALS: oropharynx normal Neck/C-Spine: COMMON NORMALS: no JVD Resp: COMMON NORMALS: normal respiratory effort AUSCULTATION: wheezes (mild wheeze) Cardio: COMMON NORMALS: no JVD, regular rhythm, S1 normal heart sound, S2 normal heart sound and no murmurs RHYTHM: regular rhythm HEART SOUNDS: S1 normal and S2 normal GI: COMMON NORMALS: normal to inspection, nondistended, normoactive bowel sounds, soft to palpation and non-tender PALPATION: Yes soft Extremity: COMMON NORMALS: no joint enlargement and no pedal edema Neuro: COMMON NORMALS: oriented x3 and moves all extremities Skin: COMMON NORMALS: no rashes or lesions noted GENERAL SKIN EXAM: no rashes or lesions noted Data : 07/21/19 04:16 07/21/19 04:16 Micro: Microbiology 07/20/19 19:30 Blood Culture - Preliminary Blood SPECIMEN COLLECTED 07/20/19 20:45 Blood Culture - Preliminary Blood SPECIMEN COLLECTED A&P Assessment and plan (1) Acute GI bleeding: Hb with response to PRBC transfusion, although perhaps partial. Discussed results with her. Discussed that due to pandemic elective procedures are on hold. At this time we will monitor her hemoglobin, and if dropping again drastically may require endoscopic evaluation, although as noted suspicion that bleeding may have occurred due to TPA administration, and possibly with uremia with missed hemodialysis. Also noted worsening thrombocytopenia, platelets down to 55,000. Monitor blood counts. Cont protonix. Status: Acute (2) Acute hyperkalemia: Improved w HD. Status: Acute (3) Smoker: Continue to encourage cessation. Status: Acute (4) ESRD (end stage renal disease): HD MWF, although with missed HD sessions. Status: Acute Additional A&P Information Recent pseudomonal bacteremia. BC pending. Anxiety AFib CAD Attestations Medical Necessity Statement*: Continue admission for assessment and management of acute anemia, hyperkalemia. Coding Level of Care Code Acute Psychologist Chief for g Fwd Diagnoses Acute GI bleeding K92.2 Acute hyperkalemia E87.5 Smoker F17.200 ESRD (end stage renal disease) N18.6
[2019-07-21] MEDS: bacitracin ointment 28 gm 1 APPLIC TOPICAL (09:41)
[2019-07-21] MEDS: b-complex-vitamin c Tablet 1 EACH PO (09:42)
[2019-07-21] MEDS: pantoprazole 40 mg SDV IVP ×2 (09:42→17:07)
[2019-07-21] MEDS: escitalopram 10 mg Tablet PO (09:42)
[2019-07-21] MEDS: sevelamer 800 mg Tablet 1600 MG PO ×2 (09:42→17:07)
[2019-07-21 17:53] LABS: Basophils % 0.7 %; Eosinophils # 0.1 10^3/uL (0.0-0.8); Eosinophils % 4.6 %; Hematocrit 23.1 % (37.0-47.0); Hemoglobin 7.2 g/dL (11.5-15.3); Lymphocytes # 0.6 10^3/uL (0.8-4.8); Lymphocytes % 20.7 %; Mean Corpuscular HGB Conc 31.2 g/dL (30.0-36.0); Mean Corpuscular Hemoglobin 30.1 pg (28.0-34.0); Mean Corpuscular Volume 96.7 fL (81-99); Mean Platelet Volume 11.2 fL (7.4-10.4); Monocytes # 0.5 10^3/uL (0.2-0.9); Monocytes % 16.1 %; Neutrophils # 1.8 10^3/uL (1.8-7.7); Neutrophils % 57.6 %; Nucleated Red Blood Cells % 0 %; Platelet Count 49 10^3/cmm (130-400); Red Blood Count 2.39 10^6/uL (4.1-5.3); Red Cell Distribution Width 18.8 % (12.1-15.1); White Blood Count 3.1 10^3/uL (4.0-10.0)
--- NOTE | 2019-07-21 18:02 | PM.CONSULT ---
Providers/Reason For Consult Consulting Physican/Specialty*: Miguel Goel Reason for Consult*: GI bleed Attending Physician: Miguel Goel Primary Care Provider: Vnicent Gillis DO History of Present Illness History of Present Illness Carmen Duarte is a 64 year old female currently on hemodialysis for end-stage renal disease who presented to the ER with 3-day history of black stools. Patient states that she has been having black stools for the last 3 to 4 days and has been feeling weak. She denies any nausea or vomiting. She has mild epigastric pain but has been keeping her food down. She denies any hematemesis. She has had a prior EGD and colonoscopy in the past but does not think she has ever had peptic ulcer in the past. Review of Systems General: Reports: 10 or more systems reviewed and unremarkable except in HPI and below Meds/Allergies Home Medications and Allergies Home Medications Medication Instructions Recorded Confirmed Type bacitracin 1 applic TOPICAL Q12H 05/25/19 07/20/19 History escitalopram oxalate 10 mg PO DAILY 05/25/19 07/20/19 History nicotine [Nicoderm CQ] 1 patch TRANSDERMAL DAILY 05/25/19 07/20/19 History prasugrel 10 mg PO DAILY 05/25/19 07/20/19 History triamcinolone acetonide 1 applic TOPICAL BID PRN 05/25/19 07/20/19 History Allergies Allergy/AdvReac Type Severity Reaction Status Date / Time calamine Allergy ALGY-Bliste Verified 05/25/19 11:46 r ciprofloxacin [From Cipro] Allergy Unknown Verified 05/25/19 11:46 clopidogrel [From Plavix] Allergy ALGY-Rash Verified 05/25/19 11:46 codeine Allergy Unknown Verified 05/25/19 11:46 diphenhydramine Allergy ALGY-Rash Verified 05/25/19 11:46 [From Benadryl] nitroglycerin Allergy ALGY-Rash Verified 05/25/19 11:46 promethazine [From Phenergan] Allergy Unknown Verified 05/25/19 11:46 quinine Allergy Unknown Verified 05/25/19 11:46 simvastatin Allergy ALGY-Rash Verified 05/25/19 11:46 Sulfa (Sulfonamide Allergy Unknown Verified 05/25/19 11:46 Antibiotics) Current Medications Current Medications Generic Name Dose Route Start Last Admin Trade Name Freq PRN Reason Stop Dose Admin Bacitracin 1 applic 07/21/19 09:00 07/21/19 09:41 Bacitracin TOPICAL 1 applic Q12H JOSE DANIEL Administration Protocol Escitalopram Oxalate 10 mg 07/21/19 09:00 07/21/19 09:42 Lexapro PO 10 mg DAILY JOSE DANIEL Administration Morphine Sulfate 4 mg 07/20/19 23:42 07/21/19 08:40 Morphine IVP 4 mg Q4H PRN Administration SEVERE PAIN Multivitamins 1 each 07/21/19 09:00 07/21/19 09:42 Allbee-C PO 1 each DAILY JOSE DANIEL Administration Pantoprazole Sodium 40 mg 07/21/19 09:00 07/21/19 17:07 Protonix IVP 40 mg BID JOSE DANIEL Administration Sevelamer Carbonate 1,600 mg 07/21/19 18:00 07/21/19 17:07 Renvela PO 1,600 mg TIDWM JOSE DANIEL Administration PFSH Acute PFSH: Medical History A-V fistula 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 AV fistula TPA right arm graft Anemia, chronic disease Atherosclerotic heart disease of [place] coronary artery without angina pectoris CAD (coronary artery disease) ESRD (end stage renal disease) on dialysis -is on HD MWF; dialyzed today -Nephrology consult appreciated -noted renal function, hyperkalemia -continue to monitor renal function -has tunneled catheter for access; from review of medical record, this was placed sometime between July and December 2018 Fistula GERD (gastroesophageal reflux disease) Hypertension Peripheral neuropathy Peripheral vascular disease Severe aortic stenosis Surgical History History of femoropopliteal bypass Hx of appendectomy Hx of CABG Hx of cholecystectomy S/P thyroid surgery Family History Other Diabetes Hypertension Social History Smoking and tobacco status: current every day smoker cigarettes Alcohol intake: never Female Reproductive History: Date of last menstrual period: 05/25/19 Vitals/I&O/Wt Last Vital Signs Temp 98.1 F 07/21/19 06:00 Pulse 96 07/21/19 17:30 Resp 15 07/21/19 17:30 BP 122/79 07/21/19 17:30 Pulse Ox 100 07/21/19 17:30 07/21/19 07/21/19 07/21/19 06:59 14:59 22:59 Intake Total 700 / 700 450 / 800 350 / 800 Output Total 0 / 0 Balance 700 / 700 450 / 800 350 / 800 Weight last 48 hrs Weight 115 lb Physical Exam Narrative: EXAM NARRATIVE: HEENT: Normocephalic Eye: Sclera /conjunctiva normal Respiratory and chest: Bilateral clear breath sounds on auscultation Cardiovascular: Normal S1 and S2 heart sounds Abdomen: Soft to palpation, nontender, nondistended Neurological: Oriented to place person and time Skin: Intact, no lesions appreciated on gross exam, AV fistula left upper extremity Data Micro: Micro: Microbiology 07/20/19 19:30 Blood Culture - Pr eliminary Blood SPECIMEN [facility] KEENA[facility] 07/20/19 20:45 Blood Culture - Pr eliminary Blood SPECIMEN [facility] KEE[facility] A&P Assessment and plan (1) Acute GI bleedin-year-old female who presents with melena. She is responded appropriately to transfusion and her hemoglobin is remained stable on serial exam. At present she is not had any evidence of active bleeding. We will therefore hold off on EGD at this point and if she shows any signs of active bleeding then we can proceed with an endoscopy. Status: Acute Coding Level of Care Code Acute Carton Forming Machine Tender for [facility] Leopoldo Diagnoses Acute GI bleeding K92.2
[2019-07-22] VITALS (33 sets, daily range): BP systolic 98–163; BP diastolic 42–115; PULSE 63–106; RESP 8–32; TEMP 36.4–36.9; O2SAT 90–97
--- NOTE | 2019-07-22 01:22 | PC.NURSE ---
Late entry: at 2144 when questioning patient about bactroban ointment patient denied needing it. I asked patient where the ointment was put earlier that day and the patient stated that they had not been putting ointment on her and didnt need it. Will continue to monitor.
[2019-07-22 05:09] LABS: Basophils % 0.6 %; Eosinophils # 0.2 10^3/uL (0.0-0.8); Eosinophils % 6.1 %; Hematocrit 23.4 % (37.0-47.0); Hemoglobin 7.3 g/dL (11.5-15.3); Lymphocytes # 0.7 10^3/uL (0.8-4.8); Lymphocytes % 23.3 %; Mean Corpuscular HGB Conc 31.2 g/dL (30.0-36.0); Mean Corpuscular Hemoglobin 30.5 pg (28.0-34.0); Mean Corpuscular Volume 97.9 fL (81-99); Mean Platelet Volume 12.9 fL (7.4-10.4); Monocytes # 0.6 10^3/uL (0.2-0.9); Monocytes % 18.5 %; Neutrophils # 1.6 10^3/uL (1.8-7.7); Neutrophils % 51.2 %; Nucleated Red Blood Cells % 0 %; Platelet Count 53 10^3/cmm (130-400); Red Blood Count 2.39 10^6/uL (4.1-5.3); Red Cell Distribution Width 18.9 % (12.1-15.1); White Blood Count 3.1 10^3/uL (4.0-10.0)
[2019-07-22 05:10] LABS: Alanine Aminotransferase < 5 U/L (0-33); Albumin Level 3.2 g/dL (3.5-5.2); Alkaline Phosphatase 101 IU/L (35-105); Anion Gap 19.6 (5-19); Aspartate Amino Transferase 22 U/L (0-32); Blood Urea Nitrogen 42 mg/dL (8-23); Calcium 6.7 mg/dL (8.5-10.5); Carbon Dioxide 26 mmol/L (22-29); Chloride 97 mmol/L (98-107); Globulin 2.3 g/dL (1.3-4.6); Glomerular Filtration Rate 6.6 mL/min (90-130); Glucose 95 mg/dL (65-115); Osmolality Calculated 284 mOsm/kg (285-295); Potassium 4.6 mmol/L (3.5-5.1); Sodium 138 mmol/L (136-145); Total Bilirubin 0.3 mg/dL (0.15-1.2); Total Protein 5.5 g/dL (6.6-8.7)
[2019-07-22] MEDS: escitalopram 10 mg Tablet PO (08:16)
[2019-07-22] MEDS: sevelamer 800 mg Tablet 1600 MG PO ×3 (08:16→17:19)
[2019-07-22] MEDS: b-complex-vitamin c Tablet 1 EACH PO (08:16)
[2019-07-22] MEDS: pantoprazole 40 mg SDV IVP ×2 (08:17→17:19)
[2019-07-22] MEDS: nicotine 14 mg Patch 1 PATCH TRANSDERMA (08:17)
--- NOTE | 2019-07-22 09:18 | P.PN_ITS ---
Subjective Subjective: Interval history: patient doing well, tolerating regular diet, no further BM Vitals/I&O/Wt Last Vital Signs Temp 98.1 F 07/22/19 08:00 Pulse 82 07/22/19 08:00 Resp 20 H 07/22/19 08:00 BP 130/54 07/22/19 08:00 Pulse Ox 93 07/22/19 08:00 07/21/19 07/22/19 07/22/19 22:59 06:59 14:59 Intake Total 350 / 1150 350 / 1150 Balance 350 / 1150 350 / 1150 Weight last 48 hrs Weight 115 lb Physical Exam Narrative: EXAM NARRATIVE: Abdomen: soft Data : 07/22/19 04:31 07/22/19 04:31 Micro: Microbiology 07/20/19 19:30 Blood Culture - Preliminary Blood NEGATIVE TO DATE 07/20/19 20:45 Blood Culture - Preliminary Blood NEGATIVE TO DATE A&P Assessment and plan (1) Acute GI bleeding: Patient has been stable overnight, Hb is slowly trending down. Discussed with Hospitalist service about transfusing one unit PRBC and restart Plavix. concern for pancytopenia based on the other labs Patient states that she usually doesn't take her meds anyway. Status: Acute Attestations Medical Necessity Statement*: GI bleed appears to be stable Coding Level of Care Code Acute Assistant Plant Controller for Melvin Mina Diagnoses Acute GI bleeding K92.2
[2019-07-22] MEDS: morphine 4 mg/mL SDV 1 mL IVP ×3 (09:19→22:15)
--- NOTE | 2019-07-22 09:34 | PC.NURSE ---
To dialysis for hemodialysis
[2019-07-22 10:28] LABS: Folate Level 6.4 ng/mL (4.8-37.3); Vitamin B12 457 pg/mL (232-1245)
[2019-07-22] MEDS: sodium chloride 0.9% 100 ML (12:16)
--- NOTE | 2019-07-22 12:40 | PM.PN ---
Subjective Subjective: Interval history: admitted with GI bleed had intervention on dialysis graft last week was used 1x for HD (emergently for hyperkalemia) today is AVG clotted Medications: Reviewed: Yes Vitals/I&O/Wt Last Vital Signs Temp 97.6 F 07/22/19 12:15 Pulse 72 07/22/19 12:15 Resp 14 07/22/19 12:15 BP 123/42 07/22/19 12:15 Pulse Ox 92 07/22/19 12:11 07/21/19 07/22/19 07/22/19 22:59 06:59 14:59 Intake Total 350 / 800 350 / 1150 360 / 360 Balance 350 / 800 350 / 1150 360 / 360 Weight last 48 hrs Weight 52.163 kg Physical Exam Const: COMMON NORMALS: no apparent distress GENERAL APPEARANCE: cooperative Eye: COMMON NORMALS: no scleral icterus Data : 07/22/19 04:31 07/22/19 04:31 Micro: Microbiology 07/20/19 19:30 Blood Culture - Preliminary Blood NEGATIVE TO DATE 07/20/19 20:45 Blood Culture - Preliminary Blood NEGATIVE TO DATE A&P Additional A&P Information 1. ESRD - clotted AVG dialysis access. Potassium normal, volume status acceptable 2. GI bleed - RN reports dark tarry stools - she is currently receiving 1 u PRBC - long-term anuria - unlikely furosemide will result in significant urine output 3. Hypocalcemia, hyperphosphatemis Recommend: no need for HD today. Needs fluid restriction, strict potassium restriction. Trying to transfer to hospital where her vascular surgeon is. They requested call back on Wednesday. Attestations Medical Necessity Statement*: per primary service Coding Level of Care Code Acute Career And Transition Teacher for Chg Leopoldo
--- NOTE | 2019-07-22 13:30 | P.PN_ITS ---
Subjective Subjective: Interval history: Had a dark stool mixed with some blood today. Plavix on hold. Otherwise denies new symptoms. During attempted hemodialysis right arm graft cannulated, but then occluded, and hemodialysis had to be canceled. Medications: Reviewed: Yes Medication Review Details: Current Medications Bacitracin (Bacitracin) 1 applic TOPICAL Q12H [facility]; Protocol Escitalopram Oxalate (Lexapro) 10 mg PO DAILY [facility] Morphine Sulfate (Morphine) 4 mg IVP Q4H PRN PRN Reason: SEVERE PAIN Last Admin: 07/21/19 05:26 Dose: 4 mg Documented by: Ondansetron HCl (Zofran) 4 mg IVP Q6H PRN PRN Reason: NAUSEA AND VOMITING Pantoprazole Sodium (Protonix) 40 mg IVP BID [facility] Vitals/I&O/Wt Last Vital Signs Temp 97.6 F 07/22/19 12:15 Pulse 74 07/22/19 12:30 Resp 20 H 07/22/19 12:30 BP 129/82 07/22/19 12:30 Pulse Ox 97 07/22/19 12:30 07/21/19 07/22/19 07/22/19 22:59 06:59 14:59 Intake Total 350 / 800 350 / 1150 478 / 478 Balance 350 / 800 350 / 1150 478 / 478 Weight last 48 hrs Weight 52.163 kg Physical Exam Const: COMMON NORMALS: no apparent distress and oriented x3 GENERAL APPEARANCE: frail appearing HENMT: COMMON NORMALS: oropharynx normal Neck/C-Spine: COMMON NORMALS: no JVD Resp: COMMON NORMALS: normal respiratory effort AUSCULTATION: wheezes (mild wheeze) Cardio: COMMON NORMALS: no JVD, regular rhythm, S1 normal heart sound, S2 normal heart sound and no murmurs RHYTHM: regular rhythm HEART SOUNDS: S1 normal and S2 normal GI: COMMON NORMALS: normal to inspection, nondistended, normoactive bowel sounds, soft to palpation and non-tender PALPATION: Yes soft Extremity: COMMON NORMALS: no joint enlargement and no pedal edema OTHER: Both warm and perfused upper extremities. Neuro: COMMON NORMALS: oriented x3 and moves all extremities Skin: COMMON NORMALS: no rashes or lesions noted GENERAL SKIN EXAM: no rashes or lesions noted Data : 07/22/19 04:31 07/22/19 04:31 Micro: Microbiology 07/20/19 19:30 Blood Culture - Preliminary Blood NEGATIVE TO DATE 07/20/19 20:45 Blood Culture - Preliminary Blood NEGATIVE TO DATE A&P Assessment and plan (1) Hemodialysis graft malfunction: Today unable to have hemodialysis with suspicion for occlusion/clotting of graft. On Wednesday received TPA last week, subsequently with melanotic stools, G I bleeding. Platelets persistently low at 55,000. Discussed with our thoracic surgeon, as well as room service manager. Both agree that percutaneous assessment and possibly angioplasty may be beneficial due to concern for venous and stenosis due to reocclusion, risking again reocclusion in case just thrombectomy is performed. This is not possible at our facility at this time. Placed a call to [facility] where her vascular surgeon practices, as well as her office machinery or equipment installer. Per vascular surgeon technology sales consultant Dr. Olmedo, request that unless urgent hemodialysis is required at this time to contact Dr. Gastelum Wednesday for consideration for transfer at that time. I expressed concern about whether beds may be available on Wednesday, and was told the hospital there is currently at about 50% capacity, and they have had no issues with beds. Per discussion with nephrology she is not requiring hemodialysis currently. Discussed all this with the patient, and she is agreeable with plan to monitor her here and contact Dr. Gastelum Wednesday. Status: Acute (2) Acute GI bleeding: Again some decline in hemoglobin down to 7.3. Repeat. PRBC transfusion. Plavix on hold. At this time no elective procedures were performed. Will monitor for any worsening bleeding. Continue PPI. Surgery is available in case needing emergent procedure. Persistent thrombocytopenia: Platelets 53,000. Monitor blood counts. Cont protonix. Status: Acute (3) Acute hyperkalemia: Improved w HD. Status: Acute (4) Smoker: Continue to encourage cessation. Status: Acute (5) ESRD (end stage renal disease): HD MWF, although with missed HD sessions. Status: Acute (6) Pancytopenia: Pancytopenia of unclear etiology. WBC 3.1, neutropenic with ANC 1600, hemoglobin 7.3, platelets 53,000. ESRD may be contributing, although concern with her may have additional condition responsible for this. Assess B12, folic acid. Peripheral smear. Consider follow-up with hematology. Status: Acute Additional A&P Information Recent pseudomonal bacteremia. BC pending. Anxiety AFib CAD Attestations Medical Necessity Statement*: Continue admission for assessment management of GI bleeding, pancytopenia, dialysis access graft malfunction. Coding Level of Care Code Acute Technical Designer for Chg Fwd Diagnoses Hemodialysis graft malfunction T82.41XA Acute GI bleeding K92.2 Acute hyperkalemia E87.5 Smoker F17.200 ESRD (end stage renal disease) N18.6 Pancytopenia D61.818
[2019-07-22 17:39] LABS: LAB Peripheral Smear Sent for Review
[2019-07-22 18:25] LABS: Hematocrit 28.8 % (37.0-47.0); Hemoglobin 8.7 g/dL (11.5-15.3)
--- NOTE | 2019-07-22 19:44 | P.PN_ITS ---
Subjective Subjective: Interval history: Patient denies abdominal pain, no bowel movements overnight Vitals/I&O/Wt Last Vital Signs Temp 98.1 F 07/22/19 16:00 Pulse 76 07/22/19 16:00 Resp 18 07/22/19 18:00 BP 158/92 07/22/19 16:00 Pulse Ox 92 07/22/19 18:00 07/22/19 07/22/19 07/22/19 06:59 14:59 22:59 Intake Total 350 / 1150 838 / 1428 590 / 1428 Balance 350 / 1150 838 / 1428 590 / 1428 Physical Exam Narrative: EXAM NARRATIVE: Abdomen: Soft, nondistended Data : 07/23/19 04:27 07/23/19 04:27 Micro: Microbiology 07/20/19 19:30 Blood Culture - Preliminary Blood NEGATIVE TO DATE 07/20/19 20:45 Blood Culture - Preliminary Blood NEGATIVE TO DATE A&P Assessment and plan (1) Acute GI bleeding: Status: Acute Coding Level of Care Code Acute Supervisor Painting Shipyard for Melvin Mina Diagnoses Acute GI bleeding K92.2
--- NOTE | 2019-07-22 21:36 | PC.NURSE ---
Patient did not want her bactroban ointment. Patient stated it was used at home for when she had cellulitis in her arm and she no longer uses it.
[2019-07-23] VITALS (31 sets, daily range): BP systolic 109–171; BP diastolic 50–106; PULSE 57–81; RESP 10–25; TEMP 36.4–37; O2SAT 93–96
[2019-07-23 05:23] LABS: Alanine Aminotransferase < 5 U/L (0-33); Albumin Level 3.2 g/dL (3.5-5.2); Alkaline Phosphatase 102 IU/L (35-105); Anion Gap 21.6 (5-19); Aspartate Amino Transferase 24 U/L (0-32); Blood Urea Nitrogen 50 mg/dL (8-23); Calcium 6.5 mg/dL (8.5-10.5); Carbon Dioxide 23 mmol/L (22-29); Chloride 98 mmol/L (98-107); Globulin 2.8 g/dL (1.3-4.6); Glomerular Filtration Rate 5.6 mL/min (90-130); Glucose 84 mg/dL (65-115); Osmolality Calculated 283 mOsm/kg (285-295); Potassium 4.6 mmol/L (3.5-5.1); Sodium 138 mmol/L (136-145); Total Bilirubin 0.4 mg/dL (0.15-1.2)
[2019-07-23 05:35] LABS: Basophils % 0.6 %; Eosinophils # 0.3 10^3/uL (0.0-0.8); Eosinophils % 7.8 %; Hematocrit 27.4 % (37.0-47.0); Hemoglobin 8.7 g/dL (11.5-15.3); Lymphocytes # 0.8 10^3/uL (0.8-4.8); Lymphocytes % 23.1 %; Mean Corpuscular HGB Conc 31.8 g/dL (30.0-36.0); Mean Corpuscular Hemoglobin 31.3 pg (28.0-34.0); Mean Corpuscular Volume 98.6 fL (81-99); Mean Platelet Volume 12.3 fL (7.4-10.4); Monocytes # 0.5 10^3/uL (0.2-0.9); Monocytes % 13.5 %; Neutrophils # 1.8 10^3/uL (1.8-7.7); Neutrophils % 53.8 %; Nucleated Red Blood Cells % 0 %; Platelet Count 49 10^3/cmm (130-400); Red Blood Count 2.78 10^6/uL (4.1-5.3); Red Cell Distribution Width 17.8 % (12.1-15.1); White Blood Count 3.3 10^3/uL (4.0-10.0)
--- NOTE | 2019-07-23 07:56 | P.PN_ITS ---
Subjective Subjective: Interval history: weak. lethargic, no edema Medications: Reviewed: Yes Medication Review Details: Current Medications Bacitracin (Bacitracin) 1 applic TOPICAL Q12H [facility]; Protocol Last Admin: 07/22/19 20:45 Dose: Not Given Documented by: Escitalopram Oxalate (Lexapro) 10 mg PO DAILY [facility] Last Admin: 07/22/19 08:16 Dose: 10 mg Documented by: Morphine Sulfate (Morphine) 4 mg IVP Q4H PRN PRN Reason: SEVERE PAIN Last Admin: 07/22/19 22:15 Dose: 4 mg Documented by: Multivitamins (Allbee-C) 1 each PO DAILY [facility] Last Admin: 07/22/19 08:16 Dose: 1 each Documented by: Nicotine (Nicoderm 14 Mg Patch) 1 patch TRANSDERMA DAILY [facility] Last Admin: 07/22/19 08:17 Dose: 1 patch Documented by: Ondansetron HCl (Zofran) 4 mg IVP Q6H PRN PRN Reason: NAUSEA AND VOMITING Pantoprazole Sodium (Protonix) 40 mg IVP BID [facility] Last Admin: 07/22/19 17:19 Dose: 40 mg Documented by: Sevelamer Carbonate (Renvela) 1,600 mg PO TIDWM [facility] Last Admin: 07/22/19 17:19 Dose: 1,600 mg Documented by: Vitals/I&O/Wt Last Vital Signs Temp 97.6 F 07/23/19 04:00 Pulse 74 07/23/19 04:00 Resp 15 07/23/19 04:00 BP 109/82 07/23/19 04:00 Pulse Ox 95 07/23/19 04:00 07/22/19 07/23/19 07/23/19 22:59 06:59 14:59 Intake Total 690 / 1528 200 / 1728 Balance 690 / 1528 200 / 1728 Physical Exam Narrative: EXAM NARRATIVE: awake and uncomfortable in bed vss heent- nc/at neck supple lungs wheezing heart RRR, +PEEWEE abd soft, nt, nd, +BS ext no edema RUE AVG w/o bruit neuro- a,a, o x 3 Data : 07/23/19 04:27 07/23/19 04:27 A&P Additional A&P Information 64 yr old female 1. GI eval for anemia -s/p 2 u prbc txas per hospitalist hgb stable 2. ESRD- hyperkalemia, bradycardic- improved k normal -repeat HD in AM- Q if transfer to [facility] or new permacat here -in am 3.5 hrs, 2 k bath, remove 1.5 liter 3. h/o pseudomonas bacteremia and c diff colitis after LUE AVF infection and surgery at [facility] 4. pancytopenia- not explained by renal disease 5. h/o a fib and CAD 6. bone - mineral- metabolism- phos binder 7. anxiety Attestations Medical Necessity Statement*: pancytopenia, esrd, clotted avg Time Spent in Patient Care: 16 - 35 minutes Coding Level of Care Code Acute Correctional Supervisor Lieutenant for Ayshag Leopoldo
[2019-07-23] MEDS: sevelamer 800 mg Tablet 1600 MG PO ×3 (08:36→16:55)
[2019-07-23] MEDS: b-complex-vitamin c Tablet 1 EACH PO (08:36)
[2019-07-23] MEDS: pantoprazole 40 mg SDV IVP ×2 (08:36→16:55)
[2019-07-23] MEDS: escitalopram 10 mg Tablet PO (08:36)
[2019-07-23] MEDS: nicotine 14 mg Patch 1 PATCH TRANSDERMA (08:37)
--- NOTE | 2019-07-23 09:03 | PC.SOCIAL ---
Pg 2 IMM Explained to pt Pg 2 IMM via phone. Pt verbally understands. No questions voiced. Signed, dated, & timed, then placed copy in chart.
--- NOTE | 2019-07-23 11:02 | P.PN_ITS ---
Subjective Subjective: Interval history: Patient had couple of black stools overnight, otherwise hemodynamically stable. Her AV fistula stopped working Vitals/I&O/Wt Last Vital Signs Temp 97.6 F 07/23/19 04:00 Pulse 79 07/23/19 08:00 Resp 18 07/23/19 08:00 BP 137/106 07/23/19 08:00 Pulse Ox 95 07/23/19 08:00 07/22/19 07/23/19 07/23/19 22:59 06:59 14:59 Intake Total 690 / 1728 200 / 1728 360 / 360 Balance 690 / 1728 200 / 1728 360 / 360 Physical Exam Narrative: EXAM NARRATIVE: Abdomen: Soft Data : 07/23/19 04:27 07/23/19 04:27 A&P Assessment and plan (1) Acute GI bleeding: Patient has been stable overnight, hemoglobin has come up to 8.7 after 1 unit was transfused No orthostatic hypotension. Continue Protonix and hold off on EGD at this point Status: Acute Attestations Medical Necessity Statement*: GI bleed, currently stable Coding Level of Care Code Acute Service Center Representative for [facility] Leopoldo Diagnoses Acute GI bleeding K92.2
[2019-07-23] MEDS: ipratropium-albuterol 3 mL Neb INHALATION ×2 (15:29→20:54)
--- NOTE | 2019-07-23 16:17 | P.PN_ITS ---
Subjective Subjective: Interval history: She denies any complaints today. Vitals/I&O/Wt Last Vital Signs Temp 97.9 F 07/23/19 16:00 Pulse 71 07/23/19 16:00 Resp 18 07/23/19 16:00 BP 171/70 07/23/19 16:00 Pulse Ox 96 07/23/19 16:00 07/23/19 07/23/19 07/23/19 06:59 14:59 22:59 Intake Total 200 / 1728 720 / 720 Balance 200 / 1728 720 / 720 Physical Exam Const: COMMON NORMALS: no apparent distress and oriented x3 GENERAL APPEAR ANCE: frail appearing HENMT: COMMON NORMALS: oropharynx normal Neck/C-Spine: COMMON NORMALS: no JVD Resp: COMMON NORMALS: normal respiratory effort AUSCULTATION: wheezes (mild wheeze) Cardio: COMMON NORMALS: no JVD, regular rhythm, S1 normal heart sound, S2 normal heart sound and no murmurs RHYTHM: regular rhythm HEART SOUNDS: S1 normal and S2 normal GI: COMMON NORMALS: normal to inspection, nondistended, normoactive bowel sounds, soft to palpation and non-tender PALPATION: Yes soft Extremity: COMMON NORMALS: no joint enlargement and no pedal edema OTHER: Both warm and perfused upper extremities. Neuro: COMMON NORMALS: oriented x3 and moves all extremities Skin: COMMON NORMALS: no rashes or lesions noted GENERAL SKIN EXAM: no rashes or lesions noted Data : 07/23/19 04:27 07/23/19 04:27 A&P Assessment and plan (1) Hemodialysis graft malfunction: Plan to contact Dr. Gastelum tomorrow morning as recommended by vascular surgery at [facility] for transfer there. If unable to transfer will need placement of interim access and hemodialysis here. Occlusion/clotting of graft. On Wednesday received TPA last week, subsequently with melanotic stools, GI bleeding. Platelets persistently low at 50,000. Discussed with our thoracic surgeon, as well as brick paver. Both agree that percutaneous assessment and possibly angioplasty may be beneficial due to concern for venous end stenosis due to reocclusion, risking again reocclusion in case just thrombectomy is performed. This is not possible at our facility at this time. [facility] is where her vascular surgeon practices, as well as her cost analyst. Per vascular surgeon employee relations assistant Dr. Olmedo, requested tto contact Dr. Gastelum Wednesday morning for consideration for transfer at that time. Discussed all this with the patient, and she is agreeable with plan. Status: Acute (2) Acute GI bleeding: Status post PRBC transfusion hemoglobin 8.7. At some melanotic stool, small amount of red blood mixed in stool 2 days ago. No further bleeding so far. Of note received transfusion with blood positive C antigen on admission. 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 Discussed this with her. So far no evidence of hemolysis. Plavix on hold. History of CAD, CABG. Continue PPI. Surgery is available in case needing emergent procedure. Persistent thrombocytopenia: Platelets 50,000 with pancytopenia. Status: Acute (3) Acute hyperkalemia: Improved w HD. Status: Acute (4) Smoker: Continue to encourage cessation. Status: Acute (5) ESRD (end stage renal disease): HD MWF, although with missed HD sessions. Status: Acute (6) Pancytopenia: Pancytopenia of unclear etiology. WBC 3.1, neutropenic with ANC 1600, hemoglobin 7.3, platelets 53,000. ESRD may be contributing, although concern with her may have additional condition responsible for this. Assess B12, folic acid. Peripheral smear. Consider follow-up with hematology. Status: Acute Additional A&P Information Recent pseudomonal bacteremia. BC pending. Anxiety AFib CAD Attestations Medical Necessity Statement*: Continue admission for monitoring after GI bleeding, arrangements for assessment and repair of occluded hemodialysis access. Coding Level of Care Code Acute [place] Administrator for g Fwd Diagnoses Hemodialysis graft malfunction T82.41XA Acute GI bleeding K92.2 Acute hyperkalemia E87.5 Smoker F17.200 ESRD (end stage renal disease) N18.6 Pancytopenia D61.818
[2019-07-23] MEDS: morphine 4 mg/mL SDV 1 mL IVP ×2 (16:41→21:28)
[2019-07-24] VITALS (14 sets, daily range): BP systolic 121–150; BP diastolic 54–84; PULSE 63–82; RESP 14–20; TEMP 36.4–37; O2SAT 92–100
[2019-07-24 05:35] LABS: Basophils % 0.5 %; Eosinophils # 0.4 10^3/uL (0.0-0.8); Eosinophils % 8.4 %; Hematocrit 27.8 % (37.0-47.0); Hemoglobin 8.7 g/dL (11.5-15.3); Lymphocytes # 0.7 10^3/uL (0.8-4.8); Mean Corpuscular HGB Conc 31.3 g/dL (30.0-36.0); Mean Corpuscular Hemoglobin 30.9 pg (28.0-34.0); Mean Corpuscular Volume 98.6 fL (81-99); Mean Platelet Volume 12.3 fL (7.4-10.4); Monocytes # 0.4 10^3/uL (0.2-0.9); Monocytes % 9.8 %; Neutrophils # 2.7 10^3/uL (1.8-7.7); Neutrophils % 64.8 %; Nucleated Red Blood Cells % 0 %; Platelet Count 48 10^3/cmm (130-400); Red Blood Count 2.82 10^6/uL (4.1-5.3); Red Cell Distribution Width 16.4 % (12.1-15.1); White Blood Count 4.2 10^3/uL (4.0-10.0)
[2019-07-24 05:49] LABS: Alanine Aminotransferase < 5 U/L (0-33); Albumin Level 3.3 g/dL (3.5-5.2); Alkaline Phosphatase 117 IU/L (35-105); Anion Gap 21.2 (5-19); Aspartate Amino Transferase 29 U/L (0-32); Blood Urea Nitrogen 54 mg/dL (8-23); Calcium 6.2 mg/dL (8.5-10.5); Carbon Dioxide 24 mmol/L (22-29); Chloride 96 mmol/L (98-107); Glomerular Filtration Rate 4.9 mL/min (90-130); Glucose 96 mg/dL (65-115); Magnesium 2.2 mg/dL (1.7-2.3); Osmolality Calculated 280 mOsm/kg (285-295); Phosphorus 6.5 mg/dL (2.5-4.5); Potassium 5.2 mmol/L (3.5-5.1); Sodium 136 mmol/L (136-145); Total Bilirubin 0.3 mg/dL (0.15-1.2); Total Protein 6.3 g/dL (6.6-8.7)
[2019-07-24] MEDS: metoprolol tartrate 25 mg Tablet 12.5 MG PO (07:02)
--- NOTE | 2019-07-24 07:14 | PM.PN ---
Subjective Subjective: Interval history: weak, dizzy. no sob, no nausea, no diarrhea Medications: Reviewed: Yes Medication Review Details: Current Medications Albuterol Sulfate (Ventolin) 2 puff INHALATION Q4H.RESPIRATORY PRN PRN Reason: SHORTNESS OF BREATH Albuterol/Ipratropium (Duoneb) 3 ml INHALATION Q6H.RESPIRATORY [facility] Last Admin: 07/24/19 03:17 Dose: Not Given Documented by: Bacitracin (Bacitracin) 1 applic TOPICAL Q12H [facility]; Protocol Last Admin: 07/23/19 21:29 Dose: Not Given Documented by: Escitalopram Oxalate (Lexapro) 10 mg PO DAILY [facility] Last Admin: 07/23/19 08:36 Dose: 10 mg Documented by: Morphine Sulfate (Morphine) 4 mg IVP Q4H PRN PRN Reason: SEVERE PAIN Last Admin: 07/23/19 21:28 Dose: 4 mg Documented by: Multivitamins (Allbee-C) 1 each PO DAILY [facility] Last Admin: 07/23/19 08:36 Dose: 1 each Documented by: Nicotine (Nicoderm 14 Mg Patch) 1 patch TRANSDERMA DAILY [facility] Last Admin: 07/23/19 08:37 Dose: 1 patch Documented by: Ondansetron HCl (Zofran) 4 mg IVP Q6H PRN PRN Reason: NAUSEA AND VOMITING Pantoprazole Sodium (Protonix) 40 mg IVP BID [facility] Last Admin: 07/23/19 16:55 Dose: 40 mg Documented by: Sevelamer Carbonate (Renvela) 1,600 mg PO TIDWM [facility] Last Admin: 07/23/19 16:55 Dose: 1,600 mg Documented by: Vitals/I&O/Wt Last Vital Signs Temp 97.5 F L 07/24/19 04:00 Pulse 68 07/24/19 04:00 Resp 20 H 07/24/19 04:00 BP 136/78 07/24/19 04:00 Pulse Ox 95 07/24/19 04:00 07/23/19 07/24/19 07/24/19 22:59 06:59 14:59 Intake Total 200 / 920 200 / 1120 Balance 200 / 920 200 / 1120 Physical Exam Narrative: EXAM NARRATIVE: awake and uncomfortable in bed vss heent- nc/at neck supple lungs basal wheezing heart- irreg , tachycardic, , +PEEWEE abd soft, nt, nd, +BS ext minimal edema RUE AVG w/o bruit neuro- a,a, o x 3 Data : 07/24/19 05:01 07/24/19 05:01 A&P Additional A&P Information 64 yr old female 1. GI eval for anemia -s/p 2 u prbc txas per hospitalist hgb stable 2. ESRD-needs repeat HD today. Q if transfer to [facility] or [facility] here -if no transfer, then HD for 3.5 hrs, 2 k bath, remove 1.5 liter 3. h/o pseudomonas bacteremia and c diff colitis after LUE AVF infection and surgery at [facility] 4. pancytopenia- not explained by renal disease 5. h/o a fib and CAD- had rapid vrnt rate overnight and now 6. bone - mineral- metabolism- phos binder 7. anxiety care provided by telehealth w/ exam by RN Attestations Medical Necessity Statement*: anemia, esrd -clotted avg, a fib Time Spent in Patient Care: 16 - 35 minutes Coding Level of Care Code Acute Medical Underwriter for Chg Leopoldo
--- NOTE | 2019-07-24 07:40 | ECG_ITS ---
Measurements Intervals [place] Rate: 73 P: 95 WI: 222 QRS: -68 QRSD: 158 T: 269 QT: 516 QTc: 570 SINUS RHYTHM WITH FIRST DEGREE AV BLOCK RIGHT BUNDLE BRANCH BLOCK [120+ ms QRS DURATION, UPRIGHT V1, 40+ ms S IN I/aVL/V4/V5/V6] POSSIBLE ANTERIOR MYOCARDIAL INFARCTION [30 ms Q WAVE IN V3/V4, OR R < 0.2 mV IN V4], OF INDETERMINATE AGE INFERIOR MYOCARDIAL INFARCTION [40+ ms Q WAVE AND/OR ST/T ABNORMALITY IN II/aVF], OF INDETERMINATE AGE MODERATE T-WAVE ABNORMALITY, CONSIDER LATERAL ISCHEMIA [-0.1+ mV T WAVE IN I/aVL/V5/V6] Compared to ECG 07/21/2019 03:42:11 First degree AV block now present T-wave abnormality now present Possible ischemia now present Myocardial infarct finding still present Electronically Signed On 07-24-2019 18:32:31 CDT by Romel Conde M.D. [email or web address]
[2019-07-24] MEDS: ipratropium-albuterol 3 mL Neb INHALATION ×3 (08:20→20:36)
[2019-07-24] MEDS: b-complex-vitamin c Tablet 1 EACH PO (09:00)
[2019-07-24] MEDS: escitalopram 10 mg Tablet PO (09:00)
[2019-07-24] MEDS: pantoprazole 40 mg SDV IVP ×2 (09:00→18:03)
[2019-07-24] MEDS: nicotine 14 mg Patch 1 PATCH TRANSDERMA (09:00)
[2019-07-24] MEDS: sevelamer 800 mg Tablet 1600 MG PO ×2 (09:00→18:03)
[2019-07-24] MEDS: morphine 4 mg/mL SDV 1 mL IVP ×2 (09:01→18:02)
--- NOTE | 2019-07-24 09:01 | P.PN_ITS ---
Subjective Subjective: Interval history: She reports she is feeling about the same, having a spot of rash mid chest which is pruritic. Says she has put some moisturizer on it. He is feeling more pruritic overall today. Vitals/I&O/Wt Last Vital Signs Temp 98.6 F 07/24/19 07:37 Pulse 79 07/24/19 08:33 Resp 20 H 07/24/19 08:33 BP 150/82 07/24/19 07:37 Pulse Ox 94 07/24/19 08:33 07/23/19 07/24/19 07/24/19 22:59 06:59 14:59 Intake Total 200 / 920 200 / 1120 120 / 120 Balance 200 / 920 200 / 1120 120 / 120 Physical Exam Const: COMMON NORMALS: no apparent distress and oriented x3 GENERAL APPEARANCE: frail appearing HENMT: COMMON NORMALS: oropharynx normal Neck/C-Spine: COMMON NORMALS: no JVD Resp: COMMON NORMALS: normal respiratory effort and clear to auscultation bilaterally AUSCULTATION: clear to auscultation bilaterally Cardio: COMMON NORMALS: no JVD, regular rhythm, S1 normal heart sound, S2 normal heart sound and no murmurs RHYTHM: regular rhythm HEART SOUNDS: S1 normal and S2 normal GI: COMMON NORMALS: normal to inspection, nondistended, normoactive bowel sounds, soft to palpation and non-tender PALPATION: Yes soft Extremity: COMMON NORMALS: no joint enlargement and no pedal edema Neuro: COMMON NORMALS: oriented x3 and moves all extremities Skin: COMMON NORMALS: no rashes or lesions noted GENERAL SKIN EXAM: no rashes or lesions noted Data : 07/24/19 05:01 07/24/19 05:01 A&P Assessment and plan (1) Hemodialysis graft malfunction: Spoke w Dr Gastelum this morning. He would be willing to accept her, but states access is complicated and would place a tunnelled catheter. This can likely be done here as well. He states in case this possible to be placed here, she would then just follow-up on outpatient basis with their office. Occlusion/clotting of graft. On Wednesday received TPA last week, subsequently with melanotic stools, GI bleeding. Platelets persistently low at 50,000. NPO at this time in case requires placement of catheter days afternoon versus tomorrow morning as per surgery. Per surgery requested for 2 units of platelets to be on hold in case platelet level decreases further prior to procedure if done tomorrow. As hyperkalemic today, this will need to be followed up in the afternoon which may necessitate catheter placement to be done today with later hemodialysis per discussion with nephrology. Status: Acute (2) Acute hyperkalemia: Hyperkalemia 5.2 today. Kayexalate dose and recheck BMP this afternoon. If no improvement may not be able to wait for tomorrow morning to place catheter. Improved w HD. Status: Acute (3) Acute GI bleeding: Status post PRBC transfusion hemoglobin stable at 8.7. At some melanotic stool, small amount of red blood mixed in stool 4/3. No further bleeding so far. Of note received transfusion with blood positive C antigen on admission. 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 Discussed this with her. So far no evidence of hemolysis. Plavix on hold. History of CAD, CABG. Continue PPI. Surgery is available in case needing emergent procedure. Persistent thrombocytopenia: Platelets 50,000 with pancytopenia. Status: Acute (4) Smoker: Continue to encourage cessation. Status: Acute (5) ESRD (end stage renal disease): HD MWF, although with missed HD sessions. Status: Acute (6) Pancytopenia: Pancytopenia of unclear etiology. WBC 3.1, neutropenic with ANC 1600, hemoglobin 7.3, platelets 53,000. ESRD may be contributing, although concern with her may have additional condition responsible for this. Assess B12, folic acid. Peripheral smear. Notify Dr. Riggs. He will expect her in follow-up in 2-3 weeks to reassess blood counts and consider elective bone marrow biopsy once this is possible with regards to the current pandemic limitations. Status: Acute Additional A&P Information Recent pseudomonal bacteremia. BC pending. Anxiety AFib CAD Attestations Medical Necessity Statement*: Continue admission for arrangement of hemodialysis access, hemodialysis, management of hyperkalemia. Coding Level of Care Code Acute Professor Of Art History for Ayshag Fwd Exam Comprehensive Diagnoses Hemodialysis graft malfunction T82.41XA Acute hyperkalemia E87.5 Acute GI bleeding K92.2 Smoker F17.200 ESRD (end stage renal disease) N18.6 Pancytopenia D61.818
[2019-07-24] MEDS: sodium polystyrene sulfonate 15 gm/60 mL Btl 30 GM PO (11:41)
--- NOTE | 2019-07-24 13:56 | PC.NURSE ---
No Bruit heard or Thrill palpable on pt's Right upper arm AV graft/fistula Pt had clotted the graft during hemodialysis treatment Wednesday.
[2019-07-24 15:29] LABS: Alanine Aminotransferase 6 U/L (0-33); Albumin Level 3.3 g/dL (3.5-5.2); Alkaline Phosphatase 121 IU/L (35-105); Anion Gap 23.2 (5-19); Aspartate Amino Transferase 31 U/L (0-32); Blood Urea Nitrogen 58 mg/dL (8-23); Calcium 6.4 mg/dL (8.5-10.5); Carbon Dioxide 22 mmol/L (22-29); Chloride 98 mmol/L (98-107); Glomerular Filtration Rate 4.4 mL/min (90-130); Glucose 92 mg/dL (65-115); Osmolality Calculated 284 mOsm/kg (285-295); Potassium 5.2 mmol/L (3.5-5.1); Sodium 138 mmol/L (136-145); Total Bilirubin 0.4 mg/dL (0.15-1.2); Total Protein 6.3 g/dL (6.6-8.7)
[2019-07-25] VITALS (18 sets, daily range): BP systolic 102–159; BP diastolic 45–81; PULSE 62–100; RESP 15–20; TEMP 36.5–38.2; O2SAT 88–98
--- NOTE | 2019-07-25 | SCC_ITS ---
Procedure Done: Placement of right subclavian tunneled hemodialysis catheter 16 Romanian 30.5 seconds of fluoroscopic guidance, for a cumulative dose of 3.74mGy, was provided to Dr. Spann by the radiology department. C-arm images of the chest were saved for the patient's permanent record. [facility]
[2019-07-25] MEDS: morphine 4 mg/mL SDV 1 mL IVP (00:33)
[2019-07-25] MEDS: ipratropium-albuterol 3 mL Neb INHALATION ×3 (02:20→22:03)
--- NOTE | 2019-07-25 05:51 | PC.NURSE ---
Hibiclens wipes used per order. Clean gown provided to patient.
[2019-07-25 05:55] LABS: Basophils % 0.6 %; Eosinophils # 0.4 10^3/uL (0.0-0.8); Eosinophils % 8.6 %; Hematocrit 28.9 % (37.0-47.0); Hemoglobin 8.8 g/dL (11.5-15.3); Lymphocytes # 0.8 10^3/uL (0.8-4.8); Lymphocytes % 15.1 %; Mean Corpuscular HGB Conc 30.4 g/dL (30.0-36.0); Mean Corpuscular Hemoglobin 29.9 pg (28.0-34.0); Mean Corpuscular Volume 98.3 fL (81-99); Mean Platelet Volume 12.5 fL (7.4-10.4); Monocytes # 0.4 10^3/uL (0.2-0.9); Monocytes % 8.4 %; Neutrophils # 3.4 10^3/uL (1.8-7.7); Neutrophils % 66.7 %; Nucleated Red Blood Cells % 0 %; Platelet Count 58 10^3/cmm (130-400); Red Blood Count 2.94 10^6/uL (4.1-5.3); Red Cell Distribution Width 16.1 % (12.1-15.1); White Blood Count 5.1 10^3/uL (4.0-10.0)
[2019-07-25 06:11] LABS: Alanine Aminotransferase < 5 U/L (0-33); Albumin Level 3.3 g/dL (3.5-5.2); Alkaline Phosphatase 116 IU/L (35-105); Anion Gap 25.1 (5-19); Aspartate Amino Transferase 25 U/L (0-32); Blood Urea Nitrogen 54 mg/dL (8-23); Calcium 6.4 mg/dL (8.5-10.5); Carbon Dioxide 23 mmol/L (22-29); Chloride 97 mmol/L (98-107); Globulin 3.1 g/dL (1.3-4.6); Glomerular Filtration Rate 3.8 mL/min (90-130); Glucose 93 mg/dL (65-115); Magnesium 2.1 mg/dL (1.7-2.3); Osmolality Calculated 288 mOsm/kg (285-295); Phosphorus 7.4 mg/dL (2.5-4.5); Potassium 5.1 mmol/L (3.5-5.1); Sodium 140 mmol/L (136-145); Total Bilirubin 0.3 mg/dL (0.15-1.2); Total Protein 6.4 g/dL (6.6-8.7)
--- NOTE | 2019-07-25 06:56 | P.PN_ITS ---
Subjective Subjective: Interval history: Overall patient is about the same Vitals/I&O/Wt Last Vital Signs Temp 98.2 F 07/25/19 04:00 Pulse 84 07/25/19 04:00 Resp 16 07/25/19 04:00 BP 126/70 07/25/19 04:00 Pulse Ox 93 07/25/19 04:00 07/24/19 07/24/19 07/25/19 14:59 22:59 06:59 Intake Total 120 / 120 100 / 220 Balance 120 / 120 100 / 220 Weight last 48 hrs Weight 129 lb 12.8 oz Physical Exam Narrative: EXAM NARRATIVE: Patient is conscious alert oriented X3 BMI 24.5 Head and neck examination PERRLA no masses no cervical lymphadenopathy no jaundice Cardiac examination audible S1-S2 no murmurs no gallops no arrhythmias Chest shows wheezes,no surgical emphysema Abdomen nontender nondistended soft no organomegaly guarding or rigidity/no signs of peritonitis Extremities no cyanosis no clubbing no edema Data : 07/25/19 05:44 07/25/19 05:44 A&P Assessment and plan (1) Hemodialysis graft malfunction: Plan of care; After thorough history physical examination and reviewing the chart, I counseled the patient for tunneled hemodialysis cath placement, indications, risks including pneumothorax and injury of major vascular structures, benefits, and alternatives were all discussed with the patient, patient understands and is interested to proceed. Informed consent per chart Assurance and education All questions have been answered Status: Acute Attestations Medical Necessity Statement*: Medical necessity care is expected to cross 2 midnights Time Spent in Patient Care: 16 - 35 minutes (>than 50% of time spent in counselling and/or direct pt care on unit) . 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
--- NOTE | 2019-07-25 07:34 | ANES.PREANE2 ---
Pre-Anesthetic Assessment Pre-Anesthetic Assessment: Height/Weight: Height 1.55 m Weight 58.876 kg Temp Pulse Resp BP Pulse Ox 98.2 F 84 16 126/70 93 07/25/19 04:00 07/25/19 04:00 07/25/19 04:00 07/25/19 04:00 07/25/19 04:00 Preop Diagnosis: Renal failure Proposed Procedure: Operation Date: 07/25/19 08:20 Proposed Procedures p Dialysis Catheter Insertion(Right) - Bruno Spann MD Familial anesthetic complications: none Was Beta Elaina taken within 24 hours: N/A Last intake: NPO > 8 hrs Social: Social History: Tobacco and No alcohol Exam: Pre-Anes Outpt Exam: alert, oriented x 3, clear to auscultation bilaterally and regular rate & rhythm Airway: Cervical ROM: WNL MP: 1 Dentition: Loose Additional comments: bottom loose, multiple missing teeth Pulmonary: Pulmonary: Asthma and COPD CV/HEM: CV/HEM: Afib and HTN : : Chronic renal failure Comments: Dialsysis 3 x/week - last received wednesday Hepatic: Hepatic: None reported GI: GI: GERD Musc/skel: Musc/skel: Lower Back Pain Neuropsych: Neuropsych: CVA Comments: L sided weakness Anesthetic Plan: ASA status: 4 Anesthesia: MAC Risk of > 500 ml blood loss (7ml/kg in children): No Meds/Allergies Current Medications: Current Medications Generic Name Dose Route Start Last Admin Trade Name Freq PRN Reason Stop Dose Admin Albuterol/Ipratrop ium 3 ml 07/23/19 15:00 07/25/19 02:20 Duoneb INHALATION 3 ml Q6H.RESPIRATORY S [facility] Administration Bacitracin 1 applic 07/21/19 09:00 07/24/19 19:08 Bacitracin TOPICAL Not Given Q12H JOSE DANIEL Protocol Escitalopram Oxala te 10 mg 07/21/19 09:00 07/24/19 09:00 Lexapro PO 10 mg DAILY JOSE DANIEL Administration Morphine Sulfate 4 mg 07/25/19 00:06 07/25/19 00:33 Morphine IVP 4 mg Q4H PRN Administration SEVERE PAIN Multivitamins 1 each 07/21/19 09:00 07/24/19 09:00 Allbee-C PO 1 each DAILY JOSE DANIEL Administration Nicotine 1 patch 07/22/19 09:00 07/24/19 09:00 Nicoderm 14 Mg P [facility] TRANSDERMA 1 patch DAILY [facility] Administration Pantoprazole Sodiu m 40 mg 07/21/19 09:00 07/24/19 18:03 Protonix IVP 40 mg BID [facility] Administration Sevelamer Carbonat e 1,600 mg 07/21/19 18:00 07/24/19 18:03 Renvela PO 1,600 mg TIDWM JOSE DANIEL Administration Additional Medication Information: Current Medications Albuterol Sulfate (Ventolin) 2 puff INHALATION Q4H.RESPIRATORY PRN PRN Reason: SHORTNESS OF BREATH Albuterol/Ipratropium (Duoneb) 3 ml INHALATION Q6H.RESPIRATORY [facility] Last Admin: 07/24/19 03:17 Dose: Not Given Documented by: Bacitracin (Bacitracin) 1 applic TOPICAL Q12H [facility]; Protocol Last Admin: 07/23/19 21:29 Dose: Not Given Documented by: Escitalopram Oxalate (Lexapro) 10 mg PO DAILY [facility] Last Admin: 07/23/19 08:36 Dose: 10 mg Documented by: Morphine Sulfate (Morphine) 4 mg IVP Q4H PRN PRN Reason: SEVERE PAIN Last Admin: 07/23/19 21:28 Dose: 4 mg Documented by: Multivitamins (Allbee-C) 1 each PO DAILY [facility] Last Admin: 07/23/19 08:36 Dose: 1 each Documented by: Nicotine (Nicoderm 14 Mg Patch) 1 patch TRANSDERMA DAILY [facility] Last Admin: 07/23/19 08:37 Dose: 1 patch Documented by: Ondansetron HCl (Zofran) 4 mg IVP Q6H PRN PRN Reason: NAUSEA AND VOMITING Pantoprazole Sodium (Protonix) 40 mg IVP BID [facility] Last Admin: 07/23/19 16:55 Dose: 40 mg Documented by: Sevelamer Carbonate (Renvela) 1,600 mg PO TIDWM [facility] Last Admin: 07/23/19 16:55 Dose: 1,600 mg Documented by: PFSH Anesthesia PFSH: Medical History A-V fistula 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 AV fistula TPA right arm graft Anemia, chronic disease Atherosclerotic heart disease of [place] coronary artery without angina pectoris CAD (coronary artery disease) ESRD (end stage renal disease) on dialysis -is on HD MWF; dialyzed today -Nephrology consult appreciated -noted renal function, hyperkalemia -continue to monitor renal function -has tunneled catheter for access; from review of medical record, this was placed sometime between July and December 2018 Fistula GERD (gastroesophageal reflux disease) Hypertension Peripheral neuropathy Peripheral vascular disease Severe aortic stenosis Surgical History History of femoropopliteal bypass Hx of appendectomy Hx of CABG Hx of cholecystectomy S/P thyroid surgery Family History Other Diabetes Hypertension Social History Smoking and tobacco status: current every day smoker cigarettes Alcohol intake: never Female Reproductive History: Date of last menstrual period: 05/25/19 Data Anesthesia CBC & Chem 7: 07/25/19 05:44 07/25/19 05:44 Other Labs: Laboratory Results - last 48 hr 07/20/19 07/24/19 07/24/19 20:45 05:01 05:01 WBC 4.2 RBC 2.82 L Hgb 8.7 L Hct 27.8 L MCV 98.6 MCH 30.9 MCHC 31.3 RDW 16.4 H Plt Count 48 L MPV 12.3 H Neut % (Auto) 64.8 Lymph % (Auto) 16.0 [place] % (Auto) 9.8 Eos % (Auto) 8.4 Baso % (Auto) 0.5 Neut # (Auto) 2.7 Lymph # (Auto) 0.7 L [place] # (Auto) 0.4 Eos # (Auto) 0.4 Baso # (Auto) 0.0 Nucleated RBC % (auto) 0 Nucleated RBCs # 0.0 Sodium 136 Potassium 5.2 H Chloride 96 L Carbon Dioxide 24 Anion Gap 21.2 H BUN 54 H Creatinine 8.2 H* GFR Calculation 4.9 L Glucose 96 Calculated Osmolality 280 L Calcium 6.2 L Phosphorus 6.5 H Magnesium 2.2 Total Bilirubin 0.3 AST 29 ALT < 5 Alkaline Phosphatase 117 H Total Protein 6.3 L Albumin 3.3 L Globulin 3.0 Blood Type Rho(D) Type Crossmatch See Detail 07/24/19 07/24/19 07/25/19 13:48 14:41 05:44 WBC RBC Hgb Hct MCV MCH MCHC RDW Plt Count MPV Neut % (Auto) Lymph % (Auto) [place] % (Auto) Eos % (Auto) Baso % (Auto) Neut # (Auto) Lymph # (Auto) [place] # (Auto) Eos # (Auto) Baso # (Auto) Nucleated RBC % (auto) Nucleated RBCs # Sodium 138 140 Potassium 5.2 H 5.1 Chloride 98 97 L Carbon Dioxide 22 23 Anion Gap 23.2 H 25.1 H BUN 58 H 54 H Creatinine 9.0 H* 10.2 H* GFR Calculation 4.4 L 3.8 L Glucose 92 93 Calculated Osmolality 284 L 288 Calcium 6.4 L 6.4 L Phosphorus 7.4 H Magnesium 2.1 Total Bilirubin 0.4 0.3 AST 31 25 ALT 6 < 5 Alkaline Phosphatase 121 H 116 H Total Protein 6.3 L 6.4 L Albumin 3.3 L 3.3 L Globulin 3.0 3.1 Blood Type A Positive Rho(D) Type Positive Crossmatch 07/25/19 05:44 WBC 5.1 RBC 2.94 L Hgb 8.8 L Hct 28.9 L MCV 98.3 MCH 29.9 MCHC 30.4 RDW 16.1 H Plt Count 58 L MPV 12.5 H Neut % (Auto) 66.7 Lymph % (Auto) 15.1 [place] % (Auto) 8.4 Eos % (Auto) 8.6 Baso % (Auto) 0.6 Neut # (Auto) 3.4 Lymph # (Auto) 0.8 [place] # (Auto) 0.4 Eos # (Auto) 0.4 Baso # (Auto) 0.0 Nucleated RBC % (auto) 0 Nucleated RBCs # 0.0 Sodium Potassium Chloride Carbon Dioxide Anion Gap BUN Creatinine GFR Calculation Glucose Calculated Osmolality Calcium Phosphorus Magnesium Total Bilirubin AST ALT Alkaline Phosphatase Total Protein Albumin Globulin Blood Type Rho(D) Type Crossmatch Cardiac Studies: No Data to Display
--- NOTE | 2019-07-25 08:01 | SC_ITS ---
WS: [id number] INTRAOPERATIVE TECHNIQUE: 4 Spot fluoroscopic images for intraoperative purposes. FLUOROSCOPY TIME: 30.5 seconds CLINICAL INFORMATION: Placement of right subclavian tunneled hemodialysis catheter COMPARISON: None. FINDINGS: Right subclavian dual-lumen central venous catheters with tips in the SVC. No pneumothorax. SC/C-arm [place] for CVA [id number] IMPRESSION: Images obtained for intraoperative purposes.
[2019-07-25] MEDS: lidocaine 2% INJ 20 mL 10 ML INJECTION (09:07)
[2019-07-25] MEDS: heparin, porcine 1,000 unit/mL INJ 10 mL 6000 UNIT HE (09:09)
[2019-07-25] MEDS: neomycin-poly-bacitracin oint 28 gm 1 APPLIC TOPICAL (09:24)
--- NOTE | 2019-07-25 09:38 | XR_ITS ---
WS: [id number] CHEST XRAY TECHNIQUE: Portable chest. CLINICAL INFORMATION: s/p right subclavian vein tuneled catheter COMPARISON: July 20, 2019 FINDINGS: Heart: Normal cardiac silhouette. Sternotomy. Right subclavian central venous catheters with tips in the SVC. Surgical clips at the thoracic inlet. Lungs: Chronic emphysematous changes. No pneumothorax. Bones: Chronic right posterior rib fractures. Surgical clips right axilla. Left axillary vascular graft/stent. XR/XR chest 1V portable [id number] IMPRESSION: Right subclavian catheter with tips in the SVC. No pneumothorax.
--- NOTE | 2019-07-25 09:45 | P.OP_ITS ---
Operative Report Date of procedure: July 25, 2019 Pre-op Diagnosis: Renal failure Post-op diagnosis: same Post-op Findings: Unable to pass the guidewire via the right internal jugular vein due to stricture Procedure Done: Placement of right subclavian tunneled hemodialysis catheter 16 Sudanese Interpretation of the ultrasound and fluoroscopy was done by me through the whole entire procedure Surgeon: Bruno Spann Superintendent Construction: Corrie Goldsmith Anesthesia: MAC (MODERN AND CONTEMPORARY ART CURATOR [facility]) Estimated blood loss (mL): 15 Condition: stable Disposition: floor Brief History: This is a 64 years old female patient with complex vascular history requires tunneled hemodialysis access due to a complicated right forearm AV fistula malfunction. Plan of care; After thorough history physical examination and reviewing the chart, I counseled the patient for hemodialysis cath placement, indications, risks including pneumothorax and injury of major vascular structures, benefits, and alternatives were all discussed with the patient, patient understands and is interested to proceed. Informed consent per chart Assurance and education All questions have been answered Procedure: Patient was identified in the holding area and taken to the operative room and placed in supine position,both arms were tucked,Time-out was done verifying the patient's name/date of /planned procedure and destination after the procedure, all were in agreement.SCDs confirmed to be functioning, antibiotics administered per protocol, and beta asmita protocol was confirmed, appropriate positioning of the patient was done by me. Medications were reviewed to assess for anticoagulant usage. Risks and benefits and prevention of central line associated blood stream infection (CLABSI) were discussed with the patient/CPOA, and a consent was obtained. Monitors were in place and monitored throughout the procedure. All necessary supplies were available prior to start. Hand hygiene was completed prior to starting. Maximum barrier technique was utilized including a sterile gown, sterile gloves with a hat and mask. Site was was prepped with [chlorhexidine] and a full body drape was placed. 5 mL of 2% lidocaine was injected into the skin with a 25 gauge needle. Prep& drape was done under the usual sterile technique of upper chest right and left as well as the neck both sides, lidocaine 2% was injected at the site of the stick including the left IJ central line, started by right internal jugular vein stick that retrieved venous blood was obtained from the first stick under ultrasound there was no evidence of intraluminal thrombosis, a guidewire was then threaded but was never able to traverse the root of the neck,couple of attempts then I had to abort as I met resistance and I deviated my attention at this point to the right subclavian. Venous blood was retrieved from the first stick and the guidewire was passed smoothly and under the guidance of fluoroscopy position was confirmed to be in the IVC, there was no PVC changes, at that point the guidewire was secured to the drapes with a hemostat and the needle was taken out, attention was then deviated towards creation of an insert for the HD catheter at the right upper chest, were lidocaine 2% was injected using an 15 blade knife skin incision was created dissection using a hemostat to create an entrance and for the HD catheter to be inserted were it was connected to a tunneler, and the tunneler was used to accommodate the catheter of the HD catheter to be delivered through the incision first created at the site of the stick, a small skyler was created with 11 blade knife to allow delivery of the catheter(prior to that the estimated length was appropriately done under fluoroscopy guidance), at that point under fluoroscopy,serial dilators were done that come in the in the KIT, followed by that a dilator with the sheath introduced onto the guidewire ,the dilator and the wire were retrieved and the catheter of the port was introduced via the sheath where it was peeled off and the catheter maintained in good position at the SVC right atrial junction. Was able to flush both ports arterial and venous liberally The whole procedure was done under fluoroscopy , the position maintained to be in the SVC/rt atrium that was confirmed with fluoroscopy, and the fluoroscopy interpretation was done by me throughout the entire procedure. The stick site was closed by 3-0 Vicryl deep subdermal interrupted sutures and Dermabond was used followed by dry dressing was applied 3/0 nylon was used to secure the hemodialysis catheter onto the anterior chest wall Patient tolerated the procedure well was taken to the recovery area Count was correct at the end of the procedure I was present for the whole entire procedure Position of the catheter was checked with a postoperative chest x-ray and it was in good position without evidence of pneumothorax Placement of a HemoSplit hemodialysis catheter 16 Sudanese. Catheter was placed via the right subclavian vein and fluoroscopy guidance and interpretation by me
--- NOTE | 2019-07-25 10:18 | SUR.PHASEI ---
1000 PT TO PACU ON RA EARLIER, PT AWAKES EASILY , GOOD RESP EFFORT NO DISTRESS , TEGADERM TO LT NECK WHERE CENTRAL LINE WAS D/C'D IN OR, NO EDEMA ON HARDNESS NOTED TEGDADERM AND 2X2 TO RT CHEST WHERE DIALYSIS CATHETER INSERTED D/I WITH ONLY MOD AMT LT PINK TO 2X2 HANDOFF TO DIALYSIS NURSE JESSICA RN AT BEDSIDE PT TRANSFERED TO FLOOR BED AND MOVED TO DIALYSIS ROOM ON 1ST FLOOR PT ALERT TAKING OCC ICE CHIPS REMAINS ON RA.VSS X RAYS DONE IN PACU , DR MANRIQUE AWARE OF RESULTS.
--- NOTE | 2019-07-25 11:02 | P.PN_ITS ---
Subjective Subjective: Interval history: seen s/p rt subclavian PErmacath. she is lethargic, hypotensive and sob. Medications: Reviewed: Yes Medication Review Details: Current Medications Albuterol Sulfate (Ventolin) 2 puff INHALATION Q4H.RESPIRATORY PRN PRN Reason: SHORTNESS OF BREATH Albuterol/Ipratropium (Duoneb) 3 ml INHALATION Q6H.RESPIRATORY [facility] Last Admin: 07/25/19 02:20 Dose: 3 ml Documented by: Bacitracin (Bacitracin) 1 applic TOPICAL Q12H [facility]; Protocol Last Admin: 07/24/19 19:08 Dose: Not Given Documented by: Escitalopram Oxalate (Lexapro) 10 mg PO DAILY [facility] Last Admin: 07/24/19 09:00 Dose: 10 mg Documented by: Lidocaine HCl (Lidocaine 2% Jelly) 1 applic TOPICAL PRN PRN PRN Reason: ITCHING Multivitamins (Allbee-C) 1 each PO DAILY [facility] Last Admin: 07/24/19 09:00 Dose: 1 each Documented by: Neomycin/Polymyxin/Bacitracin (Neosporin Oint Tube) 1 applic TOPICAL BID [facility] Last Admin: 07/25/19 09:24 Dose: 1 % Documented by: Nicotine (Nicoderm 14 Mg Patch) 1 patch TRANSDERMA DAILY [facility] Last Admin: 07/24/19 09:00 Dose: 1 patch Documented by: Ondansetron HCl (Zofran) 4 mg IVP Q6H PRN PRN Reason: NAUSEA AND VOMITING Pantoprazole Sodium (Protonix) 40 mg IVP BID [facility] Last Admin: 07/24/19 18:03 Dose: 40 mg Documented by: Sevelamer Carbonate (Renvela) 1,600 mg PO TIDWM [facility] Last Admin: 07/24/19 18:03 Dose: 1,600 mg Documented by: Vitals/I&O/Wt Last Vital Signs Temp 97.8 F 07/25/19 09:59 Pulse 68 07/25/19 09:59 Resp 18 07/25/19 09:50 BP 110/45 07/25/19 09:59 Pulse Ox 95 07/25/19 09:59 07/24/19 07/25/19 07/25/19 22:59 06:59 14:59 Intake Total 100 / 220 261 / 261 Output Total 50 / 50 Balance 100 / 220 211 / 211 Weight last 48 hrs Weight 58.876 kg Physical Exam Narrative: EXAM NARRATIVE: awake and on dialysis, comfortable in bed vs noted- bp normal on left arm heent- nc/at neck supple lungs b/l wheezing rt ant chest wall tunneled catheter heart- irreg , tachycardic, , +PEEWEE abd soft, nt, nd, +BS ext minimal edema RUE AVG w/o bruit neuro- a,a, o x 2 Data : 07/25/19 05:44 07/25/19 05:44 A&P Additional A&P Information 64 yr old female 1. GI eval for anemia -s/p 2 u prbc txas per hospitalist hgb stable 2. ESRD-access is the issue left arm avf infection and pseudoaneurysm a few months ago- can not us eleft arm rt arm AVG clotted- [facility] did not wnat to do a declot now w/ thrombocytopenia- is improving to 58 -s/p new Rt Subclavian tunneled catheter placed this am by Dr. Spann -on HD now for 3.5 hrs, 2 k bath, remove 1.5 liter -will need to assess for HD in am, her routine day 3. h/o pseudomonas bacteremia and c diff colitis after LUE AVF infection and surgery at [facility] 4. pancytopenia- not explained by renal disease 5. h/o a fib and CAD- had rapid vrnt rate overnight and now 6. bone - mineral- metabolism- phos binder 7. anxiety care provided by telehealth w/ examined w/ RN Attestations Medical Necessity Statement*: esrd, clotted graft Time Spent in Patient Care: 16 - 35 minutes Coding Level of Care Code Acute Cosmetic Sales Consultant for Ayshag Leopoldo
--- NOTE | 2019-07-25 13:50 | PC.SOCIAL ---
IMM Updated Page 2 of IMM updated and given to patient. Initialed, dated, and timed and placed back in chart.
--- NOTE | 2019-07-25 14:51 | P.PN_ITS ---
Subjective Subjective: Interval history: Uneventful placement of hemodialysis access catheter. She denies any new complaints today. Thinks that she had some dark stool again yesterday, although this was not confirmed by RN. No fresh blood. Vitals/I&O/Wt Last Vital Signs Temp 97.8 F 07/25/19 09:59 Pulse 68 07/25/19 09:59 Resp 18 07/25/19 09:50 BP 110/45 07/25/19 09:59 Pulse Ox 95 07/25/19 09:59 07/24/19 07/25/19 07/25/19 22:59 06:59 14:59 Intake Total 100 / 220 261 / 261 Output Total 50 / 50 Balance 100 / 220 211 / 211 Weight last 48 hrs Weight 58.876 kg Physical Exam Const: COMMON NORMALS: no apparent distress and oriented x3 GENERAL APPEARANCE: frail appearing HENMT: COMMON NORMALS: oropharynx normal Neck/C-Spine: COMMON NORMALS: no JVD Chest: OTHER: Right subclavian dialysis catheter Resp: COMMON NORMALS: normal respiratory effort and clear to auscultation bilaterally AUSCULTATION: clear to auscultation bilaterally Cardio: COMMON NORMALS: no JVD, regular rhythm, S1 normal heart sound, S2 normal heart sound and no murmurs RHYTHM: regular rhythm HEART SOUNDS: S1 normal and S2 normal GI: COMMON NORMALS: normal to inspection, nondistended, normoactive bowel sounds, soft to palpation and non-tender PALPATION: Yes soft Extremity: COMMON NORMALS: no joint enlargement and no pedal edema OTHER: perfused upper extremities. Neuro: COMMON NORMALS: oriented x3 and moves all extremities Skin: COMMON NORMALS: no rashes or lesions noted GENERAL SKIN EXAM: no rashes or lesions noted OTHER: Some scattered small petechial lesions and excoriation patterns Data : 07/25/19 05:44 07/25/19 05:44 A&P Assessment and plan (1) Acute GI bleeding: Now that hemodialysis access was fixed, will resume Prasugrel, monitor for any recurrence of bleeding. She is agreeable with this plan, as returning home and initiating there may not be safe given recent GI bleed. If bleeding recurs, may need to have endoscopic evaluation despite pandemic restrictions. Continue PPI. Status: Acute (2) Hemodialysis graft malfunction: Right chest hemodialysis access placed uneventfully. Follow-up with vascular surgery at [facility] on outpatient basis regarding right arm graft Status: Acute (3) Acute hyperkalemia: Expect will improve w HD. Status: Acute (4) Smoker: Continue to encourage cessation. Status: Acute (5) ESRD (end stage renal disease): HD MWF, although with missed HD sessions. Status: Acute (6) Pancytopenia: Pancytopenia of unclear etiology. WBC 3.1, neutropenic with ANC 1600, hemoglobin 7.3, platelets 53,000. ESRD may be contributing, although concern with her may have additional condition responsible for this. Assess B12, folic acid. Peripheral smear. Notify Dr. Riggs. He will expect her in follow-up in 2-3 weeks to reassess blood counts and consider elective bone marrow biopsy once this is possible with regards to the current pandemic limitations. Status: Acute Additional A&P Information Recent pseudomonal bacteremia. BC pending. Anxiety AFib CAD Attestations Medical Necessity Statement*: Continue admission for reinitiation of antiplatelet and monitoring for any recurrence of bleeding due to recent GI bleed. Coding Level of Care Code Acute Corrections Identification Technician for Chg Fwd Diagnoses Acute GI bleeding K92.2 Hemodialysis graft malfunction T82.41XA Acute hyperkalemia E87.5 Smoker F17.200 ESRD (end stage renal disease) N18.6 Pancytopenia D61.818
[2019-07-25] MEDS: prasugrel 10 MG Tablet PO (16:11)
[2019-07-25 17:25] LABS: Alanine Aminotransferase 7 U/L (0-33); Albumin Level 2.9 g/dL (3.5-5.2); Alkaline Phosphatase 104 IU/L (35-105); Blood Urea Nitrogen 20 mg/dL (8-23); Calcium 7.1 mg/dL (8.5-10.5); Carbon Dioxide 25 mmol/L (22-29); Chloride 99 mmol/L (98-107); Globulin 2.7 g/dL (1.3-4.6); Glomerular Filtration Rate 10.4 mL/min (90-130); Glucose 118 mg/dL (65-115); Osmolality Calculated 284 mOsm/kg (285-295); Sodium 138 mmol/L (136-145); Total Bilirubin 0.5 mg/dL (0.15-1.2); Total Protein 5.6 g/dL (6.6-8.7)
[2019-07-25] MEDS: sevelamer 800 mg Tablet 1600 MG PO (17:58)
[2019-07-25] MEDS: pantoprazole 40 mg SDV IVP (17:58)
[2019-07-25 19:13] LABS: Aspartate Amino Transferase 28 U/L (0-32)
[2019-07-25] MEDS: bacitracin ointment 28 gm 1 APPLIC TOPICAL (20:57)
--- NOTE | 2019-07-25 23:38 | PC.NURSE ---
Dr. Rivera notified of patient having a fever. PO PRN Tylenol ordered.
[2019-07-25] MEDS: acetaminophen 325 mg Tablet 650 MG PO (23:53)
[2019-07-26] VITALS (12 sets, daily range): BP systolic 133–163; BP diastolic 58–82; PULSE 67–91; RESP 16–22; TEMP 36.6–36.7; O2SAT 92–99
[2019-07-26] MEDS: ipratropium-albuterol 3 mL Neb INHALATION ×4 (03:08→21:59)
[2019-07-26 04:35] LABS: Alanine Aminotransferase < 5 U/L (0-33); Alkaline Phosphatase 100 IU/L (35-105); Anion Gap 19.8 (5-19); Aspartate Amino Transferase 24 U/L (0-32); Blood Urea Nitrogen 21 mg/dL (8-23); Calcium 6.8 mg/dL (8.5-10.5); Carbon Dioxide 25 mmol/L (22-29); Chloride 100 mmol/L (98-107); Globulin 2.5 g/dL (1.3-4.6); Glomerular Filtration Rate 7.8 mL/min (90-130); Glucose 86 mg/dL (65-115); Magnesium 1.8 mg/dL (1.7-2.3); Osmolality Calculated 286 mOsm/kg (285-295); Phosphorus 4.5 mg/dL (2.5-4.5); Potassium 4.8 mmol/L (3.5-5.1); Sodium 140 mmol/L (136-145); Total Bilirubin 0.3 mg/dL (0.15-1.2); Total Protein 5.5 g/dL (6.6-8.7)
--- NOTE | 2019-07-26 06:22 | PC.NURSE ---
Dr. Mayo in room to see patient. Ordered to leave pressure dressing on patient for 24 hours over dialysis port.
[2019-07-26] MEDS: sevelamer 800 mg Tablet 1600 MG PO ×3 (07:48→17:32)
[2019-07-26 07:49] LABS: Basophils % 0.5 %; Eosinophils # 0.2 10^3/uL (0.0-0.8); Eosinophils % 5.2 %; Hematocrit 25.9 % (37.0-47.0); Hemoglobin 7.8 g/dL (11.5-15.3); Lymphocytes # 0.6 10^3/uL (0.8-4.8); Lymphocytes % 16.4 %; Mean Corpuscular HGB Conc 30.1 g/dL (30.0-36.0); Mean Corpuscular Hemoglobin 30.5 pg (28.0-34.0); Mean Corpuscular Volume 101.2 fL (81-99); Mean Platelet Volume 11.9 fL (7.4-10.4); Monocytes # 0.4 10^3/uL (0.2-0.9); Monocytes % 9.9 %; Neutrophils # 2.6 10^3/uL (1.8-7.7); Neutrophils % 67.5 %; Nucleated Red Blood Cells % 0 %; Platelet Count 59 10^3/cmm (130-400); Red Blood Count 2.56 10^6/uL (4.1-5.3); Red Cell Distribution Width 16.6 % (12.1-15.1); White Blood Count 3.8 10^3/uL (4.0-10.0)
[2019-07-26] MEDS: pantoprazole 40 mg SDV IVP ×2 (07:49→17:32)
[2019-07-26] MEDS: b-complex-vitamin c Tablet 1 EACH PO (07:49)
[2019-07-26] MEDS: escitalopram 10 mg Tablet PO (07:49)
[2019-07-26] MEDS: nicotine 14 mg Patch 1 PATCH TRANSDERMA (07:49)
--- NOTE | 2019-07-26 10:55 | PC.NURSE ---
Pt very anxious during physician rounding She is on a bipap. When we tried to take it off with RT at bedside and Dr. Tuttle, she started to panic and complain of chest discomfort. She is requesting for Morphine. Received verbal order for for 1 mg Morphine one time IVP from Dr. Tuttle. I explained to pt regarding dignity with her end of life and she nods where she agreed. She is asking that we will talk to all her kids not just D or Betty. Notified case mgt.
--- NOTE | 2019-07-26 13:20 | P.PN_ITS ---
Subjective Subjective: Interval history: feeling better, did not see blood in stool today Had HD yesterday via new tunneled dialysis catheter Medications: Reviewed: Yes Vitals/I&O/Wt Last Vital Signs Temp 98.1 F 07/26/19 11:13 Pulse 75 07/26/19 11:13 Resp 18 07/26/19 11:13 BP 150/68 07/26/19 11:13 Pulse Ox 94 07/26/19 11:13 07/25/19 07/26/19 07/26/19 22:59 06:59 14:59 Intake Total 240 / 501 400 / 901 218 / 218 Balance 240 / 451 400 / 851 218 / 218 Weight last 48 hrs Weight 60.192 kg Weight 58.876 kg Physical Exam Const: COMMON NORMALS: no apparent distress GENERAL APPEARANCE: cooperative Data : 07/26/19 07:40 07/26/19 03:40 Micro: Microbiology 07/20/19 19:30 Blood Culture - Final Blood NO GROWTH AFTER 5 DAYS 07/20/19 20:45 Blood Culture - Final Blood NO GROWTH AFTER 5 DAYS A&P Additional A&P Information 1. ESRD, clotted AVG 2. GI bleed, anemia 3. Hyperkalemia - resolved Plan: HD tomorrow. Epogen at dialysis. Check Hb in AM, if lower, consider transfusion prior to discharge. 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
--- NOTE | 2019-07-26 13:30 | PM.PN ---
Subjective Subjective: Interval history: Denies any new symptoms although does have some tenderness at that tunneled catheter. Reports had a normal bowel movement today. Vitals/I&O/Wt Last Vital Signs Temp 98.1 F 07/26/19 11:13 Pulse 75 07/26/19 11:13 Resp 18 07/26/19 11:13 BP 150/68 07/26/19 11:13 Pulse Ox 94 07/26/19 11:13 07/25/19 07/26/19 07/26/19 22:59 06:59 14:59 Intake Total 240 / 501 400 / 901 218 / 218 Balance 240 / 451 400 / 851 218 / 218 Weight last 48 hrs Weight 60.192 kg Weight 58.876 kg Physical Exam Const: COMMON NORMALS: no apparent distress and oriented x3 GENERAL APPEARANCE: frail appearing HENMT: COMMON NORMALS: oropharynx normal Neck/C-Spine: COMMON NORMALS: no JVD Chest: OTHER: Right subclavian dialysis catheter Resp: COMMON NORMALS: normal respiratory effort and clear to auscultation bilaterally AUSCULTATION: clear to auscultation bilaterally Cardio: COMMON NORMALS: no JVD, regular rhythm, S1 normal heart sound, S2 normal heart sound and no murmurs RHYTHM: regular rhythm HEART SOUNDS: S1 normal and S2 normal GI: COMMON NORMALS: normal to inspection, nondistended, normoactive bowel sounds, soft to palpation and non-tender PALPATION: Yes soft Extremity: COMMON NORMALS: no joint enlargement and no pedal edema OTHER: perfused upper extremities. Neuro: COMMON NORMALS: oriented x3 and moves all extremities Skin: COMMON NORMALS: no rashes or lesions noted GENERAL SKIN EXAM: no rashes or lesions noted OTHER: Some scattered small petechial lesions and excoriation patterns Data : 07/26/19 07:40 07/26/19 03:40 Micro: Microbiology 07/20/19 19:30 Blood Culture - Final Blood NO GROWTH AFTER 5 DAYS 07/20/19 20:45 Blood Culture - Final Blood NO GROWTH AFTER 5 DAYS A&P Assessment and plan (1) Acute GI bleeding: Trial of restarting Effient. Hemoglobin did trend down today to 7.8, although at the same time she had a bone today which was normal, without indication of melena or fresh blood. Discussed with her we will reassess again hemoglobin in the morning. And if she is doing well, at that point may discharge with outpatient follow-up for elective endoscopic evaluation. If further decline in hemoglobin, or recurrence of bleeding, will need additional endoscopic evaluation in the hospital. Continue PPI. Status: Acute (2) Hemodialysis graft malfunction: Right chest hemodialysis access placed uneventfully. Follow-up with vascular surgery at [facility] on outpatient basis regarding right arm graft Status: Acute (3) Acute hyperkalemia: Resolved. Status: Acute (4) Smoker: Continue to encourage cessation. Status: Acute (5) ESRD (end stage renal disease): HD MWF, although with missed HD sessions. Status: Acute (6) Pancytopenia: Pancytopenia of unclear etiology. WBC 3.1, neutropenic with ANC 1600, hemoglobin 7.3, platelets 53,000. ESRD may be contributing, although concern with her may have additional condition responsible for this. Assess B12, folic acid. Peripheral smear. Notify Dr. Riggs. He will expect her in follow-up in 2-3 weeks to reassess blood counts and consider elective bone marrow biopsy once this is possible with regards to the current pandemic limitations. Status: Acute Additional A&P Information Recent pseudomonal bacteremia. BC pending. Anxiety AFib CAD Attestations Medical Necessity Statement*: Continue admission to resume antiplatelet medication in the setting of recent GI bleed, ESRD, CAD and PAD, pancytopenia with thrombocytopenia, and other comorbidities. Coding Level of Care Code Acute Group Exercise Class Instructor for Chg Fwd Diagnoses Acute GI bleeding K92.2 Hemodialysis graft malfunction T82.41XA Acute hyperkalemia E87.5 Smoker F17.200 ESRD (end stage renal disease) N18.6 Pancytopenia D61.818
[2019-07-26] MEDS: HYDROcodone-acetaminophen 5-325 mg Tablet 1 TAB PO ×2 (14:29→23:05)
[2019-07-26] MEDS: prasugrel 10 MG Tablet PO (17:31)
[2019-07-27] VITALS (10 sets, daily range): BP systolic 111–168; BP diastolic 60–86; PULSE 65–116; RESP 16–22; TEMP 36.4–37; O2SAT 96–100
[2019-07-27] MEDS: ipratropium-albuterol 3 mL Neb INHALATION ×3 (03:44→20:01)
[2019-07-27 05:20] LABS: Basophils % 0.6 %; Eosinophils # 0.2 10^3/uL (0.0-0.8); Eosinophils % 4.5 %; Hematocrit 24.8 % (37.0-47.0); Hemoglobin 7.4 g/dL (11.5-15.3); Lymphocytes # 0.6 10^3/uL (0.8-4.8); Lymphocytes % 17.2 %; Mean Corpuscular HGB Conc 29.8 g/dL (30.0-36.0); Mean Corpuscular Hemoglobin 30.6 pg (28.0-34.0); Mean Corpuscular Volume 102.5 fL (81-99); Mean Platelet Volume 12.1 fL (7.4-10.4); Monocytes # 0.3 10^3/uL (0.2-0.9); Monocytes % 9.5 %; Neutrophils # 2.3 10^3/uL (1.8-7.7); Neutrophils % 67.9 %; Nucleated Red Blood Cells % 0 %; Platelet Count 68 10^3/cmm (130-400); Red Blood Count 2.42 10^6/uL (4.1-5.3); Red Cell Distribution Width 16.3 % (12.1-15.1); White Blood Count 3.4 10^3/uL (4.0-10.0)
[2019-07-27 05:45] LABS: Anion Gap 20.5 (5-19); Blood Urea Nitrogen 32 mg/dL (8-23); Calcium 6.5 mg/dL (8.5-10.5); Carbon Dioxide 23 mmol/L (22-29); Chloride 101 mmol/L (98-107); Glomerular Filtration Rate 6.2 mL/min (90-130); Glucose 98 mg/dL (65-115); Osmolality Calculated 287 mOsm/kg (285-295); Potassium 4.5 mmol/L (3.5-5.1); Sodium 140 mmol/L (136-145)
--- NOTE | 2019-07-27 07:41 | ANE.PACU2 ---
 Inpatient post-anesthesia follow up: Airway intact: Yes Vital signs: Temperature 98.5 F Pulse Rate 80 Respiratory Rate 16 Blood Pressure 111/60 Pulse Oximetry 98 Oxygen Delivery Me thod [Rate & Nasal Cannula Delivery Changed T o] Oxygen Delivery Me thod [ Room Air Current Rate & Del shubham] Oxygen Delivery Me thod Room Air Oxygen Flow Rate [ Rate & 2 Delivery Changed T o] Oxygen Flow Rate 2 Fraction of Inspir ed Oxygen Hydration adequate: Yes Nausea and vomiting: No Pain level: 1 Mental status: Baseline
[2019-07-27] MEDS: sevelamer 800 mg Tablet 1600 MG PO (08:25)
[2019-07-27] MEDS: b-complex-vitamin c Tablet 1 EACH PO (08:25)
[2019-07-27] MEDS: escitalopram 10 mg Tablet PO (08:25)
[2019-07-27] MEDS: nicotine 14 mg Patch 1 PATCH TRANSDERMA (08:26)
[2019-07-27] MEDS: bacitracin ointment 28 gm 1 APPLIC TOPICAL (08:30)
[2019-07-27] MEDS: neomycin-poly-bacitracin oint 28 gm 1 APPLIC TOPICAL (08:30)
[2019-07-27] MEDS: pantoprazole 40 mg SDV IVP ×2 (08:34→17:23)
--- NOTE | 2019-07-27 08:35 | ECG_ITS ---
Measurements Intervals [place] Rate: 89 P: 166 [place]: 309 QRS: -58 QRSD: 148 T: -15 QT: 449 QTc: 548 Sinus RHYTHM WITH FIRST DEGREE AV BLOCK Right bundle branch block INFERIOR MYOCARDIAL INFARCTION [40+ ms Q WAVE AND/OR ST/T ABNORMALITY IN II/aVF], OF INDETERMINATE AGE WITH POSTERIOR EXTENSION Compared to ECG 07/24/2019 07:52:38 Myocardial infarct finding still present Electronically Signed On 07-27-2019 15:32:33 CDT by Lauro Camacho M.D. [email or web address]
[2019-07-27] MEDS: lidocaine 5% Patch 1 PATCH TOPICAL (08:37)
[2019-07-27] MEDS: HYDROcodone-acetaminophen 5-325 mg Tablet 1 TAB PO (08:58)
--- NOTE | 2019-07-27 12:39 | P.PN_ITS ---
Subjective Subjective: Interval history: She is doing alright. No new complaints. Undergoing hemodialysis. Looking forward to when she may be going home, but concerned that her hemoglobin is trending down and is worried about discontinuing Effient. Vitals/I&O/Wt Last Vital Signs Temp 97.8 F 07/27/19 07:42 Pulse 112 H 07/27/19 08:42 Resp 17 07/27/19 08:40 BP 162/82 07/27/19 07:42 Pulse Ox 98 07/27/19 08:40 07/26/19 07/27/19 07/27/19 22:59 06:59 14:59 Intake Total 360 / 578 60 / 638 480 / 480 Balance 360 / 578 60 / 638 480 / 480 Weight last 48 hrs Weight 60.781 kg Weight 60.192 kg Physical Exam Const: COMMON NORMALS: no apparent distress and oriented x3 GENERAL APPEARANCE: frail appearing HENMT: COMMON NORMALS: oropharynx normal Neck/C-Spine: COMMON NORMALS: no JVD Chest: OTHER: Right subclavian dialysis catheter Resp: COMMON NORMALS: normal respiratory effort and clear to auscultation bilaterally AUSCULTATION: clear to auscultation bilaterally Cardio: COMMON NORMALS: no JVD, regular rhythm, S1 normal heart sound, S2 normal heart sound and no murmurs RHYTHM: regular rhythm HEART SOUNDS: S1 normal and S2 normal GI: COMMON NORMALS: normal to inspection, nondistended, normoactive bowel sounds, soft to palpation and non-tender PALPATION: Yes soft Extremity: COMMON NORMALS: no joint enlargement and no pedal edema OTHER: Scattered bruising. Perfused upper extremities. Neuro: COMMON NORMALS: oriented x3 and moves all extremities Skin: COMMON NORMALS: no rashes or lesions noted GENERAL SKIN EXAM: no rashes or lesions noted OTHER: Some scattered small petechial lesions and excoriation patterns Data : 07/27/19 05:02 07/27/19 05:02 A&P Assessment and plan (1) Acute GI bleeding: Hemoglobin again trended down to 7.4 today. Concern for ongoing bleeding despite period of time off Effient. Discussed with her options of discontinuing Effient in light of recurrent bleeding and pancytopenia, but with history of CABG, CAD and PAD s/p stenting she is concerned about discontinuing the medication for unidentified period of time. We also discussed assessment by endoscopy to identify potential source of bleeding. She understands that with her comorbidities either choice will be at higher risk and the decision is difficult. With consideration she is preferring to pursue endoscopic evaluation during this hospitalization. Continue PPI. Status: Acute (2) Hemodialysis graft malfunction: Right chest hemodialysis access placed uneventfully. Some tenderness over tunnelled section without fluctuance, bleeding or sign of hematoma. Being fo llowed by surgery. Follow-up with vascular surgery at [facility] on outpatient basis regarding right arm g raft Status: Acute (3) Acute hyperkalemia: Resolved. Status: Acute (4) Smoker: Continue to encourage cessation. Status: Acute (5) ESRD (end stage renal disease): HD MWF, although with missed HD sessions. Status: Acute (6) Pancytopenia: Pancytopenia of unclear etiology. WBC 3.1, neutropenic with ANC 1600, hemoglobin 7.3, platelets 53,000. ESRD may be contributing, although concern with her may have additional condition responsible for this. Assess B12, folic acid. Peripheral smear. Notify Dr. Riggs. He will expect her in follow-up in 2-3 weeks to reassess blood counts and consider elective bone marrow biopsy once this is possible with regards to the current pandemic limitations. Status: Acute Additional A&P Information Recent pseudomonal bacteremia. BC pending. Anxiety AFib CAD Attestations Medical Necessity Statement*: Continue admission for assessment and management of acute blood loss anemia with multiple comorbidities. 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
--- NOTE | 2019-07-27 13:16 | PM.PN ---
Subjective Subjective: Interval history: seen at dialysis Hb lower today, plan for possible EGD/colonoscopy tomorrow Medications: Reviewed: Yes Vitals/I&O/Wt Last Vital Signs Temp 97.8 F 07/27/19 07:42 Pulse 112 H 07/27/19 08:42 Resp 17 07/27/19 08:40 BP 162/82 07/27/19 07:42 Pulse Ox 98 07/27/19 08:40 07/26/19 07/27/19 07/27/19 22:59 06:59 14:59 Intake Total 360 / 578 60 / 638 480 / 480 Balance 360 / 578 60 / 638 480 / 480 Weight last 48 hrs Weight 60.781 kg Weight 60.192 kg Physical Exam Const: COMMON NORMALS: no apparent distress GENERAL APPEARANCE: cooperative Data : 07/27/19 05:02 07/27/19 05:02 A&P Additional A&P Information 1. ESRD, usually receives HD MWF 2. Clotted AVG, new tunneled dialysis catheter 3. Anemia, GI bleed. Epogen 20,000u SQ today HD tomorrow or Wednesday depending on endoscopy and discharge plans. 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
[2019-07-27 13:30] LABS: Magnesium 2.1 mg/dL (1.7-2.3)
[2019-07-27] MEDS: peg /e-lyte soln 4,000 mL Btl 4000 ML PO (14:33)
--- NOTE | 2019-07-27 17:19 | PM.PN ---
Subjective Subjective: Interval history: Patient overall undergoing uneventful dialysis yet per report she does have bleeding per rectum I was re-approached by the hospitalist service to perform a diagnostic endoscopy. Apparently the patient was restarted on her blood thinners and she started to encounter bleeding per rectum per hospitalist description and there was a drift in her H&H Vitals/I&O/Wt Last Vital Signs Temp 97.9 F 07/27/19 14:55 Pulse 65 07/27/19 14:55 Resp 18 07/27/19 14:55 BP 168/70 07/27/19 14:55 Pulse Ox 100 07/27/19 14:55 07/27/19 07/27/19 07/27/19 06:59 14:59 22:59 Intake Total 60 / 638 480 / 480 Balance 60 / 638 480 / 480 Weight last 48 hrs Weight 134 lb Weight 132 lb 11.2 oz Physical Exam Narrative: EXAM NARRATIVE: Patient is conscious alert oriented X3 BMI 25 Head and neck examination PERRLA no masses no cervical lymphadenopathy no jaundice Right upper chest hemodialysis in place without complication Abdomen nontender nondistended soft no organomegaly guarding or rigidity/no signs of peritonitis Data : 07/27/19 05:02 07/27/19 05:02 A&P Assessment and plan (1) Acute GI bleeding: Plan of care; After thorough history and physical examination and reviewing the chart, plan to perform a diagnostic esophagogastroduodenoscopy and diagnostic colonoscopy with possible biopsy and possible polypectomy, in the operating room due patient's medical comorbioddities and being a higher risk. Rationale was carefully and clearly discussed with the patient.Appropriate consent have been reviewed and signed Informed consent per chart were,Indications, risks, benefits, and alternatives were all discussed with the patient and did agree to proceed. Verbal Instructions were given to the patient for colonoscopy prep Status: Acute Attestations Medical Necessity Statement*: Medical necessity care is expected to cross 2 midnights Time Spent in Patient Care: 16 - 35 minutes (>than 50% of time spent in counselling and/or direct pt care on unit). Coding Level of Care Code Acute Tooth Cutter Contact Wheel for Melvin Mina Diagnoses Acute GI bleeding K92.2
--- NOTE | 2019-07-27 19:39 | PC.NURSE ---
Lying supine in bed watching television. GoLytely on overbed table. I only have to drink it until I'm clear....I'm not drinking all of that cause I'm on a fluid restriction....I'm telling you not to wake me up tonight like you did last night....I want to sleep. Assessment completed. Lidocaine patch removed per patient request. I will be going home soon. Will monitor.
--- NOTE | 2019-07-27 22:17 | PC.NURSE ---
Patient sleeping with eyes closed. Respirations even and unlabored. Refusing Go-Lytely. Will monitor.
[2019-07-28] VITALS (10 sets, daily range): BP systolic 140–158; BP diastolic 51–82; PULSE 63–100; RESP 16–20; TEMP 36.6–36.9; O2SAT 97–99
--- NOTE | 2019-07-28 00:28 | PC.NURSE ---
Patient continues to refuse to drink the Go-Lytely. Will monitor.
--- NOTE | 2019-07-28 00:37 | PC.NURSE ---
Dr. Rivera notified of patient's refusal to drink Go-Lytely. No new orders received. Will monitor
--- NOTE | 2019-07-28 01:03 | PC.NURSE ---
Resting on right side with eyes closed. Respirations even and unlabored. Did not awaken per patient request/demand earlier this shift. This nurse did explain to patient earlier the need to drink the Golytely;however, patient states, I told you I can't drink anymore. Will monitor
--- NOTE | 2019-07-28 03:18 | PC.NURSE ---
Patient awakened after this nurse being notified that patient had, 2 runs of V-Tach in last 15 minutes. Patient very upset. This nurse asked patient if I could listen to her heart and lungs. Well I guess damn it....nothing hurts....why did you wake me up. Attempted to explain to patient about what her heart was doing;however, she didn't want to listen. Asked about the golytely once again. I'm through with it. VS taken. Heart tones regular. Will monitor.
[2019-07-28] MEDS: HYDROcodone-acetaminophen 5-325 mg Tablet 1 TAB PO ×3 (03:43→20:17)
--- NOTE | 2019-07-28 03:52 | PC.NURSE ---
Patient up to BSC. HR 130's. Patient requesting pain pill. Medication given for leg and generalized pain. Smiling at this time. Small amount of blood noted on dressing to permacath. I just want to leave that alone for right now. Still refusing to drink Go-lytely at this time. Small amount of light brown liquid stool noted in BSC. Just want left alone now. Will monitor.
--- NOTE | 2019-07-28 04:01 | PC.NURSE ---
Dr. Rivera updated on patient's condition and the refusal of the golytely. No new orders received.
[2019-07-28 05:08] LABS: Basophils % 0.6 %; Eosinophils # 0.1 10^3/uL (0.0-0.8); Hematocrit 26.6 % (37.0-47.0); Hemoglobin 7.9 g/dL (11.5-15.3); Lymphocytes # 0.6 10^3/uL (0.8-4.8); Mean Corpuscular HGB Conc 29.7 g/dL (30.0-36.0); Mean Corpuscular Hemoglobin 31.2 pg (28.0-34.0); Mean Corpuscular Volume 105.1 fL (81-99); Monocytes # 0.4 10^3/uL (0.2-0.9); Monocytes % 11.8 %; Neutrophils # 2.1 10^3/uL (1.8-7.7); Nucleated Red Blood Cells % 0 %; Platelet Count 69 10^3/cmm (130-400); Red Blood Count 2.53 10^6/uL (4.1-5.3); Red Cell Distribution Width 16.2 % (12.1-15.1); White Blood Count 3.2 10^3/uL (4.0-10.0)
[2019-07-28 05:24] LABS: Blood Urea Nitrogen 8 mg/dL (8-23); Calcium 7.5 mg/dL (8.5-10.5); Carbon Dioxide 25 mmol/L (22-29); Chloride 99 mmol/L (98-107); Glomerular Filtration Rate 14.1 mL/min (90-130); Glucose 85 mg/dL (65-115); Osmolality Calculated 279 mOsm/kg (285-295); Sodium 137 mmol/L (136-145)
--- NOTE | 2019-07-28 08:07 | ANES.PREANE2 ---
Pre-Anesthetic Assessment Pre-Anesthetic Assessment: Height/Weight: Height 1.55 m Weight 60.872 kg Temp Pulse Resp BP Pulse Ox 98.5 F 78 16 144/51 97 07/28/19 03:20 07/28/19 03:20 07/28/19 03:20 07/28/19 03:20 07/28/19 03:20 Preop Diagnosis: GI Bleed Proposed Procedure: Operation Date: 07/25/19 08:20 Proposed Procedures p Dialysis Catheter Insertion(Right) - Bruno Spann MD Operation Date: 07/28/19 12:10 Proposed Procedures p EGD(Not Applicable) - Bruno Spann MD s Colonoscopy(Not Applicable) - Bruno Spann MD Last Intake: 23:59 Social: Packs per day: 1/4 Pack years: 10 Exam: Pre-Anes Outpt Exam: alert, oriented x 3, clear to auscultation bilaterally and regular rate & rhythm Airway: Submandibular: WNL Cervical ROM: WNL MP: 2 Dentition: Loose Additional comments: especially right lower bottom Pulmonary: Pulmonary: Asthma and COPD Comments: breathing feels good CV/HEM: CV/HEM: CAD and HTN Comments: rx'd 20y CABG x2, 2017 without sxx since angina/use of NTG : : Chronic renal failure Comments: 13y, hemodialysis last 07/26 GI: GI: GERD Comments: GI bleed GERD well controlled with Nexium Neuropsych: Neuropsych: CVA Comments: '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, residual <10% leg worse than arm Anesthetic Plan: ASA status: 3 Anesthesia: MAC Meds/Allergies Current Medications: Current Medications Generic Name Dose Route Start Last Admin Trade Name Freq PRN Reason Stop Dose Admin Acetaminophen 650 mg 07/25/19 23:37 07/25/19 23:53 Tylenol PO 650 mg Q4H PRN Administration MILD PAIN OR INCR EASE TEMP Hydrocodone Bitart /Acetaminophen 1 tab 07/26/19 14:10 07/28/19 03:43 Globe 5-325 Mg PO 1 tab Q6H PRN Administration MODERATE PAIN Albuterol/Ipratrop ium 3 ml 07/23/19 15:00 07/28/19 02:28 Duoneb INHALATION Not Given Q6H.RESPIRATORY S [facility] Bacitracin 1 applic 07/21/19 09:00 07/27/19 22:15 Bacitracin TOPICAL Not Given Q12H [facility] Protocol Escitalopram Oxala te 10 mg 07/21/19 09:00 07/27/19 08:25 Lexapro PO 10 mg DAILY JOSE DANIEL Administration Lidocaine 1 patch 07/26/19 21:00 07/27/19 22:16 Lidoderm 5% Patc h TOPICAL Not Given [id number] JOSE DANIEL Lidocaine HCl 1 applic 07/24/19 17:09 07/25/19 20:57 Lidocaine 2% Jel ly TOPICAL 1 applic PRN PRN Administration ITCHING Multivitamins 1 each 07/21/19 09:00 07/27/19 08:25 Allbee-C PO 1 each DAILY JOSE DANIEL Administration Neomycin/Polymyxin /Bacitracin 1 applic 07/25/19 18:00 07/27/19 17:22 Neosporin Oint T ube TOPICAL Not Given BID JOSE DANIEL Nicotine 1 patch 07/22/19 09:00 07/27/19 08:26 Nicoderm 14 Mg P atch TRANSDERMA 1 patch DAILY JOSE DANIEL Administration Pantoprazole Sodiu m 40 mg 07/21/19 09:00 07/27/19 17:23 Protonix IVP 40 mg BID JOSE DANIEL Administration Sevelamer Carbonat e 1,600 mg 07/21/19 18:00 07/27/19 17:22 Renvela PO Not Given TIDWM JOSE DANIEL Sucralfate 1 gm 07/27/19 11:00 07/27/19 12:33 Carafate Oral Li q PO Not Given AC&BEDTIME JOSE DANIEL PFSH Anesthesia PFSH: Medical History A-V fistula 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 AV fistula TPA right arm graft Anemia, chronic disease Atherosclerotic heart disease of [place] coronary artery without angina pectoris CAD (coronary artery disease) ESRD (end stage renal disease) on dialysis -is on HD MWF; dialyzed today -Nephrology consult appreciated -noted renal function, hyperkalemia -continue to monitor renal function -has tunneled catheter for access; from review of medical record, this was placed sometime between July and December 2018 Fistula GERD (gastroesophageal reflux disease) Hypertension Peripheral neuropathy Peripheral vascular disease Severe aortic stenosis Surgical History History of femoropopliteal bypass Hx of appendectomy Hx of CABG Hx of cholecystectomy S/P thyroid surgery Family History Other Diabetes Hypertension Social History Smoking and tobacco status: current every day smoker cigarettes Alcohol intake: never Female Reproductive History: Date of last menstrual period: 05/25/19 Data Anesthesia CBC & Chem 7: 07/28/19 04:38 07/28/19 04:38 Other Labs: Laboratory Results - last 48 hr 07/24/19 07/27/19 07/27/19 13:48 05:01 05:02 WBC 3.4 L RBC 2.42 L Hgb 7.4 L Hct 24.8 L MCV 102.5 H MCH 30.6 MCHC 29.8 L RDW 16.3 H Plt Count 68 L MPV 12.1 H Neut % (Auto) 67.9 Lymph % (Auto) 17.2 Donley % (Auto) 9.5 Eos % (Auto) 4.5 Baso % (Auto) 0.6 Neut # (Auto) 2.3 Lymph # (Auto) 0.6 L Donley # (Auto) 0.3 Eos # (Auto) 0.2 Baso # (Auto) 0.0 Nucleated RBC % (auto) 0 Nucleated RBCs # 0.0 Sodium Potassium Chloride Carbon Dioxide Anion Gap BUN Creatinine GFR Calculation Glucose Calculated Osmolality Calcium Magnesium 2.1 Blood Type A Positive Rho(D) Type Positive 07/27/19 07/28/19 07/28/19 05:02 04:38 04:38 WBC 3.2 L RBC 2.53 L Hgb 7.9 L Hct 26.6 L MCV 105.1 H MCH 31.2 MCHC 29.7 L RDW 16.2 H Plt Count 69 L MPV 12.0 H Neut % (Auto) 66.0 Lymph % (Auto) 17.0 Donley % (Auto) 11.8 Eos % (Auto) 4.0 Baso % (Auto) 0.6 Neut # (Auto) 2.1 Lymph # (Auto) 0.6 L Donley # (Auto) 0.4 Eos # (Auto) 0.1 Baso # (Auto) 0.0 Nucleated RBC % (auto) 0 Nucleated RBCs # 0.0 Sodium 140 137 Potassium 4.5 4.0 Chloride 101 99 Carbon Dioxide 23 25 Anion Gap 20.5 H 17.0 BUN 32 H 8 Creatinine 6.7 H* 3.3 H GFR Calculation 6.2 L 14.1 L Glucose 98 85 Calculated Osmolality 287 279 L Calcium 6.5 L 7.5 L Magnesium Blood Type Rho(D) Type Cardiac Studies: No Data to Display
[2019-07-28] MEDS: b-complex-vitamin c Tablet 1 EACH PO (09:29)
--- NOTE | 2019-07-28 09:29 | P.PN_ITS ---
Subjective Subjective: Interval history: No acute events overnight,No evidence of bleeding over night and Noncompliance with colon prep per nursing report. Patient in dialysis Vitals/I&O/Wt Last Vital Signs Temp 98.0 F 07/28/19 08:21 Pulse 89 07/28/19 08:54 Resp 16 07/28/19 08:54 BP 150/74 07/28/19 08:21 Pulse Ox 98 07/28/19 08:54 07/27/19 07/28/19 07/28/19 22:59 06:59 14:59 Output Total 0 / 0 Balance 0 / 480 Weight last 48 hrs Weight 134 lb 3.2 oz Weight 134 lb Physical Exam Narrative: EXAM NARRATIVE: Patient in dialysis Data : 07/29/19 03:53 07/29/19 03:53 A&P Assessment and plan (1) Acute GI bleeding: Unfortunately patient has not been compliant with the colon prep and she is refusing to entertain it, at this point we will abort the procedure and after confirming with the hospitalist service the patient will be managed conservatively unless something changes. Status: Acute Attestations Medical Necessity Statement*: Medical necessity care is expected to cross 2 midnights Time Spent in Patient Care: less than 15 minutes Coding Level of Care Code Acute Lead Network Architect for Melvin Mina Diagnoses Acute GI bleeding K92.2
[2019-07-28] MEDS: escitalopram 10 mg Tablet PO (09:47)
--- NOTE | 2019-07-28 09:57 | PC.NURSE ---
Multiple attempts made to place peripheral IV in patient. All attempts unsuccessful. Patient still resistant to bowel prep and is refusing Go Lightely. Dr. Herrmann and Dr. Spann notified. No new orders. Nurse to continue to monitor.
--- NOTE | 2019-07-28 10:15 | PC.NURSE ---
Nurse received verbal order from Dr. Herrmann to hold IV placement until further notice.
--- NOTE | 2019-07-28 10:28 | P.PN_ITS ---
Subjective Subjective: Interval history: No acute events overnight. Patient has not been taking her GoLYTELY and she does not want to go ahead with EGD and colonoscopy. She states GoLYTELY is making her stomach upset. She denies of having any nausea, vomiting. Patient has had 2 bowel movements since yesterday. No melena, hematemesis. Bowel movements are brown in color. Patient denies of having any nausea, vomiting, headache, dizziness. Patient has been having cough along with runny nose. Patient states she already has no runny nose have not changed at present but the cough is little more than usual. Vitals/I&O/Wt Last Vital Signs Temp 98.0 F 07/28/19 08:21 Pulse 89 07/28/19 08:54 Resp 16 07/28/19 08:54 BP 150/74 07/28/19 08:21 Pulse Ox 98 07/28/19 08:54 07/27/19 07/28/19 07/28/19 22:59 06:59 14:59 Output Total 0 / 0 Balance 0 / 480 Weight last 48 hrs Weight 60.872 kg Weight 60.781 kg Physical Exam Narrative: EXAM NARRATIVE: Appears more than stated age, malnourished, Dehydrated Cardiovascular: S1-S2 irregularly irregular, pansystolic murmur at apex, no gallops no rubs. Abdomen: Soft, nontender, mild tenderness on deep palpation in lower quadrants otherwise no rigidity or signs of peritonitis Bowel sounds sluggish Lower extremity surgical wound without any abscess drainage however seems to be healing fine with pink granulation tissue Left IJ in place Alert oriented x3 GCS 15 neurologically nonfocal exam EOMI, PERRLA Appropriate mood and affect Data : 07/28/19 04:38 07/28/19 04:38 A&P Assessment and plan (1) Acute GI bleeding: Status: Acute (2) Hemodialysis graft malfunction: Status: Acute (3) ESRD (end stage renal disease): Status: Acute (4) Pancytopenia: Status: Acute (5) Acute hyperkalemia: Resolved. Status: Acute (6) Smoker: Continue to encourage cessation. Status: Acute Additional A&P Information Anemia: Because of possible GI bleed. Patient has not been having any active melena at present. Hemoglobin 7.9 today. Stable since yesterday. Patient is post transfusion in this admission. On further discussion with the patient patient states she has not had Effient prior to her admission from many weeks as she was undergoing multiple surgeries for her fistula at [facility]. Patient continue to take aspirin. Patient was recently admitted to [facility] for thrombosis of fistula for which she received TPA. After her discharge from TPA she had 3 episodes of black tarry bowel movements at home. Patient has not had any similar episodes of melena since admission. Case discussed with Dr. Spann. He agrees patient is possibly not having any active melena. And the yield for any kind of colonoscopy or EGD would be low at present. Continue Protonix 40 mg twice daily. We will change from IV to oral. We will start patient back on aspirin given history of CABG, peripheral artery disease, recent thrombosis of the AV fistula. Will avoid Dapt/Effient given the low trending of hemoglobin. Patient understands that this puts her at a higher risk of CAD, stroke but she had understands the risk. And she states after giving it a further thought for now she would not want to get any kind of EGD or colonoscopy to be done. We will start her back on renal dialysis diet. If patient's hemoglobin continues to remain stable can plan to discharge in next 24 to 48 hours. ESRD: Patient had her last dialysis session yesterday as per her schedule of Wednesday, Wednesday, Wednesday. Hyperkalemia resolved. No electrolyte abnormality or metabolic acidosis at present. Hemodialysis graft malfunction: Right chest hemodialysis access placed uneventfully. Some tenderness over tunnelled section without fluctuance, bleeding or sign of hematoma. Being followed by surgery. Follow-up with vascular surgery at [facility] on outpatient basis regarding right arm graft. COVID 19 rule out given the fact that patient was admitted to hospital in [facility] enough 1 month along with the fact that patient had spikes of fever on seventh along with persistent leukopenia and symptoms of dry cough and occasional runny nose. Pancytopenia: Most likely because of chronic ESRD. Hepatitis C negative, vitamin B12, folic acid normal. Patient would follow-up with Dr. Riggs in 2 to 3 weeks to reassess blood counts and possible elective bone marrow biopsy at that time Anxiety AFib CAD Attestations Medical Necessity Statement*: ESRD, GI bleed while being on DAPT Time Spent in Patient Care: Greater than 35 minutes Coding Level of Care Code Acute Outreach Analyst for Chg Fwd Diagnoses Acute GI bleeding K92.2 Hemodialysis graft malfunction T82.41XA ESRD (end stage renal disease) N18.6 Pancytopenia D61.818 Acute hyperkalemia E87.5 Smoker F17.200
[2019-07-28] MEDS: aspirin 81 mg EC Tablet PO (10:32)
[2019-07-28] MEDS: pantoprazole DR 40 mg Tablet PO ×2 (10:32→17:07)
[2019-07-28] MEDS: sucralfate 1 gm/10 mL Oral Liq UDC PO ×3 (10:33→20:14)
[2019-07-28] MEDS: nicotine 14 mg Patch 1 PATCH TRANSDERMA (10:34)
[2019-07-28] MEDS: lidocaine 5% Patch 1 PATCH TOPICAL ×2 (10:36→20:14)
--- NOTE | 2019-07-28 11:31 | P.PN_ITS ---
Subjective Subjective: Interval history: transferred down to first floor wing for COVID rule out. EGD postponed due to COVID rule out. No complaints, no uremic Sx, no edema and no other volume assoc Sx. Feels otherwise ok Medications: Reviewed: Yes Medication Review Details: Current Medications Albuterol Sulfate (Ventolin) 2 puff INHALATION Q4H.RESPIRATORY PRN PRN Reason: SHORTNESS OF BREATH Albuterol/Ipratropium (Duoneb) 3 ml INHALATION Q6H.RESPIRATORY [facility] [place] Last Admin: 07/25/19 02:20 Dose: 3 ml Documented by: Bacitracin (Bacitracin) 1 applic TOPICAL Q12H JOSE DANIEL; Protocol Last Admin: 07/24/19 19:08 Dose: Not Given Documented by: Escitalopram Oxalate (Lexapro) 10 mg PO DAILY [facility] [place] Last Admin: 07/24/19 09:00 Dose: 10 mg Documented by: Lidocaine HCl (Lidocaine 2% Jelly) 1 applic TOPICAL PRN PRN PRN Reason: ITCHING Multivitamins (Allbee-C) 1 each PO DAILY [facility] [place] Last Admin: 07/24/19 09:00 Dose: 1 each Documented by: Neomycin/Polymyxin/Bacitracin (Neosporin Oint Tube) 1 applic TOPICAL BID [facility] [place] Last Admin: 07/25/19 09:24 Dose: 1 % Documented by: Nicotine (Nicoderm 14 Mg Patch) 1 patch TRANSDERMA DAILY [facility] [place] Last Admin: 07/24/19 09:00 Dose: 1 patch Documented by: Ondansetron HCl (Zofran) 4 mg IVP Q6H PRN PRN Reason: NAUSEA AND VOMITING Pantoprazole Sodium (Protonix) 40 mg IVP BID [facility] [place] Last Admin: 07/24/19 18:03 Dose: 40 mg Documented by: Sevelamer Carbonate (Renvela) 1,600 mg PO TIDWM [facility] [place] Last Admin: 07/24/19 18:03 Dose: 1,600 mg Documented by: Vitals/I&O/Wt Last Vital Signs Temp 98.0 F 07/28/19 08:21 Pulse 89 07/28/19 08:54 Resp 16 07/28/19 08:54 BP 150/74 07/28/19 08:21 Pulse Ox 98 07/28/19 08:54 07/27/19 07/28/19 07/28/19 22:59 06:59 14:59 Output Total 0 / 0 Balance 0 / 480 Weight last 48 hrs Weight 60.872 kg Weight 60.781 kg Physical Exam Narrative: EXAM NARRATIVE: Exam performed via RN over the telephone as she is now in COVID isolation Const: COMMON NORMALS: no apparent distress, oriented x3, no limitations and alert GENERAL APPEARANCE: cooperative and frail appearing NUTRITIONAL APPEARANCE: thin and underweight ORIENTATION/CONSCIOUSNESS: Yes awake, Yes oriented to person, Yes oriented to place and Yes oriented to time HENMT: COMMON NORMALS: normocephalic, head/scalp atraumatic and oropharynx normal HEAD & SCALP: normocephalic and atraumatic Eye: COMMON NORMALS: no scleral icterus Neck/C-Spine: COMMON NORMALS: no JVD Chest: COMMONS NORMALS: inspection of chest normal and palpation of chest normal OTHER: Right subclavian dialysis catheter Resp: COMMON NORMALS: normal respiratory effort and clear to auscultation bilaterally AUSCULTATION: clear to auscultation bilaterally and wheezes (mild wheeze) Cardio: COMMON NORMALS: no JVD, regular rhythm, S1 normal heart sound, S2 normal heart sound and no murmurs RATE: bradycardic RHYTHM: regular rhythm HEART SOUNDS: S1 normal and S2 normal GI: COMMON NORMALS: normal to inspection, nondistended, normoactive bowel sounds, soft to palpation, non-tender, no hepatosplenomegaly and no masses PALPATION: Yes soft, Yes tender (throughout lower abdomen; mild; no guarding) and Yes no hepatosplenomegaly RECTAL EXAM: visual inspection normal, normal sphincter tone and heme positive stool : COMMON NORMALS: Yes no CVA tenderness BLADDER/KIDNEY EXAM: Yes no CVA tenderness Back/Pelvis: COMMON NORMALS: no CVA tenderness LUMBAR SPINE/LOWER BACK: No lumbar spinal tenderness and No paraspinal muscle tenderness Extremity: COMMON NORMALS: no joint enlargement and no pedal edema OTHER: Scattered bruising. Perfused upper extremities. Neuro: COMMON NORMALS: oriented x3 and moves all extremities SENSORIUM/ORIENTATION: Yes alert, Yes oriented to person, Yes oriented to place and Yes oriented to time Skin: COMMON NORMALS: no rashes or lesions noted GENERAL SKIN EXAM: no rashes or lesions noted OTHER: Some scattered small petechial lesions and excoriation patterns Data : 07/28/19 04:38 07/28/19 04:38 A&P Additional A&P Information 1. ESRD - plan for dialysis on Wednesday but will eval over the weekend for additional need - low K diet - possible role for K binders over the weekend - am labs 2. COVID r/o 3. Pancytopenia - agree will need marrow Bx r/o MDS; EGD/Colonoscopy pending after rule out - s/p EPO 4. Hemodynamics appear stable - thanks, will follow Attestations Medical Necessity Statement*: esrd mgmt Coding Level of Care Code Acute Marker Shipments for Melvin Mina
--- NOTE | 2019-07-28 11:41 | PC.NURSE ---
Patient transfered to first floor bed 112 via bed. Request for PRN pain medication given due to right shoulder pain rated 8/10. Denies all other needs at present time.
[2019-07-28] MEDS: sevelamer 800 mg Tablet 1600 MG PO (17:07)
[2019-07-28] MEDS: neomycin-poly-bacitracin oint 28 gm 1 APPLIC TOPICAL (17:13)
--- NOTE | 2019-07-28 17:32 | PC.NURSE ---
Patient with coughing episode while eating. Patient states got choked on meat. Non sustained hr 130-140 during episode. O2 sat 99% on room air. Yanker with suction set up in room. Coughing episode resolved. Patient denies complaints or needs at present time.
[2019-07-28] MEDS: benzonatate 100 mg Capsule 200 MG PO (18:06)
[2019-07-29] VITALS (7 sets, daily range): BP systolic 147–163; BP diastolic 65–76; PULSE 63–87; RESP 14–18; TEMP 36.6–37.1; O2SAT 91–98
[2019-07-29 04:26] LABS: Basophils % 0.6 %; Eosinophils # 0.1 10^3/uL (0.0-0.8); Hematocrit 28.3 % (37.0-47.0); Hemoglobin 8.6 g/dL (11.5-15.3); Lymphocytes # 0.8 10^3/uL (0.8-4.8); Lymphocytes % 22.3 %; Mean Corpuscular HGB Conc 30.4 g/dL (30.0-36.0); Mean Corpuscular Hemoglobin 31.2 pg (28.0-34.0); Mean Corpuscular Volume 102.5 fL (81-99); Mean Platelet Volume 12.2 fL (7.4-10.4); Monocytes # 0.4 10^3/uL (0.2-0.9); Monocytes % 10.7 %; Neutrophils # 2.2 10^3/uL (1.8-7.7); Neutrophils % 61.3 %; Nucleated Red Blood Cells % 0 %; Platelet Count 75 10^3/cmm (130-400); Red Blood Count 2.76 10^6/uL (4.1-5.3); Red Cell Distribution Width 16.1 % (12.1-15.1); White Blood Count 3.5 10^3/uL (4.0-10.0)
[2019-07-29 04:47] LABS: Anion Gap 16.3 (5-19); Blood Urea Nitrogen 15 mg/dL (8-23); Calcium 7.6 mg/dL (8.5-10.5); Carbon Dioxide 28 mmol/L (22-29); Chloride 99 mmol/L (98-107); Glomerular Filtration Rate 9.1 mL/min (90-130); Glucose 88 mg/dL (65-115); Osmolality Calculated 284 mOsm/kg (285-295); Potassium 4.3 mmol/L (3.5-5.1); Sodium 139 mmol/L (136-145)
[2019-07-29] MEDS: nicotine 14 mg Patch 1 PATCH TRANSDERMA (07:45)
[2019-07-29] MEDS: lidocaine 5% Patch 1 PATCH TOPICAL (07:46)
[2019-07-29] MEDS: aspirin 81 mg EC Tablet PO (07:47)
[2019-07-29] MEDS: neomycin-poly-bacitracin oint 28 gm 1 APPLIC TOPICAL (07:47)
[2019-07-29] MEDS: sevelamer 800 mg Tablet 1600 MG PO (07:47)
[2019-07-29] MEDS: escitalopram 10 mg Tablet PO (07:47)
[2019-07-29] MEDS: pantoprazole DR 40 mg Tablet PO (07:47)
[2019-07-29] MEDS: b-complex-vitamin c Tablet 1 EACH PO (07:47)
[2019-07-29] MEDS: benzonatate 100 mg Capsule 200 MG PO (08:03)
[2019-07-29] MEDS: HYDROcodone-acetaminophen 5-325 mg Tablet 1 TAB PO (08:03)
--- NOTE | 2019-07-29 11:15 | P.DS_ITS ---
Discharge Providers Date of Admission: 07/20/19 21:56 Date of Discharge: July 29, 2019 Attending Provider at Admission: Romel Rivera MD Attending Provider at Discharge: Jairon Herrmann MD Consults: Local nephrology. Surgery: Dr. Michael Mallory, Dr. Spann Primary Care Provider: Vincent Gillis DO Diagnoses at Discharge Discharge Diagnosis (1) Acute GI bleeding: Status: Acute (2) ESRD (end stage renal disease): Status: Acute (3) Hemodialysis graft malfunction: Status: Acute Reason for Visit Reason for Visit: Reason For Visit: WEAKNESS/ DIZZINESS Hospital Course Discharge Summary: Carmen Duarte is a 64 year old female who carries a past medical history of end-stage renal disease Wednesday dialysis dependent, active smoker, left arm venous transplant to her fistula (previously there was an open wound with abscess around AV fistula, she had Pseudomonas bacteremia), recent C. difficile infection, recent TPA intervention to right arm graft came in with chief complaint of black tarry stools on July 19. Patient is stating that on 06 July venous transplants were done on the left AV fistula, venous graft was taken from her right lower leg, and Wednesday in the week prior to her admission she had TPA intervention to her right graft. All of the interventions were done at [facility] in [place]. In the ER she was found to have a hemoglobin down to 7. She was started on IV PPI twice a day and given 1 unit of PRBC. She responded well to the transfusion and her hemoglobin remained stable so the plan to do endoscopy and colonoscopy was deferred. Eventually on starting of her Prasugrel patient started having slow decline in hemoglobin again though she did not have any active occult or sub-occult hemoglobin loss. Prasugrel was stopped again and PPIs were continued. Surgery was consulted for possible EGD and colonoscopy after discussing the need of the procedure with the patient. Patient had start agreed for the procedure but during the colon prep declined. As her hemoglobin remained stable after stopping the Prasugrel for more than 48 hours the proced ure was deferred. She was also started on diet and baby aspirin on which her hemoglobin had remained stable for more than 24 hours without any active GI loss. Her hospitalization was complicated by reocclusion of her hemodialysis access in right arm graft. Discussed with our thoracic surgeon, as well as functional consultant. Both agree that percutaneous assessment and possibly angioplasty may be beneficial due to concern for venous and stenosis due to reocclusion, risking again reocclusion in case just thrombectomy is performed. This is not possible at our facility at this time. At that point transfer to [facility] was sought where she has her primary vascular surgeons. Case was discussed with Dr. Gastelum at [facility] who stated access is complicated and would need a tunnel catheter which could likely be done at our facility so she underwent tunnel catheter placement on July 24. Patient tolerated the procedure well and since then has been getting dialysis through her tunnel ca theter. Patient is been discharged in hemodynamically stable condition with a stable hemoglobin of 8.6 on the day of discharge but advised to follow-up with her primary care physician in 7 to 10 days after checking CBC with home health. She is also advised to follow-up with her vascular surgeon, ballpoint pens assembler at [place] within next 2 weeks. She is also advised to follow-up with surgeon in 1 month for possible endoscopy as an outpatient. Prasugrel has been withheld indefinitely for now due to slow GI hemoglobin loss. It was discussed in detail with the patient that it is most important at current state that she should avoid smoking. Patient is to continue aspirin for now. She is due for her dialysis on a set days on Wednesday, Wednesday, Wednesday. Physical Exam Narrative: EXAM NARRATIVE: Appears more than stated age, malnourished, Dehydrated Cardiovascular: S1-S2 irregularly irregular, pansystolic murmur at apex, no gallops no rubs. Abdomen: Soft, nontender, mild tenderness on deep palpation in lower quadrants otherwise no rigidity or signs of peritonitis Bowel sounds sluggish Lower extremity surgical wound without any abscess drainage however seems to be healing fine with pink granulation tissue Left IJ in place Alert oriented x3 GCS 15 neurologically nonfocal exam EOMI, PERRLA Appropriate mood and affect Discharge Data Data Completed and Pending: Completed Studies During Hospitalization Category Date Time Status XR chest 1V fabiana ble [id number] Stat Exams 07/20/19 20:56 Completed XR chest 1V fabiana ble [id number] Urgent Exams 07/20/19 19:07 Completed XR chest 1V fabiana ble [id number] Urgent Exams 07/25/19 09:38 Completed Pending at discharge Category Date Time Status ABO/Rh Type Routi ne Lab 07/24/19 13:48 Results Basic Metabolic P chris AM LABS Lab 07/30/19 04:00 Ordered Complete Blood Co unt w/Auto AM LABS Lab 07/30/19 04:00 Ordered Complete Crossmat ch Routine Lab 07/24/19 13:48 Results Platelets Leuko-R educed Routine Lab 07/24/19 13:48 Results Labs from last 24 hours 07/29/19 07/29/19 07/28/19 03:53 03:53 10:47 WBC 3.5 L RBC 2.76 L Hgb 8.6 L Hct 28.3 L MCV 102.5 H MCH 31.2 MCHC 30.4 RDW 16.1 H Plt Count 75 L MPV 12.2 H Neut % (Auto) 61.3 Lymph % (Auto) 22.3 [place] % (Auto) 10.7 Eos % (Auto) 4.0 Baso % (Auto) 0.6 Neut # (Auto) 2.2 Lymph # (Auto) 0.8 [place] # (Auto) 0.4 Eos # (Auto) 0.1 Baso # (Auto) 0.0 Nucleated RBC % (a uto) 0 Nucleated RBCs # 0.0 Sodium 139 Potassium 4.3 Chloride 99 Carbon Dioxide 28 Anion Gap 16.3 BUN 15 Creatinine 4.8 H GFR Calculation 9.1 L Glucose 88 Calculated Osmolal ity 284 L Calcium 7.6 L Nasal/Oral COVID-1 9 PCR See comment Vitals: Last Vital Signs Temp 98.2 F 07/29/19 08:00 Pulse 79 07/29/19 09:15 Resp 16 07/29/19 09:15 BP 147/65 07/29/19 08:00 Pulse Ox 96 07/29/19 09:15 Discharge Plan Discharge Patient Disposition: Home Health Service Condition: Stable Prescriptions: New aspirin 81 mg Tablet,Delayed Release (Dr/Ec) 81 mg PO DAILY Qty: 30 RF: 0 pantoprazole 40 mg Tablet,Delayed Release (Dr/Ec) 40 mg PO BID Qty: 60 RF: 0 sevelamer carbonate 800 mg Tablet 1,600 mg PO AC&BEDTIME Qty: 60 RF: 0 sucralfate 1 gram tablet 1 gm PO BID 28 Days Qty: 56 RF: 0 Continued nicotine [Nicoderm CQ] 14 mg/24 hr Patch 24 Hour 1 patch TRANSDERMAL DAILY RF: 0 bacitracin 500 unit/gram Ointment 1 applic TOPICAL Q12H RF: 0 triamcinolone acetonide 0.025 % Cream 1 applic TOPICAL BID PRN (Reason: Itching) RF: 0 escitalopram oxalate 10 mg Tablet 10 mg PO DAILY RF: 0 Discontinued prasugrel 10 mg Tablet 10 mg PO DAILY RF: 0 Discharge Orders: Discharge Order (Routine); Ordered 07/29/19 Ordered By: Jairon Herrmann Referrals: [facility] [Outside] Bo Mallory MD [Physician] - 1 month (Please call Wednesday to set up a follow up appointment. Possible slow GI bleed while being on antiplatelets because of history of CABG/peripheral arterial disease for need of endoscopy and colonoscopy.) Vincent Gillis DO [Primary Care Provider] - 2 weeks (Please call Wednesday to set up a follow up appointment. Follow-up with CBC.) Discharge Diet: Usual diet Discharge Activity: Resume usual activity Patient Instructions: Sucralfate (By mouth), Aspirin (By mouth), Sevelamer (By mouth), Pantoprazole (By mouth), How to Stop Smoking (DC), Dialysis Diet (DC), End-Stage Kidney Disease (DC) Activity Restrictions/Additional Instructions: Please check CBC in 1 week and follow-up with the primary care physician. Please follow-up with your consultants at [facility]. Please continue follow-up with your ballpoint pens assembler at set appointments. Please continue with dialysis on Wednesday, Wednesday, Wednesday. As discussed please try to stop smoking. Prasugrel has been withheld given recurrent anemia. Continue aspirin 81 mg along with statins daily. Discharge Attestations Time Spent in Discharge Care*: greater than 30 min Specific Discharge Activities: Specific discharge activities: educating patient, discussing with pcp/other providers, discussing with showcase maker/social workers/dc planners and evaluating patient/reviewing data Time Spent in Smoking Cessation: Time spent discussing smoking cessation with patient: 3 to 10 minutes Status at Discharge: Cognitive status at discharge: cognitively intact , Behavioral status at discharge: cooperative , Quality Metrics Clinical Quality Measures During this hospital stay, did patient experience: None Coding Level of Care Code Acute Mixing Plant Dumper for g Fwd Diagnoses Acute GI bleeding K92.2 ESRD (end stage renal disease) N18.6 Hemodialysis graft malfunction T82.41XA
--- NOTE | 2019-07-29 12:39 | PC.NURSE ---
Discharge instructions given per the physician's orders. Patient verbalized understanding and did not have any further questions.
--- NOTE | 2019-07-29 12:56 | PC.NURSE ---
Renvela and Carafate not administered before meal. Patient refusing meds at this time.
--- NOTE | 2019-08-02 14:00 | PC.SOCIAL ---
clarified with Dr Herrmann amount number of tablets for Sevalmer. 8 tabs of the 800mg a day (2tabs of 800mg) before each meal and at bedtime to equal 1600 mg each dose. Updated pharmacy that would be for a 30 day supply.
== END 2019-07-29 16:05 | disposition home health service (06) | DRG 377 ==
LOC: ER 22:08 → ICU 22:20 → CSU 07-21 19:25 → MEDSURG 07-23 11:11 → CSU 07-28 11:24 → MEDSURG 07-29 11:04 → CSU 07-29 11:31 → MEDSURG 07-29 11:55
PROVIDERS: Internal Medicine; Internal Medicine Nephrology; Physician Assistant; Surgery; Admitting Provider Internal Medicine; Emergency Provider Emergency Medicine; Family Provider Internal Medicine; PCP Internal Medicine; Visit Provider Student in an Organized Health Care Education/Training Program
PROC: 05H533Z Insertion of Infusion Device into Right Subclavian Vein, Percutaneous Approach (ICD-10-PCS; principal; 2019-07-25 08:00)
DX: K92.2 Gastrointestinal hemorrhage, unspecified (principal); N18.6 End stage renal disease; D62 Acute posthemorrhagic anemia; T82.41XA Breakdown (mechanical) of vascular dialysis catheter, initial encounter; D61.818 Other pancytopenia; Z99.2 Dependence on renal dialysis; E87.5 Hyperkalemia; F17.210 Nicotine dependence, cigarettes, uncomplicated; I25.10 Atherosclerotic heart disease of native coronary artery without angina pectoris; Z95.1 Presence of aortocoronary bypass graft; F41.9 Anxiety disorder, unspecified; I48.91 Unspecified atrial fibrillation; Y83.9 Surgical procedure, unspecified as the cause of abnormal reaction of the patient, or of later complication, without mention of misadventure at the time of the procedure
CPT/HCPCS: 12345; 36415; 36430; 36592; 71045; 76000; 77001; 80048; 80053; 80500; 82607; 82746; 83605; 83735; 84100; 84484; 85014; 85018; 85025; 85610; 85730; 86706; 86803; 86850; 86900; 86902; 86920; 87040; 87340; 87635; 90935; 93005; 94640; 96372; 96374; 96375; 99283; C1750; C9113; J0690; J0696; J1644; J1815; J2001; J2270; J2370; J2405; J2704; J3010; J3490; J7030; J7050; J7611; P9016; Q0162; Q3014; Q4081

== ENCOUNTER 2019-10-06 07:50 | Inpatient (IN) | payer MEDICARE, MEDICAID, SELFPAY ==
[2019-10-06] VITALS (34 sets, daily range): BP systolic 90–161; BP diastolic 38–133; PULSE 54–98; RESP 11–32; TEMP 37.2; O2SAT 93–100; BMI 22.4
--- NOTE | 2019-10-06 08:02 | ED_ITS ---
HPI - Chest Pain General: Chief Complaint: Chest Pain Stated Complaint: CHEST PAIN Time Seen by Provider: 10/06/19 08:02 History of Present Illness: HPI narrative: 64-year-old female who comes in complaining of chest and abdominal pain she does have a history of coronary disease she has had this for the last 4 days she has had a little bit of rectal bleeding just when she wipes but nothing that has been significant no black tarry stools she denies a fever she has had nausea and vomiting along with that she is taken various [id number] medications and and Nexium with no significant relief. She has a known history of coronary disease with a previous MD complaint: chest pain, chest heaviness and other (abd pain reported as more severe than her chest pain) Pertinent past history: coronary artery disease Onset (ago): day(s) (4) Timing of current episode: constant Prior episodes: Yes Onset: during rest Pain location: left chest (upper chest) Pain radiation: left arm and neck Severity: severe Quality: tightness Relieving factors: nothing Exacerbating factors: nothing Context: other (recent illness) Associated symptoms: Reports dyspnea and nausea; Deny fever(s) Treatment prior to arrival: none Review of Systems Const: Denies: fever(s), chills, body aches, change in appetite, fatigue or malaise ENMT: Denies: throat pain, ear or mastoid pain, nasal discharge or nasal congestion Card: Denies: chest pain, edema, dyspnea on exertion or orthopnea Resp: Reports: dyspnea GI: Reports: nausea : Denies: flank pain, difficulty voiding, dysuria, urinary frequency or urinary urgency Skin/Breast: Denies: rash or pruritus [facility] ED PFSH: Medical History (Updated 10/06/19 @ 16:38 by Alek Blanco DO) A-V fistula 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 AV fistula TPA right arm graft Anemia, chronic disease Atherosclerotic heart disease of [place] coronary artery without angina pectoris CAD (coronary artery disease) ESRD (end stage renal disease) on dialysis HD: M,W,F -has tunneled catheter for access; from review of medical record, this was placed July 2019 Fistula GERD (gastroesophageal reflux disease) Hypertension Peripheral neuropathy Peripheral vascular disease Severe aortic stenosis Surgical History History of femoropopliteal bypass Hx of appendectomy Hx of CABG Hx of cholecystectomy S/P thyroid surgery Family History Other Diabetes Hypertension Social History Smoking and tobacco status: current some day smoker cigarettes Alcohol intake: never Substance/Drug Use: current Substance/Drug use frequency: few times a week Substance/Drug use type: Marijuana Female Reproductive History: Date of last menstrual period: 05/25/19 Physical Exam Const: COMMON NORMALS: no acute distress GENERAL APPEARANCE: cooperative and comfortable ORIENTATION/CONSCIOUSNESS: Yes awake, Yes oriented to person, Yes oriented to place and Yes oriented to time HENMT: COMMON NORMALS: normocephalic, atraumatic, hearing grossly normal bilaterally, external ears normal, EAC's normal, TM's normal bilaterally, Normal nasal mucous membranes and turbinates present, moist oral mucous membranes and oropharynx normal HEAD & SCALP: normocephalic and atraumatic NOSE: Normal nasal mucous membranes and turbinates present EXTERNAL EAR: Yes external ears normal EXTERNAL AUDITORY CANAL: EAC's normal TYMPANIC MEMBRANE: TM's normal bilaterally Eye: COMMON NORMALS: Equal, round and reactive pupils present, EOMs intact bilaterally, conjunctivae normal and no scleral icterus CONJUNCTIVA: Yes conjunctivae normal PUPIL: Yes Equal, round and reactive pupils present Neck/C-Spine: COMMON NORMALS: full ROM, no lymphadenopathy, supple and no JVD Lymph: LYMPHATIC: no lymphadenopathy noted and no lymphedema noted Resp: COMMON NORMALS: normal respiratory effort, No retractions, No use of accessory muscles and clear to auscultation bilaterally AUSCULTATION: clear to auscultation bilaterally Cardio: COMMON NORMALS: no JVD, regular rate, regular rhythm and No murmurs present (Cardio) RATE: regular rate RHYTHM: regular rhythm GI: COMMON NORMALS: Soft to palpation and No hepatosplenomegaly present AUSCULTATION: Yes normoactive bowel sounds PALPATION: Yes Soft to palpation, No Tenderness to palpation present (GI), No Guarding due to palpation present (GI) and Yes No hepatosplenomegaly present Extremity: COMMON NORMALS: normal to inspection, capillary refill normal, no clubbing, cyanosis or edema, no calf tenderness and no pedal edema Neuro: SENSORIUM/ORIENTATION: Yes oriented to person, Yes oriented to place and Yes oriented to time Skin: COMMON NORMALS: no rashes or lesions noted GENERAL SKIN EXAM: no rashes or lesions noted Course Vital Signs: Vital signs: Vital Signs Pulse Rate 65 10/06/19 16:00 Respiratory Rate 23 H 10/06/19 16:00 Blood Pressure 122/52 10/06/19 16:00 Pulse Oximetry 97 10/06/19 16:00 MDM - Chest Pain MDM Narrative: Medical decision making narrative: Patient missed dialysis earlier this week and is severely hyperkalemic. Initial treatments were used in the emergency room including calcium gluconate albuterol D50 and insulin and Kayexalate to lower her potassium. Dr. Wyman will be admitting nephrology has been consulted and she will go for emergent dialysis. Lab Data: Labs: Lab Results 10/06/19 10/06/19 10/06/19 Range/Units 08:50 09:31 09:31 WBC 5.3 (4.0-10.0) 10^3/ uL RBC 4.54 (4.1-5.3) 10^6/u L Hgb 13.2 (11.5-15.3) g/dL Hct 44.2 (37.0-47.0) % MCV 97.4 (81-99) fL MCH 29.1 (28.0-34.0) pg MCHC 29.9 L (30.0-36.0) g/dL RDW 17.3 H (12.1-15.1) % Plt Count 67 L (130-400) 10^3/c mm MPV 12.6 H (7.4-10.4) fL Neut % (Auto) 74.0 % Lymph % (Auto) 16.3 % [place] % (Auto) 7.0 % Eos % (Auto) 1.7 % Baso % (Auto) 0.8 % Neut # (Auto) 3.9 (1.8-7.7) 10^3/u L Lymph # (Auto) 0.9 (0.8-4.8) 10^3/u L [place] # (Auto) 0.4 (0.2-0.9) 10^3/u L Eos # (Auto) 0.1 (0.0-0.8) 10^3/u L Baso # (Auto) 0.0 (0.0-0.1) 10^3/u L Nucleated RBC % (a uto) 0 % Nucleated RBCs # 0.0 /100WBC Sodium 134 L (136-145) mmol/L Potassium 8.1 H* (3.5-5.1) mmol/L Chloride 95 L (98-107) mmol/L Carbon Dioxide 16 L (22-29) mmol/L Anion Gap 31.1 H (5-19) BUN 85 H* D (8-23) mg/dL Creatinine 9.5 H* (0.5-0.9) mg/dL GFR Calculation 4.2 L (90-130) mL/min Glucose 100 (65-115) mg/dL Calculated Osmolal ity 278 L (285-295) mOsm/k g Lactate (0.5-2.2) mmol/L Calcium 9.0 (8.5-10.5) mg/dL Total Bilirubin 0.3 (0.15-1.2) mg/dL AST 37 H (0-32) U/L ALT 63 H (0-33) U/L Alkaline Phosphata se 160 H (35-105) IU/L Troponin T Baselin e (0-10) ng/L Total Protein 7.4 (6.6-8.7) g/dL Albumin 4.5 (3.5-5.2) g/dL Globulin 2.9 (1.3-4.6) g/dL Lipase 54 (13-60) U/L TSH (0.27-4.20) uIU/ mL Free T4 (0.82-1.77) ng/d L Free T3 (2.0-4.4) PG/ML Salicylates (3-10) mg/dL Acetaminophen (10-30) ug/mL Serum Ketones (Negative) Hepatitis A IgM Ab (Nonreactive) Hep Bs Antigen (Nonreactive) Hep Bs Antibody (0-8.5) Hepatitis C Antibo dy (Nonreactive) Influenza Type A A g Negative (Negative) Influenza Type B A g Negative (Negative) 10/06/19 10/06/19 10/06/19 Range/Units 09:31 09:31 09:31 WBC (4.0-10.0) 10^3/ uL RBC (4.1-5.3) 10^6/u L Hgb (11.5-15.3) g/dL Hct (37.0-47.0) % MCV (81-99) fL MCH (28.0-34.0) pg MCHC (30.0-36.0) g/dL RDW (12.1-15.1) % Plt Count (130-400) 10^3/c mm MPV (7.4-10.4) fL Neut % (Auto) % Lymph % (Auto) % [place] % (Auto) % Eos % (Auto) % Baso % (Auto) % Neut # (Auto) (1.8-7.7) 10^3/u L Lymph # (Auto) (0.8-4.8) 10^3/u L [place] # (Auto) (0.2-0.9) 10^3/u L Eos # (Auto) (0.0-0.8) 10^3/u L Baso # (Auto) (0.0-0.1) 10^3/u L Nucleated RBC % (a uto) % Nucleated RBCs # /100WBC Sodium (136-145) mmol/L Potassium (3.5-5.1) mmol/L Chloride (98-107) mmol/L Carbon Dioxide (22-29) mmol/L Anion Gap (5-19) BUN (8-23) mg/dL Creatinine (0.5-0.9) mg/dL GFR Calculation (90-130) mL/min Glucose (65-115) mg/dL Calculated Osmolal ity (285-295) mOsm/k g Lactate 0.9 (0.5-2.2) mmol/L Calcium (8.5-10.5) mg/dL Total Bilirubin (0.15-1.2) mg/dL AST (0-32) U/L ALT (0-33) U/L Alkaline Phosphata se (35-105) IU/L Troponin T Baselin e 95 H (0-10) ng/L Total Protein (6.6-8.7) g/dL Albumin (3.5-5.2) g/dL Globulin (1.3-4.6) g/dL Lipase (13-60) U/L TSH (0.27-4.20) uIU/ mL Free T4 (0.82-1.77) ng/d L Free T3 (2.0-4.4) PG/ML Salicylates (3-10) mg/dL Acetaminophen (10-30) ug/mL Serum Ketones Negative (Negative) Hepatitis A IgM Ab (Nonreactive) Hep Bs Antigen (Nonreactive) Hep Bs Antibody (0-8.5) Hepatitis C Antibo dy (Nonreactive) Influenza Type A A g (Negative) Influenza Type B A g (Negative) 10/06/19 10/06/19 10/06/19 Range/Units 09:31 09:31 09:31 WBC (4.0-10.0) 10^3/ uL RBC (4.1-5.3) 10^6/u L Hgb (11.5-15.3) g/dL Hct (37.0-47.0) % MCV (81-99) fL MCH (28.0-34.0) pg MCHC (30.0-36.0) g/dL RDW (12.1-15.1) % Plt Count (130-400) 10^3/c mm MPV (7.4-10.4) fL Neut % (Auto) % Lymph % (Auto) % [place] % (Auto) % Eos % (Auto) % Baso % (Auto) % Neut # (Auto) (1.8-7.7) 10^3/u L Lymph # (Auto) (0.8-4.8) 10^3/u L [place] # (Auto) (0.2-0.9) 10^3/u L Eos # (Auto) (0.0-0.8) 10^3/u L Baso # (Auto) (0.0-0.1) 10^3/u L Nucleated RBC % (a uto) % Nucleated RBCs # /100WBC Sodium (136-145) mmol/L Potassium (3.5-5.1) mmol/L Chloride (98-107) mmol/L Carbon Dioxide (22-29) mmol/L Anion Gap (5-19) BUN (8-23) mg/dL Creatinine (0.5-0.9) mg/dL GFR Calculation (90-130) mL/min Glucose (65-115) mg/dL Calculated Osmolal ity (285-295) mOsm/k g Lactate (0.5-2.2) mmol/L Calcium (8.5-10.5) mg/dL Total Bilirubin (0.15-1.2) mg/dL AST (0-32) U/L ALT (0-33) U/L Alkaline Phosphata se (35-105) IU/L Troponin T Baselin e (0-10) ng/L Total Protein (6.6-8.7) g/dL Albumin (3.5-5.2) g/dL Globulin (1.3-4.6) g/dL Lipase (13-60) U/L TSH 12.81 H (0.27-4.20) uIU/ mL Free T4 1.13 (0.82-1.77) ng/d L Free T3 3.0 (2.0-4.4) PG/ML Salicylates < 0.3 L (3-10) mg/dL Acetaminophen < 10.0 L (10-30) ug/mL Serum Ketones (Negative) Hepatitis A IgM Ab Non-reactive (Nonreactive) Hep Bs Antigen Non-reactive (Nonreactive) Hep Bs Antibody 20.0 H (0-8.5) Hepatitis C Antibo dy Non-reactive (Nonreactive) Influenza Type A A g (Negative) Influenza Type B A g (Negative) Discharge Plan Discharge Patient Disposition: Admitted As Inpatient Admit Provider: Nancy Wyman Clinical Impression: Hyperkalemia, ESRD (end stage renal disease), Thrombocytopenia, Transaminitis, Metabolic acidosis, Noncompliance, Atypical chest pain Condition: Stable Interventions: ED Discharge Assessment Last Done: 10/06/19 12:15 ED Charges Last Done: 10/06/19 12:15 Discharge Date/Time: 10/06/19 12:30 Coding Level of Care Code ED Retail Sales Lead for Chg Fwd Exam Comprehensive
[2019-10-06] MEDS: aspirin 325 mg Tablet PO (08:28)
[2019-10-06] MEDS: nitroglycerin 1 gm/inch oint Pkt 1 INCH TOPICAL (08:28)
--- NOTE | 2019-10-06 08:30 | XR_ITS ---
WS: [id number] XR chest 1V portable [id number] REASON FOR EXAM: dyspnea/cough FINDINGS: Triple-lumen catheter is seen extending from the left side. There is borderline cardiomegaly. There is previous coronary bypass changes. Remote rib fractures on the right which are healed with slight deformity. The lung calderon show no pneumonia, pleural effusion, pulmonary edema, A stent is seen in the brachial artery on the left. The hilum and apices are normal. XR/XR chest 1V portable [id number] IMPRESSION: Negative chest for acute pathology. Previous coronary bypass Cardiomegaly Triple-lumen catheter extends from the left side.
--- NOTE | 2019-10-06 08:30 | ECG_ITS ---
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 Measurements Intervals [place] Rate: 76 P: 124 VA: 287 QRS: -79 QRSD: 206 T: 96 QT: 508 QTc: 573 Interpretive Statements SINUS RHYTHM WITH FIRST DEGREE AV BLOCK RIGHT BUNDLE BRANCH BLOCK [120+ ms QRS DURATION, UPRIGHT V1, 40+ ms S IN I/aVL/V4/V5/V6] LEFT VENTRICULAR HYPERTROPHY AND ST-T CHANGE [VOLTAGE CRITERIA PLUS ST/T ABNORMALITY] INFERIOR MYOCARDIAL INFARCTION [40+ ms Q WAVE AND/OR ST/T ABNORMALITY IN II/aVF] Compared to ECG 07/27/2019 08:46:04 Left ventricular hypertrophy now present ST (T wave) deviation now present Myocardial infarct finding still present Electronically Signed On 10-06-2019 13:06:32 CDT by Lauro Camacho M.D. [id number]
[2019-10-06] MEDS: ondansetron 2 mg/ML SDV 2 mL 4 MG IVP ×2 (09:03→21:07)
[2019-10-06] MEDS: morphine 4 mg/mL SDV 1 mL 6 MG IVP (09:03)
[2019-10-06 09:27] LABS: Influenza A by IFA Negative (Negative); Influenza B by IFA Negative (Negative)
[2019-10-06 09:42] LABS: Basophils % 0.8 %; Eosinophils # 0.1 10^3/uL (0.0-0.8); Eosinophils % 1.7 %; Hematocrit 44.2 % (37.0-47.0); Hemoglobin 13.2 g/dL (11.5-15.3); Lymphocytes # 0.9 10^3/uL (0.8-4.8); Lymphocytes % 16.3 %; Mean Corpuscular HGB Conc 29.9 g/dL (30.0-36.0); Mean Corpuscular Hemoglobin 29.1 pg (28.0-34.0); Mean Corpuscular Volume 97.4 fL (81-99); Mean Platelet Volume 12.6 fL (7.4-10.4); Monocytes # 0.4 10^3/uL (0.2-0.9); Neutrophils # 3.9 10^3/uL (1.8-7.7); Nucleated Red Blood Cells % 0 %; Platelet Count 67 10^3/cmm (130-400); Red Blood Count 4.54 10^6/uL (4.1-5.3); Red Cell Distribution Width 17.3 % (12.1-15.1); White Blood Count 5.3 10^3/uL (4.0-10.0)
[2019-10-06 10:02] LABS: Ketone (Acetest) Serum Negative (Negative)
[2019-10-06 10:17] LABS: Troponin(5th) Baseline 95 ng/L (0-10)
[2019-10-06 10:21] LABS: Alanine Aminotransferase 63 U/L (0-33); Albumin Level 4.5 g/dL (3.5-5.2); Alkaline Phosphatase 160 IU/L (35-105); Anion Gap 31.1 (5-19); Aspartate Amino Transferase 37 U/L (0-32); Carbon Dioxide 16 mmol/L (22-29); Chloride 95 mmol/L (98-107); Globulin 2.9 g/dL (1.3-4.6); Glomerular Filtration Rate 4.2 mL/min (90-130); Glucose 100 mg/dL (65-115); Lipase 54 U/L (13-60); Osmolality Calculated 278 mOsm/kg (285-295); Sodium 134 mmol/L (136-145); Total Bilirubin 0.3 mg/dL (0.15-1.2); Total Protein 7.4 g/dL (6.6-8.7)
[2019-10-06 10:28] LABS: Blood Urea Nitrogen 85 mg/dL (8-23)
[2019-10-06 10:29] LABS: Potassium 8.1 mmol/L (3.5-5.1)
--- NOTE | 2019-10-06 10:30 | ECG_ITS ---
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 Measurements Intervals [place] Rate: 58 P: [place]: -1 QRS: -79 QRSD: 229 T: 96 QT: 568 QTc: 561 Interpretive Statements ATRIAL FIBRILLATION WITH SLOW VENTRICULAR RESPONSE RIGHT BUNDLE BRANCH BLOCK [120+ ms QRS DURATION, UPRIGHT V1, 40+ ms S IN I/aVL/V4/V5/V6] POSSIBLE LEFT VENTRICULAR HYPERTROPHY [VOLTAGE CRITERIA PLUS LAE OR QRS WIDENING] INFERIOR MYOCARDIAL INFARCTION [40+ ms Q WAVE AND/OR ST/T ABNORMALITY IN II/aVF] Compared to ECG 10/06/2019 08:16:33 Sinus rhythm no longer present First degree AV block no longer present ST (T wave) deviation no longer present Myocardial infarct finding still present Electronically Signed On 10-06-2019 13:08:38 CDT by Lauro Camacho M.D. [id number]
[2019-10-06 10:49] LABS: Lactate (Lactic Acid level) 0.9 mmol/L (0.5-2.2)
[2019-10-06] MEDS: sodium polystyrene sulfonate 15 gm/60 mL Btl PO (10:59)
[2019-10-06] MEDS: calcium gluconate 0.1 gm/mL 10% SDV 10mL 2 GM IVP (10:59)
[2019-10-06] MEDS: dextrose 50% syringe 50 mL IVP (10:59)
[2019-10-06] MEDS: insulin regular-human 100 units/1 mL 10 UNIT IVP (11:00)
--- NOTE | 2019-10-06 11:02 | P.HP_ITS ---
Providers/Chief Complaint Primary Care Provider: Vincent Gillis DO Chief Complaint: CHEST PAIN History of Present Illness Carmen Duarte is a 64 year old female with a past medical history of end-stage renal disease on hemodialysis Wednesday and Wednesday, tobacco abuse, coronary artery disease, and history of pancytopenia and history of gram- negative hodan bacteremia that presented to the emergency department for chest and abdominal pain. Patient reported that she has been feeling ill for the past 4 days. Reported that she was noncompliant with her dialysis on Wednesday due to her symptoms. She stated that she has been having nausea, vomiting, diarrhea. States that she has not been taking her medications for several days. Reports that at baseline she is noncompliant with many of her medications. She reports that last dialysis session was on Wednesday. Patient denies any sick contacts, lives at home alone. She reports that she is on city water, no exposure to any contaminated food that she is aware of. Patient reports abdominal pain diffusely across her abdomen with no pinpoint pain. She reported some chest pain on admission to the ER that is since resolved. EKG showed acute changes and was reviewed by district gauger, recommendation to continue with serial EKG and telemetry monitoring, along with treatment for hyperkalemia Patient was noted to have hyperkalemia in the emergency department and nephrolog y was called for emergent dialysis. Patient was given insulin, D50, calcium gluconate in the ED. Review of Systems Const: Denies: fever(s) or chills Eyes: Denies: change in vision ENMT: Denies: nasal congestion Card: Reports: chest pain; Denies: palpitations or edema Resp: Denies: dyspnea, productive cough or hemoptysis GI: Reports: abdominal pain, nausea, vomiting and diarrhea; Denies: constipation, hematochezia or melena : Reports: other (Patient reports that she does not make urine due to ESRD) Musc: Denies: extremity pain or muscle cramps Skin/Breast: Denies: rash or new lesions Neuro: Denies: headache(s) or dizziness Psych: Denies: anxiety or depression Endo: Denies: hot flashes Juan/Lymph: Denies: easy bruising or easy bleeding Medications/Allergies Home Medications Medication Instructions Recorded Confirmed Last Taken Type aspirin 81 mg PO DAILY #30 tab 07/29/19 10/06/19 Unknown Rx pantoprazole 40 mg PO BID #60 tab 07/29/19 10/06/19 Unknown Rx sevelamer carbonate 1,600 mg PO AC&BEDTIME #60 tab 07/29/19 10/06/19 Unknown Rx albuterol sulfate 2.5 mg INHALATION QID PRN 10/06/19 10/06/19 Unknown History albuterol sulfate [Ventolin HFA] 2 puff INHALATION Q4H PRN 10/06/19 10/06/19 Unknown History budesonide 0.5 mg INHALATION BID 10/06/19 10/06/19 Unknown History esomeprazole magnesium [Nexium 20 mg PO DAILY 10/06/19 10/06/19 10/05/19 History 24HR] ipratropium-albuterol See Rx Instructions .ROUTE .COMPLEX 10/06/19 10/06/19 Unknown History metoprolol succinate 25 mg PO DAILY 10/06/19 10/06/19 Unknown History ondansetron HCl 4 mg PO TID PRN 10/06/19 10/06/19 Unknown History Allergies Allergy/AdvReac Type Severity Reaction Status Date / Time calamine Allergy ALGY-Bliste Verified 05/25/19 11:46 r ciprofloxacin [From Cipro] Allergy Unknown Verified 05/25/19 11:46 clopidogrel [From Plavix] Allergy ALGY-Rash Verified 05/25/19 11:46 codeine Allergy Unknown Verified 05/25/19 11:46 diphenhydramine Allergy ALGY-Rash Verified 05/25/19 11:46 [From Benadryl] nitroglycerin Allergy ALGY-Rash Verified 05/25/19 11:46 promethazine [From Phenergan] Allergy Unknown Verified 05/25/19 11:46 quinine Allergy Unknown Verified 05/25/19 11:46 simvastatin Allergy ALGY-Rash Verified 05/25/19 11:46 Sulfa (Sulfonamide Allergy Unknown Verified 05/25/19 11:46 Antibiotics) PFSH Acute PFSH: Medical History (Updated 10/06/19 @ 14:54 by Nancy Wyman DO) A-V fistula 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 AV fistula TPA right arm graft Anemia, chronic disease Atherosclerotic heart disease of [place] coronary artery without angina pectoris CAD (coronary artery disease) ESRD (end stage renal disease) on dialysis HD: M,W,F -has tunneled catheter for access; from review of medical record, this was placed July 2019 Fistula GERD (gastroesophageal reflux disease) Hypertension Peripheral neuropathy Peripheral vascular disease Severe aortic stenosis Surgical History History of femoropopliteal bypass Hx of appendectomy Hx of CABG Hx of cholecystectomy S/P thyroid surgery Family History Other Diabetes Hypertension Social History Smoking and tobacco status: current some day smoker cigarettes Alcohol intake: never Substance/Drug Use: current Substance/Drug use frequency: few times a week Substance/Drug use type: Marijuana Female Reproductive History: Date of last menstrual period: 05/25/19 Vitals/I&O/Wt Last Vital Signs Pulse 58 L 10/06/19 10:31 Resp 14 10/06/19 10:31 BP 137/93 10/06/19 10:31 Pulse Ox 94 10/06/19 10:31 Weight last 48 hrs Weight 53.977 kg Physical Exam Const: COMMON NORMALS: patient oriented x3 and alert GENERAL APPEARANCE: cooperative and frail appearing ORIENTATION/CONSCIOUSNESS: Yes awake, Yes oriented to person, Yes oriented to place and Yes oriented to time HENMT: COMMON NORMALS: normocephalic and atraumatic HEAD & SCALP: normocephalic and atraumatic Eye: COMMON NORMALS: Equal, round and reactive pupils present PUPIL: Yes Equal, round and reactive pupils present Neck/C-Spine: COMMON NORMALS: supple GENERAL: Yes normal visual inspection Resp: OTHER: Patient with diminished breath sounds bilaterally and prolonged expiratory phase, expiratory wheezing bilaterally Cardio: COMMON NORMALS: regular rate and regular rhythm RATE: regular rate RHYTHM: regular rhythm OTHER: Systolic murmur GI: INSPECTION: No abdominal distension OTHER: Soft, tenderness to palpation diffusely, no appreciable guarding or rigidity, hypoactive bowel s ounds. Back/Pelvis: COMMON NORMALS: no CVA tenderness Extremity: COMMON NORMALS: no clubbing, cyanosis or edema and no calf tenderness Neuro: COMMON NORMALS: patient oriented x3, CN's II-XII intact bilaterally, moves all extremities and no focal motor deficits SENSORIUM/ORIENTATION: Yes alert, Yes oriented to person, Yes oriented to place and Yes oriented to time SPEECH: speech normal Psych: COMMON NORMALS: mental status grossly normal and cooperative Skin: OTHER: Dry skin in the upper extremities bilaterally Data : 10/06/19 09:31 10/06/19 09:31 CXR: I personally reviewed and interpreted this imaging study as follows: Radiologist's impression: FINDINGS: Triple-lumen catheter is seen extending from the left side. There is borderline cardiomegaly. There is previous coronary bypass changes. Remote rib fractures on the right which are healed with slight deformity. The lung calderon show no pneumonia, pleural effusion, pulmonary edema, A stent is seen in the brachial artery on the left. The hilum and apices are normal. XR/XR chest 1V portable [id number] IMPRESSION: Negative chest for acute pathology. Previous coronary bypass Cardiomegaly Triple-lumen catheter extends from the left side. A&P Assessment and plan (1) Hyperkalemia: Acute hyperkalemia secondary to dialysis noncompliance Typically on dialysis Wednesday and Wednesday, did not go to dialysis due to not feeling well Consult to nephrology for urgent dialysis Calcium gluconate ordered, Insulin, D50, bicarb Admit to ICU with monitoring on telemetry Status: Acute (2) ESRD (end stage renal disease): Followed by Dr. Euceda Nephrology consulted, plan for emergent dialysis today Status: Acute (3) Thrombocytopenia: Patient with pancytopenia in the past, thrombocytopenia appears to be baseline today we will continue to monitor closely Status: Acute (4) Transaminitis: New onset transaminitis, will obtain right upper quadrant ultrasound, hepatitis panel, acetaminophen and salicylate level Patient has diffuse abdominal tenderness, no specific tenderness in the right upper quadrant. We will continue to monitor closely. Status: Acute (5) Metabolic acidosis: Secondary to above Status: Acute (6) C. difficile colitis: History of C. difficile colitis in December 2018. Previously patient had refused to take oral vancomycin. Due to reported nausea vomiting and diarrhea will check further stool studies and C. difficile toxin Status: Acute (7) Smoker: Continues to smoke daily along with THC use intermittently. Reported history of amphetamine use Wrongly encouraged cessation Status: Acute (8) Noncompliance: Patient reports noncompliance with dialysis and home medications. Stated that most days she will not take any medications. Status: Acute Additional A&P Information Abdominal pain: KUB ordered, checking stool studies and C. difficile toxin, lactic acid normal. Patient does not have any specific tenderness to palpation in the abdomen. We will continue to monitor closely and consider further imaging if indicated. Right upper quadrant ultrasound ordered for further eval uation due to transaminitis. We will follow-up with imaging study Peak T waves and widened QRS along with chest pain: Believed to be secondary to hyperkalemia, EKG with acute changes and reviewed by cardiology on admission to the ED, recommended to continue to monitor on telemetry with serial EKG and troponin. History of thyroid surgery, due to continued diarrhea will check TSH Coronary artery disease with a history of coronary artery disease status post CABG. Patient also with peripheral arterial disease status post femoral- popliteal bypass surgery: Continue on aspirin 81 mg daily, metoprolol. Patient is not on any other medications. Patient is not on statin therapy due to allergy. Hemodialysis graft malfunction: Followed by vascular surgery at [facility], however patient reports difficulty with compliance. Tunneled dialysis catheter placed in July [address] Spann. Prior history of thrombosis of fistula, received TPA at an outside facility in June of this year. Recent admission for anemia and concern for acute GI bleed: Patient had previously been on Effient, it was discontinued due to recurrent bleeding and pancytopenia. She was noted to be at high risk at that time due to prior history of CABG, peripheral artery disease with stenting and history of hemodialysis graft malfunction in the past, however due to anemia further antiplatelet and anticoagulation were held off and she was only continued on 81 mg aspirin. Hemoglobin stable at this time. Patient was scheduled for an EGD and colonoscopy during her previous admission however she did not tolerate GoLYTELY and did not wish to proceed with EGD or colonoscopy. Prior history of bacteremia with Pseudomonas: Repeat blood cultures ordered and pending Atrial fibrillation: Continue metoprolol, not on any anticoagulation due to recent GI bleed and anemia with recurrent bleeding with any anticoagulation or d ual antiplatelet therapy in the past. Hypertension DVT prophylaxis: SCDs, no pharmacologic prophylaxis due to recent history of GI bleed Diet: N.p.o. for bowel rest CODE STATUS: Full code Attestations Medical Necessity Statement*: Patient requires hospitalization due to abdominal pain with new onset transaminitis and hyperkalemia in the setting of end-stage renal disease with dialysis noncompliance. Expected stay greater than 2 midnights. Coding Level of Care Code Acute Intellectual Property Counsel for Chg Fwd Exam Comprehensive Diagnoses Hyperkalemia E87.5 ESRD (end stage renal disease) N18.6 Thrombocytopenia D69.6 Transaminitis R74.0 Metabolic acidosis E87.2 C. difficile colitis A04.72 Smoker F17.200 Noncompliance Z91.19
--- NOTE | 2019-10-06 11:07 | XR_ITS ---
WS: [id number] XR KUB portable [id number] REASON FOR EXAM: abdominal pain FINDINGS: Stents are seen in both femoral arteries. There is nonspecific gas and fecal stasis There is no air-fluid levels or free air in the abdomen. IMPRESSION: Nonspecific abdominal findings. Stents are seen in both femoral arteries in good position.
[2019-10-06 12:06] LABS: Acetaminophen < 10.0 ug/mL (10-30); Thyroid Stimulating Hormone 12.81 uIU/mL (0.27-4.20)
[2019-10-06 12:09] LABS: Salicylate < 0.3 mg/dL (3-10)
[2019-10-06 12:14] LABS: Hepatitis A Antibody IgM Non-Reactive (Nonreactive); Hepatitis B Surface Antigen Non-Reactive (Nonreactive); Hepatitis C Virus Antibody Non-Reactive (Nonreactive)
[2019-10-06 12:16] LABS: Troponin 5 2HR 85.49 ng/L (0-10)
[2019-10-06 13:04] LABS: Free T4 Free Thyroxine 1.13 ng/dL (0.82-1.77)
[2019-10-06] MEDS: pantoprazole 40 mg SDV IVP (13:12)
--- NOTE | 2019-10-06 13:26 | PM.CONSULT ---
Providers/Reason For Consult Consulting Physican/Specialty*: Tonya Nettles DO, telenephrology Reason for Consult*: ESRD, hyperkalemia Requesting Physcian: Nancy Wyman DO Attending Physician: Nancy Wyman DO Primary Care Provider: Vincent Gillis DO History of Present Illness History of Present Illness Carmen Duarte is a 64 year old female who presented to ER for evaluation abdominal pain. ESRD on HD MWF. Last HD 10/01. Reports vomiting and diarrhea. No issues with dialysis treatments. Missed Wednesday due to GI symptoms. Meds/Allergies Home Medications and Allergies Home Medications Medication Instructions Recorded Confirmed Last Taken Type aspirin 81 mg PO DAILY #30 tab 07/29/19 10/06/19 Unknown Rx pantoprazole 40 mg PO BID #60 tab 07/29/19 10/06/19 Unknown Rx sevelamer carbonate 1,600 mg PO AC&BEDTIME #60 tab 07/29/19 10/06/19 Unknown Rx albuterol sulfate 2.5 mg INHALATION QID PRN 10/06/19 10/06/19 Unknown History albuterol sulfate [Ventolin HFA] 2 puff INHALATION Q4H PRN 10/06/19 10/06/19 Unknown History budesonide 0.5 mg INHALATION BID 10/06/19 10/06/19 Unknown History esomeprazole magnesium [Nexium 20 mg PO DAILY 10/06/19 10/06/19 10/05/19 History 24HR] ipratropium-albuterol See Rx Instructions .ROUTE .COMPLEX 10/06/19 10/06/19 Unknown History metoprolol succinate 25 mg PO DAILY 10/06/19 10/06/19 Unknown History ondansetron HCl 4 mg PO TID PRN 10/06/19 10/06/19 Unknown History Allergies Allergy/AdvReac Type Severity Reaction Status Date / Time calamine Allergy ALGY-Bliste Verified 05/25/19 11:46 r ciprofloxacin [From Cipro] Allergy Unknown Verified 05/25/19 11:46 clopidogrel [From Plavix] Allergy ALGY-Rash Verified 05/25/19 11:46 codeine Allergy Unknown Verified 05/25/19 11:46 diphenhydramine Allergy ALGY-Rash Verified 05/25/19 11:46 [From Benadryl] nitroglycerin Allergy ALGY-Rash Verified 05/25/19 11:46 promethazine [From Phenergan] Allergy Unknown Verified 05/25/19 11:46 quinine Allergy Unknown Verified 05/25/19 11:46 simvastatin Allergy ALGY-Rash Verified 05/25/19 11:46 Sulfa (Sulfonamide Allergy Unknown Verified 05/25/19 11:46 Antibiotics) Current Medications Current Medications Generic Name Dose Route Start Last Admin Trade Name Freq PRN Reason Stop Dose Admin Pantoprazole Sodium 40 mg 10/06/19 12:21 10/06/19 13:12 Protonix IVP 40 mg DAILY JOSE DANIEL Administration PFSH Acute PFSH: Medical History A-V fistula 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 AV fistula TPA right arm graft Anemia, chronic disease Atherosclerotic heart disease of [place] coronary artery without angina pectoris CAD (coronary artery disease) ESRD (end stage renal disease) on dialysis -is on HD MWF; dialyzed today -Nephrology consult appreciated -noted renal function, hyperkalemia -continue to monitor renal function -has tunneled catheter for access; from review of medical record, this was placed sometime between July and December 2018 Fistula GERD (gastroesophageal reflux disease) Hypertension Peripheral neuropathy Peripheral vascular disease Severe aortic stenosis Surgical History History of femoropopliteal bypass Hx of appendectomy Hx of CABG Hx of cholecystectomy S/P thyroid surgery Family History Other Diabetes Hypertension Social History Smoking and tobacco status: current some day smoker cigarettes Alcohol intake: never Substance/Drug Use: current Substance/Drug use frequency: few times a week Substance/Drug use type: Marijuana Female Reproductive History: Date of last menstrual period: 05/25/19 Vitals/I&O/Wt Last Vital Signs Pulse 77 10/06/19 12:45 Resp 16 10/06/19 12:45 BP 161/82 10/06/19 12:45 Pulse Ox 98 10/06/19 12:45 Weight last 48 hrs Weight 53.977 kg Physical Exam Const: COMMON NORMALS: no acute distress GENERAL APPEARANCE: cooperative HENMT: COMMON NORMALS: normocephalic HEAD & SCALP: normocephalic Eye: COMMON NORMALS: no scleral icterus Neck/C-Spine: OTHER: Left IJ dialysis catheter Extremity: GENERAL: No edema Data Micro: Micro: Microbiology 10/06/19 11:48 Blood Culture - Pr eliminary Blood SPECIMEN [facility] 10/06/19 09:31 Blood Culture - Pr eliminary Blood SPECIMEN [facility] Other Data: Other data: CXR no pulmonary edema A&P Additional A&P Information 1. ESRD 2. Hyperkalemia 3. Hypertension 4. Metabolic acidosis Recommend: Hemodialysis today and tomorrow. Repeat K 4 hours after dialysis today. Resume metoprolol 25 mg po daily. Consult Attestations Medical Necessity Statement: critically ill Time Spent in Patient Care: 16 - 35 minutes Coding Level of Care Code Acute Cyber Defense Forensics Analyst for Melvin Mina
--- NOTE | 2019-10-06 13:34 | PC.NURSE ---
pt admitted recieving harialis at this time
[2019-10-06 16:22] LABS: Troponin 5 6HR 79.47 ng/L (0-10); Troponin 5 6HR Delta -15.53 ng/L (0-12)
[2019-10-06] MEDS: budesonide 0.5 mg/2 mL Neb INHALATION (20:28)
[2019-10-06] MEDS: morphine 4 mg/mL SDV 1 mL IVP (21:01)
[2019-10-06] MEDS: sevelamer 800 mg Tablet 1600 MG PO (21:01)
[2019-10-06 22:23] LABS: Potassium 4.9 mmol/L (3.5-5.1)
--- NOTE | 2019-10-06 23:02 | PC.NURSE ---
Positive cdiff called to Dr. Bolden.
--- NOTE | 2019-10-06 23:03 | PC.NURSE ---
Patient placed in contact isolation
[2019-10-07] VITALS (49 sets, daily range): BP systolic 68–150; BP diastolic 31–90; PULSE 54–113; RESP 10–25; TEMP 36.6–36.9; O2SAT 84–100
[2019-10-07 05:09] LABS: Basophils % 0.3 %; Eosinophils # 0.1 10^3/uL (0.0-0.8); Eosinophils % 1.5 %; Hematocrit 41.2 % (37.0-47.0); Hemoglobin 12.5 g/dL (11.5-15.3); Lymphocytes # 0.7 10^3/uL (0.8-4.8); Lymphocytes % 21.5 %; Mean Corpuscular HGB Conc 30.3 g/dL (30.0-36.0); Mean Corpuscular Hemoglobin 28.9 pg (28.0-34.0); Mean Corpuscular Volume 95.2 fL (81-99); Mean Platelet Volume 12.4 fL (7.4-10.4); Monocytes # 0.3 10^3/uL (0.2-0.9); Monocytes % 10.4 %; Neutrophils # 2.2 10^3/uL (1.8-7.7); Nucleated Red Blood Cells % 0 %; Platelet Count 55 10^3/cmm (130-400); Red Blood Count 4.33 10^6/uL (4.1-5.3); Red Cell Distribution Width 17.2 % (12.1-15.1); White Blood Count 3.3 10^3/uL (4.0-10.0)
[2019-10-07 05:24] LABS: INR 1.15 (0.8-1.2)
[2019-10-07 05:27] LABS: Alanine Aminotransferase 54 U/L (0-33); Albumin Level 3.9 g/dL (3.5-5.2); Alkaline Phosphatase 140 IU/L (35-105); Aspartate Amino Transferase 34 U/L (0-32); Blood Urea Nitrogen 22 mg/dL (8-23); Calcium 9.1 mg/dL (8.5-10.5); Carbon Dioxide 28 mmol/L (22-29); Chloride 94 mmol/L (98-107); Globulin 3.1 g/dL (1.3-4.6); Glomerular Filtration Rate 10.4 mL/min (90-130); Glucose 79 mg/dL (65-115); Osmolality Calculated 278 mOsm/kg (285-295); Sodium 136 mmol/L (136-145); Total Bilirubin 0.6 mg/dL (0.15-1.2)
--- NOTE | 2019-10-07 06:00 | USR_ITS ---
PROCEDURE INFORMATION: Exam: US Abdomen Limited, Right Upper Quadrant Exam date and time: 10/07/2019 8:54 AM Age: 64 years old Clinical indication: Abdominal pain; Patient HX: S/P cholecystectomy; Additional info: New transaminitis, ruq pain TECHNIQUE: Imaging protocol: Real-time ultrasound of the abdomen with image documentation. Examination was focused on the right upper quadrant. COMPARISON: No relevant prior studies available. FINDINGS: Liver: Prominent periportal echoes, without focal hepatic mass. Gallbladder: Status post cholecystectomy. Common bile duct: Normal caliber of the visualized common bile duct measuring 3 mm in diameter. Pancreas: Inhomogeneous echotexture in the pancreas, without focal mass or ductal dilatation. Right kidney: Nonvisualization of the right kidney. Inferior vena cava: Unremarkable IVC. US/US abdomen limited [id number] IMPRESSION: No significant sonographic abnormality in the visualized right upper quadrant.
--- NOTE | 2019-10-07 06:00 | USR_ITS ---
PROCEDURE INFORMATION: Exam: US Duplex Upper Extremity Veins Exam date and time: 10/06/2019 2:27 PM Age: 64 years old Clinical indication: Condition or disease; Embolism or thrombosis; Lower extremity, left; Prior surgery; Surgery type: Fistulas; Patient HX: Dialysis patient; Additional info: Prior thrombosis of left basilic vein, history of thrombosed tunneled catheter TECHNIQUE: Imaging protocol: Real-time Duplex ultrasound of the Upper Extremities with 2-D sheriff scale, color Doppler flow and spectral waveform analysis with image documentation. Complete exam focused on the bilateral upper extremity veins. COMPARISON: No relevant prior studies available. FINDINGS: Right deep veins: No deep venous thrombosis in the visualized right internal jugular, subclavian, axillary, or brachial veins. Right superficial veins: Superficial thrombus in the right cephalic and basilar veins, with extension into surgical anastomosis about the antecubital fossa. Left deep and superficial veins: No deep venous thrombosis in the visualized left internal jugular, subclavian, or axillary veins. Venous thrombosis in the visualized left brachial and basilic veins, with extension into the left surgical graft. Soft tissues: Unremarkable as visualized. US/[place] [id number] IMPRESSION: 1. Superficial thrombus in the right cephalic and basilar veins, with extension into surgical anastomosis about the antecubital fossa. 2. Venous thrombosis in the visualized left brachial and basilic veins, with extension into the left surgical graft. The aforementioned findings initiated a critical results communication pathway. An addendum will be issued at the time of clincian notification.
--- NOTE | 2019-10-07 06:15 | PC.NURSE ---
SHIFT SUMMARY PT HAS BEEN ALERT AND ORIENTATED. PT HAS RECEIVED PAIN MEDS ONCE FOR ABDOMINAL PAIN. PT ABLE TO USE BSC WITH NO ASSISTANCE. PT IV REMAINS PATENT. PT REMAINS NPO.
--- NOTE | 2019-10-07 07:37 | PC.NURSE ---
npo per orders and for ultrasound at this time
--- NOTE | 2019-10-07 08:32 | PC.NURSE ---
remains npo at this time ultrasound of abdomen in progress
--- NOTE | 2019-10-07 08:49 | P.PN_ITS ---
Subjective Subjective: Interval history: Assumed care of this patient, known to me from previous admission, labs reviewed, improving hyperkalemia, HD today. Found to be positive for C.difficile, started on oral vancomycin. Called by radiology about venous duplex results. Patient reports being hungry and would like something to eat. Medications: Reviewed: Yes Medication Review Details: Active Medications Generic Name Dose Route Start Last Admin Trade Name Freq PRN Reason Stop Dose Admin Acetaminophen 650 mg 10/06/19 12:21 Tylenol PO Q6H PRN MILD PAIN Albuterol Sulfate 2.5 mg 10/06/19 16:00 10/06/19 20:28 Albuterol INHALATION 2.5 mg QID.RESPIRATORY P RN Administration Shortness Of [place] th Albuterol/Ipratrop ium 3 ml 10/06/19 15:00 Duoneb INHALATION Q6H.RESPIRATORY P RN SOB/WHEEZING Aspirin 81 mg 10/07/19 09:00 Aspirin Ec PO DAILY JOSE DANIEL Budesonide 0.5 mg 10/06/19 20:00 10/06/19 20:28 Pulmicort INHALATION 0.5 mg BID.RESPIRATORY S CH Administration Lorazepam 0.5 mg 10/06/19 12:21 Ativan IVP Q6H PRN ANXIETY Metoprolol Succina te 25 mg 10/07/19 09:00 Toprol Xl PO DAILY JOSE DANIEL Morphine Sulfate 4 mg 10/06/19 12:21 10/06/19 21:01 Morphine IVP 4 mg Q4H PRN Administration SEVERE PAIN Naloxone HCl 0.1 mg 10/06/19 12:21 Narcan IVP Q2M PRN RESPIRATORY RATE < 8/MIN Ondansetron HCl 4 mg 10/06/19 12:21 10/06/19 21:07 Zofran IVP 4 mg Q6H PRN Administration NAUSEA AND VOMITI NG Pantoprazole Sodiu m 40 mg 10/06/19 12:21 10/06/19 13:12 Protonix IVP 40 mg DAILY JOSE DANIEL Administration Sevelamer Carbonat e 1,600 mg 10/06/19 17:00 10/07/19 07:27 Renvela PO Not Given AC&BEDTIME JOSE DANIEL Vancomycin HCl 125 mg 10/06/19 23:00 10/06/19 23:26 Vancocin PO 125 mg QID JOSE DANIEL Administration calamine Allergy (Verified 05/25/19 11:46) ALGY-Blister ciprofloxacin [From Cipro] Allergy (Verified 05/25/19 11:46) Unknown clopidogrel [From Plavix] Allergy (Verified 05/25/19 11:46) ALGY-Rash codeine Allergy (Verified 05/25/19 11:46) Unknown diphenhydramine [From Benadryl] Allergy (Verified 05/25/19 11:46) ALGY-Rash nitroglycerin Allergy (Verified 05/25/19 11:46) ALGY-Rash promethazine [From Phenergan] Allergy (Verified 05/25/19 11:46) Unknown quinine Allergy (Verified 05/25/19 11:46) Unknown simvastatin Allergy (Verified 05/25/19 11:46) ALGY-Rash Sulfa (Sulfonamide Antibiotics) Allergy (Verified 05/25/19 11:46) Unknown Vitals/I&O/Wt Last Vital Signs Temp 98.5 F 10/07/19 06:24 Pulse 66 10/07/19 08:30 Resp 18 10/07/19 08:30 BP 130/61 10/07/19 08:30 Pulse Ox 99 10/07/19 08:30 10/06/19 10/07/19 10/07/19 22:59 06:59 14:59 Intake Total Balance Weight last 48 hrs Weight 60.464 kg Weight 53.977 kg Physical Exam Const: COMMON NORMALS: no acute distress, patient oriented x3 and alert GENERAL APPEARANCE: cooperative, comfortable and appears older than stated age NUTRITIONAL APPEARANCE: thin ORIENTATION/CONSCIOUSNESS: Yes awake HENMT: COMMON NORMALS: normocephalic, atraumatic and hearing grossly normal bilaterally HEAD & SCALP: normocephalic and atraumatic MOUTH: moist mucous membranes abnormal Details: parched TEETH & GINGIVA: Yes poor dentition Eye: COMMON NORMALS: Equal, round and reactive pupils present, EOMs intact bilaterally and conjunctivae normal CONJUNCTIVA: Yes conjunctivae normal PUPIL: Yes Equal, round and reactive pupils present Neck/C-Spine: COMMON NORMALS: full ROM GENERAL: Yes normal visual inspection and Yes trachea midline Chest: CHEST: Yes Symmetrical chest wall rise and Yes Vascular access present (tunneled dialysis catheter on L) Resp: COMMON NORMALS: normal respiratory effort, No retractions and No use of accessory muscles EFFORT & INSPECTION: Yes able to speak in complete sentences, Yes symmetric chest movement and No tachypneic AUSCULTATION: diminished lung sounds OTHER: -on RA Cardio: COMMON NORMALS: regular rate, regular rhythm, S1 normal heart sound present, S2 normal heart sound present and No murmurs present (Cardio) RATE: regular rate RHYTHM: regular rhythm HEART SOUNDS: S1 normal heart sound present and S2 normal heart sound present GI: COMMON NORMALS: Normal to inspection, nondistended, normoactive bowel sounds present, Soft to palpation and non-tender PALPATION: Yes Soft to palpation Back/Pelvis: COMMON NORMALS: thoracic and lumbar spine normal to inspection Extremity: COMMON NORMALS: normal to inspection, full ROM, no clubbing, cyanosis or edema and no pedal edema NARRATIVE EXTREMITY EXAM: -scars on both upper extremities from previous grafts and revisions. Neuro: COMMON NORMALS: patient oriented x3, moves all extremities, no focal motor deficits, no sensory deficits noted and gait normal SENSORIU M/ORIENTATION: Yes alert Psych: COMMON NORMALS: mental status grossly normal, Normal thought process present, cooperative, normal affect and speech normal SPEECH: Yes normal speech THOUGHT PROCESS: Normal thought process present Skin: COMMON NORMALS: no rashes or lesions noted, no jaundice, no petechiae and no mottling GENERAL SKIN EXAM: no rashes or lesions noted NAILS: dystrophic Data : 10/07/19 04:33 10/07/19 04:33 Micro: Microbiology 10/06/19 18:15 Stool Lactoferrin - Final Stool C.difficile Toxin B Gene (PCR) - Final 10/06/19 11:48 Blood Culture - Preliminary Blood SPECIMEN COLLECTED 10/06/19 09:31 Blood Culture - Preliminary Blood SPECIMEN COLLECTED A&P Assessment and plan (1) Hyperkalemia: -improving with HD, also received D50, insulin and calcium gluconate -daily labs -noted ECG changes, reviewed with cardiology with recommendation made to trend troponins, ECG, telemetry -telemetry monitoring -troponins noted, delta of negative 15; in background of ESRD Status: Acute (2) ESRD (end stage renal disease): -Nephrology on board -HD yesterday and again today -due to hx of AV graft malfunction, has R tunneled catheter for HD access -prior schedule of HD: M, W, F -primary tube draw helper is Dr. May in [place] -hx of non compliance particularly with HD Status: Acute (3) Transaminitis: -acute hepatitis panel negative -US abdomen unremarkable -improved LFTs; continue to trend -has been noted to have transaminitis intermittently in the past as well Status: Acute (4) C. difficile colitis: -enteric bacterial panel negative, C.difficile +, pending enteric parasite panel -started on oral Vancomycin; has declined to take this in the past -chronic issue as has been positive for this in the past -contact isolation precautions Status: Acute (5) Thrombocytopenia: -baseline platelet count 80s -continue to trend -monitor for bleeding Status: Chronic (6) Smoker: -nicotine replacement therapy Status: Chronic (7) Gram-negative bacteremia: -prior hx of gram negative bacteremia (Pseudomonas aueriginosa) with suspected source being R AV graft site; in 05/2019 -blood cx pending Status: Resolved (8) Abdominal pain: -pain control, antiemetics as needed -NPO currently, may introduce PO intake if improved Status: Acute Qualifiers: Abdominal location: generalized Qualified Code(s): R10.84 - Generalized abdominal pain (9) DVT of upper extremity (deep vein thrombosis): -Noted to have superficial thrombus in the right cephalic and basilic veins with extension into surgical anastomosis at the AC fossa, venous thrombosis in the left brachial and basilic veins with extension into the left surgical graft -Not a candidate for anticoagulation given underlying thrombocytopenia, anemia, recent GI bleed history -Has been following up with vascular surgery at [facility] in [place] Status: Acute Qualifiers: Affected thrombotic vein of extremity: unspecified vein of extremity Chronicity: acute Laterality: bilateral Qualified Code(s): I82.623 - Acute embolism and thrombosis of deep veins of upper extremity, bilateral Additional A&P Information -HTN; normotensive -Non oxygen dependent COPD; continue to monitor respiratory status, supplemental oxygen as needed -Peripheral neuropathy -Chronic diastolic CHF: Echo (05/2019): EF=60%, mild LVH, mild hypokinesia of basal septal segment, trace AR, mild (1.4 cm2), mild TR -hx of severe aortic stenosis; most recent Echo shows mild -Peripheral vascular disease; f/u with vascular surgery in [place] -Chronic normocytic anemia, likely anemia of chronic disease; baseline Hg 10-11; prior hx of GI bleed, unable to do bowel prep so no GI workup done -Paroxysmal atrial fibrillation; on BB, telemetry monitoring, rate controlled; not on AC due to underlying anemia and thrombocytopenia -GI ppx with PPI -DVT ppx with SCDs, no AC -Dispo: home -Code status: FULL code Attestations Medical Necessity Statement*: Patient requires hospitalization for continued management of hyperkalemia, abdominal pain, pending PO tolerance, HD today. Time Spent in Patient Care: Greater than 35 minutes (>than 50% of time spent in counselling and/or direct pt care on unit) . Coding Level of Care Code Acute [employer] Specialist for Chg Fwd Exam Comprehensive Diagnoses Hyperkalemia E87.5 ESRD (end stage renal disease) N18.6 Transaminitis R74.0 C. difficile colitis A04.72 Thrombocytopenia D69.6 Smoker F17.200 Gram-negative bacteremia R78.81 Abdominal pain R10.84 Abdominal location: generalized DVT of upper extremity (deep vein thrombosis) I82.623 Affected thrombotic vein of extremity: unspecified vein of extremity Chronicity: acute Laterality: bilateral
[2019-10-07] MEDS: aspirin 81 mg EC Tablet PO (10:57)
[2019-10-07] MEDS: metoprolol succinate ER (24 HR) 25 mg Tablet PO (10:57)
[2019-10-07] MEDS: pantoprazole DR 40 mg Tablet PO (10:58)
[2019-10-07] MEDS: sevelamer 800 mg Tablet 1600 MG PO ×3 (11:37→20:58)
--- NOTE | 2019-10-07 11:50 | P.PN_ITS ---
Subjective Subjective: Interval history: feels better Medications: Reviewed: Yes Vitals/I&O/Wt Last Vital Signs Temp 98.5 F 10/07/19 06:24 Pulse 55 L 10/07/19 10:00 Resp 13 10/07/19 10:00 BP 117/48 10/07/19 10:00 Pulse Ox 100 10/07/19 10:00 10/06/19 10/07/19 10/07/19 22:59 06:59 14:59 Intake Total Balance Weight last 48 hrs Weight 60.464 kg Weight 53.977 kg Data : 10/07/19 04:33 10/07/19 04:33 Micro: Microbiology 10/06/19 09:31 Blood Culture - Preliminary Blood NEGATIVE TO DATE 10/06/19 18:15 Stool Lactoferrin - Final Stool Enteric Pathogens (PCR) - Final C.difficile Toxin B Gene (PCR) - Final 10/06/19 11:48 Blood Culture - Preliminary Blood SPECIMEN COLLECTED A&P Additional A&P Information 1. ESRD, usually receives HD MWF - missed Wednesday 2. Hyperkalemia - resolved with dialysis yesterday 3. Hypertension - improved 4. Metabolic acidosis - resolved with dialysis yesterday 5. C diff colitis Recommend: Hemodialysis today 3 hours. Next treatment WednesdayOctober 08 Attestations Medical Necessity Statement*: per primary service Coding Level of Care Code Acute Staff Research Scientist for Melvin Mina
[2019-10-07] MEDS: acetaminophen 325 mg Tablet 650 MG PO (12:09)
--- NOTE | 2019-10-07 18:06 | PC.NURSE ---
up in bed dialysis nurse at bedside to start treatment at this time
[2019-10-07] MEDS: morphine 4 mg/mL SDV 1 mL IVP (20:58)
[2019-10-07] MEDS: ondansetron 2 mg/ML SDV 2 mL 4 MG IVP (20:59)
--- NOTE | 2019-10-07 22:10 | PC.NURSE ---
report called to alvina donaldson. pt transferred via wheelchair.
[2019-10-08] VITALS (15 sets, daily range): BP systolic 109–142; BP diastolic 51–70; PULSE 52–66; RESP 12–20; TEMP 36.6–37.1; O2SAT 92–97
[2019-10-08 05:42] LABS: Basophils % 0.8 %; Eosinophils # 0.1 10^3/uL (0.0-0.8); Eosinophils % 2.8 %; Hematocrit 43.2 % (37.0-47.0); Hemoglobin 12.9 g/dL (11.5-15.3); Lymphocytes # 0.9 10^3/uL (0.8-4.8); Lymphocytes % 23.5 %; Mean Corpuscular HGB Conc 29.9 g/dL (30.0-36.0); Mean Corpuscular Volume 97.1 fL (81-99); Mean Platelet Volume 12.8 fL (7.4-10.4); Monocytes # 0.5 10^3/uL (0.2-0.9); Monocytes % 13.3 %; Neutrophils # 2.2 10^3/uL (1.8-7.7); Neutrophils % 59.3 %; Nucleated Red Blood Cells % 0 %; Platelet Count 46 10^3/cmm (130-400); Red Blood Count 4.45 10^6/uL (4.1-5.3); Red Cell Distribution Width 16.7 % (12.1-15.1); White Blood Count 3.6 10^3/uL (4.0-10.0)
[2019-10-08 05:57] LABS: Alanine Aminotransferase 44 U/L (0-33); Albumin Level 3.7 g/dL (3.5-5.2); Alkaline Phosphatase 134 IU/L (35-105); Anion Gap 17.7 (5-19); Aspartate Amino Transferase 29 U/L (0-32); Blood Urea Nitrogen 14 mg/dL (8-23); Calcium 8.8 mg/dL (8.5-10.5); Carbon Dioxide 27 mmol/L (22-29); Chloride 94 mmol/L (98-107); Globulin 3.7 g/dL (1.3-4.6); Glomerular Filtration Rate 14.1 mL/min (90-130); Glucose 100 mg/dL (65-115); Osmolality Calculated 274 mOsm/kg (285-295); Potassium 4.7 mmol/L (3.5-5.1); Sodium 134 mmol/L (136-145); Total Bilirubin 0.5 mg/dL (0.15-1.2); Total Protein 7.4 g/dL (6.6-8.7)
[2019-10-08] MEDS: morphine 4 mg/mL SDV 1 mL IVP ×4 (06:11→23:10)
[2019-10-08] MEDS: sevelamer 800 mg Tablet 1600 MG PO ×4 (06:11→20:29)
[2019-10-08] MEDS: ondansetron 2 mg/ML SDV 2 mL 4 MG IVP ×2 (07:54→14:14)
[2019-10-08] MEDS: budesonide 0.5 mg/2 mL Neb INHALATION ×2 (08:12→21:01)
[2019-10-08] MEDS: pantoprazole DR 40 mg Tablet PO (09:22)
[2019-10-08] MEDS: metoprolol succinate ER (24 HR) 25 mg Tablet PO (09:22)
[2019-10-08] MEDS: aspirin 81 mg EC Tablet PO (09:22)
--- NOTE | 2019-10-08 12:00 | P.PN_ITS ---
Subjective Subjective: Interval history: abdominal pain. + Cdiff, denies diarrhea - normal BM this AM Has appt to see GI in November Vitals/I&O/Wt Last Vital Signs Temp 98.6 F 10/08/19 08:00 Pulse 62 10/08/19 08:23 Resp 16 10/08/19 11:23 BP 137/70 10/08/19 08:00 Pulse Ox 96 10/08/19 08:15 10/07/19 10/08/19 10/08/19 22:59 06:59 14:59 Intake Total 450 / 470 100 / 570 Output Total 0 / 0 Balance 450 / 470 100 / 570 Weight last 48 hrs Weight 53.977 kg Weight 60.464 kg Data : 10/08/19 05:32 10/08/19 05:32 Micro: Microbiology 10/06/19 18:15 Stool Lactoferrin - Final Stool Enteric Pathogens (PCR) - Final Parasite Antigen Panel - Final C.difficile Toxin B Gene (PCR) - Final 10/06/19 11:48 Blood Culture - Preliminary Blood NEGATIVE TO DATE 10/06/19 09:31 Blood Culture - Preliminary Blood NEGATIVE TO DATE A&P Additional A&P Information 1. ESRD, on HD MWF 2. Hyperkalemia 3. Hypertension - improved 4. C diff colitis - on oral vancomycin Recommend: Hemodialysis WednesdayOctober 08 Attestations Medical Necessity Statement*: per primary service Coding Level of Care Code Acute Radiologist Chief Of Breast Imaging for Melvin Mina
--- NOTE | 2019-10-08 17:59 | PM.PN ---
Subjective Subjective: Interval history: Hyperkalemia resolved, improved renal function, hemodynamically stable, on room air, improved LFTs. Hemodialysis tomorrow. Remains on vancomycin secondary to C. difficile colitis. Ambulating to the bathroom with a walker, states that she has had a solid bowel movement and thinks that her C. difficile is gone. Is requesting pill version of oral vancomycin as she does not like the taste of the liquid version and states that it makes her abdominal pain worse. Unfortunately we do not have the pill version of vancomycin in our formulary. Medications: Reviewed: Yes Medication Review Details: Active Medications Generic Name Dose Route Start Last Admin Trade Name Freq PRN Reason Stop Dose Admin Acetaminophen 650 mg 10/06/19 12:21 10/07/19 12:09 Tylenol PO 650 mg Q6H PRN Administration MILD PAIN Albuterol Sulfate 2.5 mg 10/06/19 16:00 10/08/19 08:12 Albuterol INHALATION 2.5 mg QID.RESPIRATORY P RN Administration Shortness Of [place] th Albuterol/Ipratrop ium 3 ml 10/06/19 15:00 Duoneb INHALATION Q6H.RESPIRATORY P RN SOB/WHEEZING Aspirin 81 mg 10/07/19 09:00 10/08/19 09:22 Aspirin Ec PO 81 mg DAILY JOSE DANIEL Administration Budesonide 0.5 mg 10/06/19 20:00 10/08/19 08:12 Pulmicort INHALATION 0.5 mg BID.RESPIRATORY S CH Administration Lorazepam 0.5 mg 10/06/19 12:21 Ativan IVP Q6H PRN ANXIETY Metoprolol Succina te 25 mg 10/07/19 09:00 10/08/19 09:22 Toprol Xl PO 25 mg DAILY JOSE DANIEL Administration Morphine Sulfate 4 mg 10/06/19 12:21 10/08/19 14:27 Morphine IVP 4 mg Q4H PRN Administration SEVERE PAIN Naloxone HCl 0.1 mg 10/06/19 12:21 Narcan IVP Q2M PRN RESPIRATORY RATE < 8/MIN Ondansetron HCl 4 mg 10/06/19 12:21 10/08/19 14:14 Zofran IVP 4 mg Q6H PRN Administration NAUSEA AND VOMITI NG Pantoprazole Sodiu m 40 mg 10/07/19 10:50 10/08/19 09:22 Protonix PO 40 mg DAILY JOSE DANIEL Administration Sevelamer Carbonat e 1,600 mg 10/06/19 17:00 10/08/19 16:33 Renvela PO 1,600 mg AC&BEDTIME JOSE DANIEL Administration Vancomycin HCl 125 mg 10/06/19 23:00 10/08/19 16:34 Vancocin PO 125 mg QID JOSE DANIEL Administration calamine Allergy (Verified 05/25/19 11:46) ALGY-Blister ciprofloxacin [From Cipro] Allergy (Verified 05/25/19 11:46) Unknown clopidogrel [From Plavix] Allergy (Verified 05/25/19 11:46) ALGY-Rash codeine Allergy (Verified 05/25/19 11:46) Unknown diphenhydramine [From Benadryl] Allergy (Verified 05/25/19 11:46) ALGY-Rash nitroglycerin Allergy (Verified 05/25/19 11:46) ALGY-Rash promethazine [From Phenergan] Allergy (Verified 05/25/19 11:46) Unknown quinine Allergy (Verified 05/25/19 11:46) Unknown simvastatin Allergy (Verified 05/25/19 11:46) ALGY-Rash Sulfa (Sulfonamide Antibiotics) Allergy (Verified 05/25/19 11:46) Unknown Vitals/I&O/Wt Last Vital Signs Temp 98.8 F 10/08/19 16:00 Pulse 55 L 10/08/19 16:00 Resp 20 H 10/08/19 16:00 BP 142/68 10/08/19 16:00 Pulse Ox 96 10/08/19 16:00 10/08/19 10/08/19 10/08/19 06:59 14:59 22:59 Intake Total 100 / 570 222 / 222 136 / 358 Balance 100 / 570 222 / 222 136 / 358 Weight last 48 hrs Weight 53.977 kg Weight 60.464 kg Physical Exam Const: COMMON NORMALS: no acute distress, patient oriented x3 and alert GENERAL APPEARANCE: cooperative, comfortable and appears older than stated age NUTRITIONAL APPEARANCE: thin ORIENTATION/CONSCIOUSNESS: Yes awake OTHER: -Cushingoid appearance HENMT: COMMON NORMALS: normocephalic, atraumatic and hearing grossly normal bilaterally HEAD & SCALP: normocephalic and atraumatic MOUTH: moist mucous membranes abnormal Details: parched TEETH & GINGIVA: Yes poor dentition Eye: COMMON NORMALS: Equal, round and reactive pupils present, EOMs intact bilaterally and conjunctivae normal CONJUNCTIVA: Yes conjunctivae normal PUPIL: Yes Equal, round and reactive pupils present Neck/C-Spine: COMMON NORMALS: full ROM GENERAL: Yes normal visual inspection and Yes trachea midline Chest: CHEST: Yes Symmetrical chest wall rise and Yes Vascular access present (tunneled dialysis catheter on L) Resp: COMMON NORMALS: normal respiratory effort, No retractions and No use of accessory muscles EFFORT & INSPECTION: Yes able to speak in complete sentences, Yes symmetric chest movement and No tachypneic AUSCULTATION: diminished lung sounds OTHER: -on RA Cardio: COMMON NORMALS: regular rate, regular rhythm, S1 normal heart sound present, S2 normal heart sound present and No murmurs present (Cardio) RATE: regular rate RHYTHM: regular rhythm HEART SOUNDS: S1 normal heart sound present and S2 normal heart sound present GI: COMMON NORMALS: Normal to inspection, nondistended, normoactive bowel sounds present, Soft to palpation and non-tender PALPATION: Yes Soft to palpation Back/Pelvis: COMMON NORMALS: thoracic and lumbar spine normal to inspection Extremity: COMMON NORMALS: normal to inspection, full ROM, no clubbing, cyanosis or edema and no pedal edema NARRATIVE EXTREMITY EXAM: -scars on both upper extremities from previous grafts and revisions. Neuro: COMMON NORMALS: patient oriented x3, moves all extremities, no focal motor deficits, no sensory deficits noted and gait normal SENSORIUM/ORIENTATION: Yes alert Psych: COMMON NORMALS: mental status grossly normal, Normal thought process present, cooperative, normal affect and speech normal SPEECH: Yes normal speech THOUGHT PROCESS: Normal thought process present Skin: COMMON NORMALS: no rashes or lesions noted, no jaundice, no petechiae and no mottling GENERAL SKIN EXAM: no rashes or lesions noted NAILS: dystrophic Data : 10/08/19 05:32 10/08/19 05:32 Micro: Microbiology 10/06/19 18:15 Stool Lactoferrin - Final Stool Enteric Pathogens (PCR) - Final Parasite Antigen Panel - Final C.difficile Toxin B Gene (PCR) - Final A&P Assessment and plan (1) Hyperkalemia: -improved with HD, also received D50, insulin and calcium gluconate -daily labs -noted ECG changes, reviewed with cardiology with recommendation made to trend troponins, ECG, telemetry -telemetry monitoring -troponins noted, delta of negative 15; in background of ESRD Status: Acute (2) ESRD (end stage renal disease): -Nephrology on board -HD x 2; next session tomorrow -due to hx of AV graft malfunction, has R tunneled catheter for HD access -prior schedule of HD: M, W, F -primary resource technician is Dr. Euceda in [place] -hx of non compliance particularly with HD Status: Acute (3) Transaminitis: -acute hepatitis panel negative -US abdomen unremarkable -improved LFTs; continue to trend -has been noted to have transaminitis intermittently in the past as well Status: Acute (4) C. difficile colitis: -enteric bacterial and parasite panel negative, C.difficile + -on oral Vancomycin; has declined to take this in the past -chronic issue as has been positive for this in the past -contact isolation precautions Status: Acute (5) Thrombocytopenia: -baseline platelet count 80s -continue to trend, stable -monitor for bleeding Status: Chronic (6) Smoker: -nicotine replacement therapy Status: Chronic (7) Gram-negative bacteremia: -prior hx of gram negative bacteremia (Pseudomonas aueriginosa) with suspected source being R AV graft site; in 05/2019 -blood cx prelim negative Status: Resolved (8) Abdominal pain: -pain control, antiemetics as needed -renal dialysis diet as tolerated Status: Acute Qualifiers: Abdominal location: generalized Qualified Code(s): R10.84 - Generalized abdominal pain (9) DVT of upper extremity (deep vein thrombosis): -Noted to have superficial thrombus in the right cephalic and basilic veins with extension into surgical anastomosis at the AC fossa, venous thrombosis in the left brachial and basilic veins with extension into the left surgical graft -Not a candidate for anticoagulation given underlying thrombocytopenia, anemia, recent GI bleed history -Has been following up with vascular surgery at [facility] in [place] Status: Acute Qualifiers: Affected thrombotic vein of extremity: unspecified vein of extremity Chronicity: acute Laterality: bilateral Qualified Code(s): I82.623 - Acute embolism and thrombosis of deep veins of upper extremity, bilateral Additional A&P Information -HTN; normotensive -Non oxygen dependent COPD; continue to monitor respiratory status, supplemental oxygen as needed -Peripheral neuropathy -Chronic diastolic CHF: Echo (05/2019): EF=60%, mild LVH, mild hypokinesia of basal septal segment, trace AR, mild (1.4 cm2), mild TR -hx of severe aortic stenosis; most recent Echo shows mild -Peripheral vascular disease; f/u with vascular surgery in [place] -Chronic normocytic anemia, likely anemia of chronic disease; baseline Hg 10-11; prior hx of GI bleed, unable to do bowel prep so no GI workup done -Paroxysmal atrial fibrillation; on BB, telemetry monitoring, rate controlled; not on AC due to underlying anemia and thrombocytopenia -GI ppx with PPI -DVT ppx with SCDs, no AC -Dispo: home; anticipate discharge tomorrow if stable -Code status: FULL code Attestations Medical Necessity Statement*: Patient requires hospitalization for continued monitoring of lytes, renal function, needs HD tomorrow and continued treatment of C.difficile colitis. Time Spent in Patient Care: 16 - 35 minutes (>than 50% of time spent in counselling and/or direct pt care on unit). Coding Level of Care Code Acute Director Enterprise Sales for Chg Fwd Exam Comprehensive Diagnoses Hyperkalemia E87.5 ESRD (end stage renal disease) N18.6 Transaminitis R74.0 C. difficile colitis A04.72 Thrombocytopenia D69.6 Smoker F17.200 Gram-negative bacteremia R78.81 Abdominal pain R10.84 Abdominal location: generalized DVT of upper extremity (deep vein thrombosis) I82.623 Affected thrombotic vein of extremity: unspecified vein of extremity Chronicity: acute Laterality: bilateral
[2019-10-09] VITALS (13 sets, daily range): BP systolic 104–149; BP diastolic 52–78; PULSE 43–95; RESP 14–22; TEMP 36.6–36.7; O2SAT 90–97
[2019-10-09 04:33] LABS: Basophils % 0.4 %; Eosinophils # 0.1 10^3/uL (0.0-0.8); Eosinophils % 1.4 %; Hematocrit 44.6 % (37.0-47.0); Lymphocytes % 19.9 %; Mean Corpuscular HGB Conc 29.1 g/dL (30.0-36.0); Mean Corpuscular Hemoglobin 29.7 pg (28.0-34.0); Mean Corpuscular Volume 101.8 fL (81-99); Mean Platelet Volume 12.7 fL (7.4-10.4); Monocytes # 0.6 10^3/uL (0.2-0.9); Monocytes % 12.2 %; Neutrophils # 3.3 10^3/uL (1.8-7.7); Neutrophils % 65.7 %; Nucleated Red Blood Cells % 0 %; Platelet Count 53 10^3/cmm (130-400); Positive C 1; Red Blood Count 4.38 10^6/uL (4.1-5.3); Red Cell Distribution Width 16.8 % (12.1-15.1); White Blood Count 5.1 10^3/uL (4.0-10.0)
[2019-10-09 04:46] LABS: Alanine Aminotransferase 35 U/L (0-33); Albumin Level 3.8 g/dL (3.5-5.2); Alkaline Phosphatase 123 IU/L (35-105); Anion Gap 21.9 (5-19); Blood Urea Nitrogen 31 mg/dL (8-23); Calcium 9.3 mg/dL (8.5-10.5); Carbon Dioxide 21 mmol/L (22-29); Chloride 97 mmol/L (98-107); Globulin 3.2 g/dL (1.3-4.6); Glomerular Filtration Rate 9.1 mL/min (90-130); Glucose 97 mg/dL (65-115); Osmolality Calculated 277 mOsm/kg (285-295); Potassium 4.9 mmol/L (3.5-5.1); Sodium 135 mmol/L (136-145); Total Bilirubin 0.5 mg/dL (0.15-1.2)
[2019-10-09 04:53] LABS: Aspartate Amino Transferase 29 U/L (0-32)
[2019-10-09 05:27] LABS: Slide Review Slide Review Perform
[2019-10-09] MEDS: sevelamer 800 mg Tablet 1600 MG PO ×2 (07:19→11:57)
[2019-10-09 08:00] LABS: Hepatitis B Core AB, Total Non-Reactive (Nonreactive)
[2019-10-09] MEDS: budesonide 0.5 mg/2 mL Neb INHALATION ×2 (08:01→19:23)
[2019-10-09] MEDS: aspirin 81 mg EC Tablet PO (08:22)
[2019-10-09] MEDS: metoprolol succinate ER (24 HR) 25 mg Tablet PO (08:22)
[2019-10-09] MEDS: pantoprazole DR 40 mg Tablet PO ×2 (08:22→18:00)
[2019-10-09] MEDS: morphine 4 mg/mL SDV 1 mL IVP ×3 (08:22→19:47)
--- NOTE | 2019-10-09 08:57 | PM.DCS ---
Discharge Providers Date of Admission: 10/06/19 10:58 Date of Discharge: October 10, 2019 Attending Provider at Admission: Nancy Wyman DO Attending Provider at Discharge: Delia Shepherd MD Consults: Nephrology Primary Care Provider: Vincent Gillis DO Diagnoses at Discharge Discharge Diagnosis (1) Hyperkalemia: Status: Resolved Problem details: -improved with HD, also received D50, insulin and calcium gluconate -daily labs -noted ECG changes, reviewed with cardiology with recommendation made to trend troponins, ECG, telemetry -telemetry monitoring -troponins noted, delta of negative 15; in background of ESRD (2) ESRD (end stage renal disease): Status: Chronic Problem details: -Nephrology on board -HD x 3; next session tomorrow -due to hx of AV graft malfunction, has R tunneled catheter for HD access -prior schedule of HD: M, W, F -primary chamfering machine operator is Dr. Euceda in [place] -hx of non compliance particularly with HD (3) Transaminitis: Status: Acute Problem details: -acute hepatitis panel negative -US abdomen unremarkable -improved LFTs; continue to trend -has been noted to have transaminitis intermittently in the past as well (4) C. difficile colitis: Status: Acute Problem details: -enteric bacterial and parasite panel negative, C.difficile + -on oral Vancomycin; has declined to take this in the past -chronic issue as has been positive for this in the past -contact isolation precautions (5) Thrombocytopenia: Status: Chronic Problem details: -baseline platelet count 80s -continue to trend, stable -monitor for bleeding; none so far (6) Smoker: Status: Chronic Problem details: -nicotine replacement therapy (7) Gram-negative bacteremia: Status: Resolved Problem details: -prior hx of gram negative bacteremia (Pseudomonas aueriginosa) with suspected source being R AV graft site; in 05/2019 -blood cx prelim negative (8) Abdominal pain: Status: Resolved Problem details: -pain control, antiemetics as needed -renal dialysis diet as tolerated -has had persistent nausea and vomiting; CT A/P for further evaluation and shows findings consistent with gastritis which is consistent with symptoms -added carafate, increased PPI to BID dosing Qualifiers: Abdominal location: generalized Qualified Code(s): R10.84 - Generalized abdominal pain (9) DVT of upper extremity (deep vein thrombosis): Status: Acute Problem details: -Noted to have superficial thrombus in the right cephalic and basilic veins with extension into surgical anastomosis at the AC fossa, venous thrombosis in the left brachial and basilic veins with extension into the left surgical graft -Not a candidate for anticoagulation given underlying thrombocytopenia, anemia, recent GI bleed history -Has been following up with vascular surgery at [facility] in [place] Qualifiers: Affected thrombotic vein of extremity: unspecified vein of extremity Chronicity: acute Laterality: bilateral Qualified Code(s): I82.623 - Acute embolism and thrombosis of deep veins of upper extremity, bilateral Other Information Additional DC diagnoses/information: -HTN; normotensive -Non oxygen dependent COPD; continue to monitor respiratory status, supplemental oxygen as needed -Peripheral neuropathy -Chronic diastolic CHF: Echo (05/2019): EF=60%, mild LVH, mild hypokinesia of basal septal segment, trace AR, mild (1.4 cm2), mild TR -hx of severe aortic stenosis; most recent Echo shows mild -Peripheral vascular disease; f/u with vascular surgery in [place] -Chronic normocytic anemia, likely anemia of chronic disease; baseline Hg 10-11; prior hx of GI bleed, unable to do bowel prep so no GI workup done -Paroxysmal atrial fibrillation; on BB, telemetry monitoring, rate controlled; not on AC due to underlying anemia and thrombocytopenia Reason for Visit Reason for Visit: CHEST PAIN Hospital Course Hospital Course: Patient was initially admitted to ICU secondary to severe hyperkalemia and noted EKG changes. Nephrology was consulted and she had emergent hemodialysis done. She has since had an additional 3 sessions of dialysis with close monitoring of her electrolytes and renal function. Hyperkalemia has resolved, no further EKG changes noted on telemetry. She had originally presented with symptoms of nausea/vomiting and abdominal pain which is likely consistent with gastritis, confirmed on CT of the abdomen and pelvis. His duplex was done of her bilateral upper extremities with noted DVT; unfortunately patient is not a candidate for anticoagulation given recent GI bleed, underlying thrombocytopenia and anemia. As well choice for anticoagulation would likely be limited to Coumadin due to underlying end-stage renal disease which may not be a good option for this patient as she is quite noncompliant. Stool studies were done and she was found to be positive for C. difficile and has been treated with oral vancomycin which will be continued for several more days to complete her treatment course. Due to this reason she was placed on contact isolation precautions for the entirety of her hospital stay. PPI dose was doubled and Carafate was added which seems to be alleviating her nausea and vomiting and she is able to tolerate some oral intake. Platelet count has been stable in the 40-50 range, hemoglobin has been within normal limits. She is at high risk for readmission given her multiple comorbidities as well as her history of noncompliance including with dialysis. She is encouraged to continue to follow-up with her primary care provider as well as her chamfering machine operator and vascular surgery at [facility]. Discharge Summary: -Patient to follow-up with her primary care physician within 1 week -Patient to follow up with Nephrology (Dr. Euceda) in [place] -Patient to continue to follow up with vascular surgery at [facility] Physical Exam Const: COMMON NORMALS: no acute distress, patient oriented x3 and alert GENERAL APPEARANCE: cooperative, comfortable and appears older than stated age NUTRITIONAL APPEARANCE: thin ORIENTATION/CONSCIOUSNESS: Yes awake OTHER: -Cushingoid appearance HENMT: COMMON NORMALS: normocephalic, atraumatic and hearing grossly normal bilaterally HEAD & SCALP: normocephalic and atraumatic MOUTH: moist mucous membranes abnormal Details: parched TEETH & GINGIVA: Yes poor dentition Eye: COMMON NORMALS: Equal, round and reactive pupils present, EOMs intact bilaterally and conjunctivae normal CONJUNCTIVA: Yes conjunctivae normal PUPIL: Yes Equal, round and reactive pupils present Neck/C-Spine: COMMON NORMALS: full ROM GENERAL: Yes normal visual inspection and Yes trachea midline Chest: CHEST: Yes Symmetrical chest wall rise and Yes Vascular access present (tunneled dialysis catheter on L) Resp: COMMON NORMALS: normal respiratory effort, No retractions and No use of accessory muscles EFFORT & INSPECTION: Yes able to speak in complete sentences, Yes symmetric chest movement and No tachypneic AUSCULTATION: diminished lung sounds OTHER: -on RA Cardio: COMMON NORMALS: regular rate, regular rhythm, S1 normal heart sound present, S2 normal heart sound present and No murmurs present (Cardio) RATE: regular rate RHYTHM: regular rhythm HEART SOUNDS: S1 normal heart sound present and S2 normal heart sound present GI: COMMON NORMALS: Normal to inspection, nondistended, normoactive bowel sounds present, Soft to palpation and non-tender PALPATION: Yes Soft to palpation Back/Pelvis: COMMON NORMALS: thoracic and lumbar spine normal to inspection Extremity: COMMON NORMALS: normal to inspection, full ROM, no clubbing, cyanosis or edema and no pedal edema NARRATIVE EXTREMITY EXAM: -scars on both upper extremities from previous grafts and revisions. Neuro: COMMON NORMALS: patient oriented x3, moves all extremities, no focal motor deficits, no sensory deficits noted and gait normal SENSORIUM/ORIENTATION: Yes alert Psych: COMMON NORMALS: mental status grossly normal, Normal thought process present, cooperative, normal affect and speech normal SPEECH: Yes normal speech THOUGHT PROCESS: Normal thought process present Skin: COMMON NORMALS: no rashes or lesions noted, no jaundice, no petechiae and no mottling GENERAL SKIN EXAM: no rashes or lesions noted NAILS: dystrophic Discharge Data Data Completed and Pending: Completed Studies During Hospitalization Category Date Time Status XR KUB portable 7 [id number] Urgent Exams 10/06/19 11:07 Completed XR chest 1V fabiana ble [id number] Stat Exams 10/06/19 08:30 [place] [id number] Routin e Ultrasound 10/07/19 06:00 Completed [place] d [id number] Routine Ultrasound 10/07/19 06:00 Completed Pending at discharge Category Date Time Status Blood Culture Sta t Lab 10/06/19 11:48 Results Labs from last 24 hours 10/09/19 10/09/19 10/06/19 03:30 03:30 09:31 WBC 5.1 RBC 4.38 Hgb 13.0 Hct 44.6 MCV 101.8 H MCH 29.7 MCHC 29.1 L RDW 16.8 H Plt Count 53 L MPV 12.7 H Neut % (Auto) 65.7 Lymph % (Auto) 19.9 [place] % (Auto) 12.2 Eos % (Auto) 1.4 Baso % (Auto) 0.4 Neut # (Auto) 3.3 Lymph # (Auto) 1.0 [place] # (Auto) 0.6 Eos # (Auto) 0.1 Baso # (Auto) 0.0 Nucleated RBC % (a uto) 0 Nucleated RBCs # 0.0 Sodium 135 L Potassium 4.9 Chloride 97 L Carbon Dioxide 21 L Anion Gap 21.9 H BUN 31 H Creatinine 4.8 H GFR Calculation 9.1 L Glucose 97 Calculated Osmolal ity 277 L Calcium 9.3 Total Bilirubin 0.5 AST 29 ALT 35 H Alkaline Phosphata se 123 H Total Protein 7.0 Albumin 3.8 Globulin 3.2 Hep B Core Total A b Non-reactive Vitals: Last Vital Signs Temp 97.9 F 10/09/19 07:35 Pulse 94 10/09/19 08:07 Resp 20 H 10/09/19 08:22 BP 129/67 10/09/19 07:35 Pulse Ox 92 10/09/19 08:04 Discharge Plan Discharge Patient Disposition: Home Health Service Condition: Stable Prescriptions: New vancomycin 125 mg capsule 125 mg PO Q6H 7 Days Qty: 28 RF: 0 sucralfate 1 gram tablet 1 gm PO TID 28 Days Qty: 84 RF: 0 Continued albuterol sulfate 2.5 mg /3 mL (0.083 %) solution for nebulization 2.5 mg inhalation QID PRN (Reason: Shortness Of Breath) RF: 0 ondansetron HCl 4 mg tablet 4 mg PO TID PRN (Reason: Nausea) RF: 0 budesonide 0.5 mg/2 mL suspension for nebulization 0.5 mg inhalation BID RF: 0 metoprolol succinate 25 mg tablet extended release 24 hr 25 mg PO DAILY RF: 0 Ventolin HFA 90 mcg/actuation HFA aerosol inhaler 2 puff INHALATION Q4H PRN (Reason: Shortness Of Breath) RF: 0 ipratropium-albuterol See Rx Instructions .ROUTE .COMPLEX RF: 0 pantoprazole 40 mg Tablet,Delayed Release (Dr/Ec) 40 mg PO BID Qty: 60 RF: 0 aspirin 81 mg Tablet,Delayed Release (Dr/Ec) 81 mg PO DAILY Qty: 30 RF: 0 sevelamer carbonate 800 mg Tablet 1,600 mg PO AC&BEDTIME Qty: 60 RF: 0 Discontinued Nexium 24HR 20 mg Capsule,Delayed Release(Dr/Ec) 20 mg PO DAILY RF: 0 Discharge Orders: Discharge Order (Routine); Ordered 10/10/19 Ordered By: Delia Shepherd Referrals: Vincent Gillis DO [Primary Care Provider] - 4-7 days (Post hospital discharge follow up. Had HD done, found to have bilateral UE DVTs, not candidate for anticoagulation due to thrombocytopenia, anemia and recent GI bleed hx. ) Discharge Diet: Usual diet Discharge Activity: Increase activity as tolerated Activity Restrictions/Additional Instructions: -Please continue to practice good hand hygiene, making sure to wash hands with soap and water as often as possible particularly when handling food -Please take medications as prescribed -Please continue to go to [facility] for dialysis on Wednesday, Wednesday, Wednesday. Discharge Attestations Time Spent in Discharge Care*: greater than 30 min Specific Discharge Activities: Specific discharge activities: educating patient, discussing with telehealth case manager/social workers/dc planners, documenting/other paperwork and evaluating patient/reviewing data Status at Discharge: Cognitive status at discharge: cognitively intact, Behavioral status at discharge: cooperative, Functional status at discharge: uses cane/walker Overall status at discharge: patient is back to baseline Quality Metrics Clinical Quality Measures During this hospital stay, did patient experience: VTE Contraindication to Overlap Therapy: Medical contraindication (thrombocytopenia, anemia, recent GI bleed) VTE Discharge Education: Education about treatment options/disease process Deep Vein Thrombosis/Pulmonary Embolism Present on Admission: Yes Contraindication to Pharm VTE Prophylaxis: Medical contraindication Coding Level of Care Code Acute 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 difficile colitis A04.72 Thrombocytopenia D69.6 Smoker F17.200 Gram-negative bacteremia R78.81 Abdominal pain R10.84 Abdominal location: generalized DVT of upper extremity (deep vein thrombosis) I82.623 Affected thrombotic vein of extremity: unspecified vein of extremity Chronicity: acute Laterality: bilateral
--- NOTE | 2019-10-09 11:12 | PC.RESP ---
Smoking Cessation information sent to patient with a schedule of classes.
--- NOTE | 2019-10-09 11:59 | PC.SOCIAL ---
Pg 2 IMM Explained to pt Pg 2 IMM. Pt verbally understands. No questions voiced. Provided pt a copy. Signed, dated, & timed a copy & placed in chart.
[2019-10-09] MEDS: ondansetron 2 mg/ML SDV 2 mL 4 MG IVP ×2 (14:27→21:57)
--- NOTE | 2019-10-09 16:34 | P.PN_ITS ---
Subjective Subjective: Interval history: nausea and vomiting today. Diarrhea appears to have resolved Medications: Reviewed: Yes Vitals/I&O/Wt Last Vital Signs Temp 98.0 F 10/09/19 11:22 Pulse 82 10/09/19 11:22 Resp 16 10/09/19 12:01 BP 149/63 10/09/19 11:22 Pulse Ox 96 10/09/19 11:22 10/09/19 10/09/19 10/09/19 06:59 14:59 22:59 Intake Total 220 / 578 480 / 480 Balance 220 / 578 480 / 480 Weight last 48 hrs Weight 55.384 kg Weight 53.977 kg Physical Exam Const: GENERAL APPEARANCE: cooperative HENMT: COMMON NORMALS: normocephalic HEAD & SCALP: normocephalic OTHER: left tunneled IJ catheter Resp: COMMON NORMALS: normal respiratory effort and clear to auscultation bilaterally AUSCULTATION: clear to auscultation bilaterally Cardio: COMMON NORMALS: regular rhythm RHYTHM: regular rhythm Extremity: COMMON NORMALS: no pedal edema Data : 10/09/19 03:30 10/09/19 03:30 A&P Additional A&P Information 1. ESRD, on HD MWF 2. Hyperkalemia - resolved 3. Hypertension - improved 4. C diff colitis - on oral vancomycin Recommend: will hold sevelemar. Check phos. Consider abdominal xray if N/V continues. Next Hemodialysis October 10 Attestations Medical Necessity Statement*: per primary service Time Spent in Patient Care: 16 - 35 minutes Coding Level of Care Code Acute Flame Cutting Machine Operator for g Fwd Exam Detailed
--- NOTE | 2019-10-09 17:42 | PM.PN ---
Subjective Subjective: Interval history: Patient seen earlier this morning just before going to dialysis, just had an episode of nausea and non-bloody non-bilious emesis. Had just finished having her lunch. Seen again following dialysis, still has some nausea but no vomiting so far. Is requesting a GI cocktail as it has helped her in the past. Is burping quite a bit. Had a semisolid stool earlier this morning. Though she previously thought she might feel ready to go home this afternoon now would like to stay tonight due to her nausea and vomiting. Medications: Reviewed: Yes Medication Review Details: Active Medications Generic Name Dose Route Start Last Admin Trade Name Freq PRN Reason Stop Dose Admin Acetaminophen 650 mg 10/06/19 12:21 10/07/19 12:09 Tylenol PO 650 mg Q6H PRN Administration MILD PAIN Albuterol Sulfate 2.5 mg 10/06/19 16:00 10/09/19 08:01 Albuterol INHALATION 2.5 mg QID.RESPIRATORY P RN Administration Shortness Of [place] th Albuterol/Ipratrop ium 3 ml 10/06/19 15:00 Duoneb INHALATION Q6H.RESPIRATORY P RN SOB/WHEEZING Aspirin 81 mg 10/07/19 09:00 10/09/19 08:22 Aspirin Ec PO 81 mg DAILY JOSE DANIEL Administration Budesonide 0.5 mg 10/06/19 20:00 10/09/19 08:01 Pulmicort INHALATION 0.5 mg BID.RESPIRATORY S CH Administration Lorazepam 0.5 mg 10/06/19 12:21 Ativan IVP Q6H PRN ANXIETY Metoprolol Succina te 25 mg 10/07/19 09:00 10/09/19 08:22 Toprol Xl PO 25 mg DAILY JOSE DANIEL Administration Morphine Sulfate 4 mg 10/06/19 12:21 10/09/19 12:01 Morphine IVP 4 mg Q4H PRN Administration SEVERE PAIN Naloxone HCl 0.1 mg 10/06/19 12:21 Narcan IVP Q2M PRN RESPIRATORY RATE < 8/MIN Ondansetron HCl 4 mg 10/06/19 12:21 10/09/19 14:27 Zofran IVP 4 mg Q6H PRN Administration NAUSEA AND VOMITI NG Pantoprazole Sodiu m 40 mg 10/07/19 10:50 10/09/19 08:22 Protonix PO 40 mg DAILY JOSE DANIEL Administration Sucralfate 1 gm 10/09/19 21:00 Carafate Oral Li q PO AC&BEDTIME JOSE DANIEL Vancomycin HCl 125 mg 10/06/19 23:00 10/09/19 12:02 Vancocin PO 125 mg QID JOSE DANIEL Administration calamine Allergy (Verified 05/25/19 11:46) ALGY-Blister ciprofloxacin [From Cipro] Allergy (Verified 05/25/19 11:46) Unknown clopidogrel [From Plavix] Allergy (Verified 05/25/19 11:46) ALGY-Rash codeine Allergy (Verified 05/25/19 11:46) Unknown diphenhydramine [From Benadryl] Allergy (Verified 05/25/19 11:46) ALGY-Rash nitroglycerin Allergy (Verified 05/25/19 11:46) ALGY-Rash promethazine [From Phenergan] Allergy (Verified 05/25/19 11:46) Unknown quinine Allergy (Verified 05/25/19 11:46) Unknown simvastatin Allergy (Verified 05/25/19 11:46) ALGY-Rash Sulfa (Sulfonamide Antibiotics) Allergy (Verified 05/25/19 11:46) Unknown Vitals/I&O/Wt Last Vital Signs Temp 97.9 F 10/09/19 16:00 Pulse 43 L 10/09/19 16:00 Resp 14 10/09/19 16:00 BP 126/53 10/09/19 16:00 Pulse Ox 96 10/09/19 16:00 10/09/19 10/09/19 10/09/19 06:59 14:59 22:59 Intake Total 220 / 578 480 / 480 Balance 220 / 578 480 / 480 Weight last 48 hrs Weight 55.384 kg Weight 53.977 kg Physical Exam Const: COMMON NORMALS: no acute distress, patient oriented x3 and alert GENERAL APPEARANCE: cooperative, comfortable and appears older than stated age NUTRITIONAL APPEARANCE: thin ORIENTATION/CONSCIOUSNESS: Yes awake OTHER: -Cushingoid appearance HENMT: COMMON NORMALS: normocephalic, atraumatic and hearing grossly normal bilaterally HEAD & SCALP: normocephalic and atraumatic MOUTH: moist mucous membranes abnormal Details: parched TEETH & GINGIVA: Yes poor dentition Eye: COMMON NORMALS: Equal, round and reactive pupils present, EOMs intact bilaterally and conjunctivae normal CONJUNCTIVA: Yes conjunctivae normal PUPIL: Yes Equal, round and reactive pupils present Neck/C-Spine: COMMON NORMALS: full ROM GENERAL: Yes normal visual inspection and Yes trachea midline Chest: CHEST: Yes Symmetrical chest wall rise and Yes Vascular access present (tunneled dialysis catheter on L) Resp: COMMON NORMALS: normal respiratory effort, No retractions and No use of accessory muscles EFFORT & INSPECTION: Yes able to speak in complete sentences, Yes symmetric chest movement and No tachypneic AUSCULTATION: diminished lung sounds OTHER: -on RA Cardio: COMMON NORMALS: regular rate, regular rhythm, S1 normal heart sound present, S2 normal heart sound present and No murmurs present (Cardio) RATE: regular rate RHYTHM: regular rhythm HEART SOUNDS: S1 normal heart sound present and S2 normal heart sound present GI: COMMON NORMALS: Normal to inspection, nondistended, normoactive bowel sounds present, Soft to palpation and non-tender PALPATION: Yes Soft to palpation Back/Pelvis: COMMON NORMALS: thoracic and lumbar spine normal to inspection Extremity: COMMON NORMALS: normal to inspection, full ROM, no clubbing, cyanosis or edema and no pedal edema NARRATIVE EXTREMITY EXAM: -scars on both upper extremities from previous grafts and revisions. Neuro: COMMON NORMALS: patient oriented x3, moves all extremities, no focal motor deficits, no sensory deficits noted and gait normal SENSORIUM/ORIENTATION: Yes alert Psych: COMMON NORMALS: mental status grossly normal, Normal thought process present, cooperative, normal affect and speech normal SPEECH: Yes normal speech THOUGHT PROCESS: Normal thought process present Skin: COMMON NORMALS: no rashes or lesions noted, no jaundice, no petechiae and no mottling GENERAL SKIN EXAM: no rashes or lesions noted NAILS: dystrophic Data : 10/09/19 03:30 10/09/19 03:30 A&P Assessment and plan (1) Hyperkalemia: -improved with HD, also received D50, insulin and calcium gluconate -daily labs -noted ECG changes, reviewed with cardiology with recommendation made to trend troponins, ECG, telemetry -telemetry monitoring -troponins noted, delta of negative 15; in background of ESRD Status: Resolved (2) ESRD (end stage renal disease): -Nephrology on board -HD x 2; next session today -due to hx of AV graft malfunction, has R tunneled catheter for HD access -prior schedule of HD: M, W, F -primary sales compensation analyst is Dr. Euceda in [place] -hx of non compliance particularly with HD Status: Chronic (3) Transaminitis: -acute hepatitis panel negative -US abdomen unremarkable -improved LFTs; continue to trend -has been noted to have transaminitis intermittently in the past as well Status: Acute (4) C. difficile colitis: -enteric bacterial and parasite panel negative, C.difficile + -on oral Vancomycin; has declined to take this in the past -chronic issue as has been positive for this in the past -contact isolation precautions Status: Acute (5) Thrombocytopenia: -baseline platelet count 80s -continue to trend, stable -monitor for bleeding; none so far Status: Chronic (6) Smoker: -nicotine replacement therapy Status: Chronic (7) Gram-negative bacteremia: -prior hx of gram negative bacteremia (Pseudomonas aueriginosa) with suspected source being R AV graft site; in 05/2019 -blood cx prelim negative Status: Resolved (8) Abdominal pain: -pain control, antiemetics as needed -renal dialysis diet as tolerated -has had persistent nausea and vomiting, will order CT A/P for further evaluation -add carafate, increase PPI to BID dosing and give GI cocktail x 1 -from symptoms, likely due to gastritis Status: Resolved Qualifiers: Abdominal location: generalized Qualified Code(s): R10.84 - Generalized abdominal pain (9) DVT of upper extremity (deep vein thrombosis): -Noted to have superficial thrombus in the right cephalic and basilic veins with extension into surgical anastomosis at the AC fossa, venous thrombosis in the left brachial and basilic veins with extension into the left surgical graft -Not a candidate for anticoagulation given underlying thrombocytopenia, anemia, recent GI bleed history -Has been following up with vascular surgery at [facility] in [place] Status: Acute Qualifiers: Affected thrombotic vein of extremity: unspecified vein of extremity Chronicity: acute Laterality: bilateral Qualified Code(s): I82.623 - Acute embolism and thrombosis of deep veins of upper extremity, bilateral Additional A&P Information -HTN; normotensive -Non oxygen dependent COPD; continue to monitor respiratory status, supplemental oxygen as needed -Peripheral neuropathy -Chronic diastolic CHF: Echo (05/2019): EF=60%, mild LVH, mild hypokinesia of basal septal segment, trace AR, mild (1.4 cm2), mild TR -hx of severe aortic stenosis; most recent Echo shows mild -Peripheral vascular disease; f/u with vascular surgery in [place] -Chronic normocytic anemia, likely anemia of chronic disease; baseline Hg 10-11; prior hx of GI bleed, unable to do bowel prep so no GI workup done -Paroxysmal atrial fibrillation; on BB, telemetry monitoring, rate controlled; not on AC due to underlying anemia and thrombocytopenia -GI ppx with PPI -DVT ppx with SCDs, no AC -Dispo: home; anticipate discharge tomorrow if stable -Code status: FULL code Attestations Medical Necessity Statement*: Patient requires hospitalization for continued management of gastritis with persistent nausea and vomiting and diminished p.o. tolerance. Time Spent in Patient Care: 16 - 35 minutes (>than 50% of time spent in counselling and/or direct pt care on unit). Coding Level of Care Code Acute Data Analysis Manager for Chg Fwd Diagnoses Hyperkalemia E87.5 ESRD (end stage renal disease) N18.6 Transaminitis R74.0 C. difficile colitis A04.72 Thrombocytopenia D69.6 Smoker F17.200 Gram-negative bacteremia R78.81 Abdominal pain R10.84 Abdominal location: generalized DVT of upper extremity (deep vein thrombosis) I82.623 Affected thrombotic vein of extremity: unspecified vein of extremity Chronicity: acute Laterality: bilateral
--- NOTE | 2019-10-09 17:56 | CTR_ITS ---
PROCEDURE INFORMATION: Exam: CT Abdomen And Pelvis Without Contrast Exam date and time: 10/09/2019 6:18 PM Age: 64 years old Clinical indication: Nausea and vomiting; Abdominal pain; Prior surgery; Surgery type: Hyst; Additional info: Persistent nausea, vomiting, c. Difficile colitis TECHNIQUE: Imaging protocol: Computed tomography of the abdomen and pelvis without contrast. Radiation optimization: All CT scans at this facility use at least one of these dose optimization techniques: automated exposure control; mA and/or kV adjustment per patient size (includes targeted exams where dose is matched to clinical indication); or iterative reconstruction. COMPARISON: abdomen limited [id number] 10/07/2019 7:41 AM RADIATION DOSE METRICS: Total DLP (mGy-cm): 329.08 FINDINGS: Limitations: The absence of intravenous contrast lessens the sensitivity of this study for solid organ abnormalities. Liver: There is no focal abnormality within the liver. Gallbladder and bile ducts: There has been a cholecystectomy. Pancreas: The pancreas is normal. Spleen: There is moderate nonspecific splenomegaly. The spleen measures over 20 cm in length. There is a 4 cm diameter indeterminate hypodense irregular mass in the inferior tip of the spleen . This has been reported previously. Comparison with prior examinations is suggested. Adrenals: The adrenal glands are normal. Kidneys and ureters: The kidneys are both extremely atrophic. There is 1 cm sized simple cyst in the left kidney. There is no evidence of hydronephrosis. Stomach and bowel: There is no evidence of intestinal obstruction. There is no evidence of colitis/diverticulitis. There is moderate distention of the stomach which is filled with fluid and debris. Appendix: Not identified Intraperitoneal space: There is no evidence of free intraperitoneal fluid. Vasculature: The aorta demonstrates moderate atherosclerotic calcification. There is no evidence of an abdominal aortic aneurysm. There are findings of femoral to femoral bypass graft. Lymph nodes: Unremarkable. No enlarged lymph nodes. Bladder: Unremarkable as visualized. Reproductive: There has been a hysterectomy. Bones/joints: The lumbar spine demonstrates marked degenerative changes at multiple levels. This is most severe at the L1-L2 level where there are severe degenerative changes of the adjacent endplates. There is severe spinal stenosis at the L4-L5 level. There are degenerative changes in both hips. Soft tissues: Unremarkable. CT/CT abdomen pelvis wo con [id number] IMPRESSION: 1. Indeterminate splenic mass, comparison with prior examinations is suggested. 2. Severely atrophic kidneys 3. Atherosclerotic vascular disease 4. Moderate gastric dilatation. COMMENTS: Consistent with the [employer]'s Incidental Findings Committee white paper (J Am Zandra Radiol 2018): Any incidental renal lesion less than 1.0 cm or classified as too small to characterize, or any incidental cystic renal lesion characterized as simple-appearing, is likely benign. No follow-up imaging is recommended for these lesions per consensus recommendations based on imaging criteria. Radiation Dose CTDIVOL = (mGy): DLP = 329.08 (mGy-cm)
[2019-10-09] MEDS: lidocaine 2% viscous 15 ML, aluminum-mag hydrox-simethicon 30 ML, sucralfate oral liq 1 GM PO (17:59)
[2019-10-09] MEDS: sucralfate 1 gm/10 mL Oral Liq UDC PO (23:07)
[2019-10-10] VITALS (9 sets, daily range): BP systolic 93–112; BP diastolic 41–56; PULSE 52–74; RESP 16–18; TEMP 36.4–36.8; O2SAT 91–98
[2019-10-10] MEDS: morphine 4 mg/mL SDV 1 mL IVP ×2 (00:54→08:30)
[2019-10-10] MEDS: sucralfate 1 gm/10 mL Oral Liq UDC PO ×2 (06:15→11:34)
[2019-10-10] MEDS: budesonide 0.5 mg/2 mL Neb INHALATION (08:23)
[2019-10-10] MEDS: pantoprazole DR 40 mg Tablet PO (08:31)
[2019-10-10] MEDS: aspirin 81 mg EC Tablet PO (08:31)
--- NOTE | 2019-10-10 12:47 | P.PN_ITS ---
Subjective Subjective: Interval history: CT abdomen and pelvis findings reviewed, seems to be consistent with gastritis. Patient seems to have benefited from addition of Carafate and is agreeable to continuing this. She was able to have some oral intake and has so far not had any nausea or vomiting today. She would like to go home this afternoon. Discussed that she will need to go to dialysis tomorrow. Hemodynamically stable but due to low normal blood pressure held beta-asmita dose this morning. Medications: Reviewed: Yes Medication Review Details: Active Medications Generic Name Dose Route Start Last Admin Trade Name Freq PRN Reason Stop Dose Admin Acetaminophen 650 mg 10/06/19 12:21 10/07/19 12:09 Tylenol PO 650 mg Q6H PRN Administration MILD PAIN Albuterol Sulfate 2.5 mg 10/06/19 16:00 10/10/19 08:23 Albuterol INHALATION 2.5 mg QID.RESPIRATORY P RN Administration Shortness Of [place] th Albuterol/Ipratrop ium 3 ml 10/06/19 15:00 Duoneb INHALATION Q6H.RESPIRATORY P RN SOB/WHEEZING Aspirin 81 mg 10/07/19 09:00 10/10/19 08:31 Aspirin Ec PO 81 mg DAILY JOSE DANIEL Administration Budesonide 0.5 mg 10/06/19 20:00 10/10/19 08:23 Pulmicort INHALATION 0.5 mg BID.RESPIRATORY S CH Administration Lorazepam 0.5 mg 10/06/19 12:21 Ativan IVP Q6H PRN ANXIETY Metoprolol Succina te 25 mg 10/07/19 09:00 10/10/19 08:31 Toprol Xl PO Not Given DAILY JOSE DANIEL Morphine Sulfate 4 mg 10/06/19 12:21 10/10/19 08:30 Morphine IVP 4 mg Q4H PRN Administration SEVERE PAIN Naloxone HCl 0.1 mg 10/06/19 12:21 Narcan IVP Q2M PRN RESPIRATORY RATE < 8/MIN Ondansetron HCl 4 mg 10/06/19 12:21 10/09/19 21:57 Zofran IVP 4 mg Q6H PRN Administration NAUSEA AND VOMITI NG Pantoprazole Sodiu m 40 mg 10/09/19 18:00 10/10/19 08:31 Protonix PO 40 mg BID JOSE DANIEL Administration Sucralfate 1 gm 10/09/19 21:00 10/10/19 11:34 Carafate Oral Li q PO 1 gm AC&BEDTIME JOSE DANIEL Administration Vancomycin HCl 125 mg 10/06/19 23:00 10/10/19 08:36 Vancocin PO 125 mg QID JOSE DANIEL Administration calamine Allergy (Verified 05/25/19 11:46) ALGY-Blister ciprofloxacin [From Cipro] Allergy (Verified 05/25/19 11:46) Unknown clopidogrel [From Plavix] Allergy (Verified 05/25/19 11:46) ALGY-Rash codeine Allergy (Verified 05/25/19 11:46) Unknown diphenhydramine [From Benadryl] Allergy (Verified 05/25/19 11:46) ALGY-Rash nitroglycerin Allergy (Verified 05/25/19 11:46) ALGY-Rash promethazine [From Phenergan] Allergy (Verified 05/25/19 11:46) Unknown quinine Allergy (Verified 05/25/19 11:46) Unknown simvastatin Allergy (Verified 05/25/19 11:46) ALGY-Rash Sulfa (Sulfonamide Antibiotics) Allergy (Verified 05/25/19 11:46) Unknown Vitals/I&O/Wt Last Vital Signs Temp 97.6 F 10/10/19 10:36 Pulse 67 10/10/19 10:36 Resp 18 10/10/19 10:36 BP 95/56 10/10/19 10:36 Pulse Ox 92 10/10/19 10:36 10/09/19 10/10/19 10/10/19 22:59 06:59 14:59 Intake Total 118 / 598 500 / 500 Balance 118 / 598 500 / 500 Weight last 48 hrs Weight 56.869 kg Weight 55.384 kg Physical Exam Const: COMMON NORMALS: no acute distress, patient oriented x3 and alert GENERAL APPEARANCE: cooperative, comfortable and appears older than stated age NUTRITIONAL APPEARANCE: thin ORIENTATION/CONSCIOUSNESS: Yes awake OTHER: -Cushingoid appearance HENMT: COMMON NORMALS: normocephalic, atraumatic and hearing grossly normal bilaterally HEAD & SCALP: normocephalic and atraumatic MOUTH: moist mucous membranes abnormal Details: parched TEETH & GINGIVA: Yes poor dentition Eye: COMMON NORMALS: Equal, round and reactive pupils present, EOMs intact bilaterally and conjunctivae normal CONJUNCTIVA: Yes conjunctivae normal PUPIL: Yes Equal, round and reactive pupils present Neck/C-Spine: COMMON NORMALS: full ROM GENERAL: Yes normal visual inspection and Yes trachea midline Chest: CHEST: Yes Symmetrical chest wall rise and Yes Vascular access present (tunneled dialysis catheter on L) Resp: COMMON NORMALS: normal respiratory effort, No retractions and No use of accessory muscles EFFORT & INSPECTION: Yes able to speak in complete sentences, Yes symmetric chest movement and No tachypneic AUSCULTATION: diminished lung sounds OTHER: -on RA Cardio: COMMON NORMALS: regular rate, regular rhythm, S1 normal heart sound p resent, S2 normal heart sound present and No murmurs present (Cardio) RATE: regular rate RHYTHM: regular rhythm HEART SOUNDS: S1 normal heart sound present and S2 normal heart sound present GI: COMMON NORMALS: Normal to inspection, nondistended, normoactive bowel s ounds present, Soft to palpation and non-tender PALPATION: Yes Soft to palpation Back/Pelvis: COMMON NORMALS: thoracic and lumbar spine normal to inspection Extremity: COMMON NORMALS: normal to inspection, full ROM, no clubbing, cyanosis or edema and no pedal edema NARRATIVE EXTREMITY EXAM: -scars on both upper extremities from previous grafts and revisions. Neuro: COMMON NORMALS: patient oriented x3, moves all extremities, no focal motor deficits, no sensory deficits noted and gait normal SENSORIUM/ORIENTATION: Yes alert Psych: COMMON NORMALS: mental status grossly normal, Normal thought process present, cooperative, normal affect and speech normal SPEECH: Yes normal spee ch THOUGHT PROCESS: Normal thought process present Skin: COMMON NORMALS: no rashes or lesions noted, no jaundice, no petechiae and no mottling GENERAL SKIN EXAM: no rashes or lesions noted NAILS: dystrophic Data : 10/09/19 03:30 10/09/19 03:30 A&P Assessment and plan (1) Hyperkalemia: -improved with HD, also received D50, insulin and calcium gluconate -daily labs -noted ECG changes, reviewed with cardiology with recommendation made to trend troponins, ECG, telemetry -telemetry monitoring -troponins noted, delta of negative 15; in background of ESRD Status: Resolved (2) ESRD (end stage renal disease): -Nephrology on board -HD x 2; next session tomorrow -due to hx of AV graft malfunction, has R tunneled catheter for HD access -prior schedule of HD: M, W, F -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 difficile colitis: -enteric bacterial and parasite panel negative, C.difficile + -on oral Vancomycin; has declined to take this in the past -chronic issue as has been positive for this in the past -contact isolation precautions Status: Acute (5) Thrombocytopenia: -baseline platelet count 80s -continue to trend, stable -monitor for bleeding; none so far Status: Chronic (6) Smoker: -nicotine replacement therapy Status: Chronic (7) Gram-negative bacteremia: -prior hx of gram negative bacteremia (Pseudomonas aueriginosa) with suspected source being R AV graft site; in 05/2019 -blood cx prelim negative Status: Resolved (8) Abdominal pain: -pain control, antiemetics as needed -renal dialysis diet as tolerated -has had persistent nausea and vomiting, CT A/P done and shows findings consistent with gastritis which is consistent with her symptoms -added carafate, increased PPI to BID dosing -from symptoms, likely due to gastritis -she has follow up in November arranged with GI in [place] for possible endoscopic evaluation Status: Resolved Qualifiers: Abdominal location: generalized Qualified Code(s): R10.84 - Generalized abdominal pain (9) DVT of upper extremity (deep vein thrombosis): -Noted to have superficial thrombus in the right cephalic and basilic veins with extension into surgical anastomosis at the AC fossa, venous thrombosis in the left brachial and basilic veins with extension into the left surgical graft -Not a candidate for anticoagulation given underlying thrombocytopenia, anemia, recent GI bleed history -Has been following up with vascular surgery at [facility] in [place] Status: Acute Qualifiers: Affected thrombotic vein of extremity: unspecified vein of extremity Chronicity: acute Laterality: bilateral Qualified Code(s): I82.623 - Acute embolism and thrombosis of deep veins of upper extremity, bilateral Additional A&P Information -HTN; normotensive -Non oxygen dependent COPD; continue to monitor respiratory status, supplemental oxygen as needed -Peripheral neuropathy -Chronic diastolic CHF: Echo (05/2019): EF=60%, mild LVH, mild hypokinesia of basal septal segment, trace AR, mild (1.4 cm2), mild TR -hx of severe aortic stenosis; most recent Echo shows mild -Peripheral vascular disease; f/u with vascular surgery in [place] -Chronic normocytic anemia, likely anemia of chronic disease; baseline Hg 10-11; prior hx of GI bleed, unable to do bowel prep so no GI workup done -Paroxysmal atrial fibrillation; on BB, telemetry monitoring, rate controlled; not on AC due to underlying anemia and thrombocytopenia -GI ppx with PPI -DVT ppx with SCDs, no AC -Dispo: home; has services -Code status: FULL code Attestations Medical Necessity Statement*: Discharge this afternoon Time Spent in Patient Care: 16 - 35 minutes (>than 50% of time spent in counselling and/or direct pt care on unit) . 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 difficile colitis A04.72 Thrombocytopenia D69.6 Smoker F17.200 Gram-negative bacteremia R78.81 Abdominal pain R10.84 Abdominal location: generalized DVT of upper extremity (deep vein thrombosis) I82.623 Affected thrombotic vein of extremity: unspecified vein of extremity Chronicity: acute Laterality: bilateral
== END 2019-10-10 15:00 | disposition home health service (06) | DRG 291 ==
LOC: ER 08:51 → ICU 11:44 → MEDSURG 10-07 22:21
PROVIDERS: Family Medicine; Admitting Provider Family Medicine; Family Provider Internal Medicine; PCP Internal Medicine; Visit Provider Family Medicine
DX: I13.2 Hypertensive heart and chronic kidney disease with heart failure and with stage 5 chronic kidney disease, or end stage renal disease (principal); N18.6 End stage renal disease; I50.32 Chronic diastolic (congestive) heart failure; I82.623 Acute embolism and thrombosis of deep veins of upper extremity, bilateral; A04.72 Enterocolitis due to Clostridium difficile, not specified as recurrent; R78.81 Bacteremia; E87.5 Hyperkalemia; K29.70 Gastritis, unspecified, without bleeding; D69.6 Thrombocytopenia, unspecified; D63.1 Anemia in chronic kidney disease; I48.0 Paroxysmal atrial fibrillation; I73.9 Peripheral vascular disease, unspecified; J44.9 Chronic obstructive pulmonary disease, unspecified; I35.0 Nonrheumatic aortic (valve) stenosis; G62.9 Polyneuropathy, unspecified; Z99.2 Dependence on renal dialysis; F17.210 Nicotine dependence, cigarettes, uncomplicated; Z79.82 Long term (current) use of aspirin; I25.10 Atherosclerotic heart disease of native coronary artery without angina pectoris; K21.9 Gastro-esophageal reflux disease without esophagitis; Z95.1 Presence of aortocoronary bypass graft; Z91.15 Patient's noncompliance with renal dialysis
CPT/HCPCS: 12345; 36415; 71045; 74018; 74176; 76705; 80053; 80307; 82009; 83605; 83630; 83690; 84132; 84439; 84443; 84481; 84484; 85025; 85610; 86705; 86706; 86709; 86803; 87040; 87340; 87493; 87506; 87804; 90935; 93005; 93970; 94640; 96375; 99283; C9113; J0610; J1815; J2270; J2405; J3370; J7611; J7626; Q3014

== ENCOUNTER 2020-04-05 13:02 | Emergency (ER) | payer MEDICARE, MEDICAID, SELFPAY ==
[2020-04-05 13:35] VITALS: BP 147/65; PULSE 76; RESP 15; TEMP 36.5; O2SAT 98; BMI 22.6
--- NOTE | 2020-04-05 13:58 | PC.NURSE ---
1+ pedal pulse to left foot, redness noted from mid-calf down to toes. sensation intact. cap refill 2 seconds. ltd rom d/t pain. states normally walks with walker, but hasn't walked much d/t increased pain.
--- NOTE | 2020-04-05 14:09 | USCV_ITS ---
Carmen Duarte Age: 65 Gender: F : 1955 Exam Date: 04/05/2020 15:03 Ordering Phys: Brown Romero Technologist: Malini Neves Exam Location: [facility] Indication: fem fem bypass with bilat stents, lt leg pain and discolortion Risk Factors: Previous Vascular Surgery: RIGHT LEFT BP: 175.0 / 78.00 BP: 156.0/ 76.00 0 0 Waveform Velocity (cm/s) Velocity (cm/s) Waveform Monophasic 145.1 Iliac Prox 135.5 Monophasic Monophasic 222.4 Iliac Mid 145.0 Monophasic Monophasic 205.4 Iliac Distal 65.5 Monophasic Monophasic 258.0 CONSTRUCTION CARPENTERS HELPER 66.6 Monophasic Monophasic 178.1 SFA Prox 64.1 Monophasic Monophasic 142.0 SFA Mid 126.8 Monophasic Monophasic SFA Dist Monophasic 111.4 68.4 Monophasic 61.7 POP 58.3 Monophasic 0.0 AUTISM SPECIALIST 15.6 Monophasic Monophasic 25.0 DPA 92.6 Monophasic 0.7 DEANNE 0.6 FINDINGS Abnormal resting ABIs bilaterally of 0.7 on the right side and 0.6 on the left side Femorofemoral bypass graft appears to be patent with no significant stenosis in the body or at the anastomotic sites. The right femoral artery and the popliteal artery were found to be stented and patent. The posterior tibial artery on the right side was found to have no Doppler flow signal. The other arteries were found to have monophasic Doppler waveforms on the right side On the left side, the iliac artery was found to have retrograde flow. The femoral, popliteal and infrapopliteal vessels were found to have monophasic and continuous Doppler flow signals. The flow in the posterior tibial artery was found to be very sluggish. CONCLUSIONS 1. Patent femorofemoral bypass graft. No significant stenosis were noted at the anastomotic sites or in the body of the graft. 2. Features of total occlusion of the posterior tibial artery on the right side. 3. The stents in the right femoral/popliteal artery was found to be patent. Stent in the femoral artery on the left side also was found to be patent. 4. Total occlusion of the posterior tibial artery on the right side. Possible high-grade stenosis in the posterior tibial artery on the left side. . Abnormal ABIs suggesteive of moderate peripheral artery disease bilaterally Compared to the study from 12/06/2018, the stenting in the left femoral artery appears to be new. Dr Fanny Tuttle MD FAC (Electronically Signed) Final Date: 05 April 2020 18:30 S
--- NOTE | 2020-04-05 14:12 | ED_ITS ---
HPI - Extremity Problem General: Chief complaint: Extremity Problem,Nontraumatic Stated complaint: chronic left leg pain Time Seen by Provider: 04/05/20 13:51 History of Present Illness: HPI Narrative: Patient is a 65-year-old female comes in the ED with lower extremity pain. Patient has history of PVD and has had stents placed in both right and left lower extremities. She also sees vascular doctor regularly. She is having increased lower extremity pain with some redness of the skin starting 3 days ago. She rates her pain a 10 out of 10. Patient is a current daily smoker. She denies any injury or trauma to cause pain but says that this is been a chronic issue and its just been progressing. Next appointment with vascular doctor is in 2 weeks. Associated symptoms: Deny chest pain, fever(s) or rash Review of Systems Const: Denies: fever(s), chills or fatigue Eyes: Denies: change in vision or eye discomfort ENMT: Denies: throat pain, odynophagia, nasal discharge or nasal congestion Card: Denies: chest pain, palpitations, edema, swelling of feet/ankles, dyspnea on exertion or orthopnea Resp: Denies: dyspnea, productive cough or non-productive cough GI: Denies: abdominal pain, nausea, vomiting, diarrhea, constipation or hematochezia : Denies: flank pain, dysuria or hematuria Musc: Reports: extremity pain (Bilateral lower extremity pain.); Denies: neck pain, back pain or extremity swelling Skin/Breast: Denies: rash or new lesions Neuro: Denies: headache(s), numbness in extremities or weakness in extremities PFS ED PFSH: Medical History A-V fistula 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 AV fistula TPA right arm graft Anemia, chronic disease Atherosclerotic heart disease of [place] coronary artery without angina pectoris CAD (coronary artery disease) ESRD (end stage renal disease) -Nephrology on board -HD x 3; next session tomorrow -due to hx of AV graft malfunction, has R tunneled catheter for HD access -prior schedule of HD: M, W, F -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 uEceda in [place] -hx of non compliance particularly with HD ESRD (end stage renal disease) on dialysis HD: M,W,F -has tunneled catheter for access; from review of medical record, this was placed July 2019 Fistula GERD (gastroesophageal reflux disease) Gram-negative bacteremia -prior hx of gram negative bacteremia (Pseudomonas aueriginosa) with suspected source being R AV graft site; in 05/2019 -blood cx prelim negative Hypertension Metabolic acidosis Noncompliance Peripheral neuropathy Peripheral vascular disease Severe aortic stenosis Smoker -nicotine replacement therapy Thrombocytopenia -baseline platelet count 80s -continue to trend, stable -monitor for bleeding; none so far Transaminitis -acute hepatitis panel negative -US abdomen unremarkable -improved LFTs; continue to trend -has been noted to have transaminitis intermittently in the past as well Surgical History History of femoropopliteal bypass Hx of appendectomy Hx of CABG Hx of cholecystectomy S/P thyroid surgery Family History Other Diabetes Hypertension Social History Smoking and tobacco status: current some day smoker cigarettes Alcohol intake: never Substance/Drug Use: current Substance/Drug use frequency: few times a week Substance/Drug use type: Marijuana Female Reproductive History: Date of last menstrual period: 05/25/19 Physical Exam Const: COMMON NORMALS: no acute distress and patient oriented x3 GENERAL APPEARANCE: cooperative and comfortable HENMT: COMMON NORMALS: normocephalic HEAD & SCALP: normocephalic MOUTH: Normal oral and palatal mucosa present THROAT: posterior oropharynx normal and uvula midline Neck/C-Spine: COMMON NORMALS: supple GENERAL: Yes normal visual inspection Resp: COMMON NORMALS: normal respiratory effort, No retractions, No use of accessory muscles and clear to auscultation bilaterally AUSCULTATION: clear to auscultation bilaterally Cardio: COMMON NORMALS: regular rate, regular rhythm, S1 normal heart sound present, S2 normal heart sound present, No gallops present (Cardio), No clicks present (Cardio), No murmurs present (Cardio) and Peripheral pulses 2+ throughout RATE: regular rate RHYTHM: regular rhythm HEART SOUNDS: S1 normal heart sound present and S2 normal heart sound present PERIPHERAL PULSES: Peripheral pulses 2+ throughout GI: COMMON NORMALS: Normal to inspection, nondistended, normoactive bowel sounds present, Soft to palpation, non-tender and no masses PALPATION: Yes Soft to palpation : COMMON NORMALS: Yes no CVA tenderness BLADDER/KIDNEY EXAM: Yes no CVA tenderness Back/Pelvis: COMMON NORMALS: no CVA tenderness Extremity: NARRATIVE EXTREMITY EXAM: Patient has bilateral lower extremity erythema, but no warmth. No open wound or drainage seen. Diminished pedal pulses bilaterally. GENERAL: Yes normal exam except as noted Neuro: COMMON NORMALS: patient oriented x3 and moves all extremities Skin: GENERAL SKIN EXAM: dry skin Course Vital Signs: Vital signs: Vital Signs Temperature 97.7 F 04/05/20 13:35 Pulse Rate 60 04/05/20 16:05 Respiratory Rate 20 H 04/05/20 16:05 Blood Pressure 162/71 04/05/20 16:05 Pulse Oximetry 98 04/05/20 16:05 MDM - Extremity (Nontraumatic) MDM Narrative: Medical decision making narrative: Patient is a 65-year-old female comes to the ED with bilateral leg pain. Patient is a history of peripheral artery disease with stents placed in both right and left lower extremities. Patient has been having increased pain for the past 3 days. She is a current daily smoker. Ultrasound arterial duplex of bilateral lower extremities showed abnormal ABIs suggestive of moderate peripheral artery disease bilaterally. Femoral and Popliteal artery patent bilaterally. Monophasic flow throughout. Patient has an appointment with vascular in 2 weeks. Patient was given a dose of hydrocodone while here in the ED and she was instructed that cessation of smoking is important to help prevent the progression of disease. Return to ED precautions given. Patient understood and agreed with plan. Imaging Data^: US Vascular: Attestation: I personally reviewed and interpreted this imaging study as follows: Radiologist's impression: Ultrasound arterial duplex of bilateral lower extremities.-Prelim report showed all arteries patent and stents in place and patent. Monophasic flow?which does indicate significant active disease. Discharge Plan Discharge Patient Disposition: Home Clinical Impression: Peripheral arterial disease Condition: Stable Prescriptions: No Action albuterol sulfate 2.5 mg /3 mL (0.083 %) solution for nebulization 2.5 mg inhalation QID PRN (Reason: Shortness Of Breath) RF: 0 ondansetron HCl 4 mg tablet 4 mg PO TID PRN (Reason: Nausea) RF: 0 budesonide 0.5 mg/2 mL suspension for nebulization 0.5 mg inhalation BID RF: 0 metoprolol succinate 25 mg tablet extended release 24 hr 25 mg PO DAILY RF: 0 Ventolin HFA 90 mcg/actuation HFA aerosol inhaler 2 puff INHALATION Q4H PRN (Reason: Shortness Of Breath) RF: 0 ipratropium-albuterol See Rx Instructions .ROUTE .COMPLEX RF: 0 pantoprazole 40 mg Tablet,Delayed Release (Dr/Ec) 40 mg PO BID Qty: 60 RF: 0 aspirin 81 mg Tablet,Delayed Release (Dr/Ec) 81 mg PO DAILY Qty: 30 RF: 0 sevelamer carbonate 800 mg Tablet 1,600 mg PO AC&BEDTIME Qty: 60 RF: 0 Discharge Orders: Discharge ED (Routine); Ordered 04/05/20 Ordered By: Brown Romero Referrals: Vincent Gillis DO [Primary Care Provider] - Discharge Diet: Regular Discharge Activity: Increase activity as tolerated Patient Instructions: Peripheral Artery Disease (ED) Activity Restrictions/Additional Instructions: Follow-up with medical provider as directed. Contact vascular let them know that ultrasound of arterial flow in the lower extremities was performed and they can contact [facility] to get the report. Cessation of smoking is important to help prevent further progression of disease. Continue taking home medications as prescribed. Return to the ER or your medical provider if condition worsens. Please read and understand discharge instructions. If any questions, please ask. Coding Level of Care Code ED Controller Instructor for Melvin Fwhayder Exam Comprehensive
[2020-04-05] MEDS: HYDROcodone-acetaminophen 7.5-325 mg Tablet 1 TAB PO ×2 (14:22→16:38)
[2020-04-05 16:05] VITALS: BP 162/71; PULSE 60; RESP 20; O2SAT 98
[2020-04-05] MEDS: HYDROcodone-acetaminophen 7.5-325 mg Tablet 2 TAB PO (16:38)
== END 2020-04-05 16:45 | disposition home or self-care (01) ==
PROVIDERS: Emergency Provider Physician Assistant; PCP Internal Medicine
DX: I73.9 Peripheral vascular disease, unspecified (principal); Z79.82 Long term (current) use of aspirin; I25.10 Atherosclerotic heart disease of native coronary artery without angina pectoris; I12.0 Hypertensive chronic kidney disease with stage 5 chronic kidney disease or end stage renal disease; N18.6 End stage renal disease; Z99.2 Dependence on renal dialysis; Z95.1 Presence of aortocoronary bypass graft; F17.210 Nicotine dependence, cigarettes, uncomplicated
CPT/HCPCS: 12345; 93925; 99281; 99283

== ENCOUNTER 2020-04-09 08:41 | Inpatient (IN) | payer MEDICARE, MEDICAID, SELFPAY ==
[2020-04-09] VITALS (13 sets, daily range): BP systolic 91–147; BP diastolic 41–62; PULSE 77–97; RESP 16–18; TEMP 36.1–37.3; O2SAT 92–97; BMI 22.4
--- NOTE | 2020-04-09 08:42 | USCV_ITS ---
FeliciaCarmen Age: 65 Gender: F : 1955 Exam Date: 04/09/2020 09:12 Ordering Phys: Brown Romero Technologist: Exam Location: [facility] [place] Indication: Leg pain RIGHT LEFT Brachial 112.00 mmHg Brachial 110.00 mmHg Pressure (mmHg) Waveform Pressure (mmHg) Waveform 68.00 DPA 41.00 0.61 Ankle/Brachial Index 0.37 82.00 Pre-Exercise Toe Pressure 0.73 Pre-Exercise Toe/Brachial Index FINDINGS Unable to obtain RT COTTON ROLL PACKER, LT DPA, LT TBI. Arterial duplex performed 04/05/2020 Resting DEANNE of 0.6 on the right side and 0.37 on the left side Resting TBI of 0.73 on the right. CONCLUSIONS Features of severe obstructive arterial disease on the left side Features of moderate obstructive arterial disease on the right side Possible occlusion of the posterior tibial artery on the right side and dorsalis pedis artery on the left side Dr Fanny Tuttle MD [facility] (Electronically Signed) Final Date: 09 April 2020 21:03 S
--- NOTE | 2020-04-09 08:50 | W.ED.EXTPRO ---
Documented by User: FAISAL Palmer 04/09/20 15:13 HPI - Extremity Problem General: Chief complaint: Extremity Problem,Nontraumatic Stated complaint: LEFT LEG PAIN/ LEFT FOOT TENDERNESS Time Seen by Provider: 04/09/20 08:42 History of Present Illness: HPI Narrative: Patient is a 65-year-old female who comes to the ED via EMS with left leg and left foot pain. Patient has a past medical history of hypertension, GERD, COPD and peripheral arterial disease with stents placed in both right and left lower extremities. Patient also has end-stage renal disease and has been on dialysis for 15 years. She was seen here in the ED for same complaint on April 05. Patient says she is having increased left leg pain and right leg pain. Pain occurs when she is at rest. Pain is a 10 out of 10. She has increased redness of the skin starting in the foot and going up just superior to the ankle. Associated symptoms: Deny chest pain, fever(s) or rash Review of Systems Const: Denies: fever(s), chills or fatigue Eyes: Denies: change in vision or eye discomfort ENMT: Denies: throat pain, odynophagia, nasal discharge or nasal congestion Card: Denies: chest pain, palpitations, edema, swelling of feet/ankles, dyspnea on exertion or orthopnea Resp: Denies: dyspnea, productive cough or non-productive cough GI: Denies: abdominal pain, nausea, vomiting, diarrhea, constipation or hematochezia : Denies: flank pain, dysuria or hematuria Musc: Reports: extremity pain (right and left lower extremity pain); Denies: neck pain, back pain or extremity swelling Skin/Breast: Denies: rash or new lesions Neuro: Denies: headache(s), numbness in extremities or weakness in extremities [facility] ED PFSH: Medical History A-V fistula 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 AV fistula TPA right arm graft Anemia, chronic disease Atherosclerotic heart disease of [place] coronary artery without angina pectoris CAD (coronary artery disease) ESRD (end stage renal disease) -Nephrology on board -HD x 3; next session tomorrow -due to hx of AV graft malfunction, has R tunneled catheter for HD access -prior schedule of HD: M, W, F -primary php software engineer is Dr. Euceda in [place] -hx of non compliance particularly with HD ESRD (end stage renal disease) on dialysis HD: M,W,F -has tunneled catheter for access; from review of medical record, this was placed July 2019 Fistula GERD (gastroesophageal reflux disease) Gram-negative bacteremia -prior hx of gram negative bacteremia (Pseudomonas aueriginosa) with suspected source being R AV graft site; in 05/2019 -blood cx prelim negative Hypertension Metabolic acidosis Noncompliance Peripheral neuropathy Peripheral vascular disease Severe aortic stenosis Smoker -nicotine replacement therapy Thrombocytopenia -baseline platelet count 80s -continue to trend, stable -monitor for bleeding; none so far Transaminitis -acute hepatitis panel negative -US abdomen unremarkable -improved LFTs; continue to trend -has been noted to have transaminitis intermittently in the past as well Surgical History History of femoropopliteal bypass Hx of appendectomy Hx of CABG Hx of cholecystectomy S/P thyroid surgery Family History Other Diabetes Hypertension Social History Smoking and tobacco status: current some day smoker cigarettes Alcohol intake: never Female Reproductive History: Date of last menstrual period: 05/25/19 Physical Exam Const: COMMON NORMALS: patient oriented x3 and alert GENERAL APPEARANCE: cooperative and comfortable HENMT: COMMON NORMALS: normocephalic HEAD & SCALP: normocephalic MOUTH: Normal oral and palatal mucosa present THROAT: posterior oropharynx normal and uvula midline Neck/C-Spine: COMMON NORMALS: supple GENERAL: Yes normal visual inspection Resp: COMMON NORMALS: normal respiratory effort, No retractions, No use of accessory muscles and clear to auscultation bilaterally AUSCULTATION: clear to auscultation bilaterally Cardio: COMMON NORMALS: regular rate, regular rhythm, S1 normal heart sound present, S2 normal heart sound present, No gallops present (Cardio), No clicks present (Cardio), No murmurs present (Cardio) and Peripheral pulses 2+ throughout RATE: regular rate RHYTHM: regular rhythm HEART SOUNDS: S1 normal heart sound present and S2 normal heart sound present PERIPHERAL PULSES: Peripheral pulses 2+ throughout GI: COMMON NORMALS: Normal to inspection, nondistended, normoactive bowel sounds present, Soft to palpation, non-tender and no masses PALPATION: Yes Soft to palpation : COMMON NORMALS: Yes no CVA tenderness BLADDER/KIDNEY EXAM: Yes no CVA tenderness Back/Pelvis: COMMON NORMALS: no CVA tenderness Extremity: NARRATIVE EXTREMITY EXAM: Patient has bilateral lower extremity erythema, but no warmth. No open wound or drainage seen. Diminished pedal pulses bilaterally. GENERAL: Yes normal exam except as noted Neuro: COMMON NORMALS: patient oriented x3 and moves all extremities SENSORIUM/ORIENTATION: Yes alert Skin: COMMON NORMALS: no rashes or lesions noted NARRATIVE SKIN EXAM: Patient has bilateral lower extremity erythema, but no warmth. No open wound or drainage seen. GENERAL SKIN EXAM: no rashes or lesions noted and dry skin Course Consultations: Consultation #1: I spoke with Dr. Jeffries about pt case. he would like pt admitted to hospitalist in been to have him consulted. He told me to place her on heparin and he will reevaluate when he sees her. Time: 14:18 Consultation #2: I contacted Dr. Lopez the hospitalist post tronic machine operator and told her about patient case. She accepts admission of patient. Vital Signs: Vital signs: Vital Signs Temperature 98.8 F 04/09/20 08:46 Pulse Rate 87 04/09/20 11:00 Respiratory Rate 18 04/09/20 11:00 Blood Pressure 91/54 04/09/20 11:00 Pulse Oximetry 95 04/09/20 11:00 MDM - Extremity (Nontraumatic) Lab Data: Attestation: I reviewed the patient's lab results. Labs: Lab Results 04/09/20 04/09/20 Range/Units 11:15 11:15 WBC 7.1 (4.0-10.0) 10^3/ uL RBC 3.27 L (4.1-5.3) 10^6/u L Hgb 10.8 L (11.5-15.3) g/dL Hct 34.1 L (37.0-47.0) % MCV 104.3 H (81-99) fL MCH 33.0 (28.0-34.0) pg MCHC 31.7 (30.0-36.0) g/dL RDW 15.6 H (12.1-15.1) % Plt Count 62 L (130-400) 10^3/c mm MPV 11.9 H (7.4-10.4) fL Neut % (Auto) 90.0 % Lymph % (Auto) 3.5 % Potter % (Auto) 5.6 % Eos % (Auto) 0.1 % Baso % (Auto) 0.1 % Neut # (Auto) 6.42 (1.8-7.7) 10^3/u L Lymph # (Auto) 0.3 L (0.8-4.8) 10^3/u L Potter # (Auto) 0.4 (0.2-0.9) 10^3/u L Eos # (Auto) 0.0 (0.0-0.8) 10^3/u L Baso # (Auto) 0.0 (0.0-0.1) 10^3/u L Nucleated RBC % (a uto) 0 % Nucleated RBCs # 0.0 /100WBC Sodium 137 (136-145) mmol/L Potassium 4.0 (3.5-5.1) mmol/L Chloride 98 (98-107) mmol/L Carbon Dioxide 21 L (22-29) mmol/L Anion Gap 22.0 H (5-19) BUN 35 H (8-23) mg/dL Creatinine 7.0 H* (0.5-0.9) mg/dL GFR Calculation 5.9 L (90-130) mL/min Glucose 75 (65-115) mg/dL Calculated Osmolal ity 291 (285-295) mOsm/k g Calcium 7.8 L (8.5-10.5) mg/dL Total Bilirubin 0.6 (0.15-1.2) mg/dL AST 45 H (0-32) U/L ALT 63 H (0-33) U/L Alkaline Phosphata se 203 H (35-105) IU/L Total Protein 7.2 (6.6-8.7) g/dL Albumin 3.6 (3.5-5.2) g/dL Globulin 3.6 (1.3-4.6) g/dL Discharge Plan Discharge Admit Provider: Maia Lopez Clinical Impression: Peripheral arterial disease Condition: Stable Sign Out Sign Out Data: Patient Sign Out occurred on 04/09/20 at 14:47. Patient's care was discussed, and care was transferred from to Sarah Beth Shahid. Coding Level of Care Code ED Leather Repairer for Chg Fwd Exam Comprehensive Documented by User: Sarah Beth Shahid 04/09/20 14:56 HPI - Extremity Problem General: Chief complaint: Extremity Problem,Nontraumatic Stated complaint: LEFT LEG PAIN/ LEFT FOOT TENDERNESS Time Seen by Provider: 04/09/20 08:42 PFSH ED PFSH: Medical History A-V fistula 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 AV fistula TPA right arm graft Anemia, chronic disease Atherosclerotic heart disease of [place] coronary artery without angina pectoris CAD (coronary artery disease) ESRD (end stage renal disease) -Nephrology on board -HD x 3; next session tomorrow -due to hx of AV graft malfunction, has R tunneled catheter for HD access -prior schedule of HD: M, W, F -primary php software engineer is Dr. Euceda in [place] -hx of non compliance particularly with HD ESRD (end stage renal disease) on dialysis HD: M,W,F -has tunneled catheter for access; from review of medical record, this was placed July 2019 Fistula GERD (gastroesophageal reflux disease) Gram-negative bacteremia -prior hx of gram negative bacteremia (Pseudomonas aueriginosa) with suspected source being R AV graft site; in 05/2019 -blood cx prelim negative Hypertension Metabolic acidosis Noncompliance Peripheral neuropathy Peripheral vascular disease Severe aortic stenosis Smoker -nicotine replacement therapy Thrombocytopenia -baseline platelet count 80s -continue to trend, stable -monitor for bleeding; none so far Transaminitis -acute hepatitis panel negative -US abdomen unremarkable -improved LFTs; continue to trend -has been noted to have transaminitis intermittently in the past as well Surgical History History of femoropopliteal bypass Hx of appendectomy Hx of CABG Hx of cholecystectomy S/P thyroid surgery Family History Other Diabetes Hypertension Social History Smoking and tobacco status: current some day smoker cigarettes Alcohol intake: never Course Vital Signs: Vital signs: Vital Signs Temperature 98.8 F 04/09/20 08:46 Pulse Rate 87 04/09/20 11:00 Respiratory Rate 18 04/09/20 11:00 Blood Pressure 91/54 04/09/20 11:00 Pulse Oximetry 95 04/09/20 11:00 MDM - Extremity (Nontraumatic) MDM Narrative: Medical decision making narrative: Patient was seen and evaluated by me. I agree with Brown Griffin assessment and plan. I discussed the case as well with Dr. Howie dove. Patient has significant limb ischemia but she does not have pain at rest and she has normal motor and sensation at this time. Dr. Jeffries's plan is to take her to the lab tomorrow. Lab Data: Labs: Lab Results 04/09/20 04/09/20 Range/Units 11:15 11:15 WBC 7.1 (4.0-10.0) 10^3/ uL RBC 3.27 L (4.1-5.3) 10^6/u L Hgb 10.8 L (11.5-15.3) g/dL Hct 34.1 L (37.0-47.0) % MCV 104.3 H (81-99) fL MCH 33.0 (28.0-34.0) pg MCHC 31.7 (30.0-36.0) g/dL RDW 15.6 H (12.1-15.1) % Plt Count 62 L (130-400) 10^3/c mm MPV 11.9 H (7.4-10.4) fL Neut % (Auto) 90.0 % Lymph % (Auto) 3.5 % Potter % (Auto) 5.6 % Eos % (Auto) 0.1 % Baso % (Auto) 0.1 % Neut # (Auto) 6.42 (1.8-7.7) 10^3/u L Lymph # (Auto) 0.3 L (0.8-4.8) 10^3/u L Potter # (Auto) 0.4 (0.2-0.9) 10^3/u L Eos # (Auto) 0.0 (0.0-0.8) 10^3/u L Baso # (Auto) 0.0 (0.0-0.1) 10^3/u L Nucleated RBC % (a uto) 0 % Nucleated RBCs # 0.0 /100WBC Sodium 137 (136-145) mmol/L Potassium 4.0 (3.5-5.1) mmol/L Chloride 98 (98-107) mmol/L Carbon Dioxide 21 L (22-29) mmol/L Anion Gap 22.0 H (5-19) BUN 35 H (8-23) mg/dL Creatinine 7.0 H* (0.5-0.9) mg/dL GFR Calculation 5.9 L (90-130) mL/min Glucose 75 (65-115) mg/dL Calculated Osmolal ity 291 (285-295) mOsm/k g Calcium 7.8 L (8.5-10.5) mg/dL Total Bilirubin 0.6 (0.15-1.2) mg/dL AST 45 H (0-32) U/L ALT 63 H (0-33) U/L Alkaline Phosphata se 203 H (35-105) IU/L Total Protein 7.2 (6.6-8.7) g/dL Albumin 3.6 (3.5-5.2) g/dL Globulin 3.6 (1.3-4.6) g/dL Discharge Plan Discharge Admit Provider: Maia Lopez Clinical Impression: Peripheral arterial disease Condition: Stable Sign Out Sign Out Data: Patient Sign Out occurred on 04/09/20 at 14:47. Patient's care was discussed, and care was transferred from to [facility]. Coding Level of Care Code ED Leather Repairer for Chg Fwd Exam Comprehensive
[2020-04-09] MEDS: morphine 4 mg/mL SDV 1 mL IM ×2 (09:51→15:20)
[2020-04-09 11:27] LABS: Basophils % 0.1 %; Eosinophils % 0.1 %; Hematocrit 34.1 % (37.0-47.0); Hemoglobin 10.8 g/dL (11.5-15.3); Lymphocytes # 0.3 10^3/uL (0.8-4.8); Lymphocytes % 3.5 %; Mean Corpuscular HGB Conc 31.7 g/dL (30.0-36.0); Mean Corpuscular Volume 104.3 fL (81-99); Mean Platelet Volume 11.9 fL (7.4-10.4); Monocytes # 0.4 10^3/uL (0.2-0.9); Monocytes % 5.6 %; Neutrophils # 6.42 10^3/uL (1.8-7.7); Nucleated Red Blood Cells % 0 %; Platelet Count 62 10^3/cmm (130-400); Red Blood Count 3.27 10^6/uL (4.1-5.3); Red Cell Distribution Width 15.6 % (12.1-15.1); White Blood Count 7.1 10^3/uL (4.0-10.0)
[2020-04-09 11:46] LABS: Alanine Aminotransferase 63 U/L (0-33); Albumin Level 3.6 g/dL (3.5-5.2); Alkaline Phosphatase 203 IU/L (35-105); Aspartate Amino Transferase 45 U/L (0-32); Blood Urea Nitrogen 35 mg/dL (8-23); Calcium 7.8 mg/dL (8.5-10.5); Carbon Dioxide 21 mmol/L (22-29); Chloride 98 mmol/L (98-107); Globulin 3.6 g/dL (1.3-4.6); Glomerular Filtration Rate 5.9 mL/min (90-130); Glucose 75 mg/dL (65-115); Osmolality Calculated 291 mOsm/kg (285-295); Sodium 137 mmol/L (136-145); Total Bilirubin 0.6 mg/dL (0.15-1.2); Total Protein 7.2 g/dL (6.6-8.7)
[2020-04-09 15:44] LABS: INR 1.23 (0.8-1.2)
[2020-04-09 15:45] LABS: Partial Thromboplastin Time 37.4 SECONDS (23.9-36.7)
[2020-04-09] MEDS: heparin 5,000 unit/mL INJ 1 mL IV (18:51)
[2020-04-09] MEDS: sodium chloride 0.9% 1,000 ML 100 ML IV (18:51)
[2020-04-09] MEDS: heparin drip 25,000 UNIT/500 ML PREMIX 16.2 UNIT IV (18:51)
--- NOTE | 2020-04-09 18:54 | PM.HP ---
Providers/Chief Complaint Admitting Physician: Maia Lopez MD Primary Care Provider: Vincent Gillis DO Chief Complaint: LEFT LEG PAIN/ LEFT FOOT TENDERNESS History of Present Illness Carmen Duarte is a 65 year old female with complicated pMH as outlined below who presnted to the ER today c/o acute limb pain at rest. LLE noted to be cool to touch. DEANNE perfromed in the ER at 0.3 c/f critical limb ischemia. Case was discussed by ERP with intervention cardiology, recommended starting heparin drip, obtain CTA and admit patient to hospitalist service. Heparin was ordered at 2;30 pm however has not been started. Patient transferred from ER to [facility] without an iv line or initiation of drip. Since arrriva at [facility], multiple attempst are being made to attempt iv access at this time. CTA not performed. Lack of iv access not discussed prior to transfer to floors. Review of Systems General: Reports: 10 or more systems reviewed and unremarkable except in HPI and below Const: Denies: fever(s), chills or body aches Eyes: Denies: change in vision, blurry vision or photophobia ENMT: Reports: hoarseness; Denies: throat pain, enlarged tonsils, odynophagia or nasal congestion Card: Denies: chest pain, palpitations, irregular heart rhythm, edema, swelling of feet/ankles, lightheadedness, pre-syncope, dyspnea on exertion or orthopnea Resp: Denies: dyspnea, productive cough, non-productive cough, wheezing, stridor, pain on inspiration, change in phlegm color, hemoptysis or chest congestion GI: Denies: abdominal pain, nausea, vomiting, hematemesis, coffee ground emesis, dysphagia, heartburn, diarrhea, constipation, GI cramping, change in stool character, hematochezia or melena : Denies: flank pain, difficulty voiding, dysuria, urinary frequency, urinary urgency, urinary hesitancy or hematuria Musc: Denies: neck pain, back pain, extremity pain, joint swelling, joint warmth or deformity Neuro: Denies: headache(s), numbness in extremities, weakness in extremities, sensory changes, difficulty walking, frequent falls, dizziness, vertigo, behavioral changes, Slurred speech present or seizure-like activity Psych: Denies: anxiety, depression, suicidal ideation or homicidal ideation Endo: Denies: polyuria, polydipsia, tired all the time, cold intolerance or hot flashes Juan/Lymph: Denies: easy bruising or easy bleeding Medications/Allergies Home Medications Medication Instructions Recorded Confirmed Last Taken Type sevelamer carbonate 1,600 mg PO AC&BEDTIME #60 tab 07/29/19 04/09/20 Unknown Rx albuterol sulfate 2.5 mg INHALATION QID PRN 10/06/19 04/09/20 Unknown History albuterol sulfate [Ventolin HFA] 2 puff INHALATION Q4H PRN 10/06/19 04/09/20 04/08/20 History budesonide 0.5 mg INHALATION BID PRN 10/06/19 04/09/20 Unknown History metoprolol succinate 25 mg PO DAILY 10/06/19 04/09/20 04/08/20 History ondansetron HCl 4 mg PO TID PRN 10/06/19 04/09/20 04/09/20 History pantoprazole 40 mg PO BID #60 tab 10/10/19 04/09/20 Unknown Rx aspirin 81 mg PO DAILY@21 04/09/20 04/09/20 Unknown History atorvastatin [Lipitor] 40 mg PO DAILY 04/09/20 04/09/20 Unknown History budesonide-formoterol [Symbicort] 2 puff INHALATION BID 04/09/20 04/09/20 04/08/20 History calcium carbonate [Tums] 200 mg PO PRN 04/09/20 04/09/20 Unknown History escitalopram oxalate [Lexapro] 10 mg PO DAILY 04/09/20 04/09/20 04/07/20 History ipratropium-albuterol 3 ml INHALATION PRN 04/09/20 04/09/20 Unknown History loperamide [Imodium A-D] 2 mg PO PRN 04/09/20 04/09/20 Unknown History Allergies Allergy/AdvReac Type Severity Reaction Status Date / Time calamine Allergy ALGY-Bliste Verified 04/09/20 08:50 r ciprofloxacin [From Cipro] Allergy Unknown Verified 04/09/20 08:50 clopidogrel [From Plavix] Allergy ALGY-Rash Verified 04/09/20 08:50 codeine Allergy Unknown Verified 04/09/20 08:50 diphenhydramine Allergy ALGY-Rash Verified 04/09/20 08:50 [From Benadryl] nitroglycerin Allergy ALGY-Rash Verified 04/09/20 08:50 promethazine [From Phenergan] Allergy Unknown Verified 04/09/20 08:50 quinine Allergy Unknown Verified 04/09/20 08:50 simvastatin Allergy ALGY-Rash Verified 04/09/20 08:50 Sulfa (Sulfonamide Allergy Unknown Verified 04/09/20 08:50 Antibiotics) PFSH Acute PFSH: Medical History A-V fistula 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 AV fistula TPA right arm graft Anemia, chronic disease Atherosclerotic heart disease of [place] coronary artery without angina pectoris CAD (coronary artery disease) ESRD (end stage renal disease) -Nephrology on board -HD x 3; next session tomorrow -due to hx of AV graft malfunction, has R tunneled catheter for HD access -prior schedule of HD: M, W, F -primary wine and spirits clerk is Dr. Euceda in [place] -hx of non compliance particularly with HD ESRD (end stage renal disease) on dialysis HD: M,W,F -has tunneled catheter for access; from review of medical record, this was placed July 2019 Fistula GERD (gastroesophageal reflux disease) Gram-negative bacteremia -prior hx of gram negative bacteremia (Pseudomonas aueriginosa) with suspected source being R AV graft site; in 05/2019 -blood cx prelim negative Hypertension Metabolic acidosis Noncompliance Peripheral neuropathy Peripheral vascular disease Severe aortic stenosis Smoker -nicotine replacement therapy Thrombocytopenia -baseline platelet count 80s -continue to trend, stable -monitor for bleeding; none so far Transaminitis -acute hepatitis panel negative -US abdomen unremarkable -improved LFTs; continue to trend -has been noted to have transaminitis intermittently in the past as well Surgical History History of femoropopliteal bypass Hx of appendectomy Hx of CABG Hx of cholecystectomy S/P thyroid surgery Family History Other Diabetes Hypertension Social History Smoking and tobacco status: current some day smoker cigarettes Alcohol intake: never Female Reproductive History: Date of last menstrual period: 05/25/19 Vitals/I&O/Wt Last Vital Signs Temp 96.9 F L 04/09/20 16:59 Pulse 83 04/09/20 16:59 Resp 17 04/09/20 16:59 BP 107/51 04/09/20 16:59 Pulse Ox 93 04/09/20 16:59 Weight last 48 hrs Weight 53.977 kg Physical Exam Const: COMMON NORMALS: no acute distress, average body habitus, patient oriented x3, no limitations and alert HENMT: COMMON NORMALS: normocephalic and atraumatic HEAD & SCALP: normocephalic and atraumatic Eye: COMMON NORMALS: Equal, round and reactive pupils present, EOMs intact bilaterally, conjunctivae normal and no scleral icterus CONJUNCTIVA: Yes conjunctivae normal PUPIL: Yes Equal, round and reactive pupils present Neck/C-Spine: COMMON NORMALS: no JVD Resp: COMMON NORMALS: normal respiratory effort, No retractions, No use of accessory muscles, clear to auscultation bilaterally and percussion normal AUSCULTATION: clear to auscultation bilaterally PERCUSSION: percussion normal Cardio: COMMON NORMALS: no JVD, regular rate, regular rhythm, S1 normal heart sound present, S2 normal heart sound present, No gallops present (Cardio), No clicks present (Cardio), No murmurs present (Cardio), No rub (Cardio) and Peripheral pulses 2+ throughout RATE: regular rate RHYTHM: regular rhythm HEART SOUNDS: S1 normal heart sound present and S2 normal heart sound present PERIPHERAL PULSES: Peripheral pulses 2+ throughout GI: COMMON NORMALS: Normal to inspection, nondistended, normoactive bowel sounds present, Soft to palpation, non-tender, No hepatosplenomegaly present, no masses and no bruits PALPATION: Yes Soft to palpation and Yes No hepatosplenomegaly present Extremity: COMMON NORMALS: normal to inspection, full ROM, capillary refill normal, no joint enlargement, no clubbing, cyanosis or edema, no calf tenderness and no pedal edema Neuro: COMMON NORMALS: patient oriented x3, CN's II-XII intact bilaterally, moves all extremities, no focal motor deficits, no sensory deficits noted, deep tendon reflexes 2+ bilaterally and gait normal SENSORIUM/ORIENTATION: Yes alert Psych: COMMON NORMALS: mental status grossly normal, Normal thought process present, cooperative, normal affect, speech normal, activity/motor behavior normal, denies hallucinations, denies homicidal ideation and denies suicidal ideation SPEECH: Yes normal speech THOUGHT PROCESS: Normal thought process present Skin: COMMON NORMALS: no rashes or lesions noted, no wounds, turgor normal, no jaundice, no petechiae and no mottling GENERAL SKIN EXAM: no rashes or lesions noted and turgor normal Data : 04/09/20 11:15 04/09/20 11:15 A&P Assessment and plan (1) Peripheral arterial disease: LLE DEANNE reported to be 0.3 rest pain, cool periphery, concern for limb ischemia CTA ordered, attempting to obtain iv access to perfrom study heparin drip ordered at 2:30 pm however not started in the ER, transferred to [facility] with no iv access, attempting now, if unable to obtain, will switch a/c to lovenox fill dose cardiology consult with Dr. Jeffries Status: Acute (2) Hemodialysis graft malfunction: currently getting HD via HD catheter left SC renal consult in am for HD Status: Acute (3) Critical lower limb ischemia: as above Status: Acute Attestations Medical Necessity Statement*: > 2 midnight anticipated for management of limb ischemia Coding Level of Care Code Acute Fiber Picker for Melvin Mina Diagnoses Peripheral arterial disease I73.9 Hemodialysis graft malfunction T82.41XA Critical lower limb ischemia I99.8
--- NOTE | 2020-04-09 19:25 | USCV_ITS ---
Felicia Carmen Age: 65 Gender: F : 1955 Exam Date: 04/09/2020 19:56 Ordering Phys: Brian Jeffries M.D ([email or web address]) Technologist: Magali Rizvi Exam Location: [facility] [place] Indication: ISCHEMIA Risk Factors: Previous Vascular Surgery: RIGHT LEFT Waveform Velocity (cm/s) Velocity (cm/s) Waveform DEPARTMENT OPERATIONS MANAGER 218.8 SFA Prox 61.8 SFA Mid 149.3 SFA Dist 50.7 POP 28.3 FINDINGS UNABLE TO OBTAIN FLOW IN LT TRAFFIC WORKFORCE REPRESENTATIVE AND LT DPA AT THIS TIME ABIS PERFORMED 04/09/20 Flow was detected in the femorofemoral bypass graft Monophasic Doppler waveform in the common femoral and superficial femoral arteries. Proximal SFA appeared to be stented Monophasic and continuous waveforms in the popliteal artery CONCLUSIONS #1. Patent femorofemoral bypass graft. #2. Patent stent in the proximal superficial femoral artery #3. Features suggestive of high-grade stenosis in the mid superficial femoral artery #4. Features suggestive of collateral filling in the popliteal artery. #5. No Doppler flow signals were noted in the posterior tibial or anterior tibial arteries Dr Fanny Tuttle MD [facility] (Electronically Signed) Final Date: 09 April 2020 22:32 S
[2020-04-09] MEDS: aspirin 81 mg EC Tablet PO (20:41)
[2020-04-09] MEDS: sevelamer 800 mg Tablet 1600 MG PO (20:41)
--- NOTE | 2020-04-09 20:42 | PM.CONSULT ---
Providers/Reason For Consult Consulting Physican/Specialty*: Brian Jeffries MD/Interventional Cardiology Reason for Consult*: Critical limb ischemia Attending Physician: Maia Lopez MD Primary Care Provider: Vincent Gillis DO History of Present Illness History of Present Illness 65-year female who has history of end-stage renal disease dialysis dependent presented today with chief complaint of left lower extremity pain at rest. Patient had presented to ER on 04/05 with similar complaints. At that time, doppler ultrasound was performed that showed patent fem fem bypass and presence of stents in the femoral arteries. Left lower extremity below the circulation was poor. She was discharged home as she sees vascular surgery at [facility] in [place] and has an upcoming appointment. Today she is complaining of worsening left lower extremity pain at rest. There is also bluish tinge to the toes. Below the knee, left leg was cold but had dopplerable pulse. ER obtained DEANNE that showed a value of 0.37. We initially requested CTA to assess for percutaneous access points given she has history of common femoral stents.That could not be obtained secondary to lack of IV access. On my exam later, I could obtain dopplerable pulses till the popliteal artery but none below knee. Doppler arterial ultrasound was obtained stat that showed that there was a high grade lesion in the mid SFA on left side with collateral flow to popliteal but no doppler signal could be obtained below the knee. Review of Systems General: Reports: 10 or more systems reviewed and unremarkable except in HPI and below Const: Denies: fever(s), chills or body aches Eyes: Denies: change in vision, blurry vision or photophobia ENMT: Reports: hoarseness; Denies: throat pain, enlarged tonsils, odynophagia or nasal congestion Card: Denies: chest pain, palpitations, irregular heart rhythm, edema, swelling of feet/ankles, lightheadedness, pre-syncope, dyspnea on exertion or orthopnea Resp: Denies: dyspnea, productive cough, non-productive cough, wheezing, stridor, pain on inspiration, change in phlegm color, hemoptysis or chest congestion GI: Denies: abdominal pain, nausea, vomiting, hematemesis, coffee ground emesis, dysphagia, heartburn, diarrhea, constipation, GI cramping, change in stool character, hematochezia or melena : Denies: flank pain, difficulty voiding, dysuria, urinary frequency, urinary urgency, urinary hesitancy or hematuria Musc: Denies: neck pain, back pain, extremity pain, joint swelling, joint warmth or deformity Neuro: Denies: headache(s), numbness in extremities, weakness in extremities, sensory changes, difficulty walking, frequent falls, dizziness, vertigo, behavioral changes, Slurred speech present or seizure-like activity Psych: Denies: anxiety, depression, suicidal ideation or homicidal ideation Endo: Denies: polyuria, polydipsia, tired all the time, cold intolerance or hot flashes Juan/Lymph: Denies: easy bruising or easy bleeding Meds/Allergies Home Medications and Allergies Home Medications Medication Instructions Recorded Confirmed Last Taken Type sevelamer carbonate 1,600 mg PO AC&BEDTIME #60 tab 07/29/19 04/09/20 Unknown Rx albuterol sulfate 2.5 mg INHALATION QID PRN 10/06/19 04/09/20 Unknown History albuterol sulfate [Ventolin HFA] 2 puff INHALATION Q4H PRN 10/06/19 04/09/20 04/08/20 History budesonide 0.5 mg INHALATION BID PRN 10/06/19 04/09/20 Unknown History metoprolol succinate 25 mg PO DAILY 10/06/19 04/09/20 04/08/20 History ondansetron HCl 4 mg PO TID PRN 10/06/19 04/09/20 04/09/20 History pantoprazole 40 mg PO BID #60 tab 10/10/19 04/09/20 Unknown Rx aspirin 81 mg PO DAILY@21 04/09/20 04/09/20 Unknown History atorvastatin [Lipitor] 40 mg PO DAILY 04/09/20 04/09/20 Unknown History budesonide-formoterol [Symbicort] 2 puff INHALATION BID 04/09/20 04/09/20 04/08/20 History calcium carbonate [Tums] 200 mg PO PRN 04/09/20 04/09/20 Unknown History escitalopram oxalate [Lexapro] 10 mg PO DAILY 04/09/20 04/09/20 04/07/20 History ipratropium-albuterol 3 ml INHALATION PRN 04/09/20 04/09/20 Unknown History loperamide [Imodium A-D] 2 mg PO PRN 04/09/20 04/09/20 Unknown History Allergies Allergy/AdvReac Type Severity Reaction Status Date / Time calamine Allergy ALGY-Bliste Verified 04/09/20 08:50 r ciprofloxacin [From Cipro] Allergy Unknown Verified 04/09/20 08:50 clopidogrel [From Plavix] Allergy ALGY-Rash Verified 04/09/20 08:50 codeine Allergy Unknown Verified 04/09/20 08:50 diphenhydramine Allergy ALGY-Rash Verified 04/09/20 08:50 [From Benadryl] nitroglycerin Allergy ALGY-Rash Verified 04/09/20 08:50 promethazine [From Phenergan] Allergy Unknown Verified 04/09/20 08:50 quinine Allergy Unknown Verified 04/09/20 08:50 simvastatin Allergy ALGY-Rash Verified 04/09/20 08:50 Sulfa (Sulfonamide Allergy Unknown Verified 04/09/20 08:50 Antibiotics) Current Medications Current Medications Generic Name Dose Route Start Last Admin Trade Name Freq PRN Reason Stop Dose Admin Aspirin 81 mg 04/09/20 21:00 04/09/20 20:41 Aspirin 81 Mg Ec Tablet PO 81 mg DAILY@21 JOSE DANIEL Administration Heparin Sodium (Beef Lung) 0 unit 04/09/20 14:26 04/09/20 18:51 Heparin 5,000 Unit/Ml Inj 1 Ml IV 2,700 unit PRN PRN Administration Heparin weight-base protocol Protocol Heparin Sodium/Sodium Chloride 25,000 unit in 500 mls @ 0 mls/hr 04/09/20 14:30 04/09/20 18:51 Heparin Drip IV 15 unit/kg/hr .Q0M JOSE DANIEL 16.2 mls/hr Administration Protocol Per Protocol Sevelamer Carbonate 1,600 mg 04/09/20 21:00 04/09/20 20:41 Sevelamer 800 Mg Tablet PO 1,600 mg AC&BEDTIME JOSE DANIEL Administration PFSH Acute PFSH: Medical History A-V fistula 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 AV fistula TPA right arm graft Anemia, chronic disease Atherosclerotic heart disease of [place] coronary artery without angina pectoris CAD (coronary artery disease) ESRD (end stage renal disease) -Nephrology on board -HD x 3; next session tomorrow -due to hx of AV graft malfunction, has R tunneled catheter for HD access -prior schedule of HD: M, W, F -primary dowel machine operator is Dr. 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) with suspected source being R AV graft site; in 05/2019 -blood cx prelim negative Hypertension Metabolic acidosis Noncompliance Peripheral neuropathy Peripheral vascular disease Severe aortic stenosis Smoker -nicotine replacement therapy Thrombocytopenia -baseline platelet count 80s -continue to trend, stable -monitor for bleeding; none so far Transaminitis -acute hepatitis panel negative -US abdomen unremarkable -improved LFTs; continue to trend -has been noted to have transaminitis intermittently in the past as well Surgical History History of femoropopliteal bypass Hx of appendectomy Hx of CABG Hx of cholecystectomy S/P thyroid surgery Family History Other Diabetes Hypertension Social History Smoking and tobacco status: current some day smoker cigarettes Alcohol intake: never Female Reproductive History: Date of last menstrual period: 05/25/19 Vitals/I&O/Wt Last Vital Signs Temp 98.4 F 04/09/20 20:00 Pulse 89 04/09/20 20:00 Resp 16 04/09/20 20:00 BP 91/48 04/09/20 20:00 Pulse Ox 93 04/09/20 20:00 Weight last 48 hrs Weight 119 lb Physical Exam Narrative: EXAM NARRATIVE: Thin frail middle-aged female Looks cachectic Awake alert oriented x3, no neurological deficit S1, S2 sinus rhythm Abdomen soft nontender bowel sound present No acute respite distress Left lower extremity below-knee is cold with paresthesias, slight bluish tinge to toes distally no significant mottling. No palpable pulses. Pulse dopplerable in the ER. Patient able to move the leg Right lower extremity is warm. DP artery is palpable Appropriate mood and affect No signs of gangrene or open wounds at this point A&P Assessment and plan (1) Critical lower limb ischemia: Status: Acute (2) Peripheral arterial disease: Status: Acute (3) CAD (coronary artery disease): Status: Acute Patient initially had dopplerable pulse on presentation but we could not obtain doppler signals later. Foot started becoming cold. CTA could not be performed because of lack of IV access. Continue heparin gtt. Given lack of access because of prior bypass and femoral stents and no CTA available to look for alternative access options, will recommend transferring patient to [facility] where she follows with vascuar surgery. I discussed it with Dr Rivera who has arranged the transfer to [facility] under vascular surgery. I discussed the plan with the patient, who is in agreement. Thank you for involving us with care of this patient. Please call with questions. Coding Level of Care Code Acute Slp for Melvin Mina Diagnoses Critical lower limb ischemia I99.8 Peripheral arterial disease I73.9 CAD (coronary artery disease) I25.10
[2020-04-09] MEDS: morphine 4 mg/mL SDV 1 mL IVP (21:05)
[2020-04-09] MEDS: ondansetron 2 mg/ML SDV 2 mL 4 MG IVP (21:12)
[2020-04-09] MEDS: budesonide 0.5 mg/2 mL Neb INHALATION (21:15)
[2020-04-09] MEDS: ipratropium-albuterol 3 mL Neb INHALATION (21:16)
[2020-04-10 00:12] VITALS: BP 102/44; PULSE 88; PULSE 90; RESP 17; RESP 20; O2SAT 94; O2SAT 97
[2020-04-10] MEDS: ipratropium-albuterol 3 mL Neb INHALATION (00:12)
[2020-04-10 00:15] VITALS: PULSE 86
--- NOTE | 2020-04-10 00:33 | PM.TDS ---
Transfer Summary Providers Date of Admission: 04/09/20 14:52 Date of Discharge: 04/10/20 Attending Provider at Admission: Maia Lopez MD Attending Provider at Transfer: Maia Lopez MD Primary Care Provider: Vincent Gillis DO Anticipated Date of Transfer: Anticipated date of transfer: 04/10/20 Receiving Facility & Provider: Receiving Provider: [] Receiving facility: [] Diagnoses at Discharge Discharge Diagnosis (1) Peripheral arterial disease: Status: Acute (2) Hemodialysis graft malfunction: Status: Acute (3) Critical lower limb ischemia: Status: Acute Reason for Visit Reason for Visit: LEFT LEG PAIN/ LEFT FOOT TENDERNESS Hospital Course Hospital Course 65-year female who has history of end-stage renal disease dialysis dependent presented today with chief complaint of left lower extremity pain at rest, high investigation was critical for limb ischemia, cardiology evaluated her and recommended transfer to [facility] because of femoral-femoral bypass previous history of femoral stent placement done by vascular surgeon at that hospital (Dr. Mansfield is also not on-call), she was started on heparin drip while she stayed in cardiac stepdown unit, she stayed hemodynamically stable, at the time of this transfer patient is not endorsing worsening of her pain, there is very slight bluish tinge to her toes but otherwise no significant mottling, her left lower extremity is cold. Multiple attempts were made to access IV but we were not able to do so hence CTA of lower extremity was not obtained but duplex scan and DEANNE results are mentioned below. Dr. Shayne benitez vascular surgeon has accepted the patient to ICU for critical limb ischemia. She will be transferred with heparin infusion At the time of transfer White count 7, hemoglobin 10.8, platelet count 62, PT 15.9, APTT 37.4 Sodium 137 potassium 4 creatinine 7 DEANNE FINDINGS Unable to obtain RT COUNTY PROGRAM TECHNICIAN, LT DPA, LT TBI. Arterial duplex performed 04/05/2020 Resting DEANNE of 0.6 on the right side and 0.37 on the left side Resting TBI of 0.73 on the right. CONCLUSIONS Features of severe obstructive arterial disease on the left side Features of moderate obstructive arterial disease on the right side Possible occlusion of the posterior tibial artery on the right side and dorsalis pedis artery on the left side Dr Fanny Tuttle MD [facility] (Electronically Signed) Duplex scan lower extremity artery UNABLE TO OBTAIN FLOW IN LT COUNTY PROGRAM TECHNICIAN AND LT DPA AT THIS TIME ABIS PERFORMED 04/09/20 Flow was detected in the femorofemoral bypass graft Monophasic Doppler waveform in the common femoral and superficial femoral arteries. Proximal SFA appeared to be stented Monophasic and continuous waveforms in the popliteal artery CONCLUSIONS #1. Patent femorofemoral bypass graft. #2. Patent stent in the proximal superficial femoral artery #3. Features suggestive of high-grade stenosis in the mid superficial femoral artery #4. Features suggestive of collateral filling in the popliteal artery. #5. No Doppler flow signals were noted in the posterior tibial or anterior tibial arteries Dr Fanny Tuttle MD [facility] (Electronically Signed) Final Date: 09 April 2020 Physical Exam Narrative: EXAM NARRATIVE: Thin frail middle-aged female Looks cachectic Awake alert oriented x3 GCS 15 no neurological deficit S1, S2 sinus rhythm Abdomen soft nontender bowel sound present No acute respite distress Left lower extremity below-knee is cold with paresthesias, slight bluish tinge to toes distally no significant mottling at the time of transfer Muscle mass loss Appropriate mood and affect No signs of gangrene at this point TS Data Data Completed and Pending: Completed Studies During Hospitalization Category Date Time Status CV ankle brachial index 72730 Urgen t Ultrasound 04/09/20 08:42 [place] [address] Urge nt Ultrasound 04/09/20 19:25 Completed Pending at discharge Category Date Time Status CT angio abd aort a runof 75798 Stat Cat Scan 04/09/20 16:40 Ordered Basic Metabolic P chris AM LABS Lab 04/10/20 04:00 Ordered Complete Blood Co unt w/Auto AM LABS Lab 04/10/20 04:00 Ordered PTT [Partial Thro mboplastin Time] T imed Lab 04/10/20 01:00 Ordered Platelet Count Q2 D Lab 04/11/20 04:00 Ordered Platelet Count Q2 D Lab 04/13/20 04:00 Ordered Labs from last 24 hours 04/09/20 04/09/20 04/09/20 15:18 11:15 11:15 WBC 7.1 RBC 3.27 L Hgb 10.8 L Hct 34.1 L MCV 104.3 H MCH 33.0 MCHC 31.7 RDW 15.6 H Plt Count 62 L MPV 11.9 H Neut % (Auto) 90.0 Lymph % (Auto) 3.5 [place] % (Auto) 5.6 Eos % (Auto) 0.1 Baso % (Auto) 0.1 Neut # (Auto) 6.42 Lymph # (Auto) 0.3 L [place] # (Auto) 0.4 Eos # (Auto) 0.0 Baso # (Auto) 0.0 Nucleated RBC % (a uto) 0 Nucleated RBCs # 0.0 PT 15.90 H INR 1.23 H APTT 37.4 H Sodium 137 Potassium 4.0 Chloride 98 Carbon Dioxide 21 L Anion Gap 22.0 H BUN 35 H Creatinine 7.0 H* GFR Calculation 5.9 L Glucose 75 Calculated Osmolal ity 291 Calcium 7.8 L Total Bilirubin 0.6 AST 45 H ALT 63 H Alkaline Phosphata se 203 H Total Protein 7.2 Albumin 3.6 Globulin 3.6 Vitals: Last Vital Signs Temp 99.0 F 04/09/20 23:23 Pulse 86 04/10/20 00:15 Resp 17 04/10/20 00:12 BP 102/44 04/10/20 00:12 Pulse Ox 94 04/10/20 00:12 TS Medications Medications Home Medications sevelamer carbonate 1,600 mg PO AC&BEDTIME #60 tab 07/29/19 [Rx Confirmed 04/09/20] albuterol sulfate 2.5 mg INHALATION QID PRN 10/06/19 [History Confirmed 04/09/20] albuterol sulfate [Ventolin HFA] 2 puff INHALATION Q4H PRN 10/06/19 [History Confirmed 04/09/20] budesonide 0.5 mg INHALATION BID PRN 10/06/19 [History Confirmed 04/09/20] metoprolol succinate 25 mg PO DAILY 10/06/19 [History Confirmed 04/09/20] ondansetron HCl 4 mg PO TID PRN 10/06/19 [History Confirmed 04/09/20] pantoprazole 40 mg PO BID #60 tab 10/10/19 [Rx Confirmed 04/09/20] aspirin 81 mg PO DAILY@21 04/09/20 [History Confirmed 04/09/20] atorvastatin [Lipitor] 40 mg PO DAILY 04/09/20 [History Confirmed 04/09/20] budesonide-formoterol [Symbicort] 2 puff INHALATION BID 04/09/20 [History Confirmed 04/09/20] calcium carbonate [Tums] 200 mg PO PRN 04/09/20 [History Confirmed 04/09/20] escitalopram oxalate [Lexapro] 10 mg PO DAILY 04/09/20 [History Confirmed 04/09/20] ipratropium-albuterol 3 ml INHALATION PRN 04/09/20 [History Confirmed 04/09/20] loperamide [Imodium A-D] 2 mg PO PRN 04/09/20 [History Confirmed 04/09/20] Active Medications Acetaminophen (Acetaminophen 325 Mg Tablet) 650 mg PO Q6H PRN PRN Reason: Mild/Mod Pain Or Temp >/= 101 Albuterol/Ipratropium (Ipratropium-Albuterol 3 Ml Neb) 3 ml INHALATION Q4H.RESPIRATORY PRN PRN Reason: SHORTNESS OF BREATH Last Admin: 04/10/20 00:12 Dose: 3 ml Documented by: Aspirin (Aspirin 81 Mg Ec Tablet) 81 mg PO DAILY@21 JOSE DANIEL Last Admin: 04/09/20 20:41 Dose: 81 mg Documented by: Atorvastatin Calcium (Atorvastatin 40 Mg Tablet) 40 mg PO DAILY JOSE DANIEL Budesonide (Budesonide 0.5 Mg/2 Ml Neb) 0.5 mg INHALATION BID.RESPIRATORY JOSE DANIEL Last Admin: 04/09/20 21:15 Dose: 0.5 mg Documented by: Escitalopram Oxalate (Escitalopram 10 Mg Tablet) [address] [facility] Heparin Sodium (Beef Lung) (Heparin 5,000 Unit/Ml Inj 1 Ml) 0 unit IV PRN PRN; Protocol PRN Reason: Heparin weight-base protocol Last Admin: 04/09/20 18:51 Dose: 2,700 unit Documented by: Heparin Sodium/Sodium Chloride (Heparin Drip) 25,000 unit in 500 mls @ 0 mls/hr IV .Q0M JOSE DANIEL; Protocol Last Admin: 04/09/20 18:51 Dose: 15 unit/kg/hr, 16.2 mls/hr Documented by: Metoprolol Succinate (Metoprolol Succinate Er (24 Hr) 25 Mg Tablet) 25 mg PO DAILY JOSE DANIEL Morphine Sulfate (Morphine 4 Mg/Ml Sdv 1 Ml) 4 mg IVP Q4H PRN PRN Reason: SEVERE PAIN Last Admin: 04/09/20 21:05 Dose: 4 mg Documented by: Ondansetron HCl (Ondansetron 2 Mg/Ml Sdv 2 Ml) 4 mg IVP Q8H PRN PRN Reason: vomiting, or N/V if npo Last Admin: 04/09/20 21:12 Dose: 4 mg Documented by: Pantoprazole Sodium (Pantoprazole Dr 40 Mg Tablet) 40 mg PO BID JOSE DANIEL Sevelamer Carbonate (Sevelamer 800 Mg Tablet) 1,600 mg PO AC&BEDTIME JOSE DANIEL Last Admin: 04/09/20 20:41 Dose: 1,600 mg Documented by: Discharge Plan Discharge Patient Disposition: Home Condition: Stable Prescriptions: No Action albuterol sulfate 2.5 mg /3 mL (0.083 %) solution for nebulization 2.5 mg inhalation QID PRN (Reason: Shortness Of Breath) RF: 0 ondansetron HCl 4 mg tablet 4 mg PO TID PRN (Reason: Nausea) RF: 0 budesonide 0.5 mg/2 mL suspension for nebulization 0.5 mg inhalation BID PRN (Reason: UNKNOWN) RF: 0 metoprolol succinate 25 mg tablet extended release 24 hr 25 mg PO DAILY RF: 0 albuterol sulfate [Ventolin HFA] 90 mcg/actuation HFA aerosol inhaler 2 puff INHALATION Q4H PRN (Reason: Shortness Of Breath) RF: 0 pantoprazole 40 mg Tablet,Delayed Release (Dr/Ec) 40 mg PO BID Qty: 60 RF: 0 sevelamer carbonate 800 mg Tablet 1,600 mg PO AC&BEDTIME Qty: 60 RF: 0 Lipitor 40 mg Tablet 40 mg PO DAILY RF: 0 ipratropium-albuterol 0.5 mg-3 mg(2.5 mg base)/3 mL Solution For Nebulization 3 ml INHALATION PRN RF: 0 Imodium A-D 2 mg Tablet 2 mg PO PRN RF: 0 Tums 200 mg calcium (500 mg) Tablet,Chewable 200 mg PO PRN RF: 0 Lexapro 10 mg Tablet 10 mg PO DAILY RF: 0 aspirin 81 mg tablet,delayed release (DR/EC) 81 mg PO DAILY@21 RF: 0 Symbicort 160-4.5 mcg/actuation HFA aerosol inhaler 2 puff INHALATION BID RF: 0 Discharge Orders: Discharge Order (Routine); Ordered 04/10/20 Ordered By: Urena Miguel Discharge Diet: Low Salt Discharge Activity: Use walker/crutches as instructed Transfer Attestations Time Spent in Transfer Care*: less than 30 min Specific Discharge Activities: Other discharge activites (optional): Transferred to [facility] Status at Transfer: Cognitive status at transfer: cognitively intact, Behavioral status at transfer: cooperative, Quality Metrics Clinical Quality Measures: During this hospital stay, did patient experience: VTE (Currently on heparin drip) Contraindication to Overlap Therapy: Other VTE Discharge Education: Education about treatment options/disease process Coding Level of Care Code Acute Cardiology Specialist for Ayshag Fwd Diagnoses Peripheral arterial disease I73.9 Hemodialysis graft malfunction T82.41XA Critical lower limb ischemia I99.8
[2020-04-10 01:24] LABS: SARS Covid-2 Antigen Negative (Negative)
--- NOTE | 2020-04-10 01:31 | PC.NURSE ---
heparin gtt running at 15 ml/hr (13.89 unit/kg/hr)
[2020-04-10 01:35] LABS: Partial Thromboplastin Time 153.5 SECONDS (23.9-36.7)
--- NOTE | 2020-04-10 01:39 | PC.NURSE ---
report called to Mariposa Bedoya RN at [facility], pt to transfer to room 2030
--- NOTE | 2020-04-10 01:45 | PC.NURSE ---
Critical PTT 153.5. Informed Dr Rivera of PTT and received direction to decrease heparin drip by 2units/kg/hr. Heparin drip now running at 13ml/hr after change. [facility] and wants patient to continue on the heparin drip during transport.
--- NOTE | 2020-04-10 01:47 | PC.NURSE ---
PTT 153.5, heparin gtt decreased to 13 ml/hr (12.04 units/kg/hr) per Dr Rivera
[2020-04-10 03:20] VITALS: BP 121/55; PULSE 105; O2SAT 95
--- NOTE | 2020-04-10 17:16 | PC.RESP ---
Smoking Cessation and Pulmonary Rehab information sent to patient.
== END 2020-04-10 02:15 | disposition short-term general hospital (02) | DRG 299 ==
LOC: ER 14:47 → CSU 15:04
PROVIDERS: Internal Medicine; Physician Assistant; Admitting Provider Student in an Organized Health Care Education/Training Program; Emergency Provider Emergency Medicine; PCP Internal Medicine; Visit Provider Student in an Organized Health Care Education/Training Program
DX: I73.9 Peripheral vascular disease, unspecified (principal); N18.6 End stage renal disease; T82.41XA Breakdown (mechanical) of vascular dialysis catheter, initial encounter; E87.2 Acidosis; I12.0 Hypertensive chronic kidney disease with stage 5 chronic kidney disease or end stage renal disease; I99.8 Other disorder of circulatory system; Z99.2 Dependence on renal dialysis; Z95.820 Peripheral vascular angioplasty status with implants and grafts; Z79.82 Long term (current) use of aspirin; K21.9 Gastro-esophageal reflux disease without esophagitis; I25.10 Atherosclerotic heart disease of native coronary artery without angina pectoris; D63.1 Anemia in chronic kidney disease; D69.6 Thrombocytopenia, unspecified; Z95.1 Presence of aortocoronary bypass graft; F17.210 Nicotine dependence, cigarettes, uncomplicated; Y65.8 Other specified misadventures during surgical and medical care; Y92.009 Unspecified place in unspecified non-institutional (private) residence as the place of occurrence of the external cause
CPT/HCPCS: 12345; 36415; 80053; 85025; 85610; 85730; 87426; 93922; 93926; 94640; 96372; 96375; 99282; J1644; J2270; J2405; J7030; J7626